=== PATIENT | male | born 1960 | race Caucasian/White ===

== ENCOUNTER 2018-12-06 12:48 | Emergency (ER) | payer OTHER ==
--- OUTSIDE RECORDS SUMMARY | 2018-12-06 13:00 | XMS REPORT ---
:1960 [facility] Address [facility] Justin Dr. Sylvester. [address] [place] [id number] Care Team Providers Name Role Phone Unavailable Unavailable Unavailable Problems This patient has no known problems. Allergies, Adverse Reactions, Alerts This patient has no known allergies or adverse reactions. Medications This patient has no known medications.
[2018-12-06] MEDS ORDERED: FENTANYL CITR 100 MCG/2 ML ONE ×2 (13:19→13:32)
[2018-12-06] MEDS ORDERED: ONDANSETRON 4 MG/2 ML VIAL ONE ×2 (13:36→14:12)
[2018-12-06] MEDS ORDERED: HYDROMORPHONE HCL 0.5 MG/0.5 ML INJ ONE ×2 (13:49→14:12)
[2018-12-06 13:53] LABS: Absolute Lymphocytes (CBC) 1.7 K/uL (0.7-4.9); Absolute Monocytes 0.4 K/uL (0.1-1.3); Absolute Neutrophil 7.6 K/uL (1.8-8.0); Basophils % 0.1 % (0-1.3); Hematocrit 45.6 % (39.6-49.0); Lymphocytes % 17.5 % (15.3-44.8); MPV 9.9 fL (7.6-11.3); Monocytes % 3.7 % (3.3-12.3); RBC Red Blood Cell Count 5.05 M/uL (4.33-5.43)
[2018-12-06 14:23] LABS: ALT/SGPT 31 U/L (12-78); AST/SGOT 26 U/L (15-37); Albumin 4.5 g/dL (3.4-5.0); Alkaline Phosphatase 152 U/L (45-117); BUN Blood Urea Nitrogen 19 mg/dL (7-18); Bicarbonate 19 mmol/L (21-32); Bilirubin Direct 0.6 mg/dL (0-0.2); Glucose Level 190 mg/dL (74-106); Lipase 141 U/L (73-393); Potassium 4.3 mmol/L (3.5-5.1); Protein, Total 8.6 g/dL (6.4-8.2); Sodium Level 141 mmol/L (136-145); Troponin (Emerg Dept Use Only) < 0.02 ng/mL (0.0-0.045)
--- NOTE | 2018-12-06 14:57 | RAD REPORT ---
EXAM DESCRIPTION: CT - Chest Abdomen Pelvis W Cont - 12/06/2018 2:35 pm CLINICAL HISTORY: Chest and abdominal pain COMPARISON: None TECHNIQUE: Computed axial tomography of the chest, abdomen and pelvis was obtained. 100 cc Isovue-30 0 was administered intravenously. Oral contrast was not given. This limits evaluation of bowel All CT scans are performed using dose optimization technique as appropriate and may include automated exposure control or mA/KV adjustment according to patient size. FINDINGS: The lungs are clear. No mediastinal or hilar lymphadenopathy A pleural effusion is not present. A pericardial effusion is not noted Old bilateral rib fractures A cirrhotic liver. The portal vein is patent. The gallbladder has been removed. Paraesophageal and upper abdominal varices Spleen, pancreas, adrenals and kidneys appear unremarkable. Small left renal cyst There is no evidence of diverticulitis. Normal appendix IMPRESSION: Old bilateral rib fractures Cirrhosis
[2018-12-06] MEDS ORDERED: LORazepam 2 MG/ML VIAL ONE (15:30)
[2018-12-06] MEDS ORDERED: PREGABALIN 150 MG CAP PO ONE (15:34)
[2018-12-06 16:00] LABS: Urine Blood TRACE (NEG); Urine Glucose NEGATIVE (NEG); Urine Protein 1+ (NEG); Urine pH 5.5 (5.0-7.0)
[2018-12-06 16:08] LABS: Barbiturates NEGATIVE (NEGATIVE); Benzodiazepines NEGATIVE (NEGATIVE); Cocaine NEGATIVE (NEGATIVE); METHAMPHETAM NEGATIVE (NEGATIVE); Methadone NEGATIVE (NEGATIVE); Opiates NEGATIVE (NEGATIVE); Phencyclidine NEGATIVE (NEGATIVE); THC Cannibis NEGATIVE (NEGATIVE)
[2018-12-06] MEDS ORDERED: NA CHLORIDE 0.9% 1,000 ML ONE (16:34)
--- NOTE | 2018-12-06 16:53 | EDPHYS ---
Physician Documentation [facility] Name: Andres Guerin Age: 57 yrs Sex: Male : 1960 Arrival Date: 12/06/2018 Time: 12:50 Bed 25 Private MD: ED Physician Daniel Leyva HPI: 12/06 16:48 This 57 yrs old Male presents to ER via EMS with complaints of Chest Pain, gs Abdominal Pain. 16:48 Onset: The symptoms/episode began/occurred acutely, today. The symptoms do not radiate. gs Associated signs and symptoms: Pertinent positives: nausea, palpitations. The symptoms are described as sharp. Modifying factors: The symptoms are alleviated by nothing, the symptoms are aggravated by nothing. Severity of pain: At its worst the pain was severe. The patient has not experienced similar symptoms in the past. Historical: - Allergies: 12:55 No Known Allergies; aj1 - Home Meds: 12:55 amlodipine oral [Active]; Buspirone Oral [Active]; citalopram oral [Active]; Lisinopril aj1 Oral [Active]; Omeprazole Oral [Active]; pravastatin oral oral [Active]; - PMHx: 12:55 Hyperlipidemia; Hypertension; Diabetes - NIDDM; aj1 - Immunization history:: Flu vaccine is not up to date. - Social history:: Smoking status: Patient/guardian denies using tobacco. - Ebola Screening: : Patient denies travel to an Ebola-affected area in the 21 days before illness onset. ROS: 16:48 Neuro: Positive for stopped lyrica a few days ago. gs 16:48 All other systems are negative. Exam: 16:48 Head/Face: Normocephalic, atraumatic. Eyes: Pupils equal round and reactive to light, gs extra-ocular motions intact. Lids and lashes normal. Conjunctiva and sclera are non-icteric and not injected. Cornea within normal limits. Periorbital areas with no swelling, redness, or edema. ENT: Nares patent. No nasal discharge, no septal abnormalities noted. Tympanic membranes are normal and external auditory canals are clear. Oropharynx with no redness, swelling, or masses, exudates, or evidence of obstruction, uvula midline. Mucous membranes moist. Neck: Trachea midline, no thyromegaly or masses palpated, and no cervical lymphadenopathy. Supple, full range of motion without nuchal rigidity, or vertebral point tenderness. No Meningismus. Chest/axilla: Normal chest wall appearance and motion. Nontender with no deformity. No lesions are appreciated. 16:48 Respiratory: Lungs have equal breath sounds bilaterally, clear to auscultation and percussion. No rales, rhonchi or wheezes noted. No increased work of breathing, no retractions or nasal flaring. Back: No spinal tenderness. No costovertebral tenderness. Full range of motion. MS/ Extremity: Pulses equal, no cyanosis. Neurovascular intact. Full, normal range of motion. Neuro: Awake and alert, GCS 15, oriented to person, place, time, and situation. Cranial nerves II-XII grossly intact. Motor strength 5/5 in all extremities. Sensory grossly intact. Cerebellar exam normal. Normal gait. 16:48 Constitutional: The patient appears alert, awake, diaphoretic, in obvious distress, severely distressed. 16:48 Cardiovascular: Rate: tachycardic, Rhythm: regular, Pulses: no pulse deficits are appreciated. 16:48 ECG was reviewed by the Attending Physician. 16:48 Skin: Appearance: diaphoresis is noted. Vital Signs: 12:55 BP 121 / 67; Pulse 86; Resp 16; Temp 98.3(O); Pulse Ox 96% on R/A; Weight 81.65 kg (R); aj1 Height 5 ft. 9 in. (175.26 cm) (R); Pain 8/10; 13:15 BP 152 / 98; Pulse 79; Resp 22; Pulse Ox 95% on R/A; aj1 13:45 BP 165 / 92; Pulse 86; Resp 22; Pulse Ox 94% on R/A; aj1 14:05 BP 172 / 107; Pulse 86; Resp 24; Pulse Ox 94% on R/A; aj1 15:05 BP 166 / 95; Pulse 97; Resp 20; Pulse Ox 97% on R/A; aj1 17:20 BP 144 / 99 LA; Pulse 95; Resp 19 S; Pulse Ox 97% on R/A; rv 12:55 Body Mass Index 26.58 (81.65 kg, 175.26 cm) aj1 MDM: 13:00 Patient medically screened. gs 16:48 Differential diagnosis: AAA, pancreatitis, Peptic Ulcer Disease, Perf. Gastric Ulcer. Data reviewed: vital signs, nurses notes, lab test result(s), EKG, radiologic studies. Medication response: ativan lyrica. Response to treatment: the patient's symptoms have markedly improved after treatment, the patient's condition has returned to base line, and as a result, I will discharge patient. 12/06 13:06 Order name: Basic Metabolic Panel; Complete Time: 14:29 gs 12/06 13:06 Order name: CBC with Diff; Complete Time: 13:59 gs 12/06 13:06 Order name: Hepatic Function; Complete Time: 14:29 gs 12/06 13:06 Order name: Lipase; Complete Time: 14:29 gs 12/06 13:06 Order name: Creatinine for Radiology; Complete Time: 14:29 gs 12/06 13:06 Order name: Troponin (emerg Dept Use Only); Complete Time: 14:29 gs 12/06 14:32 Order name: Chest Abdomen Pelvis W Cont; Complete Time: 14:58 EDMS 12/06 15:36 Order name: Urine Drug Screen; Complete Time: 16:13 rv 12/06 15:37 Order name: Urine Dipstick--Ancillary (enter results); Complete Time: 16:13 12/06 17:19 Order name: Glucose, Ancillary Testing; Complete Time: 17:20 EDMS 12/06 13:06 Order name: EKG; Complete Time: 13:08 12/06 13:06 Order name: EKG - Nurse/Tech; Complete Time: 13:06 12/06 13:06 Order name: IV Saline Lock; Complete Time: 13:28 12/06 13:06 Order name: Labs collected and sent; Complete Time: 13:28 gs EC:48 Rate is 89 beats/min. Rhythm is regular. KS interval is normal. QRS interval is normal. gs T waves are Normal. No ST changes noted. Clinical impression: Abnormal EKG without significant change. Interpreted by me. Administered Medications: 13:10 Drug: fentaNYL (PF) 50 mcg Route: IVP; Site: right antecubital; aj1 15:33 Follow up: Response: Pain is unchanged, physician notified rv 13:27 Drug: fentaNYL (PF) 50 mcg Route: IVP; Site: right antecubital; aj1 15:34 Follow up: Response: Pain is unchanged, physician notified rv 13:27 Drug: Zofran 4 mg Route: IVP; Site: right antecubital; aj1 15:34 Follow up: Response: Nausea is decreased rv 13:40 Drug: Dilaudid 0.5 mg Route: IVP; Site: right antecubital; aj1 15:34 Follow up: Response: Pain is unchanged, physician notified rv 14:04 Drug: Zofran 4 mg Route: IVP; Site: right antecubital; aj1 15:34 Follow up: Response: No adverse reaction rv 14:04 Drug: Dilaudid 0.5 mg Route: IVP; Site: right antecubital; aj1 15:35 Follow up: Response: Pain is decreased rv 15:30 Drug: Ativan 1 mg Route: IVP; Site: left antecubital; rv 17:18 Follow up: Response: Pain is decreased rv 15:30 Drug: Lyrica 300 mg Route: PO; rv 17:18 Follow up: Response: Pain is decreased rv 16:25 Drug: NS 0.9% 1000 ml Route: IV; Rate: 1 bolus; Site: right antecubital; rv 17:18 Follow up: IV Status: Completed infusion rv Point of Care Testing: Blood Glucose: 12:59 Blood Glucose: 185 mg/dL; aj1 Ranges: Critical Glucose Levels:Adult <50 mg/dl or >400 mg/dl <40 mg/dl or >180 mg/dl Disposition: 12/06/18 16:52 Discharged to Home. Impression: Chest pain, unspecified, Generalized abdominal pain, Other psychoactive substance dependence with withdrawal. - Condition is Stable. - Discharge Instructions: Abdominal Pain, Adult, Nonspecific Chest Pain, Managing Your Hypertension. - Prescriptions for Lyrica 100 mg Oral Capsule - take 1 capsule by ORAL route every 8 hours As needed; 15 capsule. - Medication Reconciliation Form, Thank You Letter, Antibiotic Education, Prescription Opioid Use form. - Follow up: Private Physician; When: 2 - 3 days; Reason: Re-evaluation by your physician. Signatures: Dispatcher [employer] Park Cevallos RN RN aj1 Daniel Leyva MD MD gs Vicente, Ronaldo, RN RN rv Corrections: (The following items were deleted from the chart) 14:32 13:07 Chest Abdomen W/ Con+CT.RAD.BRZ ordered. EDMS EDMS 17:20 16:52 12/06/2018 16:52 Discharged to Home. Impression: Chest pain, unspecified; rv Generalized abdominal pain; Other psychoactive substance dependence with withdrawal. Condition is Stable. Forms are Medication Reconciliation Form, Thank You Letter, Antibiotic Education, Prescription Opioid Use. Follow up: Private Physician; When: 2 - 3 days; Reason: Re-evaluation by your physician. gs
--- NOTE | 2018-12-06 16:53 | ER ---
Nurse's Notes [facility] Name: Andres Guerin Age: 57 yrs Sex: Male : 1960 Arrival Date: 12/06/2018 Time: 12:50 Bed 25 Private MD: Diagnosis: Chest pain, unspecified;Generalized abdominal pain;Other psychoactive substance dependence with withdrawal Presentation: 12/06 12:51 Acuity: MANOLO 2 aj1 12:51 Presenting complaint: Patient states: Right and left sided abdominal pain that started aj1 last night and became severe this morning. Denies N/V. Reports diarrhea. Patient is flushed, diaphoretic, shaking. Transition of care: patient was not received from another setting of care. Onset of symptoms was December 05, 2018. Risk Assessment: Do you want to hurt yourself or someone else? Patient reports no desire to harm self or others. Initial Sepsis Screen: Does the patient meet any 2 criteria? HR > 90 bpm. No. Patient's initial sepsis screen is negative. Does the patient have a suspected source of infection? Yes: Acute abdominal pain. Care prior to arrival: None. 12:51 Method Of Arrival: EMS: [facility] aj1 Historical: - Allergies: 12:55 No Known Allergies; aj1 - Home Meds: 12:55 amlodipine oral [Active]; Buspirone Oral [Active]; citalopram oral [Active]; Lisinopril aj1 Oral [Active]; Omeprazole Oral [Active]; pravastatin oral oral [Active]; - PMHx: 12:55 Hyperlipidemia; Hypertension; Diabetes - NIDDM; aj1 - Immunization history:: Flu vaccine is not up to date. - Social history:: Smoking status: Patient/guardian denies using tobacco. - Ebola Screening: : Patient denies travel to an Ebola-affected area in the 21 days before illness onset. Screenin:50 Abuse screen: Denies threats or abuse. Denies injuries from another. Nutritional aj1 screening: No deficits noted. Tuberculosis screening: No symptoms or risk factors identified. 17:19 Fall Risk None identified. rv Assessment: 12:50 General: Appears distressed, uncomfortable, Behavior is anxious, restless. Pain: aj1 Complains of pain in right lower quadrant and left lower quadrant Pain does not radiate. Pain currently is 10 out of 10 on a pain scale. Neuro: Level of Consciousness is awake, alert, obeys commands, Oriented to person, place, time, situation. Cardiovascular: Patient's skin is warm and dry. Respiratory: Reports shortness of breath at rest Airway is patent Respiratory effort is even, unlabored, Respiratory pattern is regular, symmetrical, Breath sounds are clear bilaterally. GI: Abdomen is non-distended, Bowel sounds present X 4 quads. Abd is soft X 4 quads Abdomen is tender to palpation X 4 quads. Reports lower abdominal pain, diarrhea, Patient currently denies nausea, vomiting. : No signs and/or symptoms were reported regarding the genitourinary system. EENT: No signs and/or symptoms were reported regarding the EENT system. Derm: Skin is intact, Skin is diaphoretic, Skin is flushed, Skin temperature is cool. Musculoskeletal: No signs and/or symptoms reported regarding the musculoskeletal system. Circulation, motion, and sensation intact. 13:19 Reassessment: Patient reports that his pain is unchanged since initial administration aj1 of Fentanyl. Patient remains flushed, diaphoretic. Notified Dr. Leyva order received. 13:40 Reassessment: Patient reports that he still has had no pain relief. Remains flushed, aj1 diaphoretic, crying. Notified Dr. Leyva. Order received. 14:04 Reassessment: Patient reports that he still has no pain relief. Remains diaphoretic, aj1 flushed, crying. Patient is also dry heaving at this time. Notified Dr. Leyva. Order received. 14:20 Reassessment: Notified CT that patient's creatinine is back and patient should be taken aj1 to CT as soon as the scanner is available. 14:50 Reassessment: Dr. Leyva at the bedside. aj1 Vital Signs: 12:55 BP 121 / 67; Pulse 86; Resp 16; Temp 98.3(O); Pulse Ox 96% on R/A; Weight 81.65 kg (R); aj1 Height 5 ft. 9 in. (175.26 cm) (R); Pain 8/10; 13:15 BP 152 / 98; Pulse 79; Resp 22; Pulse Ox 95% on R/A; aj1 13:45 BP 165 / 92; Pulse 86; Resp 22; Pulse Ox 94% on R/A; aj1 14:05 BP 172 / 107; Pulse 86; Resp 24; Pulse Ox 94% on R/A; aj1 15:05 BP 166 / 95; Pulse 97; Resp 20; Pulse Ox 97% on R/A; aj1 17:20 BP 144 / 99 LA; Pulse 95; Resp 19 S; Pulse Ox 97% on R/A; rv 12:55 Body Mass Index 26.58 (81.65 kg, 175.26 cm) aj1 ED Course: 12:50 Patient arrived in ED. aj1 12:50 Allergy band placed. Bed in low position. Call light in reach. Side rails up X 1. aj1 satellite project site monitor on. Pulse ox on. NIBP on. 12:50 No provider procedures requiring assistance completed. aj1 12:51 Triage completed. aj1 12:51 Daniel Leyva MD is Attending Physician. gs 12:55 Arm band placed on. aj1 12:59 Park Malagon RN is Primary Nurse. aj1 12:59 Inserted saline lock: 20 gauge in left antecubital area, using aseptic technique. tm3 13:05 EKG done, by artificial breeding technician. reviewed by Daniel Leyva MD. dt2 13:10 Radiology exam delayed due to lab results not completed at this time. (BUN/Creatinine). jg6 14:34 CT completed. Patient tolerated procedure well. Patient moved to CT via stretcher. sj Patient moved back from CT. 14:35 Chest Abdomen Pelvis W Cont In Process Unspecified. EDMS 15:17 Report given to BARBI Parisi. aj1 17:19 IV discontinued, bleeding controlled, No redness/swelling at site. Pressure dressing rv applied. Administered Medications: 13:10 Drug: fentaNYL (PF) 50 mcg Route: IVP; Site: right antecubital; aj1 15:33 Follow up: Response: Pain is unchanged, physician notified rv 13:27 Drug: fentaNYL (PF) 50 mcg Route: IVP; Site: right antecubital; aj1 15:34 Follow up: Response: Pain is unchanged, physician notified rv 13:27 Drug: Zofran 4 mg Route: IVP; Site: right antecubital; aj1 15:34 Follow up: Response: Nausea is decreased rv 13:40 Drug: Dilaudid 0.5 mg Route: IVP; Site: right antecubital; aj1 15:34 Follow up: Response: Pain is unchanged, physician notified rv 14:04 Drug: Zofran 4 mg Route: IVP; Site: right antecubital; aj1 15:34 Follow up: Response: No adverse reaction rv 14:04 Drug: Dilaudid 0.5 mg Route: IVP; Site: right antecubital; aj1 15:35 Follow up: Response: Pain is decreased rv 15:30 Drug: Ativan 1 mg Route: IVP; Site: left antecubital; rv 17:18 Follow up: Response: Pain is decreased rv 15:30 Drug: Lyrica 300 mg Route: PO; rv 17:18 Follow up: Response: Pain is decreased rv 16:25 Drug: NS 0.9% 1000 ml Route: IV; Rate: 1 bolus; Site: right antecubital; rv 17:18 Follow up: IV Status: Completed infusion rv Point of Care Testing: Blood Glucose: 12:59 Blood Glucose: 185 mg/dL; aj1 Ranges: Outcome: 16:52 Discharge ordered by . 17:19 Discharged to home ambulatory. rv 17:19 Condition: good 17:19 Discharge instructions given to patient, family, Instructed on discharge instructions, follow up and referral plans. medication usage, Demonstrated understanding of instructions, follow-up care, medications, Prescriptions given X 1. 17:20 Patient left the ED. rv Signatures: Dispatcher [employer] EDMS Park Malagon RN RN aj1 Corby Sawyer 3 Kell Honeycutt Gregory, MD MD Stefany Delong dt2 Jose Kevin RN RN Kristina Narayanan jg6
== END 2018-12-06 17:20 | disposition home or self-care (01) ==
LOC: ER 12:48
DX: R10.84 Generalized abdominal pain (principal); F19.239 Other psychoactive substance dependence with withdrawal, unspecified; I10 Essential (primary) hypertension; E11.9 Type 2 diabetes mellitus without complications; E78.5 Hyperlipidemia, unspecified
CPT/HCPCS: 93005; 85025; 80048; 36415; 82962; 80076; 80307 ×8; 81003; 84484; 83690; 71260; 74177; Q9967; J3010 ×2; J1170 ×2; J7030; J2405 ×2; 99285

== ENCOUNTER 2019-05-02 18:36 | Emergency (ER) | payer OTHER ==
--- OUTSIDE RECORDS SUMMARY | 2019-05-02 18:38 | XMS REPORT ---
:1960 [facility] Justin Sylvester. [address] [place] [id number] Care Team Providers Name Role Phone Unavailable Unavailable Unavailable Problems This patient has no known problems. Allergies, Adverse Reactions, Alerts This patient has no known allergies or adverse reactions. Medications This patient has no known medications.
--- NOTE | 2019-05-02 19:53 | ER ---
Nurse's Notes [facility] Name: Andres Guerin Age: 58 yrs Sex: Male : 1960 Arrival Date: 05/02/2019 Time: 18:40 Bed 14 Private MD: Diagnosis: Cellulitis of right lower limb Presentation: 05/02 18:59 Presenting complaint: Patient states: I cut myself with a lawn ariel on and la1 I think its a little infected. Transition of care: patient was not received from another setting of care. Onset of symptoms was May 02, 2019. Risk Assessment: Do you want to hurt yourself or someone else? Patient reports no desire to harm self or others. Initial Sepsis Screen: Does the patient meet any 2 criteria? No. Patient's initial sepsis screen is negative. Does the patient have a suspected source of infection? No. Patient's initial sepsis screen is negative. Care prior to arrival: None. 18:59 Method Of Arrival: Ambulatory la1 18:59 Acuity: MANOLO 3 la1 Triage Assessment: 20:30 General: Behavior is calm, cooperative. lc1 Historical: - Allergies: 19:00 No Known Allergies; la1 - PMHx: 19:00 Diabetes - NIDDM; Hyperlipidemia; Hypertension; la1 - Immunization history:: Adult Immunizations up to date, Last tetanus immunization: unknown. - Social history:: Smoking status: Patient/guardian denies using tobacco. - Ebola Screening: : No symptoms or risks identified at this time. Screenin:40 Abuse screen: Denies threats or abuse. Nutritional screening: No deficits noted. lc1 Tuberculosis screening: No symptoms or risk factors identified. Fall Risk None identified. Assessment: 19:40 General: Appears in no apparent distress. comfortable. Pain: Denies pain. Neuro: No lc1 deficits noted. Cardiovascular: No deficits noted. Respiratory: Airway is patent Respiratory effort is even, unlabored. GI: No signs and/or symptoms were reported involving the gastrointestinal system. : No signs and/or symptoms were reported regarding the genitourinary system. EENT: No signs and/or symptoms were reported regarding the EENT system. Derm: Wound noted right leg Wound is Wound to lower right gillespie area, red with yellow slough, patient states last he was edging in the yard and the blade caught his shoelace and hit his leg. he has been cleaning it but there is some redness. patient states he is diabetic and worried about it getting infected. Musculoskeletal: No signs and/or symptoms reported regarding the musculoskeletal system. Vital Signs: 19:00 BP 173 / 118; Pulse 86; Resp 16; Temp 97.4; Pulse Ox 98% on R/A; Weight 81.65 kg; la1 Height 5 ft. 9 in. (175.26 cm); 20:00 BP 180 / 108; Pulse 77; Resp 18; Pulse Ox 99% on R/A; lc1 19:00 Body Mass Index 26.58 (81.65 kg, 175.26 cm) la1 ED Course: 18:40 Patient arrived in ED. mr 19:00 Triage completed. la1 19:01 Arm band placed on right wrist. la1 19:17 Daniel Leyva MD is Attending Physician. 19:26 Nela Mendoza is Primary Nurse. 1 19:40 Patient has correct armband on for positive identification. Bed in low position. Call lc1 light in reach. Adult w/ patient. 20:29 No provider procedures requiring assistance completed. Patient did not have IV access lc1 during this emergency room visit. Administered Medications: No medications were administered Outcome: 19:52 Discharge ordered by . 20:29 Discharged to home ambulatory. 1 20:29 Condition: good 20:29 Discharge instructions given to patient, significant other, Instructed on discharge instructions, medication usage, Demonstrated understanding of instructions, follow-up care, medications, wound care, Prescriptions given X 1. 20:31 Patient left the ED. 1 Signatures: Nicky Brantley mr MendozaNela 1 Chico Kaufman, RN RN oh1 Daniel Leyva MD MD Corrections: (The following items were deleted from the chart) 19:00 18:59 Acuity: MANOLO 4 la1 la1
--- NOTE | 2019-05-02 19:54 | EDPHYS ---
Physician Documentation [facility] Name: Andres Guerin Age: 58 yrs Sex: Male : 1960 Arrival Date: 05/02/2019 Time: 18:40 Bed 14 Private MD: ED Physician Daniel Leyva HPI: 05/02 19:44 This 58 yrs old Male presents to ER via Ambulatory with complaints of Wound gs Infection. 19:44 The patient has a laceration related to: doing yard work. The laceration(s) is(are) gs located on the right gillespie. Onset: The symptoms/episode began/occurred 5 day(s) ago. Associated signs and symptoms: Pertinent positives: redness pain no fever, Pertinent negatives: heavy bleeding, numbness distal to injury. The patient has not experienced similar symptoms in the past. Historical: - Allergies: 19:00 No Known Allergies; la1 - PMHx: 19:00 Diabetes - NIDDM; Hyperlipidemia; Hypertension; la1 - Immunization history:: Adult Immunizations up to date, Last tetanus immunization: unknown. - Social history:: Smoking status: Patient/guardian denies using tobacco. - Ebola Screening: : No symptoms or risks identified at this time. ROS: 19:44 All other systems are negative. gs Exam: 19:44 Eyes: Pupils equal round and reactive to light, extra-ocular motions intact. Lids and gs lashes normal. Conjunctiva and sclera are non-icteric and not injected. Cornea within normal limits. Periorbital areas with no swelling, redness, or edema. Cardiovascular: Regular rate and rhythm with a normal S1 and S2. No gallops, murmurs, or rubs. Normal PMI, no JVD. No pulse deficits. Respiratory: Lungs have equal breath sounds bilaterally, clear to auscultation and percussion. No rales, rhonchi or wheezes noted. No increased work of breathing, no retractions or nasal flaring. Abdomen/GI: Soft, non-tender, with normal bowel sounds. No distension or tympany. No guarding or rebound. No evidence of tenderness throughout. MS/ Extremity: Pulses equal, no cyanosis. Neurovascular intact. Full, normal range of motion. Neuro: Awake and alert, GCS 15, oriented to person, place, time, and situation. Cranial nerves II-XII grossly intact. Motor strength 5/5 in all extremities. Sensory grossly intact. Cerebellar exam normal. Normal gait. 19:44 Constitutional: The patient appears alert, awake. 19:44 Skin: cellulitis, that is mild, on the right gillespie, injury, laceration(s), the wound is approximately 4 cm(s), with a depth of 1 cm(s), of the right gillespie. Vital Signs: 19:00 BP 173 / 118; Pulse 86; Resp 16; Temp 97.4; Pulse Ox 98% on R/A; Weight 81.65 kg; la1 Height 5 ft. 9 in. (175.26 cm); 20:00 BP 180 / 108; Pulse 77; Resp 18; Pulse Ox 99% on R/A; lc1 19:00 Body Mass Index 26.58 (81.65 kg, 175.26 cm) la1 MDM: 19:34 Patient medically screened. 19:44 Differential diagnosis: cellulitis, infected wound. Data reviewed: vital signs, nurses notes. Administered Medications: No medications were administered Disposition: 05/02/19 19:52 Discharged to Home. Impression: Cellulitis of right lower limb. - Condition is Stable. - Discharge Instructions: Cellulitis, Adult. - Prescriptions for Bactrim DS 800- 160 mg Oral Tablet - take 1 tablet by ORAL route every 12 hours for 7 days; 14 tablet. - Medication Reconciliation Form, Thank You Letter, Antibiotic Education, Prescription Opioid Use form. - Follow up: Private Physician; When: 2 - 3 days; Reason: Re-evaluation by your physician. Signatures: Nela Mendoza 1 [place] Kaufman RN RN [facility] Daniel Leyva MD MD Corrections: (The following items were deleted from the chart) 20:31 19:52 05/02/2019 19:52 Discharged to Home. Impression: Cellulitis of right lower limb. 1 Condition is Stable. Forms are Medication Reconciliation Form, Thank You Letter, Antibiotic Education, Prescription Opioid Use. Follow up: Private Physician; When: 2 - 3 days; Reason: Re-evaluation by your physician.
[2019-05-02] MEDS ORDERED: SMZ./TMP. 800/160 MG TABLET ONE (19:57)
== END 2019-05-02 20:31 | disposition home or self-care (01) ==
LOC: ER 18:36
DX: L03.115 Cellulitis of right lower limb (principal); I10 Essential (primary) hypertension

== ENCOUNTER 2021-01-13 23:22 | Inpatient (IN) | payer OTHER ==
--- OUTSIDE RECORDS SUMMARY | 2021-01-13 23:26 | XMS REPORT | Continuity of Care Document ---
:1960 Author Organization [facility] t Address [address] [place] [address] Care Team Providers Name Role Phone Gui MCLAUGHLIN Attending Clinician Problems This patient has no known problems. Allergies, Adverse Reactions, Alerts This patient has no known allergies or adverse reactions. Medications This patient has no known medications. Procedures This patient has no known procedures. Encounters Start End Encounter Admission Attending Care Care Encounter Source Date/Time Date/Time Type Type Clinicians Facility Department ID 2020-08-28 2020-08-28 Emergency [facility] [id number] 1965 08:31:00 10:57:00 [facility] [id number] [place] [id number] [place] [id number] Results Test Description Test Time Test Comments Results Result Comments Source POC Glucose 2019-09-15 10:42:53 Test Item Value Reference Range Interpretation Comme nts Glucose POC (test code = 160 mg/dL 70-115 H Not carey RN or MDIf you consider your Glucose POC) patient critica lly ill, the Debby-Accu Chec k Infrom II meter should not be u sed for Glucose determination. Draw a venous Glucose and send to the main Lab for analysis. POC [id number] 06:30:01 Test Item Value Reference Range Interpretation Comments Glucose POC (test 163 mg/dL 70-115 H Notify RN or MDIf you code = Glucose POC) consider your patient critically ill, the Debby-Accu Chec k Infrom II meter should not be used for Glucos e determination. Draw a venous Glucose and send to the main Lab for analysis. POC [id number] 20:14:50 Test Item Value Reference Range Interpretation Comments Glucose POC (test 161 mg/dL 70-115 H If you con core placer your code = Glucose POC) patient critically ill, the Debby-Accu Check Infrom II meter should not be used for Glucose determination. Draw a venous Glucose and send to the main Lab for analysis. POC [id number] 15:02:57 Test Item Value Reference Range Interpretation Comments Glucose POC (test 144 mg/dL 70-115 H Notify RN or MDIf you code = Glucose POC) consider your patient critically ill, the Debby-Accu Chec k Infrom II meter should not be used for Glucos e determination. Draw a venous Glucose and send to the main Lab for analysis. POC [id number] 11:14:36 Test Item Value Reference Range Interpretation Comments Glucose POC (test 173 mg/dL 70-115 H Notify RN or MDIf you code = Glucose POC) consider your patient critically ill, the Debby-Accu Chec k Infrom II meter should not be used for Glucos e determination. Draw a venous Glucose and send to the main Lab for analysis. POC [id number] 06:21:50 Test Item Value Reference Range Interpretation Comments Glucose POC (test 135 mg/dL 70-115 H Notify RN or MDIf you code = Glucose POC) consider your patient critically ill, the Debby-Accu Chec k Infrom II meter should not be used for Glucos e determination. Draw a venous Glucose and send to the main Lab for analysis. POC [id number] 19:28:55 Test Item Value Reference Range Interpretation Comments Glucose POC (test 128 mg/dL 70-115 H Notify RN or MDIf you code = Glucose POC) consider your patient critically ill, the Debby-Accu Chec k Infrom II meter should not be used for Glucos e determination. Draw a venous Glucose and send to the main Lab for analysis. Thyroid Stimulating [id number] 15:30:55 Test Item Value Reference Range Interpretation Comments TSH (test code = TSH) 0.926 mIU/mL 0.270-4.200 POC [id number] 15:25:28 Test Item Value Reference Range Interpretation Comments Glucose POC (test 138 mg/dL 70-115 H If you con core placer your code = Glucose POC) patient critically ill, the Debby-Accu Check Infrom II meter should not be used for Glucose determination. Draw a venous Glucose and send to the main Lab for analysis. Lipid [id number] 14:57:37 Test Item Value Reference Range Interpretation Comments Cholesterol Total 155 mg/dL 0-200 RISK OF HE ART (test code = DISEASEPublishe d by Cholesterol Total) [place] [employer] Zoey lyte Optimal Borderl ine Increased RiskC HOL <200 200-239 >2 40TRIG <150 150-199 >2 00HDL Male >60 <40H DL Female >60 <5 0LDL <100 130-159 >1 60LDL Near optimal is 100-129 Triglycerides (test 98 mg/dL 9-200 code = Triglycerides) HDL (test code = HDL) 60 mg/dL 40-60 LDL (test code = LDL) 75 mg/dL 0-130 The eq uation being used in this calcula tion is LDL = (Chol - H DL) - (Trig / 5) VLDL (test code = 20 mg/dL 5-40 The equati on being used VLDL) in this calcula tion is VLDL = Trig / 5 Chol/HDL (test code = 2.6 ratio 0.0-5.0 Chol/HDL) LDL/HDL Ratio (test 1 N The equa tion being used code = LDL/HDL Ratio) in thi s calculation is LDL/HDL Ratio=L DL Calc/HDL Chol RPR [id number] 12:22:43 Test Item Value Reference Range Interpretation Comments RPR Qual (test code = RPR Qual) Non-Reactive Non-Reactive Reactive Control (test code = Reactive Reactive Control) Weak Reactive Control (test Weak Reactive code = Weak Reactive Control) Non-Reactive Control (test code Non-Reactive = Non-Reactive Control) Lot # (test code = Lot #) [id number] N Expiration Dt (test code = 07-06-20 N Expiration Dt) Urine [id number] 11:34:40 C Urine Added by [id number]_UA_CUL_INDNo growth at 24 hours. No growth at 48 hours.POC [id number] 11:14:46 Test Item Value Reference Range Interpretation Comments Glucose POC (test 171 mg/dL 70-115 H If you con core placer your code = Glucose POC) patient critically ill, the Debby-Accu Check Infrom II meter should not be used for Glucose determination. Draw a venous Glucose and send to the main Lab for analysis. POC [id number] 08:41:45 Test Item Value Reference Range Interpretation Comments Glucose POC (test 163 mg/dL 70-115 H If you con core placer your code = Glucose POC) patient critically ill, the Debby-Accu Check Infrom II meter should not be used for Glucose determination. Draw a venous Glucose and send to the main Lab for analysis. POC [id number] 05:38:51 Test Item Value Reference Range Interpretation Comments Glucose POC (test 146 mg/dL 70-115 H Notify RN or MDIf you code = Glucose POC) consider your patient critically ill, the Debby-Accu Chec k Infrom II meter should not be used for Glucos e determination. Draw a venous Glucose and send to the main Lab for analysis. POC [id number] 15:39:16 Test Item Value Reference Range Interpretation Comments Glucose POC (test 172 mg/dL 70-115 H Notify RN or MDIf you code = Glucose POC) consider your patient critically ill, the Debby-Accu Chec k Infrom II meter should not be used for Glucos e determination. Draw a venous Glucose and send to the main Lab for analysis. Urine Drug [id number] 14:11:43 Test Item Value Reference Range Interpretation Comments Amphetamine Screen Ur Negative Negative (test code = Amphetamine Screen Ur) Barbiturate Screen Ur Negative Negative (test code = Barbiturate Screen Ur) Benzodiazepines Ur (test POSITIVE Negative A code = Benzodiazepines Ur) Cocaine Screen Ur (test Negative Negative code = Cocaine Screen Ur) U Methadone Scr (test Negative Negative code = U Methadone Scr) Opiate Screen Ur (test Negative Negative code = Opiate Screen Ur) U PCP Scrn (test code = Negative Negative U PCP Scrn) Cannabinoid Screen Ur Negative Negative (test code = Cannabinoid Screen Ur) U TCA (test code = U Negative Negative The res ults of all TCA) drug screen cullen ts are only preliminar y. Clinical consideration a nd professional ju dgment should be appli ed to any drug of abu se test result, particularly wh en preliminary pos itive results are obt ained. Please order a separate confir matory test if desired . Urinalysis [id number] 13:55:31 Test Item Value Reference Range Interpretation Comments UA WBC (test code = UA WBC) 11-19 0-5 A UA RBC (test code = UA RBC) 11-19 0-5 A UA Bacteria (test code = UA Few A Bacteria) UA Squam Epithelial (test code = UA 6-10 A Squam Epithelial) UA Trans Epithelial (test code = UA 1-4 A Trans Epithelial) UA Mucous (test code = UA Mucous) Moderate A Urinalysis with Culture, if [id number] 13:55:31 Test Item Value Reference Range Interpretation Comments UA Color (test code = LINNETTE Yellow A UA Color) UA Appear (test code = CLEAR Clear UA Appear) UA pH (test code = UA 6.5 pH) UA Spec Grav (test 1.028 1.001-1.035 code = UA Spec Grav) UA Glucose (test code 100 mg/dL Negative A = UA Glucose) UA Bili (test code = 1 mg/dL Negative A UA Bili) UA Ketones (test code 150 mg/dL Negative A = UA Ketones) UA Blood (test code = 250 cells/mcL Negative A UA Blood) UA Protein (test code 500 mg/dL Negative A = UA Protein) UA Urobilinogen (test 4 mg/dL >0.2 A code = UA Urobilinogen) UA Nitrite (test code NEG Negative = UA Nitrite) UA Leuk Est (test code 25 cells/mcL Negative A = UA Leuk Est) UA Micro Ind? (test Indicated Not Indicated A Result created by code = UA Micro Ind?) rule [id number] _IN D Alcohol [id number] 12:41:12 Test Item Value Reference Range Interpretation Comments Ethanol Level (test <0.00 g/dL 0.00-0.01 Intoxica june 0.080 g/dL code = Ethanol or more Level) Ethanol Inst (test <0 N code = Ethanol Inst) Comprehensive Metabolic [id number] 12:41:11 Test Item Value Reference Range Interpretation Comments Sodium Level (test code = Sodium 140.0 mmol/L 135.0-145.0 Level) Potassium Level (test code = 4.0 mmol/L 3.5-5.1 Potassium Level) Chloride Level (test code = 103 mmol/L 98-105 Chloride Level) CO2 (test code = CO2) 24 mmol/L 22-29 Anion Gap (test code = Anion 13 mmol/L 7-16 Gap) BUN (test code = BUN) 12.20 mg/dL 6.00-20.00 Creatinine Level (test code = 0.90 mg/dL 0.70-1.20 Creatinine Level) BUN/Creat Ratio (test code = 14 N BUN/Creat Ratio) Glucose Level (test code = 219 mg/dL 70-115 H Glucose Level) Calcium Level (test code = 9.9 mg/dL 8.3-10.5 Calcium Level) Alk Phos (test code = Alk Phos) 105 U/L 40-129 Bilirubin Total (test code = 1.7 mg/dL 0.1-0.9 H Bilirubin Total) Albumin Level (test code = 4.7 g/dL 3.5-5.2 Albumin Level) Protein Total (test code = 7.9 g/dL 6.4-8.3 Protein Total) ALT (test code = ALT) 24 U/L 1-41 AST (test code = AST) 30 U/L 1-40 Globulin (test code = Globulin) 3.2 g/dL 2.9-3.1 H A/G Ratio (test code = A/G 1.5 ratio N Ratio) Comprehensive Metabolic [id number] 12:41:11 Test Item Value Reference Range Interpretation Comments Sodium Level (test 140.0 mmol/L 135.0-145.0 code = Sodium Level) Potassium Level 4.0 mmol/L 3.5-5.1 (test code = Potassium Level) Chloride Level (test 103 mmol/L 98-105 code = Chloride Level) CO2 (test code = 24 mmol/L 22-29 CO2) Anion Gap (test code 13 mmol/L 7-16 = Anion Gap) BUN (test code = 12.20 mg/dL 6.00-20.00 BUN) Creatinine Level 0.90 mg/dL 0.70-1.20 (test code = Creatinine Level) BUN/Creat Ratio 14 N (test code = BUN/Creat Ratio) Glucose Level (test 219 mg/dL 70-115 H code = Glucose Level) Calcium Level (test 9.9 mg/dL 8.3-10.5 code = Calcium Level) Alk Phos (test code 105 U/L 40-129 = Alk Phos) Bilirubin Total 1.7 mg/dL 0.1-0.9 H (test code = Bilirubin Total) Albumin Level (test 4.7 g/dL 3.5-5.2 code = Albumin Level) Protein Total (test 7.9 g/dL 6.4-8.3 code = Protein Total) ALT (test code = 24 U/L 1-41 ALT) AST (test code = 30 U/L 1-40 AST) Globulin (test code 3.2 g/dL 2.9-3.1 H = Globulin) A/G Ratio (test code 1.5 ratio N = A/G Ratio) eGFR AA (test code = >60 N eGFR (e stimated eGFR AA) mL/min/1.73 m2 Glomerular Filtration Rate ) is an estimated va lue, calculated from the patient's serum creatinine usin g the MDRD equation. It is NOT the patient 's actual GFR. The eGFR provides a more clinically usef ul measure of kidn ey disease than se rum creatinine alone.This calculation bunny es sex and race in to account, if the information is provided. If th e race is not provided, and t he patient is -Nirmala n, multiply by 1.2 12. If sex is not provided, and t he patient is fema le, multiply by 0.7 42. Results for pat ients <18 years of ag e have not been validated by th e MDRD study and should be interpreted wit h caution. eGFR R esult Interpretation: eGFR > or = 60 is in the Normal RangeeGF R < 60 may mean kid jose diseaseeGFR < 1 5 may mean kidney failure Rang es recommended by the National Kidney Foundation, http://nkdep.ni h.gov Comprehensive Metabolic [id number] 12:41:11 Test Item Value Reference Range Interpretation Comments Sodium Level (test 140.0 mmol/L 135.0-145.0 code = Sodium Level) Potassium Level 4.0 mmol/L 3.5-5.1 (test code = Potassium Level) Chloride Level (test 103 mmol/L 98-105 code = Chloride Level) CO2 (test code = 24 mmol/L 22-29 CO2) Anion Gap (test code 13 mmol/L 7-16 = Anion Gap) BUN (test code = 12.20 mg/dL 6.00-20.00 BUN) Creatinine Level 0.90 mg/dL 0.70-1.20 (test code = Creatinine Level) BUN/Creat Ratio 14 N (test code = BUN/Creat Ratio) Glucose Level (test 219 mg/dL 70-115 H code = Glucose Level) Calcium Level (test 9.9 mg/dL 8.3-10.5 code = Calcium Level) Alk Phos (test code 105 U/L 40-129 = Alk Phos) Bilirubin Total 1.7 mg/dL 0.1-0.9 H (test code = Bilirubin Total) Albumin Level (test 4.7 g/dL 3.5-5.2 code = Albumin Level) Protein Total (test 7.9 g/dL 6.4-8.3 code = Protein Total) ALT (test code = 24 U/L 1-41 ALT) AST (test code = 30 U/L 1-40 AST) Globulin (test code 3.2 g/dL 2.9-3.1 H = Globulin) A/G Ratio (test code 1.5 ratio N = A/G Ratio) eGFR AA (test code = >60 N eGFR (e stimated eGFR AA) mL/min/1.73 m2 Glomerular Filtration Rate ) is an estimated va lue, calculated from the patient's serum creatinine usin g the MDRD equation. It is NOT the patient 's actual GFR. The eGFR provides a more clinically usef ul measure of kidn ey disease than se rum creatinine alone.This calculation bunny es sex and race in to account, if the information is provided. If th e race is not provided, and t he patient is -Nirmala n, multiply by 1.2 12. If sex is not provided, and t he patient is fema le, multiply by 0.7 42. Results for pat ients <18 years of ag e have not been validated by th e MDRD study and should be interpreted wit h caution. eGFR R esult Interpretation: eGFR > or = 60 is in the Normal RangeeGF R < 60 may mean kid jose diseaseeGFR < 1 5 may mean kidney failure Rang es recommended by the National Kidney Foundation, http://nkdep.ni h.gov eGFR Non-AA (test >60.00 N eGFR (cira mated code = eGFR Non-AA) mL/min/1.73 m2 Glomer ular Filtration Rate ) is an estimated va lue, calculated from the patient's serum creatinine usin g the MDRD equation. It is NOT the patient 's actual GFR. The eGFR provides a more clinically usef ul measure of kidn ey disease than se rum creatinine alone.This calculation bunny es sex and race in to account, if the information is provided. If th e race is not provided, and t he patient is -Nirmala n, multiply by 1.2 12. If sex is not provided, and t he patient is fema le, multiply by 0.7 42. Results for pat ients <18 years of ag e have not been validated by th e MDRD study and should be interpreted wit h caution. eGFR R esult Interpretation: eGFR > or = 60 is in the Normal RangeeGF R < 60 may mean kid jose diseaseeGFR < 1 5 may mean kidney failure Rang es recommended by the National Kidney Foundation, http://nkdep.ni h.gov Complete Blood Count with [id number] 12:34:46 Test Item Value Reference Range Interpretation Comments WBC (test code = WBC) 9.3 x10 4.4-10.5 RBC (test code = RBC) 5.31 x10 4.10-5.70 Hgb (test code = Hgb) 16.5 g/dL 13.4-17.4 Hct (test code = Hct) 47.6 % 38.7-52.0 MCV (test code = MCV) 89.60 fL 80.00-100.00 MCHC (test code = 34.70 g/dL 32.00-37.50 MCHC) RDW CV (test code = 12.1 % 11.5-14.5 RDW CV) MCH (test code = MCH) 31.1 pg 27.0-32.5 Platelets (test code = 152.0 x10 140.0-440.0 Platelets) MPV (test code = MPV) 10.7 fL N Slide Review (test Auto Auto Result cr eated by code = Slide Review) GL_SJM_ SLIDE_REV_AUTO nRBC (test code = 0 N nRBC) NRBC Abs (test code = 0.00 x10 N NRBC Abs) IPF (test code = IPF) 0 % N Automated [id number] 12:34:46 Test Item Value Reference Range Interpretation Comments Neutro Auto (test code = Neutro 56.4 % 36.0-70.0 Auto) Lymph Auto (test code = Lymph Auto) 36.4 % 12.0-44.0 Perkins Auto (test code = Perkins Auto) 5.5 % 0.0-11.0 Eos, Auto (test code = Eos, Auto) 1.2 % 0.0-7.0 Basophil Auto (test code = Basophil 0.3 % 0.0-2.0 Auto) Neutro Absolute (test code = Neutro 5.3 x10 1.6-7.4 Absolute) Lymph Absolute (test code = Lymph 3.39 x10 .50-4.60 Absolute) Perkins Absolute (test code = Perkins .51 x10 .00-1.20 Absolute) Eos Absolute (test code = Eos 0.11 x10 0.00-0.74 Absolute) Baso Absolute (test code = Baso 0.03 x10 0.00-0.21 Absolute) IG [id number] 12:34:46 Test Item Value Reference Range Interpretation Comments IG (test code = IG) 0.2 % 0.0-5.0 IG Abs (test code = IG Abs) 0 x10 N
[2021-01-14 00:10] LABS: Arterial Blood Carboxyhemoglob 1.7 % (0-1.5); Blood Gas Oxyhemoglobin 95.9 % (94-97); Blood O2 Saturation 98.4 % (92-98.5)
[2021-01-14 00:22] LABS: Absolute Lymphocytes (CBC) 2.5 K/uL (0.7-4.9); Basophils % 0.1 % (0-1.3); Hematocrit 31.7 % (39.6-49.0); Lymphocytes % 21.8 % (15.3-44.8); MPV 9.9 fL (7.6-11.3); RBC Red Blood Cell Count 3.59 M/uL (4.33-5.43)
[2021-01-14 00:26] LABS: Protime INR 1.4
[2021-01-14] MEDS ORDERED: NA CHLORIDE 0.9% 2,000 ML ONE (00:26)
[2021-01-14] MEDS ORDERED: CEFTRIAXONE/SWI 1gm 1 GM/10 ML SYR ONE (00:26)
[2021-01-14] MEDS ORDERED: FAMOTIDINE 20 MG/2 ML VIAL IV ONE (00:26)
[2021-01-14 00:44] LABS: ALT/SGPT 28 U/L (12-78); AST/SGOT 14 U/L (15-37); Albumin 3.8 g/dL (3.4-5.0); Alkaline Phosphatase 114 U/L (45-117); BUN Blood Urea Nitrogen 31 mg/dL (7-18); Bicarbonate 19 mmol/L (21-32); Bilirubin Direct 0.5 mg/dL (0-0.2); Bilirubin Total 1.6 mg/dL (0.2-1.0); Lipase 38 U/L (73-393); Magnesium 1.5 mg/dL (1.8-2.4); NT PRO-BNP 116 pg/mL (<125); Potassium 3.4 mmol/L (3.5-5.1); Protein, Total 6.8 g/dL (6.4-8.2); Sodium Level 136 mmol/L (136-145); Troponin (Emerg Dept Use Only) < 0.02 ng/mL (0.0-0.045)
[2021-01-14 00:46] LABS: Glucose Level 515 mg/dL (74-106)
--- NOTE | 2021-01-14 01:03 | EDPHYS ---
Physician Documentation [facility] Name: Andres Guerin Age: 60 yrs Sex: Male : 1960 Arrival Date: 01/13/2021 Time: 23:25 Bed 17 Private MD: ED Physician Pan Wallace HPI: 01/13 23:50 This 60 yrs old Male presents to ER via EMS with complaints of weakness, billie elevated bs and ams. Historical: - Allergies: 23:48 No Known Allergies; jm8 - Home Meds: 23:48 pravastatin Oral [Active]; lisinopril Oral [Active]; amlodipine oral [Active]; jm8 Buspirone Oral [Active]; citalopram oral [Active]; Omeprazole Oral [Active]; - PMHx: 23:48 Diabetes - NIDDM; Hyperlipidemia; Hypertension; jm8 - Immunization history:: Adult Immunizations up to date. - Social history:: Smoking status: Patient reports use of chewing tobacco. Patient uses synthetic marijuana per EMS report from family. "quit cold turkey on Wednesday", Patient/guardian denies using Patient/guardian denies using alcohol, street drugs. ROS: 23:52 Constitutional: Negative for fever, chills, and weight loss, Eyes: Negative for injury, billie pain, redness, and discharge, ENT: Negative for injury, pain, and discharge, Neck: Negative for injury, pain, and swelling, Abdomen/GI: Negative for abdominal pain, nausea, vomiting, diarrhea, and constipation, Back: Negative for injury and pain, : Negative for injury, bleeding, discharge, and swelling, MS/Extremity: Negative for injury and deformity, Skin: Negative for injury, rash, and discoloration, Neuro: Negative for headache, weakness, numbness, tingling, and seizure, Psych: Negative for depression, anxiety, suicide ideation, homicidal ideation, and hallucinations, Allergy/Immunology: Negative for hives, rash, and allergies, Endocrine: Negative for neck swelling, polydipsia, polyuria, polyphagia, and marked weight changes. 23:52 Cardiovascular: Positive for palpitations. 23:52 Respiratory: Positive for cough. 23:52 Neuro: Positive for altered mental status, weakness. Exam: 23:52 Constitutional: This is a well developed, well nourished patient who is awake, alert, billie and in no acute distress. Head/Face: Normocephalic, atraumatic. Eyes: Pupils equal round and reactive to light, extra-ocular motions intact. Lids and lashes normal. Conjunctiva and sclera are non-icteric and not injected. Cornea within normal limits. Periorbital areas with no swelling, redness, or edema. ENT: Nares patent. No nasal discharge, no septal abnormalities noted. Tympanic membranes are normal and external auditory canals are clear. Oropharynx with no redness, swelling, or masses, exudates, or evidence of obstruction, uvula midline. Mucous membranes moist. Neck: Trachea midline, no thyromegaly or masses palpated, and no cervical lymphadenopathy. Supple, full range of motion without nuchal rigidity, or vertebral point tenderness. No Meningismus. Chest/axilla: Normal chest wall appearance and motion. Nontender with no deformity. No lesions are appreciated. Respiratory: Lungs have equal breath sounds bilaterally, clear to auscultation and percussion. No rales, rhonchi or wheezes noted. No increased work of breathing, no retractions or nasal flaring. Abdomen/GI: Soft, non-tender, with normal bowel sounds. No distension or tympany. No guarding or rebound. No evidence of tenderness throughout. Back: No spinal tenderness. No costovertebral tenderness. Full range of motion. Skin: Warm, dry with normal turgor. Normal color with no rashes, no lesions, and no evidence of cellulitis. MS/ Extremity: Pulses equal, no cyanosis. Neurovascular intact. Full, normal range of motion. Psych: Awake, alert, with orientation to person, place and time. Behavior, mood, and affect are within normal limits. 23:52 Cardiovascular: Rate: tachycardic, Rhythm: regular, Pulses: Pulses are 4+ in bilateral radial, brachial, femoral, popliteal, posterior tibial and and dorsalis pedis arteries.. Heart sounds: murmur, not appreciated, rub, not appreciated, gallop, not appreciated, Edema: is not appreciated, JVD: is not appreciated. 01/14 01:05 ECG was reviewed by the Attending Physician. [facility] Vital Signs: 01/13 23:33 BP 157 / 96; Pulse 106; Resp 18; Pulse Ox 98% on R/A; lc1 23:39 BP 157 / 96; Pulse 107; Resp 20; Temp 98; Pulse Ox 100% on R/A; Weight 86.18 kg; Height jm8 5 ft. 9 in. (175.26 cm); 01/14 00:00 BP 148 / 95; Pulse 105; Resp 18; Pulse Ox 98% on R/A; lc1 01:00 BP 141 / 101; Pulse 109; Resp 18; Pulse Ox 98% on R/A; lc1 02:00 BP 145 / 101; Pulse 116; Resp 18; Pulse Ox 100% on R/A; lc1 03:00 BP 139 / 78; Pulse 102; Resp 18; Pulse Ox 98% on R/A; 1 01/13 23:39 Body Mass Index 28.06 (86.18 kg, 175.26 cm) jm8 MDM: 01/13 23:28 Patient medically screened. billie 23:56 Differential diagnosis: DKA, hyperglycemia, hypothyroidism. Differential Diagnosis billie altered mental status, sepsis, flu. Differential Diagnosis: CVA, electrolyte abnormality, alcohol intoxication, hypoglycemia, intracranial bleed, overdose, pneumonia, seizure, TIA, UTI, volume depletion. Data reviewed: vital signs, nurses notes, lab test result(s), EKG, radiologic studies. Data interpreted: monitor and storage bin tender: rate is 107 beats/min, rhythm is regular, Pulse oximetry: on room air is 100 %. Test interpretation: by ED physician or midlevel provider: ECG, plain radiologic studies. Counseling: I had a detailed discussion with the patient and/or guardian regarding: the historical points, exam findings, and any diagnostic results supporting the discharge/admit diagnosis, lab results, radiology results, the need for further work-up and treatment in the hospital. 01/13 23:50 Order name: Basic Metabolic Panel [facility] 01/13 23:50 Order name: CBC with Diff 01/13 23:50 Order name: LFT's 01/13 23:50 Order name: Magnesium [facility] 01/13 23:50 Order name: NT PRO-BNP 01/13 23:50 Order name: PT-INR [facility] 01/13 23:50 Order name: Troponin (emerg Dept Use Only) [facility] 01/13 23:50 Order name: Lipase; Complete Time: 00:56 [facility] 01/13 23:50 Order name: Blood Culture Adult (2) [facility] 01/13 23:50 Order name: Urine Culture [facility] 01/13 23:50 Order name: ABG; Complete Time: 00:40 [facility] 01/13 23:50 Order name: Lactate; Complete Time: 00:42 [facility] 01/13 23:50 Order name: Basic Metabolic Panel; Complete Time: 00:56 [facility] 01/13 23:50 Order name: CBC with Automated Diff; Complete Time: 00:42 [facility] 01/13 23:50 Order name: Liver (Hepatic) Function; Complete Time: 00:56 [facility] 01/13 23:50 Order name: Magnesium; Complete Time: 00:56 [facility] 01/13 23:50 Order name: NT PRO-BNP; Complete Time: 00:56 [facility] 01/13 23:50 Order name: Troponin (Emerg Dept Use Only); Complete Time: 00:56 [facility] 01/13 23:52 Order name: ETOH Level; Complete Time: 00:42 [facility] 01/13 23:52 Order name: Ptt, Activated; Complete Time: 00:56 [facility] 01/13 23:52 Order name: Salicylate; Complete Time: 00:42 [facility] 01/13 23:52 Order name: Urine Drug Screen; Complete Time: 01:20 [facility] 01/13 23:59 Order name: Glucose, Ancillary Testing; Complete Time: 00:42 [facility] 01/14 00:15 Order name: Protime (+INR); Complete Time: 00:56 [facility] 01/14 00:18 Order name: Acetaminophen Level; Complete Time: 00:56 [facility] 01/14 01:12 Order name: Urine Dipstick-Ancillary; Complete Time: 01:52 [facility] 01/13 23:50 Order name: XRAY Chest (1 view) [facility] 01/13 23:50 Order name: EKG; Complete Time: 23:51 [facility] 01/13 23:50 Order name: Cardiac monitoring; Complete Time: 00:54 [facility] 01/13 23:50 Order name: EKG - Nurse/Tech; Complete Time: 00:54 [facility] 01/13 23:50 Order name: IV Saline Lock; Complete Time: 00:08 [facility] 01/13 23:50 Order name: Labs collected and sent; Complete Time: 00:08 [facility] 01/13 23:50 Order name: O2 Per Protocol; Complete Time: 00:08 [facility] 01/13 23:50 Order name: O2 Sat Monitoring; Complete Time: 00:08 [facility] 01/13 23:50 Order name: Urine Dipstick-Ancillary (obtain specimen); Complete Time: 00:54 [facility] 01/13 23:50 Order name: CT Head Brain wo Cont [facility] 01/13 23:50 Order name: Blood Glucose Level; Complete Time: 00:55 [facility] 01/14 01:21 Order name: Misc. Order: Recheck BMP after 2L bolus, call with results please; Complete la1 Time: 02:53 01/14 02:54 Order name: BMP lc1 01/14 02:56 Order name: COVID-19/FLU A+B EDMS 01/14 03:30 Order name: Basic Metabolic Panel; Complete Time: 03:35 EDMS EC/11 01:05 Rate is 105 beats/min. Rhythm is regular. QRS [place] is Normal. HI interval is normal. billie QRS interval is normal. QT interval is normal. No Q waves. T waves are Normal. No ST changes noted. Clinical impression: NSR w/ Non-specific ST/T Changes and No evidence of ischemia. Interpreted by me. Reviewed by me. Administered Medications: 00:25 Drug: NS 0.9% 1000 ml Route: IV; Rate: 1 bolus; Site: right antecubital; lc1 01:58 Follow up: Response: No adverse reaction; IV Status: Completed infusion lc1 00:30 Drug: Rocephin (cefTRIAXone) 1 grams Route: IV; Rate: per protocol; Site: right [facility] antecubital; 00:53 Follow up: Response: No adverse reaction lc1 01:58 Follow up: Response: No adverse reaction; IV Status: Completed infusion lc1 00:30 Drug: Pepcid (famotidine) 20 mg Route: IVP; Site: right antecubital; lc1 00:52 Follow up: Response: No adverse reaction lc1 01:11 Drug: Insulin Regular Human 10 units {Co-Signature: jm8 (Melquiades Gill RN).} Route: lc1 IVP; Site: right antecubital; 01:25 Follow up: Response: No adverse reaction lc1 01:12 Drug: Magnesium Sulfate 1 grams Route: IVPB; Infused Over: 1 hrs; Site: right 1 antecubital; 03:25 Follow up: Response: No adverse reaction; IV Status: Completed infusion lc1 01:24 Drug: NS 0.9% with KCl 20 mEq/L 1000 ml Route: IV; Rate: 150 ml/hr; Site: right lc1 antecubital; 04:07 Follow up: Response: No adverse reaction; IV Status: Infusion continued upon admission lc1 01:59 Drug: NS 0.9% 1000 ml Route: IV; Rate: 1 bolus; Site: right antecubital; lc1 02:20 Drug: Zofran (Ondansetron) 4 mg Route: IVP; Site: left hand; lc1 03:25 Follow up: Response: No adverse reaction lc1 Disposition: 01/14/21 01:03 Hospitalization ordered by Juanito Rodgers for Inpatient Admission. Preliminary diagnosis are Altered mental status, unspecified, Abuse of non-psychoactive substances, Hypomagnesemia, Hypokalemia, Type 1 diabetes mellitus - POORLY CONTROLLED. - Bed requested for Telemetry/MedSurg (Inpatient). - Status is Inpatient Admission. jm8 - Condition is Fair. - Problem is new. - Symptoms have improved. Signatures: Dispatcher [employer] [facility] Mavis Parish, Pan Cronin RN, MD MD cha Calhoun, Lisa 1 [place] Kaufman, [employer]-C [employer]-Cla1 Melquiades Gill RN RN jm8 Melquiades Gill RN jm8 Corrections: (The following items were deleted from the chart) 00:15 01/13 23:50 Protime (+INR) ordered. [facility] 01/14 00:18 01/13 23:52 ACETAMINOPHEN+C.LAB.BRZ ordered. [facility] 01/14 01:42 01/13 23:51 Influenza Screen (A \\T\\ B)+BA.LAB.BRZ ordered. [facility] 01/14 01:42 01/13 23:51 CORONAVIRUS+MR.LAB.BRZ ordered. [facility] 01/14 03:25 01/13 23:52 Suicide Screening ([place]) ordered. [place] [id number] 01/14 03:48 01:03 Hospitalization Ordered by Juanito Rodgers MD for Inpatient Admission. Preliminary mw diagnosis is Altered mental status, unspecified; Abuse of non-psychoactive substances; Hypomagnesemia; Hypokalemia; Type 1 diabetes mellitus - POORLY CONTROLLED. Bed requested for Telemetry/MedSurg (Inpatient). Status is Inpatient Admission. Condition is Fair. Problem is new. Symptoms have improved. billie 04:31 03:48 01/14/2021 01:03 Hospitalization Ordered by Juanito Rodgers MD for Inpatient jm8 Admission. Preliminary diagnosis is Altered mental status, unspecified; Abuse of non-psychoactive substances; Hypomagnesemia; Hypokalemia; Type 1 diabetes mellitus - POORLY CONTROLLED. Bed requested for Telemetry/MedSurg (Inpatient). Status is Inpatient Admission. Condition is Fair. Problem is new. Symptoms have improved. mw
--- NOTE | 2021-01-14 01:03 | ER ---
Nurse's Notes [facility] Name: Andres Guerin Age: 60 yrs Sex: Male : 1960 Arrival Date: 01/13/2021 Time: 23:25 Bed 17 Private MD: Diagnosis: Altered mental status, unspecified;Abuse of non-psychoactive substances;Hypomagnesemia;Hypokalemia;Type 1 diabetes mellitus-POORLY CONTROLLED Presentation: 01/13 23:39 Chief complaint:. Chief complaint: EMS states: patient has been noncompliant with [facility] diabetic [facility]. Pt. complains of nausea and vomiting today. States he used synthetic weed last week. BG greater than 600 for EMS. Coronavirus screen: Client denies travel out of the [place] in the last 14 days. At this time, the client does not indicate any symptoms associated with coronavirus-19. Ebola Screen: Patient negative for fever greater than or equal to 101.5 degrees Fahrenheit, and additional compatible Ebola Virus Disease symptoms Patient denies exposure to infectious person. Patient denies travel to an Ebola-affected area in the 21 days before illness onset. Initial Sepsis Screen: Does the patient meet any 2 criteria? HR > 90 bpm. No. Patient's initial sepsis screen is negative. Does the patient have a suspected source of infection? No. Patient's initial sepsis screen is negative. Risk Assessment: Do you want to hurt yourself or someone else?. Onset of symptoms was January 13, 2021. 23:39 Method Of Arrival: EMS: [place] [id number] 23:39 Acuity: MANOLO 3 jm8 Historical: - Allergies: 23:48 No Known Allergies; jm8 - Home Meds: 23:48 pravastatin Oral [Active]; lisinopril Oral [Active]; amlodipine oral [Active]; jm8 Buspirone Oral [Active]; citalopram oral [Active]; Omeprazole Oral [Active]; - PMHx: 23:48 Diabetes - NIDDM; Hyperlipidemia; Hypertension; jm8 - Immunization history:: Adult Immunizations up to date. - Social history:: Smoking status: Patient reports use of chewing tobacco. Patient uses synthetic marijuana per EMS report from family. "quit cold turkey on Wednesday", Patient/guardian denies using Patient/guardian denies using alcohol, street drugs. Screenin/11 03:00 Abuse screen: Denies threats or abuse. Nutritional screening: No deficits noted. lc1 Tuberculosis screening: No symptoms or risk factors identified. Fall Risk None identified. No fall in past 12 months (0 pts). No secondary diagnosis (0 pts). IV access (20 points). Ambulatory Aid- None/Bed Rest/Nurse Assist (0 pts). Gait- Weak (10 pts.). Mental Status- Overestimates/Forgets Limitations (15 pts.). Total To Fall Scale indicates High Risk Score (45 or more points). Fall prevention measures have been instituted. Side Rails Up X 2 Placed Close to Nursing Station Frequent Obs/Assessments Occuring. Assessment: 00:00 General: Appears distressed, unkempt, Behavior is cooperative, restless, Reports lc1 feeling ill for 0-12 hours. Pain: Denies pain. 00:00 Neuro: Level of Consciousness is awake, alert, confused, Oriented to person, place, lc1 tremors noted to bilateral arms. Cardiovascular: Denies chest pain, palpitations, Rhythm is sinus rhythm. Respiratory: Airway is patent Trachea midline Respiratory effort is even, unlabored, Respiratory pattern is regular, symmetrical, Breath sounds are clear bilaterally. GI: No signs and/or symptoms were reported involving the gastrointestinal system. GI: No signs and/or symptoms were reported involving the gastrointestinal system. Parent/caregiver reports the patient having nausea, vomiting. : No signs and/or symptoms were reported regarding the genitourinary system. EENT: No signs and/or symptoms were reported regarding the EENT system. Derm: No signs and/or symptoms reported regarding the dermatologic system. Musculoskeletal: No signs and/or symptoms reported regarding the musculoskeletal system. 01:00 Reassessment: No changes from previously documented assessment. Patient and/or family lc1 updated on plan of care and expected duration. Pain level reassessed. Patient is alert, oriented x 3, equal unlabored respirations, skin warm/dry/pink. pt still remains intermittently confused, peed in corner of room after being given urinal, frequent reorientation . 02:00 Reassessment: No changes from previously documented assessment. Patient and/or family lc1 updated on plan of care and expected duration. Pain level reassessed. Patient is alert, oriented x 3, equal unlabored respirations, skin warm/dry/pink. 03:00 Reassessment: No changes from previously documented assessment. Patient and/or family lc1 updated on plan of care and expected duration. Pain level reassessed. Patient is alert, oriented x 3, equal unlabored respirations, skin warm/dry/pink. . 04:00 Reassessment: No changes from previously documented assessment. Patient and/or family lc1 updated on plan of care and expected duration. Pain level reassessed. Patient is alert, oriented x 3, equal unlabored respirations, skin warm/dry/pink. Vital Signs: 01/13 23:33 BP 157 / 96; Pulse 106; Resp 18; Pulse Ox 98% on R/A; lc1 23:39 BP 157 / 96; Pulse 107; Resp 20; Temp 98; Pulse Ox 100% on R/A; Weight 86.18 kg; Height [facility] 5 ft. 9 in. (175.26 cm); 01/14 00:00 BP 148 / 95; Pulse 105; Resp 18; Pulse Ox 98% on R/A; lc1 01:00 BP 141 / 101; Pulse 109; Resp 18; Pulse Ox 98% on R/A; lc1 02:00 BP 145 / 101; Pulse 116; Resp 18; Pulse Ox 100% on R/A; lc1 03:00 BP 139 / 78; Pulse 102; Resp 18; Pulse Ox 98% on R/A; lc1 01/13 23:39 Body Mass Index 28.06 (86.18 kg, 175.26 cm) [facility] ED Course: 01/13 00:00 Patient has correct armband on for positive identification. Placed in gown. Bed in low lc1 position. Side rails up X2. 00:00 No provider procedures requiring assistance completed. Inserted saline lock: 20 gauge lc1 in left wrist, using aseptic technique. 23:25 Patient arrived in ED. jm8 23:28 Pan Wallace MD is Attending Physician. billie 23:38 Nela Mendoza is Primary Nurse. 1 23:40 critical care clinical nurse specialist on. Pulse ox on. NIBP on. 1 23:46 Triage completed. jm8 23:48 Arm band placed on right wrist. 8 01/14 00:00 Awaiting lab results, Awaiting radiology results. 1 00:07 XRAY Chest (1 view) In Process Unspecified. EDMS 00:07 PT-INR Sent. lc1 00:07 Troponin (emerg Dept Use Only) Sent. lc1 00:35 CT Head Brain wo Cont In Process Unspecified. EDMS 00:54 Basic Metabolic Panel Sent. lc1 00:54 CBC with Diff Sent. lc1 00:54 LFT's Sent. lc1 00:54 Magnesium Sent. lc1 00:54 NT PRO-BNP Sent. lc1 00:59 Juanito Rodgers MD is Hospitalizing Provider. billie 04:31 Patient admitted, IV remains in place. jm8 Administered Medications: 00:25 Drug: NS 0.9% 1000 ml Route: IV; Rate: 1 bolus; Site: right antecubital; lc1 01:58 Follow up: Response: No adverse reaction; IV Status: Completed infusion lc1 00:30 Drug: Rocephin (cefTRIAXone) 1 grams Route: IV; Rate: per protocol; Site: right lc1 antecubital; 00:53 Follow up: Response: No adverse reaction lc1 01:58 Follow up: Response: No adverse reaction; IV Status: Completed infusion lc1 00:30 Drug: Pepcid (famotidine) 20 mg Route: IVP; Site: right antecubital; lc1 00:52 Follow up: Response: No adverse reaction lc1 01:11 Drug: Insulin Regular Human 10 units {Co-Signature: jmCasey (Melquiades Gill RN).} Route: lc1 IVP; Site: right antecubital; 01:25 Follow up: Response: No adverse reaction lc1 01:12 Drug: Magnesium Sulfate 1 grams Route: IVPB; Infused Over: 1 hrs; Site: right lc1 antecubital; 03:25 Follow up: Response: No adverse reaction; IV Status: Completed infusion lc1 01:24 Drug: NS 0.9% with KCl 20 mEq/L 1000 ml Route: IV; Rate: 150 ml/hr; Site: right lc1 antecubital; 04:07 Follow up: Response: No adverse reaction; IV Status: Infusion continued upon admission lc1 01:59 Drug: NS 0.9% 1000 ml Route: IV; Rate: 1 bolus; Site: right antecubital; lc1 02:20 Drug: Zofran (Ondansetron) 4 mg Route: IVP; Site: left hand; lc1 03:25 Follow up: Response: No adverse reaction [facility] Outcome: 01:03 Decision to Hospitalize by Provider. billie 04:02 Admitted to Med/surg accompanied by nurse, via wheelchair, with chart, Report called to miryam Mandel RN 04:02 Condition: stable 04:02 Instructed on the need for admit. 04:31 Patient left the ED. jm8 Signatures: Dispatcher [employer] EDOR Pan Wallace MD MD cha Calhoun, Lisa [facility] Melquiades Gill RN RN jm8 Joseph Malcaba RN jm8 Corrections: (The following items were deleted from the chart) 01:42 00:53 CORONAVIRUS+MR.LAB.BRZ drawn and sent. [facility] EDMS 01:42 00:53 Influenza Screen (A \\T\\ B)+BA.LAB.BRZ drawn and sent. [facility] EDMS 03:47 03:26 General: Appears distressed, unkempt, Behavior is cooperative, restless, Reports [facility] feeling ill for 0-12 hours, [facility] 03:47 03:26 Pain: Denies pain. [facility] 03:49 03:26 Neuro: Level of Consciousness is awake, alert, confused, Oriented to person, lc1 place, tremors noted to bilateral arms. [facility] :49 03:26 Cardiovascular: Denies chest pain, palpitations, Rhythm is sinus rhythm [facility] 03:49 03:26 Respiratory: Airway is patent Trachea midline Respiratory effort is even, lc1 unlabored, Respiratory pattern is regular, symmetrical, Breath sounds are clear bilaterally. 1 :49 03:26 GI: No signs and/or symptoms were reported involving the gastrointestinal system. 1 1 :49 03:26 : No signs and/or symptoms were reported regarding the genitourinary system. [facility] :49 03:26 EENT: No signs and/or symptoms were reported regarding the EENT system. 1 1 :49 03:26 Derm: No signs and/or symptoms reported regarding the dermatologic system. 1 1 :49 03:26 Musculoskeletal: No signs and/or symptoms reported regarding the musculoskeletal 1 system. 1 :49 03:26 GI: No signs and/or symptoms were reported involving the gastrointestinal system. lc1 Parent/caregiver reports the patient having nausea, vomiting, lc1 04:31 04:[address] [facility] jm8
[2021-01-14 01:12] LABS: Barbiturates NEGATIVE (NEGATIVE); Benzodiazepines NEGATIVE (NEGATIVE); Cocaine NEGATIVE (NEGATIVE); METHAMPHETAM NEGATIVE (NEGATIVE); Methadone NEGATIVE (NEGATIVE); Opiates NEGATIVE (NEGATIVE); Phencyclidine NEGATIVE (NEGATIVE); THC Cannibis NEGATIVE (NEGATIVE)
[2021-01-14 01:13] LABS: Urine Blood Trace-intact (Negative); Urine Glucose 2+ (Negative); Urine Protein Negative (Negative)
[2021-01-14] MEDS ORDERED: INSULIN -REGULAR HUMAN 50 UNIT/0.5 ML ML ONE (01:29)
[2021-01-14] MEDS ORDERED: NS KCL 20MEQ 1,000 ML IV ONE (01:29)
[2021-01-14] MEDS ORDERED: MAGNESIUM SULFATE 1 gm IVPB 1 GM/100 ML BAG IV ONE (01:29)
--- NOTE | 2021-01-14 01:42 | P.HP ---
Certification for Inpatient Patient admitted to: Inpatient With expected LOS: >2 Midnights Patient will require the following post-hospital care: None Practitioner: I am a practitioner with admitting privileges, knowledge of patient current condition, hospital course, and medical plan of care. Services: Services provided to patient in accordance with Admission requirements found in Title 42 Section 412.3 of the Code of Federal Regulations Patient History Date of Service: 01/14/21 Reason for admission: AMS History of Present Illness: 60-year-old male with history of diabetes, hypertension, hyperlipidemia presents emergency department for altered mental status, hyperglycemia. Patient was picked up by EMS, reportedly somebody on scene inf ormed them that he was also using synthetic marijuana. Evaluation in the emergency department, labs significant for potassium 3.4, CO2 19, BUN 31, GFR 74 glucose 515 magnesium 1.5 T. bili 1.6 d bili 0.5 ABG pH 7.53 pCO2 21.5 white blood cell count 11.4 hemoglobin 10[address] head without acute findings chest x-ray unremarkable. Patient not currently acidotic, anion gap is 15, patient does not appear to be in full-blown DKA but appears borderline. Will recheck BMP after fluid bolus and insulin in the emergency department. - Past Medical/Surgical History -: Diabetes mellitus type 2-insulin dependent -: Hypertension -: Hyperlipidemia -: Left ankle surgery Psychosocial/ Personal History: Unable to obtain - Family History Father History Unknown: Yes - Social History Smoking Status: Unknown if ever smoked Alcohol use: No CD- Drugs: No Caffeine use: No Place of Residence: Home Review of Systems is unable to be obtained Physical Examination - Physical Exam General: Alert, In no apparent distress, Oriented x2 HEENT: Atraumatic, Normocephalic, Other (Mucous membranes dry) Neck: Supple Respiratory: Clear to auscultation bilaterally, Normal air movement Cardiovascular: No edema, Irregular heart rate/rhythm (Sinus tachycardia) Gastrointestinal: Normal bowel sounds, Soft and benign Musculoskeletal: No swelling, No contractures, No erythema Integumentary: No breakdown, No significant lesion, No tenderness/swelling Neurological: Normal speech, Normal strength at 5/5 x4 extr, Normal tone, Sensation intact - Studies Laboratory Data (last 24 hrs) 01/13/21 23:59: PT 16.2 H, INR 1.40, APTT 26.4 01/13/21 23:59: WBC 11.40 H, Hgb 10.5 L, Hct 31.7 L, Plt Count 139 L 01/13/21 23:59: Sodium 136, Potassium 3.4 L, BUN 31 H, Creatinine 1.02, Glucose 515 H*, Magnesium 1.5 L, Total Bilirubin 1.6 H, AST 14 L, ALT 28, Alkaline Phosphatase 114, Lipase 38 L 01/13/21 23:50: PT Cancelled, INR Cancelled Assessment and Plan - Plan Assessment Metabolic encephalopathy Diabetes mellitus type 2-insulin dependent with hyperglycemia Hypertension, hyperlipidemia Plan Metabolic encephalopathy: EMS reports that additional personnel on scene reported patient used synthetic marijuana, this could certainly be contributing to his mental status at that time. Also borderline DKA at this time could also be contributing. Will continue to monitor patient's mental status closely, continue treatment of hyperglycemia. DVT prophylaxis Lovenox 40 mg subcutaneous once daily. Anticipate clinical improvement over the next 24-48 hr. Diabetes mellitus type 2-insulin dependent with hyperglycemia: Will recheck chemistry after bolus in the emergency department, as long as anion gap has closed with the patient to floor and continued a.c. HS Accu-Cheks, sliding scale insulin therapy. A1c with morning labs. If patient conditioned. May require insulin drip. Patient not sure if his current Levemir dose at home, will need to have medications verified. Is also been reported the patient has not been taking his medication over the course of the last week or 2. Hypertension, hyperlipidemia: Continue home medications as appropriate. Discharge Plan: Home Plan to discharge in: 48 Hours - Advance Directives Does patient have a Living Will: No Does patient have a Durable POA for Healthcare: No - Code Status/Comfort Care Code Status Assessed: Yes (Full code) Critical Care: No Time Spent Managing Pts Care (In Minutes): 55
[2021-01-14] MEDS ORDERED: ONDANSETRON 4 MG/2 ML VIAL ONE (02:20)
[2021-01-14 02:56] LABS: SARS-COV-2 RT PCR NEGATIVE (NEGATIVE)
[2021-01-14 03:30] LABS: BUN Blood Urea Nitrogen 27 mg/dL (7-18); Bicarbonate 21 mmol/L (21-32); Glucose Level 216 mg/dL (74-106); Potassium 3.1 mmol/L (3.5-5.1); Sodium Level 142 mmol/L (136-145)
[2021-01-14] MEDS: NS KCL 20MEQ 20 MEQ/1,000 ML BAG IV SCH ×6 (04:43→20:31)
[2021-01-14] MEDS ORDERED: ACETAMINOPHEN 500 MG TAB PO PRN (04:43)
[2021-01-14] MEDS ORDERED: ONDANSETRON 4 MG/2 ML VIAL IV PRN (04:43)
[2021-01-14 04:51] VITALS: BMI 24.8
[2021-01-14 05:13] LABS: Absolute Lymphocytes (CBC) 2.7 K/uL (0.7-4.9); Basophils % 0.1 % (0-1.3); Hematocrit 28.8 % (39.6-49.0); MPV 9.5 fL (7.6-11.3); RBC Red Blood Cell Count 3.27 M/uL (4.33-5.43)
[2021-01-14 05:46] LABS: Magnesium 1.9 mg/dL (1.8-2.4); Thyroid Stimulating Hormone 0.414 uIU/mL (0.360-3.740)
--- NOTE | 2021-01-14 07:56 | RAD REPORT ---
EXAM DESCRIPTION: Maite Single View01/14/2021 12:04 am CLINICAL HISTORY: Cough COMPARISON: none FINDINGS: The lungs appear clear of acute infiltrate. The heart is normal size. Old rib fractures IMPRESSION: No acute abnormalities displayed
[2021-01-14] MEDS: INSULIN -REGULAR HUMAN 50 UNIT/0.5 ML ML SQ SCH ×4 (08:07→20:21)
[2021-01-14] MEDS ORDERED: ENOXAPARIN 40 MG/0.4 ML SQ SCH (09:00)
--- NOTE | 2021-01-14 14:16 | RAD REPORT ---
EXAM DESCRIPTION: CT - Head Brain Wo Cont - 01/14/2021 6:27 am CLINICAL HISTORY: 60 years Male MENTAL STATUS CHANGE COMPARISON: None. TECHNIQUE: Contiguous axial CT images obtained through the brain without IV contrast. This exam was performed according to our department optimization program which includes automated exp osure control, adjustment of the mA and/or kv according to patient size and/or use of iterative recon struction technique. FINDINGS: The patient's head is turned towards the right in the scanner. The ventricles and sulci are mildly prominent. No mass lesions. No acute hemorrhage. Atherosclerotic calcifications. No fluid or significant mucosal thickening in the visualized paranasal sinuses. No depressed calvarial fractures. IMPRESSION: No acute intracranial abnormality is identified. If there is clinical concern for the possibility of acute ischemic change, MRI could be obtained to better evaluate. Electronically signed by: Steve Shaver MD 01/14/2021 12:44 AM CDT Due to temporary technical issues with the PACS/Fluency reporting system, reports are being signed by the in house radiologists without review as a courtesy to insure prompt reporting. The interpreting radiologist is fully responsible for the content of the report.
--- NOTE | 2021-01-14 14:19 | P.PN ---
Subjective Date of Service: 01/14/21 Chief Complaint: AMS Subjective: Improving (seems to be slightly more alert/oriented, but still with confusion, not aware of where he is / why he is here. reports feeling some lower abdominal pain, otherwise ROS negative at this time.) Review of Systems 10-point ROS is otherwise unremarkable Physical Examination - Vital Signs Temperature: 98.7 F Blood Pressure: 143/80 Pulse: 95 Respirations: 20 Pulse Ox (%): 99 - Studies Laboratory Data (last 24 hrs) 01/13/21 23:59: PT 16.2 H, INR 1.40, APTT 26.4 01/13/21 23:59: WBC 11.40 H, Hgb 10.5 L, Hct 31.7 L, Plt Count 139 L 01/13/21 23:59: Sodium 136, Potassium 3.4 L, BUN 31 H, Creatinine 1.02, Glucose 515 H*, Magnesium 1.5 L, Total Bilirubin 1.6 H, AST 14 L, ALT 28, Alkaline Phosphatase 114, Lipase 38 L 01/13/21 23:50: PT Cancelled, INR Cancelled Assessment & Plan Physician Review Additional Text: Physical Exam General: AAOx2, NAD, +confused HEENT: Atraumatic, Normocephalic, normal conjunctiva, sclera anicteric, PERRL Neck: Supple, no JVD Respiratory: Clear to auscultation bilaterally, Normal air movement Cardiovascular: No edema, regular rate and rhythm Gastrointestinal: soft, mild-mod TTP in lower abdomen, no distention, no rebound tenderness Musculoskeletal: No swelling, No erythema Integumentary: No breakdown, No significant lesion Neurological: Normal speech, Normal strength at 5/5 x4 extr Problem List Acute Metabolic encephalopathy Diabetes mellitus type 2-insulin dependent with hyperglycemia Hypertension, hyperlipidemia Abdominal pain -per EMS - personnel at scene reported patient uses synthetic marijuana - pt agrees, states no change in product / dealer as far as he knows -synthetic marijuana use may be contributing / cause of encephalopathy, possibly from significant hyperglycemia as well - borderline DKA -pt's glucose has improved, will continue to manage/follow for signs of improvement -CT head negative, no significant electrolyte derangement -pt is unreliable historian, and has lower abdominal tenderness, will obtain CT abd/pelvis -continue to titrate insulin as needed for better management, continue sliding scale -will try to reach out to family today VTE: lovenox Code: full Dispo: anticipate dc home in 24-48hrs Time Spent Managing Pts Care (In Minutes): 35
--- NOTE | 2021-01-14 15:44 | RAD REPORT ---
EXAM DESCRIPTION: CT - Abdomen Pelvis W Contrast - 01/14/2021 3:04 pm CLINICAL HISTORY: lower abdominal pain, altered mental status COMPARISON: No comparisons TECHNIQUE: Biphasic, helical CT imaging of the abdomen and pelvis was performed following 100 ml non -ionic IV contrast. No oral contrast was administered. All CT scans are performed using dose optimization technique as appropriate and may include automated exposure control or mA/KV adjustment according to patient size. FINDINGS: No suspicious findings in the lung bases. Liver is grossly abnormal. There is a pronounced lobulated contour to the liver capsule typical for a dvanced cirrhosis or diffuse hepatic parenchymal disease. No focal liver lesions are identifiable. Pa ncreatic atrophy changes are present with no mass lesion. No splenomegaly or focal splenic finding. C holecystectomy clips are present. No biliary tree dilatation. Symmetric renal function is seen with no hydronephrosis or suspicious renal mass. No pyelonephritis o r acute parenchymal process. No bladder abnormalities. No adrenal abnormalities. Contracted urinary b ladder shows no suspicious finding. No prostate gland abnormality. No gastric dilatation or wall thickening. No abnormal enhancement of the gastric castro. Patient does have prominent gastroesophageal varices. Additional prominent varices are seen in the upper abdomen. No focal abnormality of the large or small bowel. Mild enteritis findings are possible. No surgically emergent process. No free air, free fluid or inflammatory stranding. No hernia, mass or bulky lymph adenopathy. No suspicious bony findings. IMPRESSION: Advanced cirrhosis or diffuse hepatic parenchymal disease with prominent gastroesophagea l varices and prominent overall varices of the upper abdomen. No focal liver lesions seen. No ascites, lymphadenopathy or other emergent finding. No bowel obstruction or surgically emergent GI finding. Large or small bowel enteritis would still be possible.
--- NOTE | 2021-01-14 17:42 | EKG ---
Test Date: 2021-01-14 Test Time: 00:41:01 Auto Engine Mechanic: LEAH MEASUREMENT RESULTS: Intervals: Rate: 105 IN: 174 QRSD: 82 QT: 364 QTc: 481 [place]: P: 78 IN: 174 QRS: -71 T: 62 INTERPRETIVE STATEMENTS: Sinus tachycardia Left axis deviation Abnormal ECG Compared to ECG 12/06/2018 13:00:55 Sinus rhythm no longer present Electronically Signed On 01-14-21 17:40:13 CDT by Bhavesh Adams
[2021-01-15] MEDS ORDERED: SODIUM CHLORIDE 0.9% 10ML INJ IV PRN (04:14)
[2021-01-15] MEDS ORDERED: PANTOPRAZOLE 40 MG INJ IVP ONE (04:14)
[2021-01-15] MEDS: PANTOPRAZOLE INJ 80 MG in NA CHLORIDE 0.9% 250 ML IV SCH ×2 (04:23→15:30)
[2021-01-15] MEDS ORDERED: PANTOPRAZOLE 40 MG INJ ONE (04:32)
[2021-01-15] MEDS ORDERED: NA CHLORIDE 0.9% 250 ML ONE (04:33)
[2021-01-15] MEDS: OCTREOTIDE 500 MCG in NA CHLORIDE 0.9% 500 ML IV SCH ×2 (04:43→15:30)
[2021-01-15] MEDS ORDERED: NA CHLORIDE 0.9% 500 ML ONE (04:55)
[2021-01-15] MEDS ORDERED: OCTREOTIDE ACETATE 500 MCG/ML ONE (04:58)
[2021-01-15 05:25] LABS: Absolute Lymphocytes (CBC) 1.8 K/uL (0.7-4.9); Basophils % 0.1 % (0-1.3); Hematocrit 27.1 % (39.6-49.0); Lymphocytes % 21.8 % (15.3-44.8); MPV 9.1 fL (7.6-11.3); RBC Red Blood Cell Count 3.05 M/uL (4.33-5.43)
[2021-01-15 05:26] LABS: Protime INR 1.31
[2021-01-15] MEDS: NS KCL 20MEQ 20 MEQ/1,000 ML BAG IV SCH ×4 (05:28→20:44)
[2021-01-15 05:35] LABS: ALT/SGPT 28 U/L (12-78); AST/SGOT 20 U/L (15-37); Albumin 3.7 g/dL (3.4-5.0); Alkaline Phosphatase 104 U/L (45-117); BUN Blood Urea Nitrogen 10 mg/dL (7-18); Bicarbonate 16 mmol/L (21-32); Glucose Level 283 mg/dL (74-106); Magnesium 1.9 mg/dL (1.8-2.4); Potassium 3.4 mmol/L (3.5-5.1); Protein, Total 6.5 g/dL (6.4-8.2); Sodium Level 139 mmol/L (136-145)
[2021-01-15] MEDS: INSULIN -REGULAR HUMAN 50 UNIT/0.5 ML ML SQ SCH ×3 (05:45→17:58)
[2021-01-15] MEDS ORDERED: NA CHLORIDE 0.9% 1,000 ML ONE (09:12)
[2021-01-15] MEDS ORDERED: propofoL 200 MG/20 ML VIAL IV ONE (09:24)
[2021-01-15] MEDS ORDERED: LIDOCAINE 1% MPF 5 ML VIAL ONE (09:24)
[2021-01-15] MEDS ORDERED: EPINEPHRINE/PF 1 MG/ML AMP ONE (09:33)
[2021-01-15] MEDS ORDERED: ONDANSETRON 4 MG/2 ML VIAL ONE (10:00)
[2021-01-15] MEDS ORDERED: PROMETHAZINE INJ 25 MG/ML AMP ONE (10:00)
[2021-01-15] MEDS: CEFTRIAXONE/SWI 1gm 1 GM/10 ML SYR IV SCH ×2 (10:38→20:46)
--- NOTE | 2021-01-15 12:53 | OP ---
Surgeon: Bo Maldonado MD Procedure Performed: Esophagogastroduodenoscopy. Indication For Procedure: Upper GI bleed, cirrhosis in a patient with imaging evidence of abdominal varices. Plan For Anesthesia: Monitored anesthesia care. Complexity: High due to the patient's comorbidities and therapeutic nature of the procedure. Technique: After obtaining informed consent from the patient, explaining risks and complications whi ch include, but are not limited to bleeding, infection, perforation, and anesthesia complication, the patient was placed in the left lateral position. Sedation was given. From then on, the scope was a dvanced into the mouth and carefully guided up till the second portion of the duodenum. There was no evidence of active bleeding, but certain findings were visualized that may have contributed to the e pisode. Starting from the esophagus, there was evidence of large grade 3 varices. Some of the varic es did have red signs on them. There was no active bleeding from the varices seen. Stomach: Mild p atchy erythema seen in the body and antrum in the gastric fundus. Medium-sized gastric varices were seen of the IGV type 1. Duodenum: Superficial ulcerations were seen in the duodenal bulb. The seco nd portion appeared normal. After the examination, decision was taken to band the esophageal varices . Therefore, starting from the distal portion going up upwards in a spiral manner, I placed 4 bands. No complications noted with banding. Complications: None. Tolerance To Anesthesia: Excellent. Postoperative Diagnoses: Esophageal varices with red signs, status post banding, gastric varices, estrella perficial duodenal ulcer. Plan: Continue Protonix, octreotide drip. Start ceftriaxone 1 g q.12. Keep n.p.o. for today. If n o further evidence of bleeding, can start clear liquid diet from tomorrow; however, if there is furth er evidence of bleeding, the patient will need TIPS or transferred to a liver center for further sebastian gement. If the patient remains stable without any evidence of bleeding, he will need to follow up wi th us in the clinic for repeat EGD with banding in 4 weeks. US/MODL Voice ID: [id number] Report ID: [id number]
--- NOTE | 2021-01-15 16:57 | P.PN ---
Subjective Date of Service: 01/15/21 Chief Complaint: AMS Subjective: Other (early this morning patient reportedly had bright red bloody emesis, ~150ml. Patient denies abdominal/chest pain associated with this episode.) Review of Systems 10-point ROS is otherwise unremarkable Physical Examination - Vital Signs Temperature: 99.2 F Blood Pressure: 141/76 Pulse: 101 Respirations: 16 Pulse Ox (%): 99 - Studies Microbiology Data (last 24 hrs): 01/14/21 00:49 Clean Catch Urine [place] Count - Final No growth. 01/14/21 00:49 Clean Catch Urine - Final No growth. Assessment & Plan Physician Review Additional Text: Physical Exam General: AAOx2, NAD, +confused/memory difficulty HEENT: Atraumatic, Normocephalic, normal conjunctiva, sclera anicteric, PERRL Neck: Supple, no JVD Respiratory: Clear to auscultation bilaterally, Normal air movement Cardiovascular: No edema, regular rate and rhythm Gastrointestinal: soft, mild TTP in lower abdomen, no distention, no rebound tenderness, no epigastric tenderness Musculoskeletal: No swelling, No erythema Integumentary: No breakdown, No significant lesion Neurological: Normal strength at 5/5 x4 extr Problem List Acute Metabolic encephalopathy Diabetes mellitus type 2-insulin dependent with hyperglycemia Hypertension, hyperlipidemia Abdominal pain -per EMS - personnel at scene reported patient uses synthetic marijuana - pt agrees, states no change in product / dealer as far as he knows -synthetic marijuana use may be contributing / cause of encephalopathy, possibly from significant hyperglycemia as well - borderline DKA -pt's glucose has improved, will continue to manage/follow for signs of improvement -CT head negative, no significant electrolyte derangement -pt is unreliable historian, and has lower abdominal tenderness, CT abd/pelvis without acute process, noted large varices -hematemesis this morning. GI consulted, EGD done, with noted large varices, no active bleeding but had some redness. s/p banding -to remain NPO today, CLD if no further bleeding -continue protonix drip, and octreotide drip, rocephin started per GI -if continues to bleed will need transfer for TIPS -continue to titrate insulin as needed for better management, continue sliding scale VTE: SCDs Code: full Dispo: anticipate dc home in ~48hrs Time Spent Managing Pts Care (In Minutes): 35
[2021-01-16] MEDS: INSULIN -REGULAR HUMAN 50 UNIT/0.5 ML ML SQ SCH ×5 (00:45→20:18)
[2021-01-16] MEDS: OCTREOTIDE 500 MCG in NA CHLORIDE 0.9% 500 ML IV SCH ×3 (00:46→20:20)
[2021-01-16] MEDS: PANTOPRAZOLE INJ 80 MG in NA CHLORIDE 0.9% 250 ML IV SCH ×3 (00:46→20:19)
[2021-01-16] MEDS: NS KCL 20MEQ 20 MEQ/1,000 ML BAG IV SCH (03:45)
[2021-01-16 06:24] LABS: Absolute Lymphocytes (CBC) 1.6 K/uL (0.7-4.9); Basophils % 0.3 % (0-1.3); Hematocrit 27.7 % (39.6-49.0); Lymphocytes % 25.5 % (15.3-44.8); MPV 8.4 fL (7.6-11.3); RBC Red Blood Cell Count 3.14 M/uL (4.33-5.43)
[2021-01-16 06:40] LABS: ALT/SGPT 31 U/L (12-78); AST/SGOT 27 U/L (15-37); Albumin 3.6 g/dL (3.4-5.0); Alkaline Phosphatase 102 U/L (45-117); BUN Blood Urea Nitrogen 4 mg/dL (7-18); Bicarbonate 21 mmol/L (21-32); Bilirubin Total 0.9 mg/dL (0.2-1.0); C-Reactive Protein 9.62 mg/L (<3.00); Glucose Level 199 mg/dL (74-106); Magnesium 1.8 mg/dL (1.8-2.4); Potassium 3.1 mmol/L (3.5-5.1); Protein, Total 6.6 g/dL (6.4-8.2); Sodium Level 141 mmol/L (136-145)
[2021-01-16] MEDS: CEFTRIAXONE/SWI 1gm 1 GM/10 ML SYR IV SCH ×2 (08:41→20:19)
[2021-01-16] MEDS: KCL 20 MEQ/100 mL IVPB 20 MEQ/100 ML BAG IV SCH ×2 (08:45→11:23)
[2021-01-16] MEDS ORDERED: MAGNESIUM SULFATE 1 gm IVPB 1 GM/100 ML BAG IV ONE (12:00)
--- NOTE | 2021-01-16 17:32 | P.PN ---
Subjective Date of Service: 01/16/21 Chief Complaint: AMS Subjective: Improving (no further emesis/bleeding. still with black stool as expected, mild epigastric tenderness. overall feeling better) Review of Systems 10-point ROS is otherwise unremarkable Physical Examination - Vital Signs Temperature: 98.9 F Blood Pressure: 136/93 Pulse: 98 Respirations: 16 Pulse Ox (%): 99 Assessment & Plan Physician Review Additional Text: Physical Exam General: AAOx3, NAD HEENT: normal conjunctiva, sclera anicteric, PERRL Neck: Supple, no JVD Respiratory: Clear to auscultation bilaterally, Normal air movement Cardiovascular: No edema, regular rate and rhythm Gastrointestinal: soft, mild TTP epigastric region, no rebound, no distention Musculoskeletal: No swelling, No erythema Integumentary: No breakdown, No significant lesion Neurological: Normal strength at 5/5 x4 extr Problem List Acute Encephalopathy secondary to synthetic marijuana use Diabetes mellitus type 2-insulin dependent with hyperglycemia Hypertension, hyperlipidemia Abdominal pain Hematemesis secondary to gastric varices -per EMS - personnel at scene reported patient uses synthetic marijuana - pt agrees and feels timing is consistent with it causing his AMS -pt's glucose has improved, will continue to manage/follow for signs of improvement -CT head negative, no significant electrolyte derangement -CT abd/pelvis without acute process, noted large varices -hematemesis on 01/15, today reports patient had hematemesis a few times at home prior to admission which didn't get conveyed to ER. -s/p EGD on 01/15, noted large varices, no active bleed but had some redness, s/p banding -advance to CLD today -continue protonix drip, and octreotide drip, rocephin started per GI -if continues to bleed will need transfer for TIPS -continue to titrate insulin as needed for better management, continue sliding scale VTE: SCDs Code: full Dispo: anticipate dc home in ~24-48hrs Time Spent Managing Pts Care (In Minutes): 35
[2021-01-16] MEDS ORDERED: hydrOXYzine HCL 25 MG TAB PO PRN (19:32)
[2021-01-16] MEDS: PREGABALIN 150 MG CAP PO SCH (20:19)
[2021-01-16] MEDS ORDERED: QUETIAPINE FUMARATE 400 MG PO SCH (21:00)
[2021-01-16] MEDS ORDERED: ATORVASTATIN 10 MG TAB PO SCH (21:00)
[2021-01-16] MEDS ORDERED: QUETIAPINE 100MG TAB ONE (22:40)
[2021-01-17 00:39] VITALS: O2SAT 98
[2021-01-17 06:14] LABS: Absolute Lymphocytes (CBC) 2.1 K/uL (0.7-4.9); Basophils % 0.3 % (0-1.3); Hematocrit 28.7 % (39.6-49.0); Lymphocytes % 39.9 % (15.3-44.8); MPV 9.1 fL (7.6-11.3); RBC Red Blood Cell Count 3.22 M/uL (4.33-5.43)
[2021-01-17 06:30] LABS: ALT/SGPT 34 U/L (12-78); AST/SGOT 40 U/L (15-37); Albumin 3.2 g/dL (3.4-5.0); Alkaline Phosphatase 98 U/L (45-117); BUN Blood Urea Nitrogen 4 mg/dL (7-18); Bicarbonate 23 mmol/L (21-32); Glucose Level 219 mg/dL (74-106); Magnesium 2.1 mg/dL (1.8-2.4); Potassium 3.2 mmol/L (3.5-5.1); Protein, Total 6.2 g/dL (6.4-8.2); Sodium Level 145 mmol/L (136-145)
[2021-01-17] MEDS: PANTOPRAZOLE INJ 80 MG in NA CHLORIDE 0.9% 250 ML IV SCH ×2 (07:48→17:00)
[2021-01-17] MEDS: OCTREOTIDE 500 MCG in NA CHLORIDE 0.9% 500 ML IV SCH ×2 (07:49→17:24)
[2021-01-17] MEDS: PREGABALIN 150 MG CAP PO SCH (07:50)
[2021-01-17] MEDS ORDERED: POTASSIUM CL SA 10 MEQ TAB PO ONE (09:00)
[2021-01-17] MEDS: INSULIN -REGULAR HUMAN 50 UNIT/0.5 ML ML SQ SCH ×3 (09:03→17:25)
[2021-01-17] MEDS: CEFTRIAXONE/SWI 1gm 1 GM/10 ML SYR IV SCH (09:43)
[2021-01-17 18:14] VITALS: BP 118/78; TEMP 98.8
--- NOTE | 2021-01-17 21:23 | P.DS ---
Admission Date: 01/14/21 Discharge Date: 01/17/21 Disposition: ROUTINE DISCHARGE Discharge Condition: GOOD Reason for Admission: AMS Consultations: Gastroenterology Dr. Zamora Procedures: Chest x-ray EXAM DESCRIPTION: Maite Medina View01/14/2021 12:04 am CLINICAL HISTORY: Cough COMPARISON: none FINDINGS: The lungs appear clear of acute infiltrate. The heart is normal size. Old rib fractures IMPRESSION: No acute abnormalities displayed Dictated By: Angel Young MD 01/14/21 0755 Signed By: Angel Young MD 01/14/[address] head FINDINGS: The patient's head is turned towards the right in the scanner. The ventricles and sulci are mildly prominent. No mass lesions. No acute hemorrhage. Atherosclerotic calcifications. No fluid or significant mucosal thickening in the visualized paranasal sinuses. No depressed calvarial fractures. IMPRESSION: No acute intracranial abnormality is identified. If there is clinical concern for the possibility of acute ischemic change, MRI could be obtained to better evaluate. CT abdomen pelvis with IV contrast FINDINGS: No suspicious findings in the lung bases. Liver is grossly abnormal. There is a pronounced lobulated contour to the liver capsule typical for advanced cirrhosis or diffuse hepatic parenchymal disease. No focal liver lesions are identifiable. Pancreatic atrophy changes are present with no mass lesion. No splenomegaly or focal splenic finding. Cholecystectomy clips are present. No biliary tree dilatation. Symmetric renal function is seen with no hydronephrosis or suspicious renal mass. No pyelonephritis or acute parenchymal process. No bladder abnormalities. No adrenal abnormalities. Contracted urinary bladder shows no suspicious finding. No prostate gland abnormality. No gastric dilatation or wall thickening. No abnormal enhancement of the gastric castro. Patient does have prominent gastroesophageal varices. Additional prominent varices are seen in the upper abdomen. No focal abnormality of the large or small bowel. Mild enteritis findings are possible. No surgically emergent process. No free air, free fluid or inflammatory stranding. No hernia, mass or bulky lymphadenopathy. No suspicious bony findings. IMPRESSION: Advanced cirrhosis or diffuse hepatic parenchymal disease with prominent gastroesophageal varices and prominent overall varices of the upper abdomen. No focal liver lesions seen. No ascites, lymphadenopathy or other emergent finding. No bowel obstruction or surgically emergent GI finding. Large or small bowel enteritis would still be possible. Operative report s/p esophagogastroduodenoscopy with banding of esophageal varices Technique: After obtaining informed consent from the patient, explaining risks and complications which include, but are not limited to bleeding, infection, perforation, and anesthesia complication, the patient was placed in the left lateral position. Sedation was given. From then on, the scope was advanced into the mouth and carefully guided up till the second portion of the duodenum. There was no evidence of active bleeding, but certain findings were visualized that may have contributed to the episode. Starting from the esophagus, there was evidence of large grade 3 varices. Some of the varices did have red signs on them. There was no active bleeding from the varices seen. Stomach: Mild patchy erythema seen in the body and antrum in the gastric fundus. Medium-sized gastric varices were seen of the IGV type 1. Duodenum: Superficial ulcerations were seen in the duodenal bulb. The second portion appeared normal. After the examination, decision was taken to band the esophageal varices. Therefore, starting from the distal portion going up upwards in a spiral manner, I placed 4 bands. No complications noted with banding.Complications: None. Tolerance To Anesthesia: Excellent. Postoperative Diagnoses: Esophageal varices with red signs, status post banding, gastric varices, superficial duodenal ulcer. Plan: Continue Protonix, octreotide drip. Start ceftriaxone 1 g q.12. Keep n.p.o. for today. If no further evidence of bleeding, can start clear liquid diet from tomorrow; however, if there is further evidence of bleeding, the patient will need TIPS or transferred to a liver center for further management. If the patient remains stable without any evidence of bleeding, he will need to follow up with us in the clinic for repeat EGD with banding in 4 weeks. Medical problem list Acute encephalopathy secondary to synthetic marijuana use-resolved Diabetes mellitus type 2-insulin dependent Hypertension, hyperlipidemia Abdominal pain, cirrhosis of the liver secondary to hepatitis-C with hematemesis secondary to gastric varices/esophageal varices Brief History of Present Illness: 60-year-old male with history of diabetes, hypertension, hyperlipidemia presents emergency department for altered mental status, hyperglycemia. Patient was picked up by EMS, reportedly somebody on scene informed them that he was also using synthetic marijuana. Evaluation in the emergency department, labs significant for potassium 3.4, CO2 19, BUN 31, GFR 74 glucose 515 magnesium 1.5 T. bili 1.6 d bili 0.5 ABG pH 7.53 pCO2 21.5 white blood cell count 11.4 hemoglobin 10[address] head without acute findings chest x-ray unremarkable. Patient not currently acidotic, anion gap is 15, patient does not appear to be in full-blown DKA but appears borderline. Will recheck BMP after fluid bolus and insulin in the emergency department. Hospital Course: Patient was admitted with altered mental status, hyperglycemia. During his admission patient experienced hematemesis and at that time was much more coherent able to give us a more detailed history. Patient with history of cirrhosis of the liver secondary to hepatitis-C, CT abdomen pelvis demonstrated varices. Patient was placed on protonic/octreotide drips and gastroenterology was consulted. Gastroenterology performed EGD and banded for varices without complication. Recommendations from gastroenterology are to follow up on an outpatient basis for repeat banding in 4 weeks. Patient remained stable after EGD/banding without any further episodes of hematemesis, patient tolerating diet , blood sugars were under control, altered mentation results. At this time patient is stable for discharge home with close follow up with PCP and GI. At discharge patient is to continue with Protonix 40 mg p.o. b.i.d. until follow up with GI as well as propranolol 10 mg p.o. b.i.d.. Patient also is to continue his other home medications, further adjustment to made by primary care doctor. Vital Signs/Physical Exam: Temp Pulse Resp BP Pulse Ox 98.8 F 84 16 118/78 98 01/17/21 16:00 01/17/21 16:00 01/17/21 16:00 01/17/21 16:00 01/17/21 16:00 General: Alert, In no apparent distress HEENT: Atraumatic, PERRLA, EOMI Neck: Supple, JVD not distended Respiratory: Clear to auscultation bilaterally, Normal air movement Cardiovascular: Regular rate/rhythm, Normal S1 S2 Gastrointestinal: Normal bowel sounds, No tenderness Musculoskeletal: No tenderness Integumentary: No rashes Neurological: Normal speech, Normal tone, Normal affect Laboratory Data at Discharge: WBC 5.30 K/uL (4.3-10.9) 01/17/21 05:10 Hgb 9.8 g/dL (13.6-17.9) L 01/17/21 05:10 Hct 28.7 % (39.6-49.0) L 01/17/21 05:10 Plt Count 122 K/uL (152-406) L 01/17/21 05:10 PT 15.1 SECONDS (9.5-12.5) H 01/15/21 05:03 INR 1.31 01/15/21 05:03 APTT 26.4 SECONDS (24.3-36.9) 01/13/21 23:59 Sodium 145 mmol/L (136-145) 01/17/21 05:10 Potassium 3.4 mmol/L (3.5-5.1) L 01/17/21 15:12 BUN 4 mg/dL (7-18) L 01/17/21 05:10 Creatinine 0.75 mg/dL (0.55-1.3) 01/17/21 05:10 Glucose 219 mg/dL (74-106) H 01/17/21 05:10 Magnesium 2.1 mg/dL (1.8-2.4) 01/17/21 05:10 Total Bilirubin 1.0 mg/dL (0.2-1.0) 01/17/21 05:10 AST 40 U/L (15-37) H 01/17/21 05:10 ALT 34 U/L (12-78) 01/17/21 05:10 Alkaline Phosphatase 98 U/L (45-117) 01/17/21 05:10 Triglycerides 180 mg/dL (<150) H 01/14/21 04:54 Cholesterol 125 mg/dL (<200) 01/14/21 04:54 HDL Cholesterol 35 mg/dL (40-60) L 01/14/21 04:54 Cholesterol/HDL Ratio 3.57 01/14/21 04:54 Lipase 38 U/L (73-393) L 01/13/21 23:59 Home Medications: Insulin -Regular Human [Novolin -R*] 16 units SQ TID 01/14/21 Insulin Detemir [Levemir] 60 units SQ BEDTIME 01/14/21 Pravastatin Sodium 40 mg PO DAILY 01/14/21 Pregabalin [Lyrica] 150 mg PO BID 01/14/21 Quetiapine Fumarate [Seroquel Xr] 400 mg PO BEDTIME 01/14/21 hydrOXYzine pamoate [Hydroxyzine Pamoate] 50 mg PO BID PRN 01/14/21 Pantoprazole Sodium [Protonix] 40 mg PO BID #60 tablet. 01/17/21 Propranolol [Inderal*] 10 mg PO BID #60 tab 01/17/21 New Medications: Propranolol [Inderal*] 10 mg PO BID #60 tab Pantoprazole Sodium [Protonix] 40 mg PO BID #60 tablet. Physician Discharge Instructions: Patient was admitted with altered mental status, hyperglycemia. During his admission patient experienced hematemesis and at that time was much more coherent able to give us a more detailed history. Patient with history of cirrhosis of the liver secondary to hepatitis-C, CT abdomen pelvis demonstrated varices. Patient was placed on protonic/octreotide drips and gastroenterology was consulted. Gastroenterology performed EGD and banded for varices without complication. Recommendations from gastroenterology are to follow up on an outpatient basis for repeat banding in 4 weeks. Patient remained stable after EGD/banding without any further episodes of hematemesis, patient tolerating diet, blood sugars were under control, altered mentation results. At this time patient is stable for discharge home with close follow up with PCP and GI. At discharge patient is to continue with Protonix 40 mg p.o. b.i.d. until follow up with GI as well as propranolol 10 mg p.o. b.i.d.. Patient also is to continue his other home medications, further adjustment to made by primary care doctor. Diet: Full liq Activity: Ad jonathan Followup: Bo Maldonado MD [ACTIVE - CAN ADMIT] - Unknown,U [Primary Care Provider] - Time spent managing pt's care (in minutes): 45
== END 2021-01-17 19:29 | disposition home or self-care (01) | DRG 91 ==
LOC: ER 23:22 → ERHOLD 01-14 02:46 → 2ND 01-14 04:24
PROVIDERS: ADMIT Hospitalist; ATTEND Hospitalist
PROC: 06L38CZ Occlusion of Esophageal Vein with Extraluminal Device, Via Natural or Artificial Opening Endoscopic (ICD-10-PCS; principal; 2021-01-15 15:00)
DX: G92 Toxic encephalopathy (principal); E11.10 Type 2 diabetes mellitus with ketoacidosis without coma; I85.01 Esophageal varices with bleeding; E78.5 Hyperlipidemia, unspecified; K26.9 Duodenal ulcer, unspecified as acute or chronic, without hemorrhage or perforation; I86.4 Gastric varices; K74.60 Unspecified cirrhosis of liver; I10 Essential (primary) hypertension; F12.90 Cannabis use, unspecified, uncomplicated; B19.20 Unspecified viral hepatitis C without hepatic coma; Z79.4 Long term (current) use of insulin; Z79.899 Other long term (current) drug therapy; Z20.822 Contact with and (suspected) exposure to COVID-19
CPT/HCPCS: 0240U; 36415; 70450; 71045; 74177; 80048; 80053; 80061; 80076; 80307; 80320; 80329; 81003; 82140; 82805; 82947; 83036; 83605; 83690; 83735; 83880; 84132; 84439; 84443; 84484; 85025; 85610; 85730; 86140; 87040; 87086; 87088; 93005; 97116; 97161; 99285; C9113; J0171; J0696; J1650; J2354; J2405; J2550; J2704; J3475; J3480; J7030; J7040; J7050; Q9967

== ENCOUNTER 2021-03-11 07:52 | Inpatient (IN) | payer OTHER ==
--- OUTSIDE RECORDS SUMMARY | 2021-03-11 08:15 | XMS REPORT | Continuity of Care Document ---
:1960 Author Organization [facility] t Address [address] [place] [address] Care Team Providers Name Role Phone Gui [...] Clinicians Facility Department ID 2020-08-28 2020-08-28 Emergency [facility] [phone] [id number] 08:31:00 10:57:00 [facility] [id number] [place] [id number] [place] [id number] [id number] Results Test Description Test Time Test [...] to the main Lab for analysis. POC [id number] 06:30:01 Test Item Value Reference Range Interpretation Comments Glucose POC (test 163 mg/dL 70-115 H Notify RN or MDIf you code = Glucose POC) consider your patient critically ill, the Debby-Accu Chec k Infrom II meter should not be used for Glucos e determination. Draw a venous Glucose and send to the main Lab for analysis. POC [id number] 20:14:50 Test Item Value Reference Range Interpretation Comments Glucose POC (test 161 mg/dL 70-115 H If you con commission associate your code = Glucose POC) patient critically ill, the Debby-Accu Check Infrom II meter should not be used for Glucose determination. Draw a venous Glucose and send to the main Lab for analysis. POC [id number] 15:02:57 Test Item Value Reference Range Interpretation Comments Glucose POC (test 144 mg/dL 70-115 H Notify RN or MDIf you code = Glucose POC) consider your patient critically ill, the Debby-Accu Chec k Infrom II meter should not be used for Glucos e determination. Draw a venous Glucose and send to the main Lab for analysis. POC [id number] 11:14:36 Test Item Value Reference Range Interpretation Comments Glucose POC (test 173 mg/dL 70-115 H Notify RN or MDIf you code = Glucose POC) consider your patient critically ill, the Debby-Accu Chec k Infrom II meter should not be used for Glucos e determination. Draw a venous Glucose and send to the main Lab for analysis. POC [id number] 06:21:50 Test Item Value Reference Range Interpretation Comments Glucose POC (test 135 mg/dL 70-115 H Notify RN or MDIf you code = Glucose POC) consider your patient critically ill, the Debby-Accu Chec k Infrom II meter should not be used for Glucos e determination. Draw a venous Glucose and send to the main Lab for analysis. POC [id number] 19:28:55 Test Item Value Reference Range Interpretation Comments Glucose POC (test 128 mg/dL 70-115 H Notify RN or MDIf you code = Glucose POC) consider your patient critically ill, the Debby-Accu Chec k Infrom II meter should not be used for Glucos e determination. Draw a venous Glucose and send to the main Lab for analysis. Thyroid Stimulating [id number] 15:30:55 Test Item Value Reference Range Interpretation Comments TSH (test code = TSH) 0.926 mIU/mL 0.270-4.200 POC [id number] 15:25:28 Test Item Value Reference Range Interpretation Comments Glucose POC (test 138 mg/dL 70-115 H If you con commission associate your code = Glucose POC) patient critically ill, the Debby-Accu Check Infrom II meter should not be used for Glucose determination. Draw a venous Glucose and send to the main Lab for analysis. Lipid [id number] 14:57:37 Test Item Value Reference Range Interpretation Comments Cholesterol Total 155 mg/dL 0-200 RISK OF HE ART (test code = DISEASEPublishe d by Cholesterol Total) [employer] Zoey lyte Optimal Borderl ine [...] is LDL/HDL Ratio=L DL Calc/HDL Chol RPR [id number] 12:22:43 Test Item Value Reference Range Interpretation Comments RPR Qual (test code = RPR Qual) Non-Reactive Non-Reactive Reactive Control (test code = Reactive Reactive Control) Weak Reactive Control (test Weak Reactive code = Weak Reactive Control) Non-Reactive Control (test code Non-Reactive = Non-Reactive Control) Lot # (test code = Lot #) [id number] Expiration Dt (test code = 07-06-20 N Expiration Dt) Urine [id number] 11:34:40 C Urine Added by [id number] growth at 24 hours. No growth at 48 hours.POC [id number] 11:14:46 Test Item Value Reference Range Interpretation Comments Glucose POC (test 171 mg/dL 70-115 H If you con commission associate your code = Glucose POC) patient critically ill, the Debby-Accu Check Infrom II meter should not be used for Glucose determination. Draw a venous Glucose and send to the main Lab for analysis. POC [id number] 08:41:45 Test Item Value Reference Range Interpretation Comments Glucose POC (test 163 mg/dL 70-115 H If you con commission associate your code = Glucose POC) patient critically ill, the Debby-Accu Check Infrom II meter should not be used for Glucose determination. Draw a venous Glucose and send to the main Lab for analysis. POC [id number] 05:38:51 Test Item Value Reference Range Interpretation Comments Glucose POC (test 146 mg/dL 70-115 H Notify RN or MDIf you code = Glucose POC) consider your patient critically ill, the Debby-Accu Chec k Infrom II meter should not be used for Glucos e determination. Draw a venous Glucose and send to the main Lab for analysis. POC [id number] 15:39:16 Test Item Value Reference Range Interpretation Comments Glucose POC (test 172 mg/dL 70-115 H Notify RN or MDIf you code = Glucose POC) consider your patient critically ill, the Debby-Accu Chec k Infrom II meter should not be used for Glucos e determination. Draw a venous Glucose and send to the main Lab for analysis. Urine Drug [id number] 14:11:43 Test Item Value Reference Range Interpretation [...] confir matory test if desired . Urinalysis [id number] 13:55:31 Test Item Value Reference Range Interpretation [...] Mucous) Moderate A Urinalysis with Culture, if [id number] 13:55:31 Test Item Value Reference Range Interpretation [...] Micro Ind?) rule [id number] _IN D Alcohol [id number] 12:41:12 Test Item Value Reference Range Interpretation Comments Ethanol Level (test <0.00 g/dL 0.00-0.01 Intoxica june 0.080 g/dL code = Ethanol or more Level) Ethanol Inst (test <0 N code = Ethanol Inst) Comprehensive Metabolic [id number] 12:41:11 Test Item Value Reference Range Interpretation [...] A/G 1.5 ratio N Ratio) Comprehensive Metabolic [id number] 12:41:11 Test Item Value Reference Range Interpretation [...] RangeeGF R < 60 may mean kid joes diseaseeGFR < 1 5 may mean kidney failure Rang es recommended by the National Kid[employer] Foundation, http://nkdep.ni h.gov Comprehensive Metabolic [id number] 12:41:11 Test Item Value Reference Range Interpretation [...] Foundation, http://nkdep.ni h.gov Complete Blood Count with [id number] 12:34:46 Test Item Value Reference Range Interpretation [...] code = IPF) 0 % N Automated [id number] 12:34:46 Test Item Value Reference Range Interpretation Comments Neutro Auto (test code = Neutro 56.4 % 36.0-70.0 Auto) Lymph Auto (test code = Lymph Auto) 36.4 % 12.0-44.0 Troup Auto (test code = Troup Auto) 5.5 % 0.0-11.0 Eos, Auto (test code = Eos, Auto) 1.2 % 0.0-7.0 Basophil Auto (test code = Basophil 0.3 % 0.0-2.0 Auto) Neutro Absolute (test code = Neutro 5.3 x10 1.6-7.4 Absolute) Lymph Absolute (test code = Lymph 3.39 x10 .50-4.60 Absolute) Troup Absolute (test code = Troup .51 x10 .00-1.20 Absolute) Eos Absolute (test code = Eos 0.11 x10 0.00-0.74 Absolute) Baso Absolute (test code = Baso 0.03 x10 0.00-0.21 Absolute) IG [id number] 12:34:46 Test Item Value Reference Range Interpretation Comments IG (test code = IG) 0.2 % 0.0-5.0 IG Abs (test code = IG Abs) 0 x10 N
[2021-03-11] MEDS ORDERED: NA CHLORIDE 0.9% 1,000 ML ONE ×2 (08:39→08:54)
[2021-03-11] MEDS ORDERED: FENTANYL CITR 100 MCG/2 ML ONE (08:39)
[2021-03-11] MEDS ORDERED: FAMOTIDINE 20 MG/2 ML VIAL IV ONE (08:39)
[2021-03-11] MEDS ORDERED: CEFTRIAXONE/SWI 1gm 1 GM/10 ML SYR ONE (08:39)
[2021-03-11] MEDS ORDERED: ONDANSETRON 4 MG/2 ML VIAL ONE (08:40)
[2021-03-11 08:45] LABS: Arterial Blood Carboxyhemoglob 1.7 % (0-1.5); Blood O2 Saturation 98.6 % (92-98.5)
[2021-03-11 08:47] LABS: Urine Blood Negative (Negative); Urine Glucose 3+ (Negative); Urine Protein Negative (Negative); Urine Specific Gravity 1.015 (1.005-1.030); Urine pH 5.5 (5.0-7.0)
--- NOTE | 2021-03-11 08:49 | RAD REPORT ---
EXAM DESCRIPTION: RAD - Chest Single View - 03/11/2021 8:34 am CLINICAL HISTORY: Mental status changes, sick COMPARISON: None. TECHNIQUE: AP portable chest image was obtained . FINDINGS: Lungs are clear. Heart and vasculature are normal. No measurable pleural effusion and no p neumothorax. No gross bony abnormality seen. Remote rib fractures. IMPRESSION: No acute cardiopulmonary process.
[2021-03-11 08:56] LABS: Absolute Lymphocytes (CBC) 0.8 K/uL (0.7-4.9); Basophils % 0.1 % (0-1.3); Lymphocytes % 7.6 % (15.3-44.8); MPV 8.6 fL (7.6-11.3); RBC Red Blood Cell Count 4.36 M/uL (4.33-5.43)
[2021-03-11 08:57] LABS: Protime INR 1.28
[2021-03-11 09:11] LABS: ALT/SGPT 38 U/L (12-78); AST/SGOT 33 U/L (15-37); Albumin 4.2 g/dL (3.4-5.0); Alkaline Phosphatase 146 U/L (45-117); BUN Blood Urea Nitrogen 15 mg/dL (7-18); Bilirubin Direct 0.5 mg/dL (0-0.2); Bilirubin Total 1.4 mg/dL (0.2-1.0); Glucose Level 522 mg/dL (74-106); Lipase 62 U/L (73-393); Magnesium 2.1 mg/dL (1.8-2.4); NT PRO-BNP 252 pg/mL (<125); Potassium 3.6 mmol/L (3.5-5.1); Protein, Total 8.5 g/dL (6.4-8.2); Sodium Level 136 mmol/L (136-145); Troponin (Emerg Dept Use Only) < 0.02 ng/mL (0.0-0.045)
[2021-03-11 09:12] LABS: Bicarbonate 10 mmol/L (21-32)
[2021-03-11] MEDS ORDERED: LORazepam 2 MG/ML VIAL ONE (09:17)
[2021-03-11] MEDS ORDERED: INSULIN -REGULAR HUMAN 50 UNIT/0.5 ML ML ONE (09:18)
[2021-03-11 09:34] LABS: Blood Morphology Comment NOTED (NOT SEEN); Platelet Estimate ADEQ; Polychromasia SLIGHT; White Blood Cell Scan OK (OK)
--- NOTE | 2021-03-11 09:38 | ER ---
Nurse's Notes [facility] Name: Andres Guerin Age: 60 yrs Sex: Male : 1960 Arrival Date: 03/11/2021 Time: 07:53 Bed 16 Private MD: Diagnosis: Altered mental status, unspecified;Other specified diabetes mellitus with ketoacidosis without coma;Other malaise and fatigue;Abdominal tenderness Presentation: 03/11 08:02 Chief complaint: Patient states: "I'm sick." Pt unable to state symptoms. When pt asked sv to state his name he states his year. Pt is bundled up in a blanket. Coronavirus screen: At this time, unable to obtain information related to travel outside the [place] Ebola Screen: Unable to complete the Ebola screening because: The patient is disoriented. Risk Assessment: Do you want to hurt yourself or someone else? Unable to obtain. Onset of symptoms is unknown. 08:02 Method Of Arrival: Ambulatory sv 08:02 Acuity: MANOLO 2 sv 08:05 Initial Sepsis Screen: Does the patient meet any 2 criteria? RR > 20 per min. Altered ph Mental Status. HR > 90 bpm. Does the patient have a suspected source of infection? No. Patient's initial sepsis screen is negative. Historical: - Allergies: 08:04 No Known Allergies; sv - PMHx: 08:04 Diabetes - NIDDM; Hyperlipidemia; Hypertension; sv - Immunization history:: Adult Immunizations unknown. - Social history:: Smoking status: unknown. - Family history:: not pertinent. Screenin:07 Abuse screen: Denies threats or abuse. Denies injuries from another. Nutritional ph screening: No deficits noted. Tuberculosis screening: No symptoms or risk factors identified. Fall Risk None identified. Assessment: 08:30 Reassessment: Pt pacing in room, unable to sit still for IV start, keeps getting up ph from bed stating, " I have to use the restroom." Has taken off pants and is nude, provided w/ urinal and urine sample obtained. Pt able to sit in bed for IV start, blood work obtained and sent to lab. General: Appears in no apparent distress. uncomfortable, Behavior is restless, uncooperative. Pain: Complains of pain in abdomen, left chest and "all over". Neuro: Level of Consciousness is awake, alert, confused, Oriented to person. Cardiovascular: Reports chest pain, shortness of breath, vomiting, Capillary refill < 3 seconds in bilateral fingers Patient's skin is warm and dry. Respiratory: Reports shortness of breath at rest Airway is patent Respiratory effort is even, Respiratory pattern is tachypnea. GI: Reports lower abdominal pain, upper abdominal pain, diarrhea, nausea, vomiting. Derm: Skin is intact, Skin is pink, warm \\T\\ dry. Musculoskeletal: Circulation, motion, and sensation intact. Range of motion: intact in all extremities. 08:40 Reassessment: RT at bedside to obtain ABG, pt currently sitting on bedside commode, ph remains nude. 08:59 Reassessment: Pt currently naked in restroom, diarrhea noted in toilet, no obvious ph blood noted. Pt provided wet wipes to clean then escorted back to bed 13, pt instructed to put on gown but unable to follow commands, wrapped self up in quilt from home. Pt did follow instructions to lie down in bed, IV Ativan and insulin given per ERP order, see MAR. Pt currently resting w/ lights off in room. 09:19 Reassessment: Patient appears in no apparent distress at this time. PT resting in bed ph at this time, taken to CT via stretcher, remains naked wrapped in quilt. 10:18 Reassessment: Dr. Khan at bedside. [email or web address] Vital Signs: 08:02 Pulse 109; Resp 24; Pulse Ox 100% ; Height 5 ft. 9 in. (175.26 cm); sv 08:06 BP 176 / 114; Pulse 106; Resp 24; Temp 99.4; Pulse Ox 100% ; ph 09:41 BP 163 / 103; Pulse 104; Resp 20; Pulse Ox 97% on R/A; ph 10:46 BP 142 / 76; Pulse 104; Resp 18; Pulse Ox 98% on R/A; ph 11:23 BP 169 / 93; Pulse 99; Resp 18; Pulse Ox 100% on R/A; ph ED Course: 07:53 Patient arrived in ED. rg4 08:02 Pan Wallace MD is Attending Physician. billie 08:04 Triage completed. sv 08:05 Arm band placed on. sv 08:14 Aleyda Ray, BARBI is Primary Nurse. ph 08:27 XRAY Chest (1 view) In Process Unspecified. EDMS 08:30 Inserted saline lock: 22 gauge in left forearm, using aseptic technique. ph 08:58 Magnesium Sent. sv 08:58 CBC with Diff Sent. sv 08:58 LFT's Sent. sv 08:58 Basic Metabolic Panel Sent. sv 09:28 CT Traumagram (Head C Spine CAP W Con) In Process Unspecified. EDMS 09:35 Grabiel Khan DO is Hospitalizing Provider. billie 09:43 Patient has correct armband on for positive identification. Bed in low position. Call ph light in reach. Side rails up X2. Pulse ox on. NIBP on. Door closed. Noise minimized. Warm blanket given. 11:25 No provider procedures requiring assistance completed. Inserted saline lock: 20 gauge ph in right antecubital area, using aseptic technique. 11:30 Patient admitted, IV remains in place. ph 19:15 Primary Nurse role handed off by Aleyda Ray RN [email or web address] Administered Medications: 08:25 Drug: fentaNYL (PF) 25 mcg Route: IVP; Site: left forearm; ph 09:00 Follow up: Response: No adverse reaction ph 08:30 Drug: Pepcid (famotidine) 20 mg Route: IVP; Site: left forearm; ph 09:00 Follow up: Response: No adverse reaction ph 08:35 Drug: fentaNYL (PF) 25 mcg Route: IVP; Site: left forearm; ph 09:00 Follow up: Response: No adverse reaction ph 08:35 Drug: Zofran (Ondansetron) 4 mg Route: IVP; Site: left forearm; ph 09:00 Follow up: Response: No adverse reaction ph 09:00 Drug: Insulin Regular Human 10 units {Co-Signature: jl7 (Pierre Rabago RN).} Route: IVP; ph Site: left forearm; 09:30 Follow up: Response: No adverse reaction ph 09:00 Drug: Ativan (LORazepam) 1 mg Route: IVP; Site: left forearm; ph 09:30 Follow up: Response: No adverse reaction ph 09:43 Drug: NS 0.9% 1000 ml Route: IV; Rate: 1 bolus; Site: left forearm; ph 12:30 Follow up: Response: No adverse reaction; IV Status: Completed infusion; IV Intake: ph 1000ml 09:44 Drug: NS 0.9% 1000 ml Route: IV; Rate: 1 bolus; Site: left forearm; ph 12:30 Follow up: Response: No adverse reaction; IV Status: Completed infusion; IV Intake: ph 1000ml 10:44 Drug: Insulin Drip - (Insulin Regular Human 100 units, NS 0.9% 100 ml) {Co-Signature: ph jl7 (Pierre Rabago RN).} Route: IV; Rate: 5 ml/hr; Site: right antecubital; 11:30 Follow up: Response: No adverse reaction; IV Status: Infusion continued upon admission ph 10:45 Drug: Rocephin (cefTRIAXone) 1 grams Route: IV; Rate: per protocol; Site: left forearm; ph 11:15 Follow up: Response: No adverse reaction; IV Status: Completed infusion ph 10:45 Drug: Thiamine 100 mg Route: IV; Rate: bolus; Site: left forearm; ph 11:00 Follow up: Response: No adverse reaction; IV Status: Completed infusion ph 11:00 Drug: Ativan (LORazepam) 1 mg Route: IVP; Site: left forearm; ph 11:30 Follow up: Response: No adverse reaction ph 11:01 Drug: fentaNYL (PF) 50 mcg Route: IVP; Site: left forearm; ph 11:30 Follow up: Response: No adverse reaction ph Intake: 12:30 IV: 1000ml; Total: 1000ml. ph 12:30 IV: 1000ml; Total: 2000ml. ph Outcome: 09:38 Decision to Hospitalize by Provider. billie 11:30 Admitted to ER Hold. Please see [facility] for further documentation. ph 11:30 Condition: stable 19:47 Admitted to accompanied by nurse, via stretcher, with chart, Report called to Sunitha LANDON bs2 19:48 Patient left the ED. bs2 Signatures: Dispatcher [employer] EDMS Mana Castaneda RN Pan Faith MD MD cha Hall, Patricia RN Ninfa Rodas ph, Jahala, RN RN jl7 Kimberly Castillo [email or web address] Rosa Diggs bs2 Pierre [email or web address]
--- NOTE | 2021-03-11 09:38 | EDPHYS ---
Physician Documentation [facility] Name: Andres Guerin Age: 60 yrs Sex: Male : 1960 Arrival Date: 03/11/2021 Time: 07:53 Bed 16 Private MD: ED Physician Pan Wallace HPI: 03/11 08:41 This 60 yrs old Male presents to ER via Ambulatory with complaints of Sick. billie 08:41 The patient presents with abdominal pain in the upper abdomen, in the lower abdomen. billie Onset: The symptoms/episode began/occurred at an unknown time. ams, poor historian, not coorpertive. The patient presents with agitation, confusion, trouble concentrating. Onset: The symptoms/episode began/occurred at an unknown time. Possible causes: CVA or TIA, drug use, alcohol, head injury, low blood sugar, sepsis, unknown. Associated signs and symptoms: Pertinent positives: abdominal pain, agitation, confusion. Current symptoms: In the emergency department the patient's symptoms are unchanged from the initial presentation, despite home interventions. Historical: - Allergies: 08:04 No Known Allergies; sv - PMHx: 08:04 Diabetes - NIDDM; Hyperlipidemia; Hypertension; sv - Immunization history:: Adult Immunizations unknown. - Social history:: Smoking status: unknown. - Family history:: not pertinent. ROS: 08:41 Eyes: Negative for injury, pain, redness, and discharge, ENT: Negative for injury, billie pain, and discharge, Neck: Negative for injury, pain, and swelling, Cardiovascular: Negative for chest pain, palpitations, and edema, Respiratory: Negative for shortness of breath, cough, wheezing, and pleuritic chest pain, Back: Negative for injury and pain, : Negative for injury, bleeding, discharge, and swelling, MS/Extremity: Negative for injury and deformity, Skin: Negative for injury, rash, and discoloration. 08:41 Constitutional: Positive for chills, fatigue, fever, malaise. 08:41 Respiratory: Positive for cough, shortness of breath. 08:41 Abdomen/GI: Positive for abdominal pain, abdominal cramps, of the right upper quadrant and left upper quadrant. 08:41 Neuro: Positive for altered mental status, weakness. Exam: 08:41 Head/Face: Normocephalic, atraumatic. Eyes: Pupils equal round and reactive to light, billie extra-ocular motions intact. Lids and lashes normal. Conjunctiva and sclera are non-icteric and not injected. Cornea within normal limits. Periorbital areas with no swelling, redness, or edema. ENT: Nares patent. No nasal discharge, no septal abnormalities noted. Tympanic membranes are normal and external auditory canals are clear. Oropharynx with no redness, swelling, or masses, exudates, or evidence of obstruction, uvula midline. Mucous membranes moist. Neck: Trachea midline, no thyromegaly or masses palpated, and no cervical lymphadenopathy. Supple, full range of motion without nuchal rigidity, or vertebral point tenderness. No Meningismus. Chest/axilla: Normal chest wall appearance and motion. Nontender with no deformity. No lesions are appreciated. Respiratory: Lungs have equal breath sounds bilaterally, clear to auscultation and percussion. No rales, rhonchi or wheezes noted. No increased work of breathing, no retractions or nasal flaring. Male : Normal genitalia with no discharge or lesions. Skin: Warm, dry with normal turgor. Normal color with no rashes, no lesions, and no evidence of cellulitis. MS/ Extremity: Pulses equal, no cyanosis. Neurovascular intact. Full, normal range of motion. 08:41 Cardiovascular: Rate: tachycardic, Rhythm: regular, Pulses: Pulses are 4+ in bilateral radial, brachial, femoral, popliteal, posterior tibial and and dorsalis pedis arteries.. Heart sounds: normal, Edema: is not appreciated, JVD: is not appreciated. 08:41 ECG was reviewed by the Attending Physician. 09:33 Neck: ROM/movement: is normal, no acute changes, Meningeal signs: are not present, billie Kernig's sign is negative, Brudzinski's sign is negative. Vital Signs: 08:02 Pulse 109; Resp 24; Pulse Ox 100% ; Height 5 ft. 9 in. (175.26 cm); sv 08:06 BP 176 / 114; Pulse 106; Resp 24; Temp 99.4; Pulse Ox 100% ; ph 09:41 BP 163 / 103; Pulse 104; Resp 20; Pulse Ox 97% on R/A; ph 10:46 BP 142 / 76; Pulse 104; Resp 18; Pulse Ox 98% on R/A; ph 11:23 BP 169 / 93; Pulse 99; Resp 18; Pulse Ox 100% on R/A; ph MDM: 08:02 Patient medically screened. billie 08:45 Differential Diagnosis altered mental status, sepsis, flu. Differential Diagnosis: CVA, billie electrolyte abnormality, alcohol intoxication, hypoglycemia, intracranial bleed, meningitis, overdose, pneumonia, seizure, sepsis, volume depletion. Differential diagnosis: bowel obstruction, coronary artery disease, cholecystitis, Cholelithiasis, diverticulitis, gastritis, gastroesophageal reflux disease, Mesenteric ischemia or infarction, non-specific abd pain, pancreatitis, Peptic Ulcer Disease, Peritonitis, Pyelonephritis, Ureterolithiasis, urinary tract infection. Data reviewed: vital signs, nurses notes, lab test result(s), EKG, radiologic studies, CT scan, plain films. Data interpreted: site monitor: rate is 106 beats/min, rhythm is regular, Pulse oximetry: on room air is 100 %. Test interpretation: by ED physician or midlevel provider: ECG, plain radiologic studies. Counseling: I had a detailed discussion with the patient and/or guardian regarding: the historical points, exam findings, and any diagnostic results supporting the discharge/admit diagnosis, lab results, radiology results. 03/11 08:11 Order name: Basic Metabolic Panel [facility] 03/11 08:11 Order name: CBC with Diff [facility] 03/11 08:11 Order name: LFT's [facility] 03/11 08:11 Order name: Magnesium [facility] 03/11 08:11 Order name: NT PRO-BNP; Complete Time: 09:30 [facility] 03/11 08:11 Order name: PT-INR; Complete Time: 09:04 [facility] 03/11 08:11 Order name: Troponin (emerg Dept Use Only); Complete Time: 09:30 [facility] 03/11 08:11 Order name: Lipase; Complete Time: 09:30 [facility] 03/11 08:11 Order name: Urine Culture [facility] 03/11 08:11 Order name: Blood Culture Adult (2) [facility] 03/11 08:11 Order name: Lactate; Complete Time: 09:30 [facility] 03/11 08:11 Order name: Flu [facility] 03/11 08:11 Order name: Asprin; Complete Time: 09:30 [facility] 03/11 08:11 Order name: Tylenol Level; Complete Time: 09:30 [facility] 03/11 08:11 Order name: Urine Drug Screen [facility] 03/11 08:12 Order name: Basic Metabolic Panel; Complete Time: 09:30 EDMS 03/11 08:12 Order name: CBC with Automated Diff EDMS 03/11 08:12 Order name: Liver (Hepatic) Function; Complete Time: 09:30 EDMS 03/11 08:12 Order name: Magnesium; Complete Time: 09:30 EDMS 03/11 08:32 Order name: ABG; Complete Time: 09:30 [facility] 03/11 08:36 Order name: AMMONIA [facility] 03/11 08:42 Order name: Glucose, Ancillary Testing; Complete Time: 09:05 EDMS 03/11 08:47 Order name: Urine Dipstick-Ancillary; Complete Time: 09:05 EDMS 03/11 08:58 Order name: CBC Smear Scan EDMS 03/11 10:13 Order name: CREATININE WHOLE BLOOD EDMS 03/11 10:31 Order name: SARS-COV-2 RT PCR EDMS 03/11 11:31 Order name: Glucose, Ancillary Testing EDMS 03/11 12:47 Order name: Glucose, Ancillary Testing EDMS 03/11 12:59 Order name: Lactate Sepsis 2 HR Follow-up EDMS 03/11 08:11 Order name: XRAY Chest (1 view); Complete Time: 09:05 [facility] 03/11 08:11 Order name: EKG; Complete Time: 08:13 [facility] 03/11 08:11 Order name: Cardiac monitoring; Complete Time: 08:50 [facility] 03/11 08:11 Order name: EKG - Nurse/Tech; Complete Time: 08:50 [facility] 03/11 08:11 Order name: IV Saline Lock; Complete Time: 08:50 [facility] 03/11 08:11 Order name: Labs collected and sent; Complete Time: 08:50 [facility] 03/11 08:11 Order name: O2 Per Protocol; Complete Time: 08:50 [facility] 03/11 08:11 Order name: O2 Sat Monitoring; Complete Time: 08:50 [facility] 03/11 08:11 Order name: Urine Dipstick-Ancillary (obtain specimen); Complete Time: 08:50 [facility] 03/11 08:11 Order name: CT Traumagram (Head C Spine CAP W Con) [facility] 03/11 13:07 Order name: Basic Metabolic Panel [facility] 03/11 14:07 Order name: Glucose, Ancillary Testing [facility] 03/11 14:13 Order name: Glucose, Ancillary Testing EDMS 03/11 14:23 Order name: Glucose, Ancillary Testing EDMS 03/11 15:43 Order name: Glucose, Ancillary Testing EDMS 03/11 16:56 Order name: Glucose, Ancillary Testing ED[facility] 03/11 17:12 Order name: Basic Metabolic Panel ED[facility] 03/11 18:31 Order name: Glucose, Ancillary Testing EDMS EC:41 Rate is 103 beats/min. Rhythm is regular. QRS [place] is Normal. [place] interval is normal. billie QRS interval is normal. QT interval is normal. No Q waves. T waves are Normal. No ST changes noted. Clinical impression: Sinus tachycardia and No evidence of ischemia. Interpreted by me. Reviewed by me. Administered Medications: 08:25 Drug: fentaNYL (PF) 25 mcg Route: IVP; Site: left forearm; ph 09:00 Follow up: Response: No adverse reaction ph 08:30 Drug: Pepcid (famotidine) 20 mg Route: IVP; Site: left forearm; ph 09:00 Follow up: Response: No adverse reaction ph 08:35 Drug: fentaNYL (PF) 25 mcg Route: IVP; Site: left forearm; ph 09:00 Follow up: Response: No adverse reaction ph 08:35 Drug: Zofran (Ondansetron) 4 mg Route: IVP; Site: left forearm; ph 09:00 Follow up: Response: No adverse reaction ph 09:00 Drug: Insulin Regular Human 10 units {Co-Signature: jl7 (Pierre Rabago RN).} Route: IVP; ph Site: left forearm; 09:30 Follow up: Response: No adverse reaction ph 09:00 Drug: Ativan (LORazepam) 1 mg Route: IVP; Site: left forearm; ph 09:30 Follow up: Response: No adverse reaction ph 09:43 Drug: NS 0.9% 1000 ml Route: IV; Rate: 1 bolus; Site: left forearm; ph 12:30 Follow up: Response: No adverse reaction; IV Status: Completed infusion; IV Intake: ph 1000ml 09:44 Drug: NS 0.9% 1000 ml Route: IV; Rate: 1 bolus; Site: left forearm; ph 12:30 Follow up: Response: No adverse reaction; IV Status: Completed infusion; IV Intake: ph 1000ml 10:44 Drug: Insulin Drip - (Insulin Regular Human 100 units, NS 0.9% 100 ml) {Co-Signature: ph jl7 (Pierre Rabago RN).} Route: IV; Rate: 5 ml/hr; Site: right antecubital; 11:30 Follow up: Response: No adverse reaction; IV Status: Infusion continued upon admission ph 10:45 Drug: Rocephin (cefTRIAXone) 1 grams Route: IV; Rate: per protocol; Site: left forearm; ph 11:15 Follow up: Response: No adverse reaction; IV Status: Completed infusion ph 10:45 Drug: Thiamine 100 mg Route: IV; Rate: bolus; Site: left forearm; ph 11:00 Follow up: Response: No adverse reaction; IV Status: Completed infusion ph 11:00 Drug: Ativan (LORazepam) 1 mg Route: IVP; Site: left forearm; ph 11:30 Follow up: Response: No adverse reaction ph 11:01 Drug: fentaNYL (PF) 50 mcg Route: IVP; Site: left forearm; ph 11:30 Follow up: Response: No adverse reaction ph Disposition Summary: 03/11/21 09:38 Hospitalization Ordered Hospitalization Status: Inpatient Admission billie Provider: Grabiel Khan cha Condition: Fair billie Problem: new billie Symptoms: have improved billie Bed/Room Type: Standard billie Location: Telemetry/MedSurg (Inpatient)(03/11/21 18:52) dw Room Assignment: 429(03/11/21 18:52) dw Diagnosis - Altered mental status, unspecified billie - Other specified diabetes mellitus with ketoacidosis without coma billie - Other malaise and fatigue billie - Abdominal tenderness billie Forms: - Medication Reconciliation Form billie - SBAR form billie Signatures: Dispatcher [employer] EDMS Mana Castaneda RN RN sv Woody, Diana RN Pan Rubio MD MD cha Williams, Irene, Aleyda Ervin RN, RN RN ph Pierre Rabago RN jl7 Corrections: (The following items were deleted from the chart) 09:33 08:13 CORONAVIRUS+MR.LAB.BRZ ordered. EDMS EDMS 11:15 09:38 Intensive Care Unit billie iw 11:15 09:38 billie iw 18:52 11:15 [facility] ER HOLD iw dw 18:52 11:15 ERHOLD- dw
[2021-03-11 09:44] LABS: Barbiturates NEGATIVE (NEGATIVE); Benzodiazepines NEGATIVE (NEGATIVE); Cocaine NEGATIVE (NEGATIVE); METHAMPHETAM NEGATIVE (NEGATIVE); Methadone NEGATIVE (NEGATIVE); Opiates NEGATIVE (NEGATIVE); Phencyclidine NEGATIVE (NEGATIVE); THC Cannibis NEGATIVE (NEGATIVE)
[2021-03-11] MEDS ORDERED: GLUCAGON 1 MG/VIAL IM PRN ×2 (09:54→18:40)
[2021-03-11] MEDS ORDERED: D50W 25 GM/50 ML VIAL IV PRN (09:57)
[2021-03-11] MEDS ORDERED: INSULIN -REGULAR HUMAN 100 UNIT in NA CHLORIDE 0.9% 100 ML IV SCH (10:00)
--- NOTE | 2021-03-11 10:08 | RAD REPORT ---
EXAM DESCRIPTION: CT - Head C Spine Lorne Banegas - 03/11/2021 9:28 am CLINICAL HISTORY: Shortness of breath, pain COMPARISON: None. TECHNIQUE: Axial [address] head images were obtained without IV contrast. Axial [address] cervical spin e images were obtained with sagittal and coronal reconstruction images reviewed. All CT scans are performed using dose optimization technique as appropriate and may include automated exposure control or mA/KV adjustment according to patient size. FINDINGS: No intracranial hemorrhage, mass, or edema. No mid-line shift or abnormal fluid collection . Mastoid air cells and paranasal sinuses are clear. No skull fracture or acute bony finding. Cervical body height and alignment are normal. Disc space narrowing C5-6 and C6-7 with bilateral neur al foraminal narrowing. No fracture or acute bony finding. No paraspinal mass or hematoma. Thyroid nodules. No axillary or mediastinal lymphadenopathy. Multivessel coronary artery disease. No pneumothorax. No edema or consolidation. Abdomen Cirrhotic liver morphology. 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 No adrenal lesi ons. Renal lesions, likely cysts. No stones or hydronephrosis. No ureteral calculi. Normal appendix. No bowel obstruction. No free air. Remote left L1, L2, and L3 transverse process fractures. Remote bi lateral rib fractures IMPRESSION: 1. No acute intracranial abnormality. 2. No acute fracture or traumatic malalignment of cervical spine. 3. No evidence of significant trauma to the chest, abdomen, or pelvis. 4. Incidental findings as noted above. Negative CT cervical spine examination.
--- NOTE | 2021-03-11 10:39 | P.HP ---
Certification for Inpatient Patient admitted to: Inpatient With expected LOS: >2 Midnights Patient will require the following post-hospital care: None Practitioner: I am a practitioner with admitting privileges, knowledge of patient current condition, hospital course, and medical plan of care. Services: Services provided to patient in accordance with Admission requirements found in Title 42 Section 412.3 of the Code of Federal Regulations Patient History Date of Service: 03/11/21 Primary Care Provider: Unknown Reason for admission: Feeling sick History of Present Illness: 60-year-old male with history of diabetes mellitus type 2 insulin- dependent, hypertension, hepatitis-C with cirrhosis, depression with anxiety and prior synthetic marijuana use. Patient came in the ER feeling sick. Patient is a poor historian. Most information came from the ER physician. ER physician reported patient had some agitation upon arrival. Patient was previously seen at our facility in January of this year. He was treated for synthetic marijuana use, diabetes mellitus, gastric varices related to cirrhosis. Patient reports feeling ill. This is very nondescript. Patient denied any melena, rectal bleeding. Mild nausea noted. Patient required medication in the ER for agitation. In the ER vital signs stable play. Blood pressure was elevated. Patient was found in DKA with a blood sugar level of 522. Blood gases showed pH is 7.44, pCO2 of 14. Bicarb 9.7. White count 10.3, hemoglobin 11.6. Platelet count 305. Sodium 136, potassium 3.6. BUN of 15, creatinine 1.16. Bicarb 10. GFR 64. Lactic acid elevated at 7.5. Positive ketones in the urine. Urine drug screen negative. Total bilirubin 1.4. AST ALT within normal range. Ammonia level normal. BNP 252. INR 1.28. Chest x-ray unremarkable. CT trauma scan unremarkable. Patient was started on insulin drip. Patient given 2 L bolus of fluids. Patient admitted to ICU for further evaluation and treatment. Tried to call who left the patient here. No response to call. Allergies No Known Allergies Allergy (Verified 01/14/21 04:45) Home medications list reviewed: Yes Home Medications: Insulin -Regular Human [Novolin -R*] 16 units SQ TID 01/14/21 Insulin Detemir [Levemir] 60 units SQ BEDTIME 01/14/21 Pravastatin Sodium 40 mg PO DAILY 01/14/21 Pregabalin [Lyrica] 150 mg PO BID 01/14/21 Quetiapine Fumarate [Seroquel Xr] 400 mg PO BEDTIME 01/14/21 hydrOXYzine pamoate [Hydroxyzine Pamoate] 50 mg PO BID PRN 01/14/21 Pantoprazole Sodium [Protonix] 40 mg PO BID #60 tablet. 01/17/21 Propranolol [Inderal*] 10 mg PO BID #60 tab 01/17/21 - Past Medical/Surgical History Diabetic: No -: Diabetes mellitus type 2-insulin dependent -: Hypertension -: Hyperlipidemia -: Hepatitis-C with cirrhosis -: History of gastric varices -: Depression with anxiety -: Left ankle surgery Psychosocial/ Personal History: Unable to obtain - Family History Family History: Reviewed- Non-Contributory - Social History Smoking Status: Unknown if ever smoked Alcohol use: No CD- Drugs: Yes Caffeine use: No Place of Residence: Home Review of Systems General: Weakness, Malaise Eyes: Unremarkable ENT: Unremarkable Respiratory: Unremarkable Cardiovascular: Unremarkable Gastrointestinal: Nausea, As per HPI Genitourinary: Unremarkable Musculoskeletal: Unremarkable Integumentary: Unremarkable Neurological: As per HPI Lymphatics: Unremarkable Physical Examination - Physical Exam General: Alert, Other (Patient appears disheveled. Patient without any clothes. Some agitation noted. Patient was alert oriented to place.) HEENT: Atraumatic, Other (Dry mucous membranes) Neck: Supple Respiratory: Clear to auscultation bilaterally, Normal air movement Cardiovascular: Normal pulses, Regular rate/rhythm Gastrointestinal: Normal bowel sounds, No masses, No rebound, No guarding Musculoskeletal: No tenderness, No warmth, Other (Skin appears dry.) Integumentary: No tenderness/swelling Neurological: Normal speech, Normal strength at 5/5 x4 extr, Normal tone, Abnormal affect (Increase anxiety noted. Some agitation noted.) - Studies Laboratory Data (last 24 hrs) 03/11/21 08:25: PT 14.7 H, INR 1.28 03/11/21 08:25: WBC 10.30, Hgb 11.6 L, Hct 35.0 L, Plt Count 305 03/11/21 08:25: Sodium 136, Potassium 3.6, BUN 15, Creatinine 1.16, Glucose 522 H*, Magnesium 2.1, Total Bilirubin 1.4 H, AST 33, ALT 38, Alkaline Phosphatase 146 H, Lipase 62 L Microbiology Data (last 24 hrs): 03/11/21 09:09 Nasopharnyx Influenza Type A Antigen Screen - Final 03/11/21 09:09 Nasopharnyx Influenza Type B Antigen Screen - Final Assessment and Plan - Plan Impression: Metabolic encephalopathy related to DKA with history of diabetes mellitus type 2 insulin-dependent Acute renal insufficiency secondary to above and dehydration Hypertension Hepatitis-C with cirrhosis History of gastric varices History of synthetic marijuana use Hyperlipidemia Depression with anxiety Plan: Metabolic encephalopathy related to DKA with history of diabetes mellitus type 2 insulin-dependent: Patient will be admitted to ICU for further monitoring and treatment. Patient to receive 2 L IV fluid bolus. Will continue with maintenance. Patient started on IV insulin. Continue DKA protocol. Will m onitor blood sugars every hr and adjust accordingly. Will also make adjustments to IV fluids pending repeat lab. Repeat BMP every 3 hr. Anticipate improvement in DKA within the next 12-24 hr. Will transition to his basal insulin once significantly improved. Continue IV fluid hydration. Will need to obtain more information from the . Patient recently hospitalized for synthetic marijuana use and GI bleed related to gastric varices. No evidence of melena, rectal bleeding or hematemesis noted. Hemoglobin stable. Will continue with medication for now. Anticipate improvement over the next 72 hr. Acute renal insufficiency secondary to above and dehydration: IV fluid bolus to be given. Continue with maintenance medication. Continue DKA protocol. Hypertension: Will provide IV hydralazine. Hepatitis-C with cirrhosis: Overall stable. Will monitor closely. Ammonia level within normal range. Once medically stable will restart Inderal medication. History of gastric varices: Once medically stable will restart Inderal. Will continue Protonix 40 mg 1 pill twice daily IV for now. History of synthetic marijuana use: Urine drug screen negative. We need to investigate this further. Will discuss with about his drug habit use. Will provide IV folic acid and thiamine. Hyperlipidemia: Hold medication-pravastatin Depression with anxiety: Will provide medication IV for agitation. DVT prophylaxis: Heparin Code status: Full code Advanced care planning-30 min: Return to home at discharge. Discharge Plan: Home Plan to discharge in: Greater than 2 days - Advance Directives Does patient have a Living Will: No Does patient have a Durable POA for Healthcare: No - Code Status/Comfort Care Code Status Assessed: Yes (Full code) Time Spent Managing Pts Care (In Minutes): 60
[2021-03-11] MEDS ORDERED: THIAMINE 200 MG/2 ML INJ ONE (10:59)
[2021-03-11] MEDS ORDERED: ONDANSETRON 4 MG/2 ML VIAL IV PRN (12:20)
[2021-03-11] MEDS ORDERED: SODIUM CHLORIDE 0.9% 10ML INJ IV PRN (12:20)
[2021-03-11] MEDS ORDERED: D5 0.45 NS 1,000 ML IV SCH (12:20)
[2021-03-11] MEDS ORDERED: NA CHLORIDE 0.9% 2,000 ML IV ONE (12:20)
[2021-03-11] MEDS: NACHLORIDE 0.45% 1,000 ML IV SCH ×3 (12:20→19:00)
[2021-03-11] MEDS ORDERED: LORazepam 2 MG/ML VIAL IV PRN (12:20)
[2021-03-11] MEDS ORDERED: HYDRALAZINE HCL 20 MG/ML VIAL IV PRN (12:20)
[2021-03-11 13:05] LABS: BUN Blood Urea Nitrogen 13 mg/dL (7-18); Bicarbonate 22 mmol/L (21-32); Glucose Level 263 mg/dL (74-106); Potassium 3.8 mmol/L (3.5-5.1); Sodium Level 143 mmol/L (136-145)
[2021-03-11] MEDS ORDERED: FOLIC ACID 1 MG in NA CHLORIDE 0.9% 50 ML IV SCH (13:30)
[2021-03-11] MEDS ORDERED: NACHLORIDE 0.45% 1,000 ML IV ONE (13:47)
[2021-03-11] MEDS ORDERED: D5 0.45 NS 1,000 ML IV ONE (14:03)
[2021-03-11 17:10] VITALS: BMI 26.6
[2021-03-11 17:11] LABS: BUN Blood Urea Nitrogen 12 mg/dL (7-18); Bicarbonate 22 mmol/L (21-32); Glucose Level 246 mg/dL (74-106); Potassium 3.5 mmol/L (3.5-5.1); Sodium Level 143 mmol/L (136-145)
[2021-03-11] MEDS ORDERED: D50W 25 GM/50 ML SYRINGE IV PRN (18:49)
[2021-03-11 20:33] LABS: BUN Blood Urea Nitrogen 11 mg/dL (7-18); Bicarbonate 22 mmol/L (21-32); Glucose Level 201 mg/dL (74-106); Potassium 3.2 mmol/L (3.5-5.1); Sodium Level 144 mmol/L (136-145)
[2021-03-11] MEDS: HEPARIN 5000 UNIT/ML 1 ML VIAL SQ SCH (20:37)
[2021-03-11] MEDS: INSULIN GLARGINE 100 UNITS/ML SQ SCH (20:38)
[2021-03-11] MEDS: INSULIN -REGULAR HUMAN 50 UNIT/0.5 ML ML SQ SCH (20:38)
[2021-03-11] MEDS ORDERED: PANTOPRAZOLE 40 MG INJ IVP SCH (21:00)
[2021-03-11 21:25] VITALS: O2SAT 98
[2021-03-12 03:58] LABS: Absolute Lymphocytes (CBC) 1.6 K/uL (0.7-4.9); Basophils % 0.3 % (0-1.3); Hematocrit 31.8 % (39.6-49.0); Lymphocytes % 23.5 % (15.3-44.8); MPV 8.2 fL (7.6-11.3)
[2021-03-12 04:44] LABS: BUN Blood Urea Nitrogen 10 mg/dL (7-18); Bicarbonate 20 mmol/L (21-32); Glucose Level 206 mg/dL (74-106); HDL Cholesterol 49 mg/dL (40-60); LDL Cholesterol, Calculated 61 (<130); Magnesium 1.8 mg/dL (1.8-2.4); Sodium Level 142 mmol/L (136-145)
[2021-03-12] MEDS: NACHLORIDE 0.45% 1,000 ML IV SCH ×3 (05:16→21:40)
[2021-03-12 05:20] LABS: Potassium 2.9 mmol/L (3.5-5.1)
[2021-03-12] MEDS ORDERED: MAGNESIUM SULFATE 1 gm IVPB 1 GM/100 ML BAG IV ONE (05:23)
[2021-03-12] MEDS: KCL 20 MEQ/100 mL IVPB 20 MEQ/100 ML BAG IV SCH ×3 (06:00→10:18)
--- NOTE | 2021-03-12 06:13 | P.PN ---
Subjective Date of Service: 03/12/21 Primary Care Provider: Unknown Chief Complaint: Feeling sick Subjective: Other (Reports he is doing better. He lives by himself. Patient was transitioned off insulin drip yesterday evening.) Physical Examination - Vital Signs Temperature: 98.0 F Blood Pressure: 164/90 Pulse: 89 Respirations: 16 Pulse Ox (%): 98 - Studies Laboratory Data (last 24 hrs) 03/11/21 08:25: PT 14.7 H, INR 1.28 03/11/21 08:25: WBC 10.30, Hgb 11.6 L, Hct 35.0 L, Plt Count 305 03/11/21 08:25: Sodium 136, Potassium 3.6, BUN 15, Creatinine 1.16, Glucose 522 H*, Magnesium 2.1, Total Bilirubin 1.4 H, AST 33, ALT 38, Alkaline Phosphatase 146 H, Lipase 62 L Microbiology Data (last 24 hrs): 03/11/21 09:09 Nasopharnyx Influenza Type A Antigen Screen - Final 03/11/21 09:09 Nasopharnyx Influenza Type B Antigen Screen - Final Assessment & Plan Discharge Plan: Home Plan to discharge in: 24 Hours Physician Review Additional Text: Physical exam: General: Alert, cooperative. HEENT: Atraumatic Neck: Supple Respiratory: Clear to auscultation bilaterally, Normal air movement Cardiovascular: Normal pulses, Regular rate/rhythm Gastrointestinal: Normal bowel sounds, No masses, No rebound, No guarding Musculoskeletal: No tenderness, No warmth Integumentary: No tenderness/swelling Neurological: Normal speech, Normal strength at 5/5 x4 extr, Normal tone, Abnormal affect (Increase anxiety noted. Some agitation noted.) Impression: Metabolic encephalopathy related to DKA with history of diabetes mellitus type 2 insulin-dependent Acute renal insufficiency secondary to above and dehydration Hypertension Hepatitis-C with cirrhosis History of gastric varices History of synthetic marijuana use Hyperlipidemia Depression with anxiety Plan: Metabolic encephalopathy related to DKA with history of diabetes mellitus type 2 insulin-dependent: Patient back to baseline. Patient was transition off insulin drip last night. Now on Lantus. Continue with sliding scale. Hemoglobin A1c 10.1. Patient needs better diabetic control at home. Patient admits that he needs to establish care with a local PCP. Today we will try to ambulate patient with physical therapy. Recommend home health and physical therapy at discharge. We will have professor of social work help arrange for this. Overall his status has improved. Replace electrolytes. Anticipate discharge tomorrow with home health and physical therapy. We will try to reach out to local PCP to establish care. Acute renal insufficiency secondary to above and dehydration: IV fluid bolus to be given. Continue with maintenance medication. Continue DKA protocol. Hypertension: Restart Inderal. Hepatitis-C with cirrhosis: Overall stable. Will monitor closely. Ammonia level within normal range. Inderal medication restarted. History of gastric varices: Inderal restarted. Will continue Protonix 40 mg 1 pill twice daily IV for now. History of synthetic marijuana use: Urine drug screen negative. We need to investigate this further. Will discuss with about his drug habit use. Will provide IV folic acid and thiamine. Hyperlipidemia: Restart-pravastatin Depression with anxiety: Will provide medication IV for agitation. DVT prophylaxis: Heparin Code status: Full code Advanced care planning-30 min: He desires to go home at [place]. Will arrange for HH/PT. Will also provide direction to establish care with a local PCP to monitor and follow up his medical problems. Time Spent Managing Pts Care (In Minutes): 55
[2021-03-12] MEDS: HEPARIN 5000 UNIT/ML 1 ML VIAL SQ SCH ×2 (08:29→21:25)
[2021-03-12] MEDS: PROPRANOLOL HCL 10 MG TAB PO SCH ×2 (08:30→21:23)
[2021-03-12] MEDS: PREGABALIN 150 MG CAP PO SCH ×2 (08:30→21:24)
[2021-03-12] MEDS: FOLIC ACID 1 MG TABLET PO SCH (08:30)
[2021-03-12] MEDS: INSULIN -REGULAR HUMAN 50 UNIT/0.5 ML ML SQ SCH ×4 (08:31→21:24)
[2021-03-12] MEDS: ATORVASTATIN 10 MG TAB PO SCH (08:31)
[2021-03-12] MEDS: INSULIN GLARGINE 100 UNITS/ML SQ SCH ×2 (08:31→21:24)
[2021-03-12] MEDS: THIAMINE HCL 100 MG TABLET PO SCH (08:31)
[2021-03-12] MEDS: PANTOPRAZOLE 40MG TABLET PO SCH ×2 (08:31→21:24)
[2021-03-12] MEDS ORDERED: FOLIC ACID 1 MG in NA CHLORIDE 0.9% 50 ML IV SCH (09:00)
[2021-03-12] MEDS ORDERED: THIAMINE 200 MG/2 ML INJ IVP SCH (09:00)
--- NOTE | 2021-03-12 13:03 | EKG ---
Test Date: 2021-03-11 Test Time: 08:32:17 Plastic Extrusion Operator: AVIS MEASUREMENT RESULTS: Intervals: Rate: 103 GA: 160 QRSD: 86 QT: 362 QTc: 474 [place]: P: 81 GA: 160 QRS: -71 T: 72 INTERPRETIVE STATEMENTS: Sinus tachycardia Left axis deviation Septal infarct, age undetermined Abnormal ECG Compared to ECG 01/14/2021 00:41:01 Myocardial infarct finding now present Electronically Signed On 03-12-21 12:59:47 CDT by Bhavesh Adams
[2021-03-12] MEDS ORDERED: POTASSIUM 25 MEQ EFFERV TAB PO ONE (16:00)
[2021-03-12] MEDS ORDERED: D50W 25 GM/50 ML VIAL IV PRN (16:00)
[2021-03-12] MEDS ORDERED: QUETIAPINE FUMARATE 400 MG PO SCH (21:00)
[2021-03-13 04:21] LABS: Absolute Lymphocytes (CBC) 2.7 K/uL (0.7-4.9); Basophils % 0.4 % (0-1.3); Hematocrit 33.4 % (39.6-49.0); Lymphocytes % 34.6 % (15.3-44.8); MPV 8.4 fL (7.6-11.3); RBC Red Blood Cell Count 4.24 M/uL (4.33-5.43)
[2021-03-13 04:29] LABS: BUN Blood Urea Nitrogen 11 mg/dL (7-18); Bicarbonate 22 mmol/L (21-32); Glucose Level 110 mg/dL (74-106); Potassium 3.3 mmol/L (3.5-5.1); Sodium Level 140 mmol/L (136-145)
[2021-03-13] MEDS ORDERED: POTASSIUM CL SA 10 MEQ TAB PO ONE ×2 (04:38→06:00)
--- NOTE | 2021-03-13 06:09 | P.DS ---
Admission Date: 03/11/21 Discharge Date: 03/13/21 Primary Care Provider: none Disposition: ROUTINE DISCHARGE Discharge Condition: GOOD Reason for Admission: Feeling sick Consultations: none Procedures: CT Scan: FINDINGS: No intracranial hemorrhage, mass, or edema. No mid-line shift or abnormal fluid collection. Mastoid air cells and paranasal sinuses are clear. No skull fracture or acute bony finding. Cervical body height and alignment are normal. Disc space narrowing C5-6 and C6- 7 with bilateral neural foraminal narrowing. No fracture or acute bony finding. No paraspinal mass or hematoma. Thyroid nodules. No axillary or mediastinal lymphadenopathy. Multivessel coronary artery disease. No pneumothorax. No edema or consolidation. Abdomen Cirrhotic liver morphology. 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 No adrenal lesions. Renal lesions, likely cysts. No stones or hydronephrosis. No ureteral calculi. Normal appendix. No bowel obstruction. No free air. Remote left L1, L2, and L3 transverse process fractures. Remote bilateral rib fractures IMPRESSION: 1. No acute intracranial abnormality. 2. No acute fracture or traumatic malalignment of cervical spine. 3. No evidence of significant trauma to the chest, abdomen, or pelvis. 4. Incidental findings as noted above. Negative CT cervical spine examination. Medical problem list: Metabolic encephalopathy related to DKA with history of diabetes mellitus type 2 insulin-dependent Acute renal insufficiency secondary to above and dehydration Hypertension Hepatitis-C with cirrhosis History of gastric varices History of synthetic marijuana use Hyperlipidemia Depression with anxiety Brief History of Present Illness: 60-year-old male with history of diabetes mellitus type 2 insulin- dependent, hypertension, hepatitis-C with cirrhosis, depression with anxiety and prior synthetic marijuana use. Patient came in the ER feeling sick. Patient is a poor historian. Most information came from the ER physician. ER physician reported patient had some agitation upon arrival. Patient was previously seen at our facility in January of this year. He was treated for synthetic marijuana use, diabetes mellitus, gastric varices related to cirrhosis. Patient reports feeling ill. This is very nondescript. Patient denied any melena, rectal bleeding. Mild nausea noted. Patient required medication in the ER for agitation. In the ER vital signs stable play. Blood pressure was elevated. Patient was f ound in DKA with a blood sugar level of 522. Blood gases showed pH is 7.44, pCO2 of 14. Bicarb 9.7. White count 10.3, hemoglobin 11.6. Platelet count 305. Sodium 136, potassium 3.6. BUN of 15, creatinine 1.16. Bicarb 10. GFR 64. Lactic acid elevated at 7.5. Positive ketones in the urine. Urine drug screen negative. Total bilirubin 1.4. AST ALT within normal range. Ammonia level normal. BNP 252. INR 1.28. Chest x-ray unremarkable. CT trauma scan unremarkable. Patient was started on insulin drip. Patient given 2 L bolus of fluids. Patient admitted to ICU for further evaluation and treatment. Tried to call who left the patient here. No response to call. Hospital Course: Patient presented with metabolic encephalopathy related to DKA. Patient with history of diabetes mellitus type 2 insulin-dependent. Patient also had acute renal insufficiency secondary to dehydration. The patient was admitted to ICU. DKA protocol was initiated. DKA resolved. Patient was transitioned back to his insulin regimen. Hemoglobin A1c was 10.1. At discharge patient is without significant nausea, vomiting. Blood sugars well controlled. Recommend to [place] in blood sugars less than 130 fasting and less than 200 after meals. Further adjustment in medication can be done by his PCP. At discharge patient will continue with Levemir 20 units subcu twice daily. Patient will also continue with his insulin sliding scaleNovoLog. Protocol for mild sliding scale will be provided. If blood sugars remain above 200 he may increase Lantus by 1 to 2 units for better control. Further adjustment can be done by his PCP. Recommend to recheck hemoglobin A1c every 3 months to monitor his progress. Patient will establish care locally with a PCP. Recommend follow-up within 1 week to follow- up his hospitalization and continue his care. Patient with hypertension. At discharge patient will continue with Inderal 10 mg 1 pill twice daily. Recommend to maintain blood pressure less than 130/80. Further adjustment in medication can be done by his PCP. Patient with history of hepatitis C with cirrhosis. Patient also with history of gastric varices. This has remained stable. At discharge patient will continue with Inderal as directed. At discharge he will also continue with Protonix 40 mg 1 pill twice daily and Inderal 10 mg 1 pill twice daily. Patient will also be provided folic acid 1 mg daily. Recommend follow-up with GI as an outpatient to further monitor and adjust his condition. 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 Patient with hyperlipidemia. At discharge patient will continue with pravastatin 40 mg daily. Patient with depression with anxiety. At discharge patient will continue with Seroquel XR 400 mg daily. Patient with diabetic neuropathy. At discharge patient will continue with Lyrica 150 mg 1 pill twice daily. Vital Signs/Physical Exam: Temp Pulse Resp BP Pulse Ox 98.3 F 69 18 159/94 H 96 03/13/21 00:00 03/13/21 00:00 03/13/21 00:00 03/13/21 00:00 03/13/21 00:00 General: Alert, In no apparent distress, Oriented x3, Cooperative HEENT: Atraumatic Neck: Supple Respiratory: Clear to auscultation bilaterally, Normal air movement Cardiovascular: Normal pulses, Regular rate/rhythm Gastrointestinal: Normal bowel sounds, No tenderness, No masses, No rebound, No guarding Musculoskeletal: No erythema, No tenderness, No warmth Integumentary: No tenderness/swelling, No erythema, No warmth, No cyanosis Neurological: Normal speech, Normal strength at 5/5 x4 extr, Normal tone, Normal affect Laboratory Data at Discharge: WBC 8.00 K/uL (4.3-10.9) D 03/13/21 03:12 Hgb 10.9 g/dL (13.6-17.9) L 03/13/21 03:12 Hct 33.4 % (39.6-49.0) L 03/13/21 03:12 Plt Count 232 K/uL (152-406) 03/13/21 03:12 PT 14.7 SECONDS (9.5-12.5) H 03/11/21 08:25 INR 1.28 03/11/21 08:25 Sodium 140 mmol/L (136-145) 03/13/21 03:12 Potassium 3.3 mmol/L (3.5-5.1) L 03/13/21 03:12 BUN 11 mg/dL (7-18) 03/13/21 03:12 Creatinine 0.70 mg/dL (0.55-1.3) 03/13/21 03:12 Glucose 110 mg/dL (74-106) H 03/13/21 03:12 Magnesium 2.0 mg/dL (1.8-2.4) 03/13/21 03:12 Total Bilirubin 1.4 mg/dL (0.2-1.0) H 03/11/21 08:25 AST 33 U/L (15-37) 03/11/21 08:25 ALT 38 U/L (12-78) 03/11/21 08:25 Alkaline Phosphatase 146 U/L (45-117) H 03/11/21 08:25 Triglycerides 95 mg/dL (<150) 03/12/21 03:15 Cholesterol 129 mg/dL (<200) 03/12/21 03:15 HDL Cholesterol 49 mg/dL (40-60) 03/12/21 03:15 Cholesterol/HDL Ratio 2.63 03/12/21 03:15 Lipase 62 U/L (73-393) L 03/11/21 08:25 Home Medications: Pregabalin [Lyrica] 150 mg PO BID 01/14/21 Quetiapine Fumarate [Seroquel Xr] 400 mg PO BEDTIME 01/14/21 Propranolol [Inderal*] 10 mg PO BID #60 tab 01/17/21 Folic Acid 1 mg PO DAILY #90 tablet 03/13/21 Insulin -Regular Human [Novolin -R*] See Protocol SQ TID #1 vial 03/13/21 Insulin Detemir [Levemir] 20 units SQ BID #1 vial 03/13/21 Pantoprazole Sodium [Protonix] 40 mg PO BID #60 tablet. 03/13/21 Pravastatin Sodium 40 mg PO DAILY #30 03/13/21 New Medications: Folic Acid 1 mg PO DAILY #90 tablet Insulin Detemir [Levemir] 20 units SQ BID #1 vial Insulin -Regular Human [Novolin -R*] See Protocol SQ TID #1 vial Pravastatin Sodium 40 mg PO DAILY #30 Pantoprazole Sodium [Protonix] 40 mg PO BID #60 tablet. Physician Discharge Instructions: Patient presented with metabolic encephalopathy related to DKA. Patient with history of diabetes mellitus type 2 insulin-dependent. Patient also had acute renal insufficiency secondary to dehydration. The patient was admitted to ICU. DKA protocol was initiated. DKA resolved. Patient was transitioned back to his insulin regimen. Hemoglobin A1c was 10.1. At discharge patient is without significant nausea, vomiting. Blood sugars well controlled. Recommend to maintain blood sugars less than 130 fasting and less than 200 after meals. Further adjustment in medication can be done by his PCP. At discharge patient will continue with Levemir 20 units subcu twice daily. Patient will also continue with his insulin sliding scaleNovoLog. Protocol for mild sliding scale will be provided. If blood sugars remain above 200 he may increase Lantus by 1 to 2 units for better control. Further adjustment can be done by his PCP. Recommend to recheck hemoglobin A1c every 3 months to monitor his progress. Patient will establish care locally with a PCP. Recommend follow-up within 1 week to follow-up his hospitalization and continue his care. Patient with hypertension. At discharge patient will continue with Inderal 10 mg 1 pill twice daily. Recommend to maintain blood pressure less than 130/80. Further adjustment in medication can be done by his PCP. Patient with history of hepatitis C with cirrhosis. Patient also with history of gastric varices. This has remained stable. At discharge patient will cont inue with Inderal as directed. At discharge he will also continue with Protonix 40 mg 1 pill twice daily and Inderal 10 mg 1 pill twice daily. Patient will also be provided folic acid 1 mg daily. Recommend follow-up with GI as an outpatient to further monitor and adjust his condition. 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 Patient with hyperlipidemia. At discharge patient will continue with pravastatin 40 mg daily. Patient with depression with anxiety. At discharge patient will continue with Seroquel XR 400 mg daily. Patient with diabetic neuropathy. At discharge patient will continue with Lyrica 150 mg 1 pill twice daily. Diet: ADA Activity: Ad jonathan Followup: NONE,NONE [Primary Care Provider] - Time spent managing pt's care (in minutes): 55
[2021-03-13] MEDS: HEPARIN 5000 UNIT/ML 1 ML VIAL SQ SCH (07:40)
[2021-03-13] MEDS: INSULIN -REGULAR HUMAN 50 UNIT/0.5 ML ML SQ SCH (09:00)
[2021-03-13] MEDS: THIAMINE HCL 100 MG TABLET PO SCH (09:38)
[2021-03-13] MEDS: PANTOPRAZOLE 40MG TABLET PO SCH (09:39)
[2021-03-13] MEDS: PROPRANOLOL HCL 10 MG TAB PO SCH (09:39)
[2021-03-13] MEDS: ATORVASTATIN 10 MG TAB PO SCH (09:39)
[2021-03-13] MEDS: INSULIN GLARGINE 100 UNITS/ML SQ SCH (09:39)
[2021-03-13] MEDS: FOLIC ACID 1 MG TABLET PO SCH (09:39)
[2021-03-13] MEDS: PREGABALIN 150 MG CAP PO SCH (09:39)
[2021-03-13 09:40] VITALS: BP 149/83
[2021-03-13 09:58] VITALS: TEMP 98.3
== END 2021-03-13 10:50 | disposition home health service (06) | DRG 637 ==
LOC: ER 07:52 → ERHOLD 10:25 → 4TH 19:35
PROVIDERS: ADMIT Family Medicine; ATTEND Family Medicine
DX: E11.10 Type 2 diabetes mellitus with ketoacidosis without coma (principal); G93.41 Metabolic encephalopathy; N28.9 Disorder of kidney and ureter, unspecified; E86.0 Dehydration; I10 Essential (primary) hypertension; B19.20 Unspecified viral hepatitis C without hepatic coma; K74.69 Other cirrhosis of liver; E78.5 Hyperlipidemia, unspecified; F41.8 Other specified anxiety disorders; I86.4 Gastric varices; Z20.822 Contact with and (suspected) exposure to COVID-19
CPT/HCPCS: 36415; 70450; 71045; 71260; 72125; 74177; 80048; 80061; 80076; 80307; 80329; 81003; 82140; 82565; 82805; 82947; 83036; 83605; 83690; 83735; 83880; 84132; 84484; 85025; 85610; 87040; 87086; 87088; 87804; 93005; 97116; 97161; 99285; J0360; J0696; J1644; J1815; J2405; J3010; J3411; J3475; J3480; J7030; J7799; Q9967; U0003

== ENCOUNTER 2021-05-03 22:09 | Observation (INO) | payer OTHER ==
--- OUTSIDE RECORDS SUMMARY | 2021-05-03 22:13 | XMS REPORT | Continuity of Care Document ---
:1960 Author Organization [facility] t Address [address] [place] [address] Care Team Providers Name Role Phone Gui [...] Clinicians Facility Department ID 2020-08-28 2020-08-28 Emergency [facility] [id number] 1965 08:31:00 10:57:00 [facility] [id number] [place] [id number] [place] [phone] [id number] Results Test Description Test Time Test [...] to the main Lab for analysis. POC [id number] 06:30:01 Test Item Value Reference Range Interpretation Comments Glucose POC (test 163 mg/dL 70-115 H Notify RN or MDIf you code = Glucose POC) consider your patient critically ill, the Debby-Accu Chec k Infrom II meter should not be used for Glucos e determination. Draw a venous Glucose and send to the main Lab for analysis. POC [id number] 20:14:50 Test Item Value Reference Range Interpretation Comments Glucose POC (test 161 mg/dL 70-115 H If you con science instructor your code = Glucose POC) patient critically ill, the Debby-Accu Check Infrom II meter should not be used for Glucose determination. Draw a venous Glucose and send to the main Lab for analysis. POC [id number] 15:02:57 Test Item Value Reference Range Interpretation Comments Glucose POC (test 144 mg/dL 70-115 H Notify RN or MDIf you code = Glucose POC) consider your patient critically ill, the Debby-Accu Chec k Infrom II meter should not be used for Glucos e determination. Draw a venous Glucose and send to the main Lab for analysis. POC [id number] 11:14:36 Test Item Value Reference Range Interpretation Comments Glucose POC (test 173 mg/dL 70-115 H Notify RN or MDIf you code = Glucose POC) consider your patient critically ill, the Debby-Accu Chec k Infrom II meter should not be used for Glucos e determination. Draw a venous Glucose and send to the main Lab for analysis. POC [id number] 06:21:50 Test Item Value Reference Range Interpretation Comments Glucose POC (test 135 mg/dL 70-115 H Notify RN or MDIf you code = Glucose POC) consider your patient critically ill, the Debby-Accu Chec k Infrom II meter should not be used for Glucos e determination. Draw a venous Glucose and send to the main Lab for analysis. POC [id number] 19:28:55 Test Item Value Reference Range Interpretation Comments Glucose POC (test 128 mg/dL 70-115 H Notify RN or MDIf you code = Glucose POC) consider your patient critically ill, the Debby-Accu Chec k Infrom II meter should not be used for Glucos e determination. Draw a venous Glucose and send to the main Lab for analysis. Thyroid Stimulating [id number] 15:30:55 Test Item Value Reference Range Interpretation Comments TSH (test code = TSH) 0.926 mIU/mL 0.270-4.200 POC [id number] 15:25:28 Test Item Value Reference Range Interpretation Comments Glucose POC (test 138 mg/dL 70-115 H If you con science instructor your code = Glucose POC) patient critically ill, the Debby-Accu Check Infrom II meter should not be used for Glucose determination. Draw a venous Glucose and send to the main Lab for analysis. Lipid [id number] 14:57:37 Test Item Value Reference Range Interpretation Comments Cholesterol Total 155 mg/dL 0-200 RISK OF HE ART (test code = DISEASEPublishe d by Cholesterol Total) [place] [employer] Zoey lyte Optimal Borderl ine [...] is LDL/HDL Ratio=L DL Calc/HDL Chol RPR [id number] 12:22:43 Test Item Value Reference Range Interpretation Comments RPR Qual (test code = RPR Qual) Non-Reactive Non-Reactive Reactive Control (test code = Reactive Reactive Control) Weak Reactive Control (test Weak Reactive code = Weak Reactive Control) Non-Reactive Control (test code Non-Reactive = Non-Reactive Control) Lot # (test code = Lot #) [id number] N Expiration Dt (test code = 07-06-20 N Expiration Dt) Urine [id number] 11:34:40 C Urine Added by GL_SJM_UA_CUL_INDNo growth at 24 hours. No growth at 48 hours.POC [id number] 11:14:46 Test Item Value Reference Range Interpretation Comments Glucose POC (test 171 mg/dL 70-115 H If you con science instructor your code = Glucose POC) patient critically ill, the Debby-Accu Check Infrom II meter should not be used for Glucose determination. Draw a venous Glucose and send to the main Lab for analysis. POC [id number] 08:41:45 Test Item Value Reference Range Interpretation Comments Glucose POC (test 163 mg/dL 70-115 H If you con science instructor your code = Glucose POC) patient critically ill, the Debby-Accu Check Infrom II meter should not be used for Glucose determination. Draw a venous Glucose and send to the main Lab for analysis. POC [id number] 05:38:51 Test Item Value Reference Range Interpretation Comments Glucose POC (test 146 mg/dL 70-115 H Notify RN or MDIf you code = Glucose POC) consider your patient critically ill, the Debby-Accu Chec k Infrom II meter should not be used for Glucos e determination. Draw a venous Glucose and send to the main Lab for analysis. POC [id number] 15:39:16 Test Item Value Reference Range Interpretation Comments Glucose POC (test 172 mg/dL 70-115 H Notify RN or MDIf you code = Glucose POC) consider your patient critically ill, the Debby-Accu Chec k Infrom II meter should not be used for Glucos e determination. Draw a venous Glucose and send to the main Lab for analysis. Urine Drug [id number] 14:11:43 Test Item Value Reference Range Interpretation [...] confir matory test if desired . Urinalysis [id number] 13:55:31 Test Item Value Reference Range Interpretation [...] Mucous) Moderate A Urinalysis with Culture, if [id number] 13:55:31 Test Item Value Reference Range Interpretation [...] Micro Ind?) rule GL_SJM_UA_MICRO _IN D Alcohol [id number] 12:41:12 Test Item Value Reference Range Interpretation Comments Ethanol Level (test <0.00 g/dL 0.00-0.01 Intoxica june 0.080 g/dL code = Ethanol or more Level) Ethanol Inst (test <0 N code = Ethanol Inst) Comprehensive Metabolic [id number] 12:41:11 Test Item Value Reference Range Interpretation [...] A/G 1.5 ratio N Ratio) Comprehensive Metabolic [id number] 12:41:11 Test Item Value Reference Range Interpretation [...] National Kidney Foundation, http://nkdep.ni h.gov Comprehensive Metabolic [id number] 12:41:11 Test Item Value Reference Range Interpretation [...] Foundation, http://nkdep.ni h.gov Complete Blood Count with [id number] 12:34:46 Test Item Value Reference Range Interpretation [...] code = IPF) 0 % N Automated [id number] 12:34:46 Test Item Value Reference Range Interpretation Comments Neutro Auto (test code = Neutro 56.4 % 36.0-70.0 Auto) Lymph Auto (test code = Lymph Auto) 36.4 % 12.0-44.0 [place] Auto (test code = [place] Auto) 5.5 % 0.0-11.0 Eos, Auto (test code = Eos, Auto) 1.2 % 0.0-7.0 Basophil Auto (test code = Basophil 0.3 % 0.0-2.0 Auto) Neutro Absolute (test code = Neutro 5.3 x10 1.6-7.4 Absolute) Lymph Absolute (test code = Lymph 3.39 x10 .50-4.60 Absolute) [place] Absolute (test code = [place] .51 x10 .00-1.20 Absolute) Eos Absolute (test code = Eos 0.11 x10 0.00-0.74 Absolute) Baso Absolute (test code = Baso 0.03 x10 0.00-0.21 Absolute) IG [id number] 12:34:46 Test Item Value Reference Range Interpretation Comments IG (test code = IG) 0.2 % 0.0-5.0 IG Abs (test code = IG Abs) 0 x10 N
[2021-05-03 23:07] LABS: Urine Blood Trace-intact (Negative); Urine Glucose 2+ (Negative); Urine Protein 2+ (Negative)
[2021-05-03] MEDS ORDERED: DIPHENHYDRAMINE 50 MG/ML VIAL ONE (23:18)
[2021-05-03] MEDS ORDERED: LORazepam 2 MG/ML VIAL ONE (23:18)
[2021-05-03] MEDS ORDERED: HALOPERIDOL LACT 5 MG/ML INJ ONE (23:18)
[2021-05-03 23:21] LABS: Absolute Lymphocytes (CBC) 0.6 K/uL (0.7-4.9); Hematocrit 36.3 % (39.6-49.0); Lymphocytes % 6.7 % (15.3-44.8); MPV 9.1 fL (7.6-11.3); RBC Red Blood Cell Count 4.76 M/uL (4.33-5.43)
[2021-05-03 23:24] LABS: Protime INR 1.32
[2021-05-03 23:57] LABS: ALT/SGPT 70 U/L (12-78); AST/SGOT 69 U/L (15-37); Albumin 4.3 g/dL (3.4-5.0); Alkaline Phosphatase 168 U/L (45-117); BUN Blood Urea Nitrogen 9 mg/dL (7-18); Bicarbonate 17 mmol/L (21-32); Bilirubin Direct 0.4 mg/dL (0-0.2); Bilirubin Total 1.2 mg/dL (0.2-1.0); Glucose Level 237 mg/dL (74-106); Potassium 3.4 mmol/L (3.5-5.1); Protein, Total 8.4 g/dL (6.4-8.2); Sodium Level 140 mmol/L (136-145); Troponin (Emerg Dept Use Only) < 0.02 ng/mL (0.0-0.045)
[2021-05-04 00:06] LABS: Creatine Phosphokinase 162 U/L (39-308); NT PRO-BNP 652 pg/mL (<125)
[2021-05-04 00:06] LABS: Barbiturates NEGATIVE (NEGATIVE); Benzodiazepines NEGATIVE (NEGATIVE); Cocaine NEGATIVE (NEGATIVE); METHAMPHETAM NEGATIVE (NEGATIVE); Methadone NEGATIVE (NEGATIVE); Opiates NEGATIVE (NEGATIVE); Phencyclidine NEGATIVE (NEGATIVE); THC Cannibis NEGATIVE (NEGATIVE)
[2021-05-04 00:23] LABS: Urine Bacteria <20 /HPF (NONE SEEN); Urine RBC <5 /HPF (NONE SEEN)
[2021-05-04 00:50] LABS: Arterial Blood Carboxyhemoglob 1.8 % (0-1.5); Blood Gas Oxyhemoglobin 92.8 % (94-97); Blood O2 Saturation 95.3 % (92-98.5)
[2021-05-04] MEDS ORDERED: LORazepam 2 MG/ML VIAL ONE ×2 (01:03→14:34)
[2021-05-04] MEDS ORDERED: Magnesium Sulfate 2gm IVPB 2 G/50 ML BAG IV ONE (02:57)
[2021-05-04] MEDS ORDERED: KCL 20 MEQ/100 mL IVPB 20 MEQ/100 ML BAG IV ONE (02:57)
[2021-05-04] MEDS ORDERED: ONDANSETRON 4 MG/2 ML VIAL ONE ×2 (02:57→14:34)
[2021-05-04] MEDS ORDERED: NA CHLORIDE 0.9% 1,000 ML ONE (02:58)
--- NOTE | 2021-05-04 05:29 | EDPHYS ---
Physician Documentation [facility] Name: Andres Guerin Age: 60 yrs Sex: Male : 1960 Arrival Date: 05/03/2021 Time: 22:39 Bed 4 Private MD: ED Physician Solomon Reyes HPI: 05/03 23:03 This 60 yrs old Male presents to ER via EMS with complaints of Drug Abuse. mh7 23:03 The patient presents with agitation. mh7 23:03 Onset: The symptoms/episode began/occurred today, at an unknown time. Possible causes: mh7 drug use, [place]. Associated signs and symptoms: Pertinent positives: agitation, combativeness, confusion, Pertinent negatives: diarrhea, seizure, shortness of breath, vomiting, weakness. Current symptoms: In the emergency department the patient's symptoms have improved, moderately, Less combative, agitated. Unable to obtain HPI due to altered mental status. According to EMS patient significant other called due to patient with altered mental status after smoking [place] today. Police were at the scene and patient was hand cuffed he was given ketamine and is less combative and agitated.. Historical: - Allergies: 22:42 No Known Allergies; bb - Home Meds: 22:42 amlodipine oral [Active]; Buspirone Oral [Active]; citalopram oral [Active]; lisinopril bb Oral [Active]; Omeprazole Oral [Active]; pravastatin Oral [Active]; - PMHx: 22:42 Diabetes - NIDDM; Hyperlipidemia; Hypertension; bb 05/04 08:22 Hepatitis C; hb - Immunization history:: Adult Immunizations unknown, unknown pt is confused. - Social history:: Smoking status: unknown Patient uses street drugs. ROS: 05/03 23:03 Unable to obtain ROS due to altered mental status. mh7 Exam: 23:03 Head/Face: Normocephalic, atraumatic. Eyes: Pupils equal round and reactive to light, mh7 extra-ocular motions intact. Lids and lashes normal. Conjunctiva and sclera are non-icteric and not injected. Cornea within normal limits. Periorbital areas with no swelling, redness, or edema. Neck: Trachea midline, no thyromegaly or masses palpated, and no cervical lymphadenopathy. Supple, full range of motion without nuchal rigidity, or vertebral point tenderness. No Meningismus. Chest/axilla: Normal chest wall appearance and motion. Nontender with no deformity. No lesions are appreciated. Cardiovascular: Regular rate and rhythm with a normal S1 and S2. No gallops, murmurs, or rubs. Normal PMI, no JVD. No pulse deficits. Respiratory: Lungs have equal breath sounds bilaterally, clear to auscultation and percussion. No rales, rhonchi or wheezes noted. No increased work of breathing, no retractions or nasal flaring. Abdomen/GI: Soft, non-tender, with normal bowel sounds. No distension or tympany. No guarding or rebound. No evidence of tenderness throughout. Back: No spinal tenderness. No costovertebral tenderness. Full range of motion. Skin: Warm, dry with normal turgor. Normal color with no rashes, no lesions, and no evidence of cellulitis. MS/ Extremity: Pulses equal, no cyanosis. Neurovascular intact. Full, normal range of motion. 23:03 Constitutional: The patient appears in no acute distress, alert, awake, restless, Moaning, groaning, and screaming at times 23:03 Neuro: Orientation: unable to test, AMS, Mentation: unable to test, AMS, Memory: unable to test, AMS, Cranial nerves: unable to test, AMS, Cerebellar function: unable to test, AMS, Motor: moves all fours, Sensation: no obvious gross deficits, Gait: not tested. seizure activity, is not displayed by the patient, Abnormal movements: there are no abnormal movements. 23:03 Psych: Behavior/mood is uncooperative, Agitated. Vital Signs: 22:40 BP 191 / 99; Pulse 94; Resp 17 S; Temp 94.2(A); Pulse Ox 99% on R/A; bb 05/04 01:00 BP 141 / 74; Pulse 91; Resp 19; Pulse Ox 98% ; ea 02:00 BP 147 / 74; Pulse 92; Resp 19; Pulse Ox 99% ; ea 03:00 BP 155 / 76; Pulse 88; Resp 16; Pulse Ox 97% ; ea 05:17 BP 161 / 89; Pulse 91; Resp 16; Temp 97.2; Pulse Ox 98% ; ea MDM: 05:24 Differential Diagnosis: electrolyte abnormality, alcohol intoxication, hypoglycemia, mh7 intracranial bleed, overdose, sepsis, UTI, volume depletion. Data reviewed: vital signs, nurses notes, EMS record, old medical records, lab test result(s), cardiac enzymes, CBC, electrolytes, urinalysis, EKG, radiologic studies, CT scan, plain films. Data interpreted: Pulse oximetry: on room air is 98 %. Interpretation: normal. Counseling: I had a detailed discussion with the patient and/or guardian regarding: the historical points, exam findings, and any diagnostic results supporting the discharge/admit diagnosis, the presence of at least one elevated blood pressure reading (>120/80) during this emergency department visit, lab results, radiology results, the need for further work-up and treatment in the hospital. Response to treatment: the patient's symptoms have mildly improved after treatment. 05:28 Patient medically screened. [facility] 05/03 22:57 Order name: Acetaminophen [facility] 05/03 22:57 Order name: Basic Metabolic Panel [facility] 05/03 22:57 Order name: CBC with Diff [facility] 05/03 22:57 Order name: ETOH Level [facility] 05/03 22:57 Order name: Hepatic Function [facility] 05/03 22:57 Order name: PT-INR; Complete Time: 23:58 [facility] 05/03 22:57 Order name: Ptt, Activated; Complete Time: 23:58 [facility] 05/03 22:57 Order name: Salicylate; Complete Time: 00:03 [facility] 05/03 22:57 Order name: Urine Drug Screen; Complete Time: 00:09 [facility] 05/03 22:57 Order name: Troponin (emerg Dept Use Only); Complete Time: 00:03 [facility] 05/03 22:57 Order name: Acetaminophen Level; Complete Time: 00:03 [facility] 05/03 22:57 Order name: Basic Metabolic Panel; Complete Time: 00:03 [facility] 05/03 22:57 Order name: CBC with Automated Diff; Complete Time: 23:26 [facility] 05/03 22:58 Order name: Alcohol Serum/Plasma; Complete Time: 23:58 [facility] 05/03 22:58 Order name: Liver (Hepatic) Function; Complete Time: 00:03 [facility] 05/03 22:59 Order name: Influenza Screen (a \T\ B); Complete Time: 01:04 [facility] 05/03 23:07 Order name: Urine Dipstick-Ancillary; Complete Time: 23:13 [facility] 05/03 23:10 Order name: Urine Microscopic Only tt3 05/03 23:11 Order name: Urine Microscopic Only; Complete Time: 01:04 [facility] 05/03 23:13 Order name: CPK; Complete Time: 00:09 [facility] 05/03 23:14 Order name: PROBNP; Complete Time: 00:09 [facility] 05/04 00:03 Order name: AMMONIA; Complete Time: 01:04 [facility] 05/04 00:03 Order name: Ketone, Serum; Complete Time: 01:04 [facility] 05/04 00:10 Order name: Arterial Blood Gas; Complete Time: 01:04 [facility] 05/04 00:10 Order name: Lactate; Complete Time: 01:06 [facility] 05/04 00:53 Order name: SARS-COV-2 RT PCR; Complete Time: 01:04 [facility] 05/04 01:10 Order name: Magnesium; Complete Time: 02:28 [facility] 05/04 05:01 Order name: Lactate Sepsis 2 HR Follow-up; Complete Time: 05:23 [facility] 05/04 08:16 Order name: Glucose, Ancillary Testing [facility] 05/03 22:57 Order name: EKG; Complete Time: 22:58 [facility] 05/03 22:57 Order name: EKG - Nurse/Tech; Complete Time: 23:26 [facility] 05/03 22:57 Order name: IV Saline Lock; Complete Time: 23:26 [facility] 05/03 22:57 Order name: Labs collected and sent; Complete Time: 23:26 [facility] 05/03 22:57 Order name: Suicide Screening ([place]); Complete Time: 23:26 [facility] 05/03 22:57 Order name: Urine Dipstick-Ancillary (obtain specimen); Complete Time: 23:26 [facility] 05/03 22:57 Order name: Chest Single View XRAY [facility] 05/03 23:01 Order name: CT Head Brain wo Cont [facility] 05/04 12:28 Order name: Glucose, Ancillary Testing [facility] 05/04 17:58 Order name: Glucose, Ancillary Testing [facility] 05/05 03:17 Order name: CBC with Automated Diff [facility] 05/05 03:51 Order name: Comprehensive Metabolic Panel [facility] 05/05 03:51 Order name: Phosphorus [facility] 05/05 03:51 Order name: Magnesium [facility] 05/05 07:38 Order name: Glucose, Ancillary Testing [facility] Administered Medications: 00:47 Drug: Ativan (LORazepam) 1 mg Route: IVP; Site: right antecubital; ea 04:56 Follow up: Response: No adverse reaction ea 02:40 Drug: Magnesium Sulfate 1 grams Route: IVPB; Infused Over: 1 hrs; Site: right hand; ea 04:55 Follow up: IV Status: Completed infusion; IV Intake: 50ml ea 02:40 Drug: Potassium Chloride 20 mEq Route: IV; Rate: per protocol; Site: right hand; ea 04:55 Follow up: IV Status: Completed infusion; IV Intake: 100ml ea 03:23 Drug: Zofran (Ondansetron) 4 mg Route: IVP; Site: right hand; ea 04:55 Follow up: Response: No adverse reaction ea Disposition Summary: 05/04/21 05:28 Hospitalization Ordered Hospitalization Status: Inpatient Admission [facility] Provider: Melquiades La Ute Condition: Stable [facility] Problem: an acute exacerbation [facility] Symptoms: have improved [facility] Bed/Room Type: Standard [facility] Location: [facility] ER HOLD(05/04/21 05:59) Room Assignment: ERHOLD-(05/04/21 05:59) Diagnosis - Altered Mental Status [facility] - Hallucinogen abuse with intoxication [facility] - Other specified diabetes mellitus with hyperglycemia [facility] Forms: - Medication Reconciliation Form [facility] - SBAR form [facility] Signatures: Dispatcher [employer] EDDC Mavis Parish RN RN mw Ballard, Brenda, RN RN bb Baxter, Heather, RN RN hb Antunez, Elena, RN RN ea Holmes, Maurice, MD MD [facility] Corrections: (The following items were deleted from the chart) 05/03 23:32 22:59 CORONAVIRUS+MR.LAB.CATARINOZ ordered. EDMS [facility] 05/04 05:59 05:28 Telemetry/MedSurg (Inpatient) [facility] 05:59 05:28 [facility]
--- NOTE | 2021-05-04 05:29 | ER ---
Nurse's Notes [facility] Name: Andres Guerin Age: 60 yrs Sex: Male : 1960 Arrival Date: 05/03/2021 Time: 22:39 Bed 4 Private MD: Diagnosis: Altered Mental Status;Hallucinogen abuse with intoxication;Other specified diabetes mellitus with hyperglycemia Presentation: 05/03 22:40 Chief complaint: EMS states: they were toned out for report of pt with Altered Mental bb Status after smoking [place] [employer] was on scene. Coronavirus screen: At this time, the client does not indicate any symptoms associated with coronavirus-19. Ebola Screen: No symptoms or risks identified at this time. Initial Sepsis Screen: Does the patient meet any 2 criteria? No. Patient's initial sepsis screen is negative. Does the patient have a suspected source of infection? No. Patient's initial sepsis screen is negative. Risk Assessment: Do you want to hurt yourself or someone else? Unable to obtain. Onset of symptoms was May 03, 2021. 22:40 Method Of Arrival: EMS: [facility] bb 22:40 Acuity: MANOLO 2 bb Historical: - Allergies: 22:42 No Known Allergies; bb - Home Meds: 22:42 amlodipine oral [Active]; Buspirone Oral [Active]; citalopram oral [Active]; lisinopril bb Oral [Active]; Omeprazole Oral [Active]; pravastatin Oral [Active]; - PMHx: 22:42 Diabetes - NIDDM; Hyperlipidemia; Hypertension; bb 05/04 08:22 Hepatitis C; hb - Immunization history:: Adult Immunizations unknown, unknown pt is confused. - Social history:: Smoking status: unknown Patient uses street drugs. Screenin:27 Abuse screen: Denies threats or abuse. Nutritional screening: No deficits noted. ea Tuberculosis screening: No symptoms or risk factors identified. Fall Risk IV access (20 points). Assessment: 01:00 Reassessment: Pt is resting in bed with eyes closed, respirations are even and ea unlabored with no s/s of pain or distress noted. 02:00 Reassessment: Pt is resting in bed with eyes closed, respirations are even and ea unlabored with no s/s of pain or distress noted. 06:45 Reassessment: Pt resting in bed with eyes closed, respirations even and unlabored, pt ea admitted to ED hold. Overdose: 04:56 [place] Suicide Severity Screening: "In the past month, have you wished you were ea or wished you could go to sleep and not wake up?" Patient responds "no." "In the past month, have you actually had any thoughts of killing yourself?" Patient responds "no." "In your lifetime, have you ever done anything, started to do anything, or prepared to do anything to end your life?" Patient responds "no.". Vital Signs: 05/03 22:40 BP 191 / 99; Pulse 94; Resp 17 S; Temp 94.2(A); Pulse Ox 99% on R/A; bb 05/04 01:00 BP 141 / 74; Pulse 91; Resp 19; Pulse Ox 98% ; ea 02:00 BP 147 / 74; Pulse 92; Resp 19; Pulse Ox 99% ; ea 03:00 BP 155 / 76; Pulse 88; Resp 16; Pulse Ox 97% ; ea 05:17 BP 161 / 89; Pulse 91; Resp 16; Temp 97.2; Pulse Ox 98% ; ea ED Course: 05/03 22:39 Patient arrived in ED. bb 22:42 Triage completed. bb 22:42 Solomon Reyes MD is Attending Physician. [facility] 22:42 Arm band placed on Patient placed in a hallway bed, on color television console monitor, on pulse bb oximetry. 23:25 Rosa Diggs, RN is Primary Nurse. bs2 23:25 Urine Drug Screen Sent. bs2 23:26 Salicylate Sent. bs2 23:26 Ptt, Activated Sent. bs2 23:26 PT-INR Sent. bs2 23:26 Hepatic Function Sent. bs2 23:26 ETOH Level Sent. bs2 23:26 CBC with Diff Sent. bs2 23:26 Acetaminophen Sent. bs2 23:26 Basic Metabolic Panel Sent. bs2 23:27 Basic Metabolic Panel Sent. bs2 23:27 Troponin (emerg Dept Use Only) Sent. bs2 23:27 Acetaminophen Level Sent. bs2 23:27 Liver (Hepatic) Function Sent. bs2 23:27 Alcohol Serum/Plasma Sent. bs2 23:27 Influenza Screen (a \\T\\ B) Sent. bs2 23:27 Urine Microscopic Only Sent. bs2 23:28 Urine Microscopic Only Sent. bs2 23:28 CPK Sent. bs2 23:28 PROBNP Sent. bs2 23:41 Chest Single View XRAY In Process Unspecified. EDMS 23:41 CT Head Brain wo Cont In Process Unspecified. EDMS 05/04 00:27 Patient has correct armband on for positive identification. Bed in low position. Call ea light in reach. Side rails up X2. 00:27 Inserted saline lock: 20 gauge in right antecubital area, using aseptic technique. ea 05:25 Melquiades La is Hospitalizing Provider. [facility] 06:44 No provider procedures requiring assistance completed. Patient admitted, IV remains in ea place. Administered Medications: 00:47 Drug: Ativan (LORazepam) 1 mg Route: IVP; Site: right antecubital; ea 04:56 Follow up: Response: No adverse reaction ea 02:40 Drug: Magnesium Sulfate 1 grams Route: IVPB; Infused Over: 1 hrs; Site: right hand; ea 04:55 Follow up: IV Status: Completed infusion; IV Intake: 50ml ea 02:40 Drug: Potassium Chloride 20 mEq Route: IV; Rate: per protocol; Site: right hand; ea 04:55 Follow up: IV Status: Completed infusion; IV Intake: 100ml ea 03:23 Drug: Zofran (Ondansetron) 4 mg Route: IVP; Site: right hand; ea 04:55 Follow up: Response: No adverse reaction ea Intake: 04:55 IV: 100ml; Total: 100ml. ea 04:55 IV: 50ml; Total: 150ml. ea Outcome: 05:28 Decision to Hospitalize by Provider. [facility] 06:44 Admitted to ER Hold. Please see [facility] for further documentation. ea 06:44 Condition: stable 06:44 Instructed on the need for admit. 05/05 07:47 Patient left the ED. em1 Signatures: Dispatcher [employer] EDMS iGfty Estevez RN Eduardo Fuentes em1 Alona Castellanos RN RN hb Antunez, Elena, RN RN ea Holmes, Maurice, MD MD 7 Rosa Diggs RN RN bs2 Corrections: (The following items were deleted from the chart) 05/03 23:32 23:27 CORONAVIRUS+MR.LAB.BRZ drawn and sent. bs2 EDMS
--- NOTE | 2021-05-04 06:21 | P.HP ---
Certification for Inpatient Patient admitted to: Observation With expected LOS: <2 Midnights Patient will require the following post-hospital care: None Practitioner: I am a practitioner with admitting privileges, knowledge of patient current condition, hospital course, and medical plan of care. Services: Services provided to patient in accordance with Admission requirements found in Title 42 Section 412.3 of the Code of Federal Regulations Patient History Date of Service: 05/04/21 Reason for admission: AMS, synthetic marijuana use History of Present Illness: Mr. Guerin is a 60 yo M with DM, HTN, Hep C cirrhosis, depression and anxiety who presents with AMS. He was brought in by EMS. Per his , he smoked synthetic marijuana and afterwards became altered and combative. He received ketamine from EMS. Since arrival to the ED, he has received ativan, haldol, benadryl and IVF. Cannot obtain history from patient at this time. CT head wnl. K 3.4 Glu 237 Mg 1.6. Admitted for observation. Allergies No Known Allergies Allergy (Verified 01/14/21 04:45) Home Medications: Pregabalin [Lyrica] 150 mg PO BID 01/14/21 Quetiapine Fumarate [Seroquel Xr] 400 mg PO BEDTIME 01/14/21 Propranolol [Inderal*] 10 mg PO BID #60 tab 01/17/21 Folic Acid 1 mg PO DAILY #90 tablet 03/13/21 Insulin -Regular Human [Novolin -R*] See Protocol SQ TID #1 vial 03/13/21 Insulin Detemir [Levemir] 20 units SQ BID #1 vial 03/13/21 Pantoprazole Sodium [Protonix] 40 mg PO BID #60 tablet. 03/13/21 Pravastatin Sodium 40 mg PO DAILY #30 03/13/21 - Past Medical/Surgical History Diabetic: No -: Diabetes mellitus type 2-insulin dependent -: Hypertension -: Hyperlipidemia -: Hepatitis-C with cirrhosis -: History of gastric varices -: Depression with anxiety -: Left ankle surgery Psychosocial/ Personal History: Unable to obtain - Family History Family History: Reviewed- Non-Contributory - Social History Smoking Status: Unknown if ever smoked Alcohol use: No CD- Drugs: Yes Caffeine use: No Place of Residence: Home Review of Systems is unable to be obtained Physical Examination - Physical Exam General: In no apparent distress, Confused HEENT: Atraumatic, PERRLA, Mucous membr. moist/pink, EOMI, Sclerae nonicteric Neck: Supple, 2+ carotid pulse no bruit, No LAD, Without JVD or thyroid abnormality Respiratory: Clear to auscultation bilaterally, Normal air movement Cardiovascular: Regular rate/rhythm, Normal S1 S2 Gastrointestinal: Normal bowel sounds, No tenderness, No masses, No rebound Musculoskeletal: No tenderness Integumentary: No rashes Neurological: Sensation intact, Abnormal gait, Abnormal speech, Abnormal affect Lymphatics: No axilla or inguinal lymphadenopathy - Studies Laboratory Data (last 24 hrs) 05/04/21 00:36: Magnesium 1.6 L 05/03/21 23:05: PT 15.2 H, INR 1.32, APTT 29.2 05/03/21 23:05: WBC 8.40, Hgb 12.0 L, Hct 36.3 L, Plt Count 142 L 05/03/21 23:05: Sodium 140, Potassium 3.4 L, BUN 9, Creatinine 1.05, Glucose 237 H, Total Bilirubin 1.2 H, AST 69 H, ALT 70, Alkaline Phosphatase 168 H Microbiology Data (last 24 hrs): 05/03/21 23:10 Nasopharnyx Influenza Type A Antigen Screen - Final 05/03/21 23:10 Nasopharnyx Influenza Type B Antigen Screen - Final Assessment and Plan - Problems (Diagnosis) (1) HTN (hypertension) Status: Chronic Qualifiers: Hypertension type: primary hypertension Qualified Code(s): I10 - Essential (primary) hypertension (2) Diabetes Status: Chronic Qualifiers: Diabetes mellitus type: type 2 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: unspecified exterminator helper termite insulin use status Diabetes mellitus complication status: with kidney complications Diabetes mellitus complication detail: with chronic kidney disease Chronic kidney disease stage: stage 2 (mild) Qualified Code(s): E11.22 - Type 2 diabetes mellitus with diabetic chronic kidney disease; N18.2 - Chronic kidney disease, stage 2 (mild) (3) Synthetic cannabis-induced anxiety disorder Status: Acute (4) AMS (altered mental status) Status: Acute Qualifiers: Altered mental status type: unspecified Qualified Code(s): R41.82 - Altered mental status, unspecified (5) Cirrhosis Status: Chronic Qualifiers: Ascites presence: unspecified - Plan continue IVF hydration, O2 as needed ativan PRN for agitation magnesium and potassium replacement BP stable, continue to monitor sliding scale insulin and accuchecks DVT ppx Discharge Plan: Home Plan to discharge in: 24 Hours - Advance Directives Does patient have a Living Will: No Does patient have a Durable POA for Healthcare: No - Code Status/Comfort Care Code Status Assessed: Yes (full code ) Critical Care: No Time Spent Managing Pts Care (In Minutes): 70
[2021-05-04] MEDS ORDERED: ONDANSETRON 4 MG/2 ML VIAL IV PRN (07:31)
[2021-05-04] MEDS ORDERED: LORazepam 2 MG/ML VIAL IV PRN (07:31)
[2021-05-04] MEDS ORDERED: HYDRALAZINE HCL 20 MG/ML VIAL IV PRN (07:31)
[2021-05-04] MEDS ORDERED: ACETAMINOPHEN 500 MG TAB PO PRN (07:31)
[2021-05-04] MEDS: NA CHLORIDE 0.9% 1,000 ML IV SCH ×2 (07:31→17:31)
[2021-05-04] MEDS: INSULIN -REGULAR HUMAN 50 UNIT/0.5 ML ML SQ SCH ×3 (07:37→16:30)
[2021-05-04 08:23] VITALS: BMI 28.0
--- NOTE | 2021-05-04 09:29 | RAD REPORT ---
EXAM DESCRIPTION: Maite Single View05/03/2021 11:41 pm CLINICAL HISTORY: Alteration of consciousness COMPARISON: March 2021 FINDINGS: The lungs appear clear of acute infiltrate. The heart is normal size IMPRESSION: No acute abnormalities displayed
[2021-05-04] MEDS ORDERED: INSULIN -REGULAR HUMAN 50 UNIT/0.5 ML ML ONE ×2 (13:09→18:53)
[2021-05-05 03:16] LABS: Absolute Lymphocytes (CBC) 1.6 K/uL (0.7-4.9); Basophils % 0.4 % (0-1.3); Hematocrit 34.1 % (39.6-49.0); Lymphocytes % 23.5 % (15.3-44.8); MPV 8.6 fL (7.6-11.3); RBC Red Blood Cell Count 4.44 M/uL (4.33-5.43)
[2021-05-05 03:30] LABS: ALT/SGPT 66 U/L (12-78); AST/SGOT 60 U/L (15-37); Albumin 3.9 g/dL (3.4-5.0); Alkaline Phosphatase 140 U/L (45-117); BUN Blood Urea Nitrogen 13 mg/dL (7-18); Bicarbonate 26 mmol/L (21-32); Bilirubin Total 0.9 mg/dL (0.2-1.0); Glucose Level 176 mg/dL (74-106); Magnesium 1.9 mg/dL (1.8-2.4); Phosphorus 1.9 mg/dL (2.5-4.9); Potassium 3.4 mmol/L (3.5-5.1); Protein, Total 7.4 g/dL (6.4-8.2); Sodium Level 142 mmol/L (136-145)
[2021-05-05] MEDS: NA CHLORIDE 0.9% 1,000 ML IV SCH (03:31)
[2021-05-05 04:32] VITALS: BP 126/68
[2021-05-05 08:13] VITALS: TEMP 103.1; O2SAT 100
[2021-05-05 10:40] LABS: Anisocytosis 1+; Blood Morphology Comment NOTED (NOT SEEN); Hypochromasia 1+; Platelet Estimate DECR; Poikilocytosis SLIGHT; White Blood Cell Scan OK (OK)
--- NOTE | 2021-05-05 10:51 | P.DS ---
Admission Date: 05/04/21 Discharge Date: 05/05/21 Primary Care Provider: None Disposition: ROUTINE DISCHARGE Discharge Condition: GOOD Reason for Admission: AMS, synthetic marijuana use Consultations: None Procedures: COVID: None CXR: CLINICAL HISTORY: Alteration of consciousness COMPARISON: March 2021 FINDINGS: The lungs appear clear of acute infiltrate. The heart is normal size IMPRESSION: No acute abnormalities displayed CT head: Unremarkable Medical Problem List: Acute encephalopathy secondary to synthetic marijuana use Depression with anxiety Diabetes mellitus type 2 Brief History of Present Illness: 60-year-old male with history of depression, anxiety. Patient with underlying history of diabetes. Patient was brought in by EMS. Per , patient has been smoking synthetic marijuana. He became very altered and combative there after. Patient was brought in by EMS. Patient had been given ketamine. Patient was admitted for observation. CT head unremarkable. Chest x-ray unremarkable. Hospital Course: Patient presented with altered mental status secondary to acute encephalopathy related to synthetic marijuana use. CT head unremarkable. Chest x-ray unremarkable. There was no evidence of infection. Covid test negative. Patient was monitored overnight. Patient given IV fluids with improvement. Patient back to his baseline. Patient stable for discharge. Patient will continue with his current medications. Recommend no further use of synthetic marijuana. Drug screen was negative. Patient could not give a clear answer on why he uses synthetic marijuana at his age. Recommend counseling as an outpatient. Patient with depression with anxiety and diabetes. Patient will continue with his home medications. Recommend follow-up with PCP in 1 week to follow-up his hospitalization and continue his care. Vital Signs/Physical Exam: Temp Pulse Resp BP Pulse Ox 103.1 F H 136 H 20 126/68 98 05/05/21 06:06 05/05/21 06:06 05/05/21 06:06 05/05/21 04:00 05/05/21 04:00 General: Alert, In no apparent distress, Oriented x3, Cooperative HEENT: Atraumatic Neck: Supple Respiratory: Clear to auscultation bilaterally, Normal air movement Cardiovascular: Normal pulses, Regular rate/rhythm Gastrointestinal: Normal bowel sounds Musculoskeletal: No erythema, No tenderness, No warmth Integumentary: No tenderness/swelling Neurological: Normal speech, Normal strength at 5/5 x4 extr, Normal tone Laboratory Data at Discharge: WBC 6.80 K/uL (4.3-10.9) D 05/05/21 02:57 Hgb 11.1 g/dL (13.6-17.9) L 05/05/21 02:57 Hct 34.1 % (39.6-49.0) L 05/05/21 02:57 Plt Count 135 K/uL (152-406) L 05/05/21 02:57 PT 15.2 SECONDS (9.5-12.5) H 05/03/21 23:05 INR 1.32 05/03/21 23:05 APTT 29.2 SECONDS (24.3-36.9) 05/03/21 23:05 Sodium 142 mmol/L (136-145) 05/05/21 02:57 Potassium 3.4 mmol/L (3.5-5.1) L 05/05/21 02:57 BUN 13 mg/dL (7-18) 05/05/21 02:57 Creatinine 0.64 mg/dL (0.55-1.3) 05/05/21 02:57 Glucose 176 mg/dL (74-106) H 05/05/21 02:57 Phosphorus 1.9 mg/dL (2.5-4.9) L 05/05/21 02:57 Magnesium 1.9 mg/dL (1.8-2.4) 05/05/21 02:57 Total Bilirubin 0.9 mg/dL (0.2-1.0) 05/05/21 02:57 AST 60 U/L (15-37) H 05/05/21 02:57 ALT 66 U/L (12-78) 05/05/21 02:57 Alkaline Phosphatase 140 U/L (45-117) H 05/05/21 02:57 Home Medications: Pregabalin [Lyrica] 150 mg PO BID 01/14/21 Quetiapine Fumarate [Seroquel Xr] 400 mg PO BEDTIME 01/14/21 Propranolol [Inderal*] 10 mg PO BID #60 tab 01/17/21 Folic Acid 1 mg PO DAILY #90 tablet 03/13/21 Insulin -Regular Human [Novolin -R*] See Protocol SQ TID #1 vial 03/13/21 Insulin Detemir [Levemir] 20 units SQ BID #1 vial 03/13/21 Pantoprazole Sodium [Protonix] 40 mg PO BID #60 tablet. 03/13/21 Pravastatin Sodium 40 mg PO DAILY #30 03/13/21 Physician Discharge Instructions: Follow up with PCP in 1-2 weeks to follow up hospitalization. Education on THC, Synthetics cessation. Patient will follow up with PCP to follow-up this hospitalization. Patient will continue with his home medications for depression with anxiety and diabetes. Follow-up with PCP to further monitor and address his chronic conditions. Diet: AHA Activity: Ad jonathan Followup: NONE,NONE [Primary Care Provider] - Time spent managing pt's care (in minutes): 55
--- NOTE | 2021-05-05 11:18 | RAD REPORT ---
EXAM DESCRIPTION: CT - Head Brain Wo Cont - 05/04/2021 7:00 am CLINICAL HISTORY: AMS. TECHNIQUE: Axial, coronal, and sagittal images through the brain were performed in the absence of in travenous contrast. This exam was performed according to our departmental dose-optimization program w hich includes use of Automated Exposure Control, adjustment of the mA and/or kV according to patient size and/or use of iterative reconstruction technique. COMPARISON: CT head from March 11, 2021. FINDINGS: The brain parenchyma appears unremarkable for patient age. There is no intra-axial or extr a-axial bleed seen. There is no mass or mass effect. The ventricles are normal in size shape and conf iguration. The orbital contents appear unremarkable. The visualized paranasal sinuses and mastoid air cells are patent. No acute fracture is identified. IMPRESSION: No acute intracranial abnormality identified. Electronically signed by: Lena Contreras MD 05/03/2021 11:53 PM CDT Due to temporary technical issues with the PACS/Fluency reporting system, reports are being signed by the in house radiologist without review as a courtesy to ensure prompt reporting. The interpreting r adiologist is fully responsible for the content of the report.
== END 2021-05-05 07:30 | disposition home or self-care (01) ==
LOC: ER 22:09 → ERHOLD 05-04 06:34
PROVIDERS: ADMIT Internal Medicine; ATTEND Family Medicine
DX: F12.980 Cannabis use, unspecified with anxiety disorder (principal); G93.40 Encephalopathy, unspecified; E11.65 Type 2 diabetes mellitus with hyperglycemia; E11.22 Type 2 diabetes mellitus with diabetic chronic kidney disease; I12.9 Hypertensive chronic kidney disease with stage 1 through stage 4 chronic kidney disease, or unspecified chronic kidney disease; N18.2 Chronic kidney disease, stage 2 (mild); F41.8 Other specified anxiety disorders; B19.20 Unspecified viral hepatitis C without hepatic coma; K74.60 Unspecified cirrhosis of liver; E78.5 Hyperlipidemia, unspecified; Z79.4 Long term (current) use of insulin; Z71.51 Drug abuse counseling and surveillance of drug abuser; Z20.822 Contact with and (suspected) exposure to COVID-19
CPT/HCPCS: 93005; 85025 ×2; 80048; 36415 ×2; 80320; 82140; 82010; 83735 ×2; 82550; 80329 ×2; 84100; 85610; 82947 ×4; 80076; 83605 ×2; 85730; 84484; 80053; 83880; 80307; 87804 ×2; 70450; 71045; 82805; 94760; 99285; U0003; J1630; J1200; J3480; J3475; J7030; J2405 ×2; G0378 ×3; 81003; 81015

== ENCOUNTER 2021-09-29 14:46 | Emergency (ER) | payer OTHER ==
--- OUTSIDE RECORDS SUMMARY | 2021-09-29 14:50 | XMS REPORT | Continuity of Care Document ---
:1960 Author Organization [facility] t Address [address] [place] [address] Care Team Providers Name Role Phone Gui MCLAUGHLIN Attending Clinician Kimberly Freedman Attending Clinician Unavailable Kimberly Freedman Admitting Clinician Unavailable Payers Payer Name Policy Type Policy Number Effective Date Expiration Date S gideon MEDICARE PART A [id number] 2017 \\T\\ B 00:00:00 MEDICAID OF [place] [id number] 2017 00:00:00 Problems Condition Condition Condition Status Onset Resolution Last Treating Co mments Source Name Details Category Date Date Treatment Clinician Date Elevated Elevated Disease Active Unive rs bilirubin bilirubin 7-18 ity of 00:00: [address] RLQ RLQ Disease Active Univers abdominal abdominal 7-17 ity of pain pain 00:00: [place] [address] Medical [place] Allergies, Adverse Reactions, Alerts Allergy Allergy Status Severity Reaction(s) Onset Inactive Treating Comm ents Source Name Type Date Date Clinician No Known Drug Active [facility] No Known Drug Active [facility] No Known Drug [facility] No Known Drug [facility] No Known Drug [facility] No Known Drug [facility] No Known Drug [facility] No Known Drug Active [facility] No Known Drug Active [facility] No [facility] No Known Drug [facility] NO KNOWN Drug Active Univers ALLERGIE Class ity of [facility] Social History Social Habit Start Date Stop Date Quantity Comments Source [facility] Exposure to Not sure [facility] SARS-CoV-2 [facility] (event) Branch Tobacco use and 2018-09-08 2018-09-08 Never used Universit y of exposure 00:00:00 00:00:00 [facility] Alcohol intake 2018-09-08 2018-09-08 Current University of 00:00:00 00:00:00 non-drinker of [facility] alcohol Branch (finding) Tobacco Comment 2017-03-22 2017-03-22 quit 20 yrs ago Univ ersity of 00:00:00 00:00:00 [facility] Alcohol Comment 2017-03-22 2017-03-22 quit 4-5 yrs ago Uni versity of 00:00:00 00:00:00 [facility] History of 1982-03-22 1997-03-22 Smoker [place] of tobacco use 00:00:00 00:00:00 [facility] Smoking Status Start Date Stop Date Source Former smoker 2018-09-08 00:00:00 2018-09-08 00:00:00 [facility] Medications Ordered Filled Start Stop Current Ordering Indication Dosage Frequency Signature Comments Components Source Medication Medication Date Date Medication? Clinician (SIG) Name Name NaCl 0.9% 2019-09 2020- No 1000mL at 999 Uni vers (NS) bolus 10-29 12-23 mL/hr, ity of infusion 16:45: 16:57 1,000 mL, David as 1,000 mL 00 :00 [facility] [place] ONCE, 1 dose, 08/28/20 at 1045, STAT insulin 2019-09 2020- No 4U 4 Units, Unive rs regular 2- 12-23 Slow IV ity of human 16:45: 16:23 [facility] [place] (HUMULIN R) 00 :00 ONCE, 1 Medic al injection 4 dose, Wed [facility] Units 08/28/20 at 1045, STAT iohexol 2020-1 2020- No 120mL 120 mL, Unive rs (OMNIPAQUE 2-23 12-23 Intravenou it y of 350 16:00: 15:46 s, ONCE, 1 [place] BULK-100 00 :00 dose, Wed Medica l mL) 08/28/20 Branch injection at 1000, 120 mL Routine NaCl 0.9% 2019-09 2020- No 1000mL at 999 Uni vers (NS) bolus 2-23 12-23 mL/hr, ity of infusion 16:00: 16:57 1,000 mL, David as 1,000 mL 00 :00 [facility], Branch ONCE, 1 dose, 08/28/20 at 1000, STAT ondansetron 2019-09 Yes [id number] 4mg Take 1 Univers 4 mg 2-23 tablet by ity of disintegrat 00:00: mouth [place] ing tablet 00 every 4 Medica l (four) Branch hours as needed for Nausea and Vomiting (N/V). benzonatate 2019-09 Yes [id number] 100mg Take 1 Univers 100 mg 2-23 capsule by ity of capsule 00:00: mouth 3 [place] 00 (three) Medical times Branch daily as needed for Cough. dicyclomine 2019-09 Yes [id number] 10mg Take 1 Univers (BENTYL) 10 2-23 capsule by it y of mg capsule 00:00: [place] (four) Medical times Branch daily. doxycycline 2019-09 2020- No [id number] 100mg Take 1 Univers hyclate 100 2-23 12-31 capsule by i ty of mg capsule 00:00: 05:59 mouth 2 [place] as 00 :00 (two) Medical times Branch daily for 7 days. lisinopril 2018-0 Yes 20mg Take 20 mg U nivers 20 mg 1-02 by mouth 2 ity of tablet 20:02: (two) [place] 50 times Medical daily. Branch insulin 2018- Yes 25U inject 25 Unive rs glargine 1-02 Units ity of (LANTUS) 20:02: [place] 100 unit/mL 50 skin every Me dical injection morning. Branch PREGABALIN 2018-0 Yes 150mg Take 150 Un faraz (LYRICA 1-02 mg by ity of ORAL) 20:02: mouth 2 [place] 50 (two) Medical times Branch daily. FUROSEMIDE, 2019-0 Yes 20mg Take 20 mg Univers BULK, MISC 09-07 by mouth ity o f 20:02: daily. [place] [address] Medical Branch glimepiride Yes 4mg Take 4 mg U nivers 4 mg tablet 02 by mouth 2 it y of 20:02: (two) [place] 50 times Medical daily. Branch propranolol Yes 20mg Take 20 mg Univers 20 mg 02 by mouth 2 ity of tablet 20:02: (two) [place] 50 times Medical daily. Branch pravastatin Yes 20mg Take 20 mg Univers 20 mg 02 by mouth ity of tablet 20:02: at [place] [address] bedtime. Medical Branch amitriptyli Yes 10mg Take 10 mg Univers ne 10 mg 09-07 by mouth ity of tablet 20:02: at [place] [address] bedtime. Medical Branch lisinopril Yes 20mg Take 1 Unive rs 20 mg 1-15 tablet by ity of tablet 00:00: mouth [place] [address] daily. Medical Branch Vital Signs Vital Name Observation Time Observation Value Comments Source Systolic blood 2020-08-28 16:30:00 167 mm[Hg] Univer sity of pressure [facility] Diastolic blood 2020-08-28 16:30:00 98 mm[Hg] Unive rsity of [facility] Heart rate 2020-08-28 16:30:00 82 /min [facility] Oxygen saturation in 2020-08-28 16:30:00 97 /min [facility] Arterial blood by [facility] Pulse oximetry Branch Body weight 2020-08-28 14:44:00 83.915 kg [facility] BMI 2020-08-28 14:44:00 27.32 kg/m2 [facility] Body temperature 2020-08-28 14:30:00 36.78 [facility] 2020-08-28 14:30:00 18 /min [facility] Systolic blood 2020-08-28 16:30:00 167 mm[Hg] Univer sity of pressure [facility] Diastolic blood 2020-08-28 16:30:00 98 mm[Hg] Unive rsity of pressure [facility] Heart rate 2020-08-28 16:30:00 82 /min [facility] Oxygen saturation in 2020-08-28 16:30:00 97 /min [facility] Arterial blood by [facility] Pulse oximetry Branch Body weight 2020-08-28 14:44:00 83.915 kg [facility] BMI 2020-08-28 14:44:00 27.32 kg/m2 [facility] Body temperature 2020-08-28 14:30:[address] [facility] Respiratory rate 2020-08-28 14:30:00 18 /min [facility] Height/Length 2021-09-23 08:31:27 175.3 cm Measured Weight Dosing 2021-09-23 08:31:27 86.20 kg Height/Length 2021-09-23 08:28:35 175.3 cm Measured Weight Dosing 2021-09-23 08:28:35 86.20 kg Height/Length 2021-09-23 08:28:25 175.3 cm Measured Weight Dosing 2021-09-23 08:28:25 86.20 kg Height/Length 2021-09-23 08:28:13 175.3 cm Measured Weight Dosing 2021-09-23 08:28:13 86.20 kg Height/Length 2021-09-23 08:28:11 175.3 cm Measured Weight Dosing 2021-09-23 08:28:11 86.20 kg Height/Length 2021-09-23 08:27:46 175.3 cm Measured Weight Dosing 2021-09-23 08:27:46 86.20 kg Height/Length 2021-09-23 08:27:45 175.3 cm Measured Weight Dosing 2021-09-23 08:27:45 86.20 kg Height/Length 2021-09-23 08:27:41 175.3 cm Measured Weight Dosing 2021-09-23 08:27:41 86.20 kg Height/Length 2019-09-12 17:10:29 Measured Procedures Procedure Date / Time Performing Clinician Source Performed ACUTE CARE VENOUS BLOOD 2020-08-28 16:23:00 Demarcus Messer [facility] URINALYSIS 2020-08-28 16:03:00 Demarcus Messer [place] [facility] ADC / LCC - DRUG SCREEN 2020-08-28 16:03:00 Demarcus Messer [facility] TRIAGE Medical Branch CT ABDOMEN PELVIS W 2020-08-28 15:49:36 Demarcus Messer [facility] CONTRAST [facility] Branch XR CHEST 1 VW 2020-08-28 15:33:35 Demarcus Messer [facility] CREATINE KINASE 2020-08-28 14:58:00 Demarcus Messer [facility] LIPASE 2020-08-28 14:58:00 Demarcus Messer [facility] TROPONIN I 2020-08-28 14:58:00 Demarcus Messer [facility] HEPATIC FUNCTION PANEL 2020-08-28 14:58:00 Demarcus Messer [facility] ([id number]) (ALB,T.PRO,BILI Medical Branch T,BU/BC,ALT,AST,ALK PHOS) BASIC METABOLIC PANEL 2020-08-28 14:58:00 Demarcus Messer [facility] (NA, K, CL, CO2, Medical Branch GLUCOSE, BUN, CREATININE, CA) ETHANOL 2020-08-28 14:58:00 Demarcus Messer [facility] CBC WITH DIFF 2020-08-28 14:58:00 Demarcus Messer [facility] PROTHROMBIN TIME / INR 2020-08-28 14:58:00 Demarcus Messer [facility] ACTIVATED PARTIAL 2020-08-28 14:58:00 Demarcus Messer [facility] ONLY - 2020-08-28 14:58:00 Demarcus Messer [facility] INFLUENZA A & B DIRECT Medical B ranch ANTIGEN N-TERMINAL PRO-BNP 2020-08-28 14:58:00 Demarcus Messer [facility] COVID-19 (ID NOW RAPID 2020-08-28 14:58:00 Demarcus Messer [facility] TESTING) Medical Branch HB ECG ROUTINE & RHYTHM 2020-08-28 14:54:12 Demarcus Messer [facility] Medical Branch NOTICE OF PRIVACY 2020-08-28 14:24:07 Doctor Unassigned, No [facility] PRACTICES Name Medical Branch CONSENT/REFUSAL FOR 2020-08-28 14:23:35 Doctor Unassigned, No [facility] DIAGNOSIS AND TREATMENT Name Medical Branch Encounters Start End Encounter Admission Attending Care Care Encounter Source Date/Time Date/Time Type Type Clinicians Facility Department ID 2021-07-05 Emergency [facility] [id number] Univers 12:53:10 ity of [facility] 2020-08-28 2020-08-28 [id number] 1967 08:31:00 10:57:00 Demarcus Cooper [id number] [place] [id number] [place] [id number] [facility] 2020-08-28 2020-08-28 [facility] [id number] 1967 Univers 08:31:00 10:57:00 Demarcus Cooper [id number] i ty of [place] [id number] [facility] [id number] [address] 2019-09-12 2019-09-12 Emergency [facility] NUPUR [id number] 11:22:00 11:22:00 [facility] 2019-09-12 2019-09-12 Emergency 1 [place], [facility] NUPUR [id number] 11:22:00 11:22:00 [facility] -[id number] Health system Results Test Description Test Time Test Comments Results Result Comments Source [facility] - DRUG SCREEN TRIAGE 2020-08-28 16:43:00 Test Item Value Reference Range Interpretation Comme nts BENZO U (test code = 9051867789) Negative Negative STEFANIE U (test code = 9965194020) Negative Negative AMPHET (test code = 9624630975) Negative Negative THC (test code = 1247352675) Negative Negative METHADONE (test code = 8933048430) Negative Negative Meth U (test code = 5689098430) Negative Negative OPIATES (test code = 7588403315) Negative Negative Cocaine Metabolite (test code = Negative Negative 6663489271) PROPOXY (test code = 6209306794) Negative Negative Tric U (test code = 5948756462) Negative Negative PCP (test code = 7835938132) Negative Negative OXYCOD (test code = 3316188554) Negative Negative KEERTHI (test code = KEERTHI) Urine Drug Cutoff Ranges Benzodiazepines: ? ? 150 ng/mLBarbiturates: ?200 ng/mLAmphetamine: ? 500 ng/mLCannabinoids: ?50 ?ng/mLMethadone: ? 200 ng/mLMethamphetamine: ? ? 500 ng/mL Opiates: ? 100 ng/mL or 2000 ng/mLCocaine: ? 150 ng/mLPropoxyphene: ?300 ng/mLTricyclics: ?300 ng/mLOxycodone: ? 100 ng/mLPCP: ? 25 ?ng/mL The results are to be used only for medical (i.e., treatment) purposes. Unconfirmed screening results must not be used for non-medical purposes (e.g., employment testing, legal testing). Lab Interpretation (test code = Normal 20325-4) [facility] AmericaUrinalysis2020-12-23 16:29:00 Test Item Value Reference Range Interpretation Comments APPEARANCE (test code = Clear Clear 7881837508) COLOR (test code = Yellow Yellow 6946349073) PH (test code = 4.8-8.0 5811187806) SP GRAVITY (test code = 1.003-1.030 H 3081916138) GLU U QUAL (test code = 500 mg/dL Normal A 1887041511) BLOOD (test code = 1+ Negative A 4294428696) KETONES (test code = 20 mg/dL Negative A 0301003625) PROTEIN (test code = Negative Negative 2887-8) UROBILIN (test code = 2.0 mg/dL Normal A 6416743965) BILIRUBIN (test code = Negative Negative 0803675829) NITRITE (test code = Negative Negative 0388907972) LEUK CHARLA (test code = Negative Negative 3296227018) RBC/HPF (test code = See_Comment H [Autom ated message] 1253515591) The system [employer] generated this result transmit june reference range : 0 - 3 HPF. The refe rence range was not u sed to interpret th is result as normal/abnormal . WBC/HPF (test code = See_Comment [Autom ated message] 8015377384) The system [employer] generated this result transmit june reference range : 0 - 5 HPF. The refe rence range was not u sed to interpret th is result as normal/abnormal . BACTERIA (test code = Negative Negative 7604727664) Lab Interpretation (test Abnormal code = 30647-4) [facility] America[facility] VENOUS BLOOD 16:26:00 Test Item Value Reference Range Interpretation Comments PH (test code = 7.32-7.42 H 5238834558) PCO2 PEDRO (test code = See_Comment L [Auto mated message] 1728050073) The system [employer] generated this result transmitted ref erence range: 41 - 51 mmHg. The reference r malgorzata was not used to interpret this result as normal/abnor mal. PO2 PEDRO (test code = See_Comment H [Autom ated message] 7253641676) The system [employer] generated this result transmitted ref erence range: 25 - 40 mmHg. The reference r malgorzata was not used to interpret this result as normal/abnor mal. HCO3 PEDRO (test code = See_Comment L [Auto mated message] 4978657958) The system [employer] generated this result transmitted ref erence range: 24 - 28 mEq/L. The reference r malgorzata was not used to interpret this result as normal/abnor mal. AC VBE(BEAKER) (test mEq/L code = 1445759851) Lab Interpretation (test Abnormal code = 38612-1) [facility] AmericaCT ABDOMEN PELVIS W [id number] 16:00:51CT Abdomen and Pelvis with intravenous contrast. CLINICAL HISTORY: Acute generalized Abdominal pain.DOSE: Up-to-date CT equipment and radiation dose reduction techniques wereemployed. CTDIvol: 6.33 mGy. DLP: 316 mGy-cm. TECHNIQUE : Contiguous axial imaging from the level of the lung basesthrough the pubic symphysis were performed after the uncomplicatedadministration of Omnipaque contrast material.Coronal and sagittalreconstructions were obtained. Auto mA and/or iterative reconstruction wereused to reduce radiation dose. FINDINGS: Comparison has been made with 03/22/2017 CT studies. Lower lungs: C lear. No pleural effusion or pericardial effusion. Multipleold fractures of lower ribs and esophageal/gastric varices noted. Shortsliding hiatal hernia noted. Liver, Gallbladder and Spleen: S/P cholecystectomy. Liver is 15.4 cm inlength and showed undulating serosal surface, consistent with chronicprimary liver disease such as cirrhosis with portal hypertension causinggastric/esophageal varices. Spleen measures approximately 11 x 5.7 cm. Milddilatation of the extrahepatic bile ducts noted with common hepatic ductmeasuring up to 9 mm and mid segment of common bile duct measuring 6 mm.Pancreatic ductis not dilated. Peritoneum: ?No free air or free fluid. No lymphadenopathy. Pancreas and Adrenals: ?Unremarkable pancreas and adrenal glands. Kidneys and Ureters: ?No visible calculi in the renal collecting systems. No hydroureter or hydronephrosis. 21 mm cyst noted in the medial surface oflower pole of the left kidney. This cyst has increased in size fromapproximately 12 mm in 2017 study. Vessels: Mild diffuse atherosclerosis of the aorta and renal arteries andtheir proximal 1 cm segment on both sides. Retroperitoneum: No abnormal fluid or lymphadenopathy. Bowel: Left side of the large bowel is completely collapsed, however, I donot see any thickening of the castro or submucosal edema. Normal appendix isvisualized. Small bowel gas pattern is unremarkable. Bladder and Reproductive Organs: Mild enlargement of the prostate glandnoted with central zone calcifications. No gross pathology in theunopacified urinary bladder. Bones: Old trauma with prominent Schmorl's nodes at T11/T12/L1/L2/L3 levelsandminimal wedge-shaped compression deformity in T11 and T12 vertebralbodies. No signs of AVN in the femoral heads. Soft tissues: Ingestion of anterior subcutaneous fat above the level of theumbilicus noted, on both sides, likely due to recent administration ofsubcutaneous medication. CONCLUSION:1. No acute abdominal or pelvic abnormalities detected.2. Chronic liver disease, possibly cirrhosis with portal hypertensioncausing esophageal and gastric varices, unchanged since 2017 study. Noascites.3. S/P cholecystectomy.4. Increase in the size of cyst in the medial wall of the lower left kidneysince 2017 study. However, the cyst appears to be Bosniak type I type. [facility], Radiant Results Inft User - 08/28/2020 10:02 AM CSTCT Abdomen and Pelvis with intravenous contrast.CLINICAL HISTORY: Acute generalized Abdominal pain.DOSE: Up-to-date CT equipment and radiation dose reduction techniques wereemployed. C TDIvol: 6.33 mGy. DLP: 316 mGy-cm.TECHNIQUE : Contiguous axial imaging from the level of the lung basesthrough the pubic symphysis were performed after the uncomplicatedadministration of Omnipaque contrast material. Coronal and sagittalreconstructions were obtained. Auto mA and/or iterative reconstruction wereused to reduce radiation dose.FINDINGS: Comparison has been made with 03/22/2017 CT studies.Lower lungs: Clear. No pleural effusion or pericardial effusion. Multipleold fractures of lower ribs and esophageal/gastric varices noted. Shortsliding hiatal hernia noted.Liver, Gallbladder and Spleen: S/P cholecystectomy. Liver is 15.4 cm inlength and showed undulating serosal surface, consistent withchronicprimary liver disease such as cirrhosis with portal hypertension causinggastric/esophageal varices. Spleen measures approximately 11 x 5.7 cm. Milddilatation of the extrahepatic bile ducts noted with common hepatic ductmeasuring up to 9 mm and mid segment of common bile duct measuring 6 mm.Pancreatic duct is not dilated.Peritoneum: No free air or free fluid. No lymphadenopathy.Pancreas and Adrenals: Unremarkable pancreas and adrenal glands.Kidneys and Ureters: No visible calculi in the renal collecting systems. No hydroureter or hydronephrosis. 21 mm cyst noted in the medial surface oflower pole of the left kidney. This cyst has increased in size fromapproximately 12 mm in 2017 study. Vessels: Mild diffuse atherosclerosis of the aorta and renal arteries andtheir proximal 1 cm segment onboth sides.Retroperitoneum: No abnormal fluid or lymphadenopathy.Bowel: Left side of the large bowelis completely collapsed, however, I donot see any thickening of the castro or submucosal edema. Normal appendix isvisualized. Small bowel gas pattern is unremarkable.Bladder and Reproductive Organs: Mild enlargement of the prostate glandnoted with central zone calcifications. No gross pathology in theunopacified urinary bladder.Bones: Old trauma with prominent Schmorl's nodes at T11/T12/L1/L2/L3 levelsand minimal wedge-shaped compression deformity in T11 and T12 vertebralbodies. No signs of AVN in the femoral heads.Soft tissues: Ingestion of anterior subcutaneous fat above the level of theumbilicus noted, on both sides, likely due to recent administration ofsubcutaneous medication.CONCLUSION:1. No acute abdominal or pelvic abnormalities detected.2. Chronic liver disease, possibly cirrhosis with portal hypertensioncausing esophageal and gastric varices, unchanged since 2017 study. Noascites.3. S/P cholecystectomy.4. Increase in the size of cyst in the medial wall of the lower left kidneysince 2017 study. However, the cyst appears to be Bosniak type I type.[facility] AmericaADC,CLC OR LCC ONLY - INFLUENZA A & B DIRECT [id number] 15:59:00 Test Item Value Reference Range Interpretation Comments Influenza A (test code = 23961-1) Negative Negative Influenza B (test code = 06349-7) Negative Negative Lab Interpretation (test code = Normal 23422-2) [facility] AmericaCOVID-19 (ID NOW RAPID TESTING)2020-08-28 15:36:00 Test Item Value Reference Range Interpretation Comments SARS-CoV-2 Rapid ID NOW Not Detected Not Detected (test code = 32322-9) KEERTHI (test code = KEERTHI) ID NOW COVID-19 Assay is an isothermal nucleic acid amplification test intended for the qualitative detection of nucleic acid from SARS-CoV-2 viral RNA in 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 It is used under Emergency Use Authorization (EUA) by FDA. The limit of detection (LOD) of the assay is 125 Genome Equivalents/mL. A positive result is indicative of the presence of SARS-CoV-2 RNA. ?Clinical correlation with patient history and other diagnostic information is necessary to determine patient infection status. A negative (Not Detected) result does not preclude SARS-CoV-2 infection. In patients with clinical symptoms and other tests that are consistent with SARS-CoV-2 infection, negative results should be treated as presumptive negative and a new specimen should be tested with alternative PCR molecular test. Invalid: Please collect a new specimen for repeat patient testing if clinically indicated. Lab Interpretation Normal (test code = 05821-2) [facility] AmericaXR CHEST 1 [id number] 15:34:55HISTORY: Tachypnea. TECHNIQUE: Portable AP semierect view of the chest is obtained. Comparisonis made with 09/20/2017 study. FINDINGS: Mild obstructive lung disease is suspected. No acute pneumonia.No pneumothorax or pleural effusion or pulmonary congestion detected.Cardiac size is within normal limits. Multiple old fracture deformities areseen in both middle and lower right as well as left ribs. CONCLUSIONS: No signs of acute cardiopulmonary disease.[facility], Radiant Results Inft User - 08/28/2020 9:35AM CSTHISTORY: Tachypnea.TECHNIQUE: Portable AP semierect view of the chest is obtained. Comparisonis made with 09/20/2017 study.FINDINGS: Mild obstructive lung disease is suspected. No acute pneumonia.N o pneumothorax or pleural effusion or pulmonary congestion detected.Cardiac size is within normal limits. Multiple old fracture deformities areseen in both middle and lower right as well as left ribs.CONCLUSIONS: No signs of acute cardiopulmonary disease.[facility] AmericaaPTT2020-12-23 15:34:00 Test Item Value Reference Range Interpretation Comments APTT Patient (test See_Comment [Automat ed code = 3173-2) message] The system which generated this result transmitted reference range : 23 - 38 Seconds . The reference range was not used to interpr et this result as normal/abnormal . KEERTHI (test code = KEERTHI) The [facility] patient population mean normal value for aPTT is 30 seconds. Lab Interpretation Normal (test code = 04938-2) [facility] AmericaProthrombin Time (PT) / [id number] 15:32:00 Test Item Value Reference Range Interpretation Comments PROTIME PATIENT (test See_Comment H [Auto mated message] code = 5964-2) The system wh ich generated this result transmitted ref erence range: 12.0 - 1 4.7 Seconds. The reference range was not used to int erpret this result as normal/abnormal . INR (test code = 6301-6) Nor mal INR <1.1; Warfarin Therap eutic range 2.0 to 3. 0 or 2.5 to 3.5, dep ending upon the indica tions. Lab Interpretation (test Abnormal code = 13376-7) [facility] AmericaTroponin [id number] 15:31:00 Test Item Value Reference Range Interpretation Comments TROPONIN I (test <0.012 See_Comment [Automated code = 6667689835) message] The system which generated this result transmitted reference range : <=0.034 ng/mL. The reference range was not used to interpr et this result as normal/abnormal . KEERTHI (test code = Equal or Less than KEERTHI) 0.034 ng/ml---Normal ?Note: Cardiac troponin begins to rise 3-4 hours after the onset of ischemia. Repeat in 4-6 hours if the sample was drawn within 3-4 hours of the onset of the symptom and found normal. Between 0.035 and 0.120 ng/mL--- Borderline. Questionable myocardial injury or necrosis ? ?Note: Serial measurement may be necessary to confirm or exclude the diagnosis of myocardial injury or necrosis; Clinical correlation (symptoms, EKGs, imaging studies, and others) required; Repeat in 4-6 hours if clinically indicated. ? Equal or Higher than 0.121 ng/mL---Abnormal. Myocardial Injury or Necrosis Likely ? Biotin has been reported to cause a negative bias, interpret results relative to patient's use of biotin. ? Lab Interpretation Normal (test code = 95833-3) [facility] AmericaN-TERMINAL [id number] 15:30:00 Test Item Value Reference Range Interpretation Comments NT-proBNP (test code 105 pg/mL See_Comment [Autom ated = 3991887549) message] The system which generated this result transmitted reference range : <=125. The reference range was not used to interpret this result as normal/abnormal . KEERTHI (test code = KEERTHI) Biotin has been reported to cause a negative bias, interpret results relative to patient's use of biotin. Lab Interpretation Normal (test code = 36765-0) [facility] AmericaETHANOL2020-12-23 15:27:00 Test Item Value Reference Range Interpretation Comments ALCOHOL (test code = <10 mg/dL 8873903093) KEERTHI (test code = KEERTHI) <10 Yhoxcbgh25-016 Toxic>100 Depression of ROLL HANDLER>400 Fatalities Reported [facility] AmericaBasic Metabolic Panel (NA, K, CL, CO2, GLUCOSE, BUN, CREATININE, CA)2020-08-28 15:24:00 Test Item Value Reference Range Interpretation Comments NA (test code = 135 mmol/L 135-145 5530177682) K (test code = 3.3 mmol/L 3.5-5 L 5929029333) CL (test code = 99 mmol/L 98-108 4782970085) CO2 TOTAL (test code = 20 mmol/L 23-31 L 1901039009) AGAP (test code = 2-16 1126250063) BUN (test code = 9 mg/dL 7-23 7657763196) GLUCOSE (test code = 471 mg/dL 70-110 HH 9151240281) CREATININE (test code = 0.62 mg/dL 0.6-1.25 4534847380) CALCIUM (test code = 10.4 mg/dL 8.6-10.6 5099007380) eGFR Calculation mL/min/1.73m2 (Non-) (test code = 0649532835) eGFR Calculation mL/min/1.73m2 () (test code = 3116781866) KEERTHI (test code = KEERTHI) Association of Glomerular Filtration Rate (GFR) and Staging of Kidney Disease* + --+ --+ ------+| GFR (mL/min/1.73 m2) ?| With Kidney Damage ?| ?Without Kidney Damage+ --------+ --------+ +| ?>90 ?| ?Stage one ?| ? Normal ?+ ---+ ---+ -------+| ?60-89 ?| ?Stage two ?| ? Decreased GFR ? + --+ --+ ------+| ?30-59 ?| ?Stage three ?| ? Stage three ? + --+ --+ ------+| ?15-29 ?| ?Stage four ? | ? Stage four ?+ ---+ ---+ -------+| ?<15 (or dialysis) ? ?| ?Stage five ? | ? Stage five ?+ ---+ ---+ -------+ *Each stage assumes the associated GFR level has been in effect for at least three months. ?Stages 1 to 5, with or without kidney disease, indicate chronic kidney disease. Notes: Determination of stages one and two (with eGFR >59mL/min/1.73 m2) requires estimation of kidney damage for at least three months as defined by structural or functional abnormalities of the kidney, manifested by either:Pathological abnormalities or Markers of kidney damage (including abnormalities in the composition of the blood or urine or abnormalities in imaging tests). Lab Interpretation Abnormal (test code = 40940-8) [facility] AmericaHepatic Function Panel (ALB, T.PRO, BILI T, BU/BC, ALT, AST, ALK PHOS)2020-08-28 15:20:00 Test Item Value Reference Range Interpretation Comments TOTAL BILI (test code = 6163466423) 2.6 mg/dL 0.1-1.1 H BILI UNCON (test code = 0377765320) 1.8 mg/dL 0.1-1.1 H BILI CONJ (test code = 8306090687) 0.0 mg/dL 0-0.3 T PROTEIN (test code = 3111201951) 8.6 g/dL 6.3-8.2 H ALBUMIN (test code = 8609114484) 5.0 g/dL 3.5-5 ALK PHOS (test code = 2384608490) 252 U/L 34-122 H ALTv (test code = 1742-6) 129 U/L 5-50 H AST(SGOT) (test code = 1593427917) 81 U/L 13-40 H Lab Interpretation (test code = Abnormal 66818-5) [facility] AmericaLipase [id number] 15:20:00 Test Item Value Reference Range Interpretation Comments LIPASE (test code = 0594804055) 466 U/L 0-220 H Lab Interpretation (test code = Abnormal 71793-0) [facility] AmericaCREATINE [id number] 15:20:00 Test Item Value Reference Range Interpretation Comments CK (test code = 4351157900) 214 U/L 33-194 H Lab Interpretation (test code = Abnormal 57585-0) [facility] AmericaCBC with [id number] 15:08:00 Test Item Value Reference Range Interpretation Comments WBC (test code = See_Comment H [Automated 5996-2) message] The sy stem which generated this result transmitted reference range : 4.20 - 10.70 10*3/?L. The reference range was not used to interpret this result as normal/abnormal . RBC (test code = See_Comment [Automated 201-6) message] The sy stem which generated this result transmitted reference range : 4.26 - 5.52 10*6/?L. The reference range was not used to interpret this result as normal/abnormal . HGB (test code = 15.1 g/dL 12.2-16.4 718-7) HCT (test code = 42.2 % 38.4-49.3 4544-3) MCV (test code = 79.8 fL 81.7-95.6 L 787-2) MCH (test code = 28.5 pg 26.1-32.7 785-6) MCHC (test code = 35.8 g/dL 31.2-35 H 786-4) RDW-SD (test code = 37.5 fL 38.5-51.6 L 53149-8) RDW-CV (test code = 13.2 % 12.1-15.4 788-0) PLT (test code = See_Comment [Automated 777-3) message] The sy stem which generated this result transmitted reference range : 150 - 328 10*3/ ?L. The reference r malgorzata was not used to interpret this result as normal/abnormal . MPV (test code = 10.9 fL 9.8-13 54529-3) NRBC/100 WBC (test See_Comment [Automat ed code = 6585022006) message] The system which generated this result transmitted reference range : 0.0 - 10.0 /100 WBCs. The refer ence range was not u sed to interpret th is result as normal/abnormal . NRBC x10^3 (test code <0.01 See_Comment [Auto mated = 1140808722) message] The s ystem which generated this result transmitted reference range : 10*3/?L. The reference range was not used to interpret this result as normal/abnormal . GRAN MAT (NEUT) % 70.1 % (test code = 770-8) IMM GRAN % (test code 0.40 % = 2697748956) LYMPH % (test code = 20.4 % 736-9) MONO % (test code = 8.6 % 5905-5) EOS % (test code = 0.2 % 713-8) BASO % (test code = 0.3 % 706-2) GRAN MAT x10^3(ANC) 7.59 10*3/uL 1.99-6.95 H (test code = 2016354376) IMM GRAN x10^3 (test 0.04 10*3/uL 0-0.06 code = 6220108528) LYMPH x10^3 (test code 2.21 10*3/uL 1.09-3.23 = 731-0) MONO x10^3 (test code 0.93 10*3/uL 0.36-1.02 = 742-7) EOS x10^3 (test code = <0.03 0.06-0.53 L 711-2) BASO x10^3 (test code 0.03 10*3/uL 0.01-0.09 = 704-7) Lab Interpretation Abnormal (test code = 03895-7) [facility] Thjkfhr0971-55-57 10:42:53 Test Item Value Reference Range Interpretation Comments Glucose POC (test 160 mg/dL 70-115 H Notify RN or MDIf you code = Glucose POC) consider your patient critically ill, the Debby-Accu Chec k Infrom II meter should not be used for Glucos e determination. Draw a venous Glucose and send to the main Lab for analysis. POC Cwffbdt7559-92-46 06:30:01 Test Item Value Reference Range Interpretation Comments Glucose POC (test 163 mg/dL 70-115 H Notify RN or MDIf you code = Glucose POC) consider your patient critically ill, the Debby-Accu Chec k Infrom II meter should not be used for Glucos e determination. Draw a venous Glucose and send to the main Lab for analysis. POC [id number] 20:14:50 Test Item Value Reference Range Interpretation Comments Glucose POC (test 161 mg/dL 70-115 H If you con hand embroiderer your code = Glucose POC) patient critically ill, the Debby-Accu Check Infrom II meter should not be used for Glucose determination. Draw a venous Glucose and send to the main Lab for analysis. POC Ghtdmmy4388-08-17 15:02:57 Test Item Value Reference Range Interpretation Comments Glucose POC (test 144 mg/dL 70-115 H Notify RN or MDIf you code = Glucose POC) consider your patient critically ill, the Debby-Accu Chec k Infrom II meter should not be used for Glucos e determination. Draw a venous Glucose and send to the main Lab for analysis. POC Yznhkaj7835-60-72 11:14:36 Test Item Value Reference Range Interpretation Comments Glucose POC (test 173 mg/dL 70-115 H Notify RN or MDIf you code = Glucose POC) consider your patient critically ill, the Debby-Accu Chec k Infrom II meter should not be used for Glucos e determination. Draw a venous Glucose and send to the main Lab for analysis. POC Suogzma5589-83-28 06:21:50 Test Item Value Reference Range Interpretation Comments Glucose POC (test 135 mg/dL 70-115 H Notify RN or MDIf you code = Glucose POC) consider your patient critically ill, the Debby-Accu Chec k Infrom II meter should not be used for Glucos e determination. Draw a venous Glucose and send to the main Lab for analysis. POC [id number] 19:28:55 Test Item Value Reference Range Interpretation Comments Glucose POC (test 128 mg/dL 70-115 H Notify RN or MDIf you code = Glucose POC) consider your patient critically ill, the Debby-Accu Chec k Infrom II meter should not be used for Glucos e determination. Draw a venous Glucose and send to the main Lab for analysis. Thyroid Stimulating Ngxldpa5489-00-47 15:30:55 Test Item Value Reference Range Interpretation Comments TSH (test code = TSH) 0.926 mIU/mL 0.270-4.200 POC [id number] 15:25:28 Test Item Value Reference Range Interpretation Comments Glucose POC (test 138 mg/dL 70-115 H If you con hand embroiderer your code = Glucose POC) patient critically ill, the Debby-Accu Check Infrom II meter should not be used for Glucose determination. Draw a venous Glucose and send to the main Lab for analysis. Lipid [id number] 14:57:37 Test Item Value Reference Range Interpretation Comments Cholesterol Total 155 mg/dL 0-200 RISK OF HE ART (test code = DISEASEPublishe d by Cholesterol Total) [employer] [employer] Zoey lyte Optimal Borderl ine [...] is LDL/HDL Ratio=L DL Calc/HDL Chol RPR Kmxpipjvckm5823-30-08 12:22:43 Test Item Value Reference Range Interpretation Comments RPR Qual (test code = RPR Qual) Non-Reactive Non-Reactive Reactive Control (test code = Reactive Reactive Control) Weak Reactive Control (test Weak Reactive code = Weak Reactive Control) Non-Reactive Control (test code Non-Reactive = Non-Reactive Control) Lot # (test code = Lot #) [id number] N Expiration Dt (test code = 07-06-20 N Expiration Dt) Urine Hqjddws0643-05-16 11:34:40 C Urine Added by GL_SJM_UA_CUL_INDNo growth at 24 hours. No growth at 48 hours.POC Oiwfdlu1842-98-98 11:14:46 Test Item Value Reference Range Interpretation Comments Glucose POC (test 171 mg/dL 70-115 H If you con hand embroiderer your code = Glucose POC) patient critically ill, the Debby-Accu Check Infrom II meter should not be used for Glucose determination. Draw a venous Glucose and send to the main Lab for analysis. POC [id number] 08:41:45 Test Item Value Reference Range Interpretation Comments Glucose POC (test 163 mg/dL 70-115 H If you con hand embroiderer your code = Glucose POC) patient critically ill, the Debby-Accu Check Infrom II meter should not be used for Glucose determination. Draw a venous Glucose and send to the main Lab for analysis. POC [id number] 05:38:51 Test Item Value Reference Range Interpretation Comments Glucose POC (test 146 mg/dL 70-115 H Notify RN or MDIf you code = Glucose POC) consider your patient critically ill, the Debby-Accu Chec k Infrom II meter should not be used for Glucos e determination. Draw a venous Glucose and send to the main Lab for analysis. POC [id number] 15:39:16 Test Item Value Reference Range Interpretation Comments Glucose POC (test 172 mg/dL 70-115 H Notify RN or MDIf you code = Glucose POC) consider your patient critically ill, the Debby-Accu Chec k Infrom II meter should not be used for Glucos e determination. Draw a venous Glucose and send to the main Lab for analysis. Urine Drug [id number] 14:11:43 Test Item Value Reference Range Interpretation [...] confir matory test if desired . Urinalysis [id number] 13:55:31 Test Item Value Reference Range Interpretation [...] Mucous) Moderate A Urinalysis with Culture, if mknkewzoc1902-10-62 13:55:31 Test Item Value Reference Range Interpretation [...] Micro Ind?) rule GL_SJM_UA_MICRO _IN D Alcohol [id number] 12:41:12 Test Item Value Reference Range Interpretation Comments Ethanol Level (test <0.00 g/dL 0.00-0.01 Intoxica june 0.080 g/dL code = Ethanol or more Level) Ethanol Inst (test <0 N code = Ethanol Inst) Comprehensive Metabolic [id number] 12:41:11 Test Item Value Reference Range Interpretation [...] A/G 1.5 ratio N Ratio) Comprehensive Metabolic [id number] 12:41:11 Test Item Value Reference Range Interpretation [...] National Kidney Foundation, http://nkdep.ni h.gov Comprehensive Metabolic [id number] 12:41:11 Test Item Value Reference Range Interpretation [...] ag e have not been validated by [facility] MDRD study and should be interpreted wit [...] ag e have not been validated by [facility] MDRD study and should be interpreted wit h caution. eGFR R esult Interpretation: eGFR > or = 60 is in the Normal RangeeGF R < 60 may mean kid jose diseaseeGFR < 1 5 may mean kidney failure Rang es recommended by the National Kidney Foundation, http://nkdep.ni h.gov Complete Blood Count with [id number] 12:34:46 Test Item Value Reference Range Interpretation [...] code = IPF) 0 % N Automated [id number] 12:34:46 Test Item Value Reference Range Interpretation Comments Neutro Auto (test code = Neutro 56.4 % 36.0-70.0 Auto) Lymph Auto (test code = Lymph Auto) 36.4 % 12.0-44.0 O'Brien Auto (test code = O'Brien Auto) 5.5 % 0.0-11.0 Eos, Auto (test code = Eos, Auto) 1.2 % 0.0-7.0 Basophil Auto (test code = Basophil 0.3 % 0.0-2.0 Auto) Neutro Absolute (test code = Neutro 5.3 x10 1.6-7.4 Absolute) Lymph Absolute (test code = Lymph 3.39 x10 .50-4.60 Absolute) O'Brien Absolute (test code = O'Brien .51 x10 .00-1.20 Absolute) Eos Absolute (test code = Eos 0.11 x10 0.00-0.74 Absolute) Baso Absolute (test code = Baso 0.03 x10 0.00-0.21 Absolute) IG [id number] 12:34:46 Test Item Value Reference Range Interpretation Comments IG (test code = IG) 0.2 % 0.0-5.0 IG Abs (test code = IG Abs) 0 x10 N"
[2021-09-29 15:52] LABS: Albumin 3.4 g/dL (3.4-5.0); Bilirubin Direct 0.2 mg/dL (0-0.2); Bilirubin Total 0.7 mg/dL (0.2-1.0); Potassium 4.4 mmol/L (3.5-5.1); Protein, Total 7.5 g/dL (6.4-8.2)
[2021-09-29 15:55] LABS: Urine Blood Trace-intact (Negative); Urine Glucose 3+ (Negative); Urine Protein Negative (Negative)
[2021-09-29] MEDS ORDERED: MORPHINE 4 MG/ML SYR ONE ×2 (16:00→17:21)
[2021-09-29] MEDS ORDERED: ONDANSETRON 4 MG/2 ML VIAL ONE (16:00)
[2021-09-29 16:15] LABS: Absolute Lymphocytes (CBC) 0.9 K/uL (0.7-4.9); Hematocrit 38.4 % (39.6-49.0); Lymphocytes % 39.9 % (15.3-44.8); MPV 8.5 fL (7.6-11.3)
[2021-09-29 16:20] LABS: Urine Bacteria <20 /HPF (NONE SEEN); Urine RBC <5 /HPF (NONE SEEN)
--- NOTE | 2021-09-29 16:43 | RAD REPORT ---
EXAM DESCRIPTION: CT - Abdomen Pelvis W Contrast - 09/29/2021 4:25 pm CLINICAL HISTORY: FLANK PAIN COMPARISON: Abdomen Pelvis W Contrast dated 01/14/2021 TECHNIQUE: Biphasic, helical CT imaging of the abdomen and pelvis was performed following 100 ml non -ionic IV contrast. No oral contrast administered. All CT scans are performed using dose optimization technique as appropriate and may include automated exposure control or mA/KV adjustment according to patient size. FINDINGS: No acute pleural or parenchymal findings. No cardiomegaly or pericardial effusion. Liver is abnormal with a prominent nodular contour. No focal liver lesion identifiable. There is no t hrombosis or other portal vein abnormality seen. No focal splenic abnormality. No pancreatic or perip ancreatic acute findings. Cholecystectomy clips are present. No biliary tree dilatation identified. Symmetric renal function is seen with no hydronephrosis or suspicious renal mass. No pyelonephritis o r acute parenchymal process. No bladder abnormalities. No adrenal abnormalities. A 2 centimeter simpl e cyst is present lower pole of the left kidney. No gastric wall thickening or mass of the gastric wall identifiable. Patient has very pronounced para esophageal varices at the GE junction. No dilated large or small bowel loops. Moderate stool volume i s present in the colon. Diverticulosis is minimal. No acute diverticulitis findings. A focal mass les ion of the colon is not seen. Right-side colon is tortuous and redundant. No appendicitis findings. No ascites is present. No free air or pneumatosis. No hernia, mass or bulky lymphadenopathy. No suspicious bony findings. IMPRESSION: Contrast enhanced CT abdomen and pelvis showing no acute or emergent finding. Cirrhosis changes to the liver are present with no new hepatic parenchymal lesion identifiable. No ac hopi findings of the prominent gastroesophageal and upper abdominal varices. No significant changes are noted since the January 2021 study.
[2021-09-29 16:56] LABS: Blood Morphology Comment NOTED (NOT SEEN); Platelet Estimate DECR; Poikilocytosis 2+; White Blood Cell Scan OK (OK)
[2021-09-29] MEDS ORDERED: LIDOCAINE 4% PATCH ONE (17:22)
--- NOTE | 2021-09-29 17:26 | ER ---
Nurse's Notes [facility] Name: Andres Guerin Age: 60 yrs Sex: Male : 1960 Arrival Date: 09/29/2021 Time: 14:49 Bed 7 Private MD: Diagnosis: Low back pain Presentation: 09/29 14:54 Chief complaint: Patient states: "Last time I had this pain I had a bad urine jd3 infection. I have this horrible pain on my left lower stomach that starts in the back and comes around and into my groin. I think my UTI came back.". Coronavirus screen: At this time, the client does not indicate any symptoms associated with coronavirus-19. Ebola Screen: No symptoms or risks identified at this time. Initial Sepsis Screen: Does the patient meet any 2 criteria? No. Patient's initial sepsis screen is negative. Does the patient have a suspected source of infection? No. Patient's initial sepsis screen is negative. Risk Assessment: Do you want to hurt yourself or someone else? Patient reports no desire to harm self or others. Onset of symptoms was September 29, 2021. 14:54 Method Of Arrival: Wheelchair jd3 14:54 Acuity: MANOLO 3 jd3 Triage Assessment: 15:00 General: Appears distressed, uncomfortable, Behavior is cooperative, appropriate for bp age, anxious. Pain: Complains of pain in pelvis and left inguinal area and left low back. EENT: No deficits noted. Neuro: No deficits noted. Cardiovascular: No deficits noted. Respiratory: No deficits noted. GI: Reports lower abdominal pain. : Reports pain in suprapubic area. Derm: No deficits noted. Musculoskeletal: No deficits noted. Historical: - Allergies: 14:55 No Known Allergies; jd3 - PMHx: 14:55 Diabetes - NIDDM; Hyperlipidemia; Hypertension; Hepatitis C; jd3 - PSHx: 14:55 left foot, ankle, leg sx; jd3 - Immunization history:: Adult Immunizations up to date, Client reports having NOT received the Covid vaccine. - Social history:: Smoking status: Patient/guardian denies using tobacco, but has a distant history of tobacco abuse. Screenin:00 Abuse screen: Denies threats or abuse. Denies injuries from another. Nutritional bp screening: No deficits noted. Tuberculosis screening: No symptoms or risk factors identified. Fall Risk None identified. Assessment: 15:00 General: SEE TRIAGE NOTE. bp 17:00 Reassessment: No changes from previously documented assessment. Patient and/or family bp updated on plan of care and expected duration. Pain level reassessed. 18:39 Reassessment: PT D/C HOME AMBULATORY, DX WITH LOWER BACK PAIN. bp Vital Signs: 14:55 BP 158 / 92; Pulse 79; Resp 18 S; Temp 97.7(TE); Pulse Ox 100% on R/A; Weight 86.18 kg jd3 (R); Height 5 ft. 9 in. (175.26 cm) (R); Pain 10/10; 16:00 BP 155 / 97; Pulse 72; Resp 16; Pulse Ox 100% ; bp 18:00 BP 147 / 89; Pulse 81; Resp 17; Pulse Ox 100% ; bp 14:55 Body Mass Index 28.06 (86.18 kg, 175.26 cm) jd3 ED Course: 14:49 Patient arrived in ED. ds1 14:55 Triage completed. jd3 14:56 Arm band placed on. jd3 15:00 Patient has correct armband on for positive identification. Bed in low position. Call bp light in reach. Side rails up X2. 15:07 Wilder Denise NP is PHCP. pm1 15:07 Ash Cm MD is Attending Physician. pm1 15:45 Inserted saline lock: 20 gauge in right antecubital area, using aseptic technique. bp Blood collected. 16:19 Jeremiah Fernandez, RN is Primary Nurse. bp 16:20 CT Abd/Pelvis - IV Contrast Only Sent. bp 16:25 CT Abd/Pelvis - IV Contrast Only In Process Unspecified. EDMS 18:39 No provider procedures requiring assistance completed. IV discontinued, intact, bp bleeding controlled, No redness/swelling at site. Pressure dressing applied. Administered Medications: 15:45 Drug: morphine 4 mg Route: IVP; Site: right forearm; bp 16:23 Follow up: Response: Pain is decreased bp 15:45 Drug: Zofran (Ondansetron) 4 mg Route: IVP; Site: right antecubital; bp 16:23 Follow up: Response: No adverse reaction bp 17:30 Drug: Lidoderm Patch 5 % (700 mg/patch) 1 patches Route: Topical; Site: affected area; bp 17:30 Drug: morphine 4 mg Route: IVP; Site: right antecubital; bp 18:40 Follow up: Response: No adverse reaction; Pain is decreased bp Outcome: 17:26 Discharge ordered by . pm1 18:39 Discharged to home ambulatory, with family. bp 18:39 Condition: stable 18:39 Discharge instructions given to patient, Instructed on discharge instructions, follow up and referral plans. medication usage, Demonstrated understanding of instructions, follow-up care, medications, Prescriptions given X 2. 18:42 Patient left the ED. bp Signatures: Dispatcher [employer] EDAR Christa Loja ds1 Wilder Denise NP [employer] SAL[employer] REPRESENTATIVE pm1 Alf Noguera RN RN Jeremiah Willard RN RN bp Corrections: (The following items were deleted from the chart) 15:00 14:54 Chief complaint: Patient states: "Last time I had this pain I had a bad urine jd3 infection. I have this horrible pain on my left lower stomach that starts in the back and comes around. I think my UTI came back." jd3
--- NOTE | 2021-09-29 17:26 | EDPHYS ---
Physician Documentation [facility] Name: Andres Guerin Age: 60 yrs Sex: Male : 1960 Arrival Date: 09/29/2021 Time: 14:49 Bed 7 Private MD: ED Physician Ash Cm HPI: 09/29 15:30 This 60 yrs old Male presents to ER via Wheelchair with complaints of Groin Pain - Side pm1 Pain. 15:30 The patient complains of pain in the left low back. The pain radiates to the left pm1 inguinal area. Onset: The symptoms/episode began/occurred 1 week(s) ago. Modifying factors: The symptoms are alleviated by nothing. the symptoms are aggravated by nothing. Associated signs and symptoms: The patient has no apparent associated signs or symptoms. Severity of pain: in the emergency department the pain is actually worse. feels similar to prior UTI but has been to his PCP and outside lab in the past week to check his urine twice and no UTI present. The patient has been recently seen by a physician: the patient's primary care provider, with similar presenting complaints, urine tested, negative for UTI. Historical: - Allergies: 14:55 No Known Allergies; jd3 - PMHx: 14:55 Diabetes - NIDDM; Hyperlipidemia; Hypertension; Hepatitis C; jd3 - PSHx: 14:55 left foot, ankle, leg sx; jd3 - Immunization history:: Adult Immunizations up to date, Client reports having NOT received the Covid vaccine. - Social history:: Smoking status: Patient/guardian denies using tobacco, but has a distant history of tobacco abuse. ROS: 15:30 Constitutional: Negative for fever, chills, and weight loss, Cardiovascular: Negative pm1 for chest pain, palpitations, and edema, Respiratory: Negative for shortness of breath, cough, wheezing, and pleuritic chest pain, Abdomen/GI: Negative for abdominal pain, nausea, vomiting, diarrhea, and constipation. 15:30 : Negative for injury, bleeding, discharge, and swelling, MS/Extremity: Negative for injury and deformity, Skin: Negative for injury, rash, and discoloration, Neuro: Negative for headache, weakness, numbness, tingling, and seizure. 15:30 Back: Positive for flank pain, on the left. 15:30 All other systems are negative. Exam: 15:30 Constitutional: This is a well developed, well nourished patient who is awake, alert, pm1 and in no acute distress. Head/Face: Normocephalic, atraumatic. 15:30 Skin: Warm, dry with normal turgor. Normal color with no rashes, no lesions, and no evidence of cellulitis. MS/ Extremity: Pulses equal, no cyanosis. Neurovascular intact. Full, normal range of motion. 15:30 Eyes: Exam is negative for acute changes, Periorbital structures: appear normal, Pupils: no acute changes, Extraocular movements: no acute changes. 15:30 ENT: Mouth: no acute changes, Lips: normal, moist, Oral mucosa: normal, pink and intact, moist. 15:30 Respiratory: Exam negative for acute changes, respiratory distress, shortness of breath. 15:30 Abdomen/GI: Inspection: obese Patient would not allow me to evaluate by palpation. 15:30 Back: Patient would not allow me to evaluate by palpation. 15:30 Neuro: Exam negative for acute changes, Orientation: is normal, Mentation: is normal, Motor: moves all fours. Vital Signs: 14:55 BP 158 / 92; Pulse 79; Resp 18 S; Temp 97.7(TE); Pulse Ox 100% on R/A; Weight 86.18 kg jd3 (R); Height 5 ft. 9 in. (175.26 cm) (R); Pain 10/10; 16:00 BP 155 / 97; Pulse 72; Resp 16; Pulse Ox 100% ; bp 18:00 BP 147 / 89; Pulse 81; Resp 17; Pulse Ox 100% ; bp 14:55 Body Mass Index 28.06 (86.18 kg, 175.26 cm) jd3 MDM: 15:26 Patient medically screened. pm1 15:30 Data reviewed: vital signs. Data interpreted: Pulse oximetry: on room air is 100 %. pm1 Interpretation: normal. 17:21 Counseling: I had a detailed discussion with the patient and/or guardian regarding: the pm1 historical points, exam findings, and any diagnostic results supporting the discharge/admit diagnosis, lab results, radiology results, the need for outpatient follow up, to return to the emergency department if symptoms worsen or persist or if there are any questions or concerns that arise at home. 01/24 15:09 Order name: Urine Microscopic Only; Complete Time: 16:28 pm09/29 15:09 Order name: Basic Metabolic Panel; Complete Time: 16:28 pm09/29 15:09 Order name: CBC with Diff; Complete Time: 16:58 pm09/29 15:09 Order name: Hepatic Function; Complete Time: 16:28 pm09/29 15:09 Order name: Lipase; Complete Time: 16:28 pm09/29 15:55 Order name: Urine Dipstick-Ancillary; Complete Time: 16:28 EDMS 09/29 15:09 Order name: Urine Dipstick-Ancillary (obtain specimen); Complete Time: 16:20 pm09/29 15:09 Order name: IV Saline Lock; Complete Time: 16:20 pm09/29 15:09 Order name: CT Abd/Pelvis - IV Contrast Only; Complete Time: 16:47 pm09/29 16:56 Order name: CBC Smear Scan; Complete Time: 16:58 EDMS 09/29 15:09 Order name: Labs collected and sent; Complete Time: 16:20 pm09/29 15:46 Order name: Labs - recollect needed: recollect lavender top; Complete Time: 16:19 bd Administered Medications: 15:45 Drug: morphine 4 mg Route: IVP; Site: right forearm; bp 16:23 Follow up: Response: Pain is decreased bp 15:45 Drug: Zofran (Ondansetron) 4 mg Route: IVP; Site: right antecubital; bp 16:23 Follow up: Response: No adverse reaction bp 17:30 Drug: Lidoderm Patch 5 % (700 mg/patch) 1 patches Route: Topical; Site: affected area; bp 17:30 Drug: morphine 4 mg Route: IVP; Site: right antecubital; bp 18:40 Follow up: Response: No adverse reaction; Pain is decreased bp Disposition: 19:04 Co-signature as Attending Physician, Ash Cm MD I agree with the assessment and kdr plan of care. Disposition Summary: 09/29/21 17:26 Discharge Ordered Location: Home pm1 Problem: new pm1 Symptoms: have improved pm1 Condition: Stable pm1 Diagnosis - Low back pain pm1 Followup: pm1 - With: Emergency Department - When: As needed - Reason: Worsening of condition Followup: pm1 - With: Private Physician - When: 2 - 3 days - Reason: Recheck today's complaints, Continuance of care, Re-evaluation by your physician Discharge Instructions: - Discharge Summary Sheet pm1 - Acute Back Pain, Adult pm1 - Musculoskeletal Pain pm1 Forms: - Medication Reconciliation Form pm1 - Thank You Letter pm1 - Antibiotic Education pm1 - Prescription Opioid Use pm1 Prescriptions: - Tramadol 50 mg Oral Tablet - take 1 tablet by ORAL route every 8 hours as needed; 12 tablet; Refills: 0, pm1 Product Selection Permitted - Lidoderm 5 % Topical adhesive patch,medicated - apply 1 patch by TRANSDERMAL route once daily As needed 12 hours on and 12 pm1 hours off in a 24 hour period; 10 patch; Refills: 0, Product Selection Permitted Signatures: Dispatcher [employer] EDHailey Mcclure Kevin, MD MD kdr Marinas, Patrick, NP [employer] pm1 Alf Noguera RN RN jJeremiah Rosario RN RN bp
[2021-09-30 00:30] VITALS: TEMP 97.7; O2SAT 100
[2021-09-30 00:33] VITALS: BP 147/89
== END 2021-09-29 18:42 | disposition home or self-care (01) ==
LOC: ER 14:46
DX: M54.50 Low back pain, unspecified (principal); I10 Essential (primary) hypertension
CPT/HCPCS: 85025; 80048; 36415; 80076; 83690; 74177; Q9967; J2405; 81003; 81015; 99284

== ENCOUNTER 2024-02-24 10:23 | Emergency (ER) | payer OTHER ==
--- OUTSIDE RECORDS SUMMARY | 2024-02-24 10:28 | XMS REPORT | Continuity of Care Document ---
Author Name Unknown Address [address] [facility]. [address] [place] [address] [facility] Address [address] 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 Phone JACKY HUBBARD Primary Care Physician Unavailab le RADIOLOGY Attending Clinician Unavailable Romina Cruz MD Attending Clinician ROMINA CRUZ Attending Clinician Unavailable Lily Freedman Attending Clinician Unavailab ROMINA Kuhn Admitting Clinician Unavailable Lily Freedman Admitting Clinician Unavailab toscano Payers Payer Name Policy Type Policy Number Effective Date Expirati on Date Source MEDICARE PART A \\T\\ B [id number] 2017 00:00:00 [employer] MEDICARE OUT OF NETWORK [id number] 2022 00:00:00 MEDICAID OF [place] [id number] 2017 00:00:00 Problems Condition Name Condition Details Condition Category Status Onset Date Resolution Date Last Treatment Date Treating Clinician Comments Source Elevated bilirubin Elevated bilirubin Disease Active 03-23 00:00: 00 [facility] RLQ abdominal pain RLQ abdominal pain Disease Active 03-22 00:00: 00 [facility] Allergies, Adverse Reactions, Alerts Allergy Name Allergy Type Status Severity Reaction(s) Onset Date Inactive Date Treating Clinician Comments Source No Known Medicati on Allergie s Drug Active [facility] No Known Medicati on Allergie s Drug Active [facility] No Known Medicati on Allergie s Drug Active [facility] No Known Medicati on Allergie s Drug Active [facility] No Known Medicati on Allergie s Drug Active [facility] No Known Medicati on Allergie s Drug Active [facility] No Known Medicati on Allergie s Drug Active [facility] No Known Medicati on Allergie s Drug Active [facility] No Known Medicati on Allergie s Drug Active [facility] No Known Medicati on Allergie s Drug Active [facility] No Known Medicati on Allergie s Drug Active [facility] No Known Medicati on Allergie s Drug Active [facility] NO KNOWN ALLERGIE S Drug Class Active [facility] Social History Social Habit Start Date Stop Date Quantity Comments Source Sex Assigned At [facility] Exposure to SARS-CoV-2 (event) Not sure [facility] Tobacco use and exposure 2018-09-08 00:00:00 2018-09-08 00:00:00 Never used [facility] Alcohol intake 2018-09-08 00:00:00 2018-09-08 00:00:00 Current non-drinker of alcohol (finding) [facility] Tobacco Comment 2017-03-22 00:00:00 2017-03-22 00:00:00 quit 20 yrs ago [facility] Alcohol Comment 2017-03-22 00:00:00 2017-03-22 00:00:00 quit 4-5 yrs ago [facility] History of tobacco use 1982-03-22 00:00:00 1997-03-22 00:00:00 Smoker [facility] Smoking Status Start Date Stop Date Source Former smoker 2018-09-08 00:00:00 2018-09-08 00:00:00 [facility] Medications Ordered Medication Name Filled Medication Name Start Date Stop Date Current Medication? Ordering Clinician Indication Dosage Frequency Signature (SIG) Comments Components Source NaCl 0.9% (NS) bolus infusion 1,000 mL 2019-09 16:45: 00 08-28 16:57 :00 No 1000mL at 999 mL/hr, 1,000 mL, IV Infusion, ONCE, 1 dose, Wed08/28/20 at 1045, STAT [facility] insulin regular human (HUMULIN R) injection 4 Units 2019-09 16:45: 00 08-28 16:23 :00 No 4U 4 Units, Slow IV Push, ONCE, 1 dose, Wed08/28/20 at 1045, STAT [facility] iohexol (OMNIPAQUE 350 BULK-100 mL) injection 120 mL 2019-09 16:00: 00 08-28 15:46 :00 No 120mL 120 mL, Intravenou s, ONCE, 1 dose, Wed08/28/20 at 1000, Routine [facility] NaCl 0.9% (NS) bolus infusion 1,000 mL 2019-09 16:00: 00 08-28 16:57 :00 No 1000mL at 999 mL/hr, 1,000 mL, IV Infusion, ONCE, 1 dose, Wed08/28/20 at 1000, STAT [facility] ondansetron 4 mg disintegrat ing tablet 2019-09 00:00: 00 Yes [id number] 4mg Take 1 tablet by mouth every 4 (four) hours as needed for Nausea and Vomiting (N/V). [facility] benzonatate 100 mg capsule 2019-09 00:00: 00 Yes [id number] 100mg Take 1 capsule by mouth 3 (three) times daily as needed for Cough. [facility] dicyclomine (BENTYL) 10 mg capsule 2019-09 00:00: 00 Yes [id number] 10mg Take 1 capsule by mouth 4 (four) times daily. [facility] doxycycline hyclate 100 mg capsule 2019-09 00:00: 00 09-05 05:59 :00 No [id number] 100mg Take 1 capsule by mouth 2 (two) times daily for 7 days. [facility] lisinopril 20 mg tablet 09-07 20:02: 50 Yes 20mg Take 20 mg by mouth 2 (two) times daily. [facility] insulin glargine (LANTUS) 100 unit/mL injection 09-07 20:02: 50 Yes 25U inject 25 Units under the skin every morning. [facility] PREGABALIN (LYRICA ORAL) 09-07 20:02: 50 Yes 150mg Take 150 mg by mouth 2 (two) times daily. [facility] FUROSEMIDE, BULK, MISC 09-07 20:02: 50 Yes 20mg Take 20 mg by mouth daily. [facility] glimepiride 4 mg tablet 09-07 20:02: 50 Yes 4mg Take 4 mg by mouth 2 (two) times daily. [facility] propranolol 20 mg tablet 09-07 20:02: 50 Yes 20mg Take 20 mg by mouth 2 (two) times daily. [facility] pravastatin 20 mg tablet 09-07 20:02: 50 Yes 20mg Take 20 mg by mouth at bedtime. [facility] amitriptyli ne 10 mg tablet 09-07 20:02: 50 Yes 10mg Take 10 mg by mouth at bedtime. [facility] lisinopril 20 mg tablet 09-20 00:00: 00 Yes 20mg Take 1 tablet by mouth daily. [facility] Vital Signs Vital Name Observation Time Observation Value Comments S gideon Systolic blood pressure 2020-08-28 16:30:00 167 mm[Hg] [facility] Diastolic blood pressure 2020-08-28 16:30:00 98 mm[Hg] [facility] Heart rate 2020-08-28 16:30:00 82 /min [facility] Oxygen saturation in Arterial blood by Pulse oximetry 2020-08-28 16:30:00 97 /min [facility] Body weight 2020-08-28 14:44:00 [facility]915 [facility] BMI 2020-08-28 14:44:00 27.32 kg/m2 [facility] Body temperature 2020-08-28 14:30:00 36.78 Juliet [facility] Respiratory rate 2020-08-28 14:30:00 18 /min [facility] Systolic blood pressure 2020-08-28 16:30:00 167 mm[Hg] [facility] Diastolic blood pressure 2020-08-28 16:30:00 98 mm[Hg] [facility] Heart rate 2020-08-28 16:30:00 82 /min [facility] Oxygen saturation in Arterial blood by Pulse oximetry 2020-08-28 16:30:00 97 /min [facility] Body weight 2020-08-28 14:44:00 83.915 [facility] BMI 2020-08-28 14:44:00 27.32 kg/m2 [facility] Body temperature 2020-08-28 14:30:00 36.78 Juliet [facility] Respiratory rate 2020-08-28 14:30:00 18 /min [facility] Height/Length Measured 2021-09-23 08:31:27 175.3 cm Weight Dosing 2021-09-23 08:31:27 86.20 kg Height/Length Measured 2021-09-23 08:28:35 175.3 cm Weight Dosing 2021-09-23 08:28:35 86.20 kg Height/Length Measured 2021-09-23 08:28:25 175.3 cm Weight Dosing 2021-09-23 08:28:25 86.20 kg Height/Length Measured 2021-09-23 08:28:13 175.3 cm Weight Dosing 2021-09-23 08:28:13 86.20 kg Height/Length Measured 2021-09-23 08:28:11 175.3 cm Weight Dosing 2021-09-23 08:28:11 86.20 kg Height/Length Measured 2021-09-23 08:27:46 175.3 cm Weight Dosing 2021-09-23 08:27:46 86.20 kg Height/Length Measured 2021-09-23 08:27:45 175.3 cm Weight Dosing 2021-09-23 08:27:45 86.20 kg Height/Length Measured 2021-09-23 08:27:41 175.3 cm Weight Dosing 2021-09-23 08:27:41 86.20 kg Height/Length Measured 2019-09-12 17:10:29 Procedures Procedure Date / Time Performed Performing Clinician Source ACUTE CARE VENOUS BLOOD GAS 2020-08-28 16:23:00 Romina Cruz [facility] URINALYSIS 2020-08-28 16:03:00 Romina Cruz [facility] ADC / [facility] - DRUG SCREEN TRIAGE 2020-08-28 16:03:00 Romina Cruz [facility] CT ABDOMEN PELVIS W CONTRAST 2020-08-28 15:49:36 Romina Cruz [facility] XR CHEST 1 VW 2020-08-28 15:33:35 Romina Cruz [facility] CREATINE KINASE 2020-08-28 14:58:00 [facility] 2020-08-28 14:58:00 Romina Cruz [facility] TROPONIN I 2020-08-28 14:58:00 [facility] HEPATIC FUNCTION PANEL (31531) (ALB,T.PRO,BILI T,BU/BC,ALT,AST,ALK PHOS) 2020-08-28 14:58:00 Romina Cruz [facility] BASIC METABOLIC PANEL (NA, K, CL, CO2, GLUCOSE, BUN, CREATININE, CA) 2020-08-28 14:58:00 Romina Cruz [facility] ETHANOL 2020-08-28 14:58:00 Romina Cruz [facility] CBC WITH DIFF 2020-08-28 14:58:00 Romina Cruz [facility] PROTHROMBIN TIME / INR 2020-08-28 14:58:00 Sindhu Cruz [facility] ACTIVATED PARTIAL THRMPLAS SARBJIT 2020-08-28 14:58:00 Romina Cruz [facility] ADC,CLC OR L[facility] ONLY - INFLUENZA A & B DIRECT ANTIGEN 2020-08-28 14:58:00 Romina Cruz [facility] N-TERMINAL PRO-BNP 2020-08-28 14:58:00 Romina Cruz [facility] COVID-19 (ID NOW RAPID TESTING) 2020-08-28 14:58:00 Romina Cruz [facility] HB ECG ROUTINE & RHYTHM STRIP 2020-08-28 14:54:12 Romina Cruz [facility] NOTICE OF PRIVACY PRACTICES 2020-08-28 14:24:07 Doctor Unassigned, [place] [facility] CONSENT/REFUSAL FOR DIAGNOSIS AND TREATMENT 2020-08-28 14:23:35 Doctor Unassigned, [place] [facility] Encounters Start Date/Time End Date/Time Encounter Type Admission Type Attending Clinicians Care Facility Care Department Encounter ID Source 2022-04-03 00:00:00 2022-04-03 00:00:00 Outpatient R [facility] [id number] [facility] 2022-04-03 00:00:00 2022-04-03 00:00:00 Outpatient [facility] [id number] [facility] 2020-08-28 08:31:00 2020-08-28 10:57:00 [id number] [facility] 2020-08-28 08:31:00 2020-08-28 10:57:00 [id number] 2020-08-28 08:31:00 2020-08-28 10:57:00 Emergency [facility] [id number] 2019-09-12 11:22:00 2019-09-12 11:22:00 Emergency [facility] NUPUR [id number] [facility] 2019-09-12 11:22:00 2019-09-12 11:22:00 Emergency 1 Lily Freedman [facility] NUPUR [id number] [facility] Results Test Description Test Time Test Comments Results Result Co mments Source COMPREHENSIVE METABOLIC [id number] 00:42:02* Test Item Value Reference Range Interpretation Comme nts GLUCOSE (test code = 2217) 102 MG/DL 70-99 H BUN (test code = 2208) 13 MG/DL 8-23 CREATININE (test code = 2214) 0.82 MG/DL 0.80-1.40 eGFR (2020 CKD-EPI) (test code = 09409) 99 ML/MIN/1.73 >60 CALC BUN/CREAT (test code = 2234) 16 RATIO 6-28 SODIUM (test code = 223) 145 MEQ/L 133-146 POTASSIUM (test code = 2228) 3.9 MEQ/L 3.5-5.4 CHLORIDE (test code = 5) 106 MEQ/L 95-107 CARBON DIOXIDE (test code = 6) 24 MEQ/L 19-31 CALCIUM (test code = 2208) 9.5 MG/DL 8.5-10.5 PROTEIN, TOTAL (test code = 2228) 7.4 G/DL 6.1-8.3 ALBUMIN (test code = 2200) 4.6 G/DL 3.5-5.2 CALC GLOBULIN (test code = 0) 2.8 G/DL 1.9-3.7 CALC A/G RATIO (test code = 2233) 1.6 RATIO 1.0-2.6 BILIRUBIN, TOTAL (test code = 2206) 1.0 MG/DL See_Comment [Automated me ssage] The system which generated this result transmitted reference range: <=1.2. The reference range was not used to interpret this result as normal/abnormal. ALKALINE PHOSPHATASE (test code = 2203) 99 U/L 40-123 AST (test code = 8) 20 U/L 9-50 ALT (test code = 2219) 20 U/L 5-50 UNLESS OTHERWISE INDICATED, ALL TESTING PERFORMED [facility] [employer] [address] [place] [address] WHEEL OF FORTUNE DEALER: JULIO CESAR KLEIN M.D. CLIA NUMBER [id number] [place]. [id number] HEMOGLOBIN [id number] 04:39:35* Test Item Value Reference Range Interpretation Comme nts HEMOGLOBIN A1c (test code = 10189) 11.1 % 4.2-5.6 H [employer] GUIDELINES FOR HGB A1C: PREDIABETES/INCREASED RISK . . . . . . . 5.7-6.4% DIAGNOSIS OF DIABETES . . . . . . . . . >=6.5% WITH CONFIRMATION OR APPROPRIATE SYMPTOMS NOTE: ASSAY MAY BE AFFECTED BY HEMOGLOBINOPATHIES (SICKLE CELL ANEMIA, S-C DISEASE, OTHERS) OR ARTIFICIALLY LOWERED BY DECREASED RED CELL SURVIVAL (HEMOLYTIC ANEMIAS, BLOOD LOSS, ETC.). CONSIDER ALTERNATE TESTING OR LABORATORY CONSULTATION. ADC / [facility] - DRUG SCREEN [id number] 16:43:00* Test Item Value Reference Range Interpretation Comme nts BENZO U (test code = 4538795058) Negative Negative STEFANIE U (test code = 6030177101) Negative Negative AMPHET (test code = 9058399681) Negative Negative THC (test code = 5318543857) Negative Negative METHADONE (test code = 0510935414) Negative Negative Meth U (test code = 2612346373) Negative Negative OPIATES (test code = 1574114902) Negative Negative Cocaine Metabolite (test code = 0308772173) Negative Negative PROPOXY (test code = 0419816928) Negative Negative Tric U (test code = 9330631592) Negative Negative PCP (test code = 7236563590) Negative Negative OXYCOD (test code = 7633710414) Negative Negative KEERTHI (test code = KEERTHI) [...] legal testing). Lab Interpretation (test code = 14469-6) Normal [facility]inalysis2020-[facility] 16:29:00* Test Item Value Reference Range Interpretation Comme nts APPEARANCE (test code = 3378213462) Clear Clear COLOR (test code = 9336011780) Yellow Yellow PH (test code = 0569565327) 4.8-8.0 SP GRAVITY (test code = 8308487760) 1.003-1.030 H GLU U QUAL (test code = 8715737621) 500 mg/dL Normal A BLOOD (test code = 9865142272) 1+ Negative A KETONES (test code = 7509817529) 20 mg/dL Negative A PROTEIN (test code = 2887-8) Negative Negative UROBILIN (test code = 3120164940) 2.0 mg/dL Normal A BILIRUBIN (test code = 7864010918) Negative Negative NITRITE (test code = 1265792978) Negative Negative LEUK CHARLA (test code = 3876710308) Negative Negative RBC/HPF (test code = 9270004456) See_Comment H [Automated messa ge] The system which generated this result transmitted reference range: 0 - 3 HPF. The reference range was not used to interpret this result as normal/abnormal. WBC/HPF (test code = 1730780133) See_Comment [Automated messa ge] The system which generated this result transmitted reference range: 0 - 5 HPF. The reference range was not used to interpret this result as normal/abnormal. BACTERIA (test code = 2084889224) Negative Negative Lab Interpretation (test code = 29870-7) Abnormal [facility] [id number] 16:26:00 * Test Item Value Reference Range Interpretation Comme nts PH (test code = 4967636348) 7.32-7.42 H PCO2 PEDRO (test code = 1033487369) See_Comment L [Automated messa ge] The system which generated this result transmitted reference range: 41 - 51 mmHg. The reference range was not used to interpret this result as normal/abnormal. PO2 PEDRO (test code = 7017048740) See_Comment H [Automated messa ge] The system which generated this result transmitted reference range: 25 - 40 mmHg. The reference range was not used to interpret this result as normal/abnormal. HCO3 PEDRO (test code = 2840603010) See_Comment L [Automated messa ge] The system which generated this result transmitted reference range: 24 - 28 mEq/L. The reference range was not used to interpret this result as normal/abnormal. AC VBE(BEAKER) (test code = 1468144196) mEq/L Lab Interpretation (test code = 90109-3) Abnormal [facility] P[facility] W [id number] 16:00:51CT Abdomen and Pelvis with intravenous contrast. CLINICAL HISTORY: Acute generalized Abdominal pain. DOSE: Up-to-date CT equipment and radiation dose reduction techniques wereemployed. CTDIvol: 6.33mGy. DLP: 316 mGy-cm. TECHNIQUE : Contiguous axial imaging from the level of the lung basesthrough the pubic symphysis were performed after the uncomplicatedadministration of Omnipaque contrast material. Coronal and sagittalreconstructions were obtained. Auto mA and/or iterative reconstruction wereused to reduce radiation dose. FINDINGS: Comparison has been made with 03/22/2017 CT studies. Lower lungs: Clear. No pleural effusion or pericardial effusion. Multipleold fractures of lower ribs and esophageal/gastric varices noted. Shortsliding hiatal hernia noted. Liver, Gallbladder and Spleen: S/Pcholecystectomy. Liver is 15.4 cm inlength and showed undulating serosal surface, consistent with chronicprimary liver disease such as cirrhosis with portal hypertension causinggastric/esophageal varices. Spleen measures approximately 11 x 5.7 cm. Milddilatation of the extrahepatic bile ducts notedwith common hepatic ductmeasuring up to 9 mm and mid segment of common bile duct measuring 6 mm.Pancreatic duct is not dilated. Peritoneum: ?No free air or [...] fluid or lymphadenopathy. Bowel: Left side of thelarge bowel is completely collapsed, however, I donot see any thickening of the castro or submucosaledema. Normal appendix isvisualized. Small bowel gas pattern is unremarkable. Bladder and Reproductive Organs: Mild enlargement of the prostate glandnoted with central zone calcifications. No gross pathology in theunopacified urinary bladder. Bones: Old trauma with prominent Schmorl's nodes at T11/T12/L1/L2/L3 levelsand minimal wedge-shaped compression deformity in T11 and T12 vertebralbodies. Nosigns of AVN in the femoral heads. Soft tissues: Ingestion of anterior subcutaneous fat above the le tisha of theumbilicus noted, on both sides, likely [...] appears to be Bosniak type I type. [facility], Radiant Results Inft User - 08/28/2020 10:02 AM CSTCT Abdomen and Pelvis with intravenous contrast.CLINICAL HISTORY: Acute generalized Abdominal pain.DOSE: Up-to-date CT equipment and radiation dose reduction techniques wereemployed. CTDIvol: 6.33 mGy. DLP: 316 mGy-cm.TECHNIQUE : Contiguous axial imaging from the level of the lung basesthrough the pubic symphysis were performed after the uncomplicatedadministration of Omnipaque contrast material. Coronal and sagittalreconstructions were obtained. AutomA and/or iterative reconstruction wereused to reduce radiation [...] Spleen measures approximately 11 x 5.7 cm. Milddilatationof the extrahepatic bile ducts noted with common [...] andtheir proximal 1 cm segment on both sides.Retroperitoneum: No abnormal fluid or lymphadenopathy.Bowel: Left side of the large bowel is [...] cyst appears to be Bosniak type I type.[facility] - INFLUENZA A & B DIRECT [id number] 15:59:00* Test Item Value Reference Range Interpretation Comme nts Influenza A (test code = 38069-0) Negative Negative Influenza B (test code = 53254-7) Negative Negative Lab Interpretation (test cod e = 44706-2) Normal [facility] HospitalCOVID-[facility] (ID NOW RAPID TESTING)2020-08-28 15:36:00* Test Item Value Reference Range Interpretation Comme nts SARS-CoV-2 Rapid ID NOW (test code = 20102-3) Not Detected Not Detected KEERTHI (test code = KEERTHI) ID NOW COVID-19 As say is an isothermal nucleic acid amplification test intended for the qualitative detection of nucleic acid from SARS-CoV-2 viral RNA in nasopharyngeal (MANAGER BANQUET) specimens. It is used under Emergency Use [...] patient testing if clinically indicated. Lab Interpretation (test code = 18966-1) Normal [facility] HospitalXR CHEST 1 [id number] 15:34:55HISTORY: Tachypnea. TECHNIQUE: Portable AP semierect view of the chest is obtained. Comparisonis made with 09/20/2017 study. FINDINGS: Mild obstructive lung disease is suspected. No acute pneumonia.Nopneumothorax or pleural effusion or pulmonary congestion detected.Cardiac size is within normal limits. Multiple old fracture deformities areseen in both middle and lower right as well as left ribs. C ONCLUSIONS: No signs of acute cardiopulmonary disease.[facility], Radiant Results Inft User - 08/28/2020 9:35 AM CSTHISTORY: Tachypnea.TECHNIQUE: Portable AP semierect view of the chest is obtained. Comparisonis made with 09/20/2017 study.FINDINGS: Mild obstructive lung disease is suspected. No acute pneumonia.No pneumothorax or pleural effusion or pulmonary congestion detected.Cardiac size is within nor mal limits. Multiple old fracture deformities areseen in both middle and lower right as well as left ribs.CONCLUSIONS: No signs of acute cardiopulmonary disease.[facility] HospitalaPTT2020-12-23 15:34:00* Test Item Value Reference Range Interpretation Comme [facility] APTT Patient (test code = 3173-2) See_Comment [Automated message] The system which generated this result transmitted reference range: 23 - 38 Seconds. The reference range was not used to interpret this result as normal/abnormal. KEERTHI (test code = KEERTHI) [facility] population mean normal value for aPTT is 30 seconds. Lab Interpretation (test code = 18394-9) Normal [facility] HospitalProthrombin Time (PT) / [id number] 15:32:00 * Test Item Value Reference Range Interpretation Comme [facility] PROTIME PATIENT (test code = 5964-2) See_Comment H [Automated Jayporea ge] The system which generated this result transmitted reference range: 12.0 - 14.7 Seconds. The reference range was not used to interpret this result as normal/abnormal. INR (test code = 6301-6) Normal INR <1.1; Warfarin Therapeutic range 2.0 to 3.0 or 2.5 to 3.5, depending upon the indications. Lab Interpretation (test code = 98907-9) Abnormal [facility] HospitalTroponin [id number] 15:31:00* Test Item Value Reference Range Interpretation Comme nts TROPONIN I (test code = 5649655180) <0.012 See_Comment [Automated message] The system which generated this result transmitted reference range: <=0.034 ng/mL. The reference range was not used to interpret this result as normal/abnormal. KEERTHI (test code = KEERTHI) Equal or Less than 0.034 ng/ml---Normal ?Note: Cardiac troponin begins to [...] patient's use of biotin. ? Lab Interpretation (test code = 27357-3) Normal [facility] HospitalN-TERMINAL [id number] 15:30:00* Test Item Value Reference Range Interpretation Comme nts NT-proBNP (test code = 5139863363) 105 pg/mL See_Comment [Automated message] The system which generated this result transmitted reference range: <=125. The reference range was not used to interpret this result as normal/abnormal. KEERTHI (test code = KEERTHI) Biotin has been reported to cause a negative bias, interpret results relative to patient's use of biotin. Lab Interpretation (test code = 36977-7) Normal [facility] HospitalETHANOL2020-12-23 15:27:00* Test Item Value Reference Range Interpretation Comme nts ALCOHOL (test code = 2115539972) <10 mg/dL KEERTHI (test code = KEERTHI) <10 [id number] Toxic>100 Depression of MACHINE ROOM ENGINEER>400 Fatalities Reported [facility] HospitalBasic Metabolic Panel (NA, K, CL, CO2, GLUCOSE, BUN, CREATININE, CA)2020-08-28 15:24:00* Test Item Value Reference Range Interpretation Comme nts NA (test code = 9605760080) 135 mmol/L 135-145 K (test code = 4957004861) 3.3 mmol/L 3.5-5 L CL (test code = 2035700920) 99 mmol/L 98-108 CO2 TOTAL (test code = 6735477405) 20 mmol/L 23-31 L AGAP (test code = 7317120132) 2-16 BUN (test code = 6493328781) 9 mg/dL 7-23 GLUCOSE (test code = 5332335684) 471 mg/dL 70-110 HH CREATININE (test code = 0343917031) 0.62 mg/dL 0.6-1.25 CALCIUM (test code = 6626375485) 10.4 mg/dL 8.6-10.6 eGFR Calculation (Non-) (test code = 0437858100) mL/min/1.73m2 eGFR Calculation () (test code = 2397484680) mL/min/1.73m2 KEERTHI (test code = KEERTHI) Association of [...] or abnormalities in imaging tests). Lab Interpretation (test code = 62188-7) [facility]ALB, T.PRO, BILI T, BU/BC, ALT, AST, ALK PHOS)2020-08-28 15:20:00* Test Item Value Reference Range Interpretation Comme nts TOTAL BILI (test code = 3640492394) 2.6 mg/dL 0.1-1.1 H BILI UNCON (test code = 5048352612) 1.8 mg/dL 0.1-1.1 H BILI CONJ (test code = 2857858201) 0.0 mg/dL 0-0.3 T PROTEIN (test code = 9629369060) 8.6 g/dL 6.3-8.2 H ALBUMIN (test code = 1161874494) 5.0 g/dL 3.5-5 ALK PHOS (test code = 3066148648) 252 U/L 34-122 H ALTv (test code = 1742-6) 129 U/L 5-50 H AST(SGOT) (test code = 0149654724) 81 U/L 13-40 H Lab Interpretation (test cod e = 09029-7) [facility] Qjpyv5143-88-09 15:20:00* Test Item Value Reference Range Interpretation Comme nts LIPASE (test code = 5178567108) 466 U/L 0-220 H Lab Interpretation (test cod e = 58566-2) [facility] [id number] 15:20:00* Test Item Value Reference Range Interpretation Comme nts CK (test code = 3932262130) 214 U/L 33-194 H Lab Interpretation (test cod e = 15016-9) Abnormal [facility] with Karsvierseeo1101-76-40 15:08:00* Test Item Value Reference Range Interpretation Comme nts WBC (test code = 6690-2) See_Comment H [Automated messa ge] The system which generated this result transmitted reference range: 4.20 - 10.70 10*3/?L. The reference range was not used to interpret this result as normal/abnormal. RBC (test code = 789-8) See_Comment [Automated messa ge] The system which generated this result transmitted reference range: 4.26 - 5.52 10*6/?L. The reference range was not used to interpret this result as normal/abnormal. HGB (test code = 718-7) 15.1 g/dL 12.2-16.4 HCT (test code = 4544-3) 42.2 % 38.4-49.3 MCV (test code = 787-2) 79.8 fL 81.7-95.6 L MCH (test code = 785-6) 28.5 pg 26.1-32.7 MCHC (test code = 786-4) 35.8 g/dL 31.2-35 H RDW-SD (test code = 28356-0) 37.5 fL 38.5-51.6 L RDW-CV (test code = 788-0) 13.2 % 12.1-15.4 PLT (test code = 777-3) See_Comment [Automated messa ge] The system which generated this result transmitted reference range: 150 - 328 10*3/?L. The reference range was not used to interpret this result as normal/abnormal. MPV (test code = 88202-0) 10.9 fL 9.8-13 NRBC/100 WBC (test code = 0888529359) See_Comment [Automated me ssage] The system which generated this result transmitted reference range: 0.0 - 10.0 /100 WBCs. The reference range was not used to interpret this result as normal/abnormal. NRBC x10^3 (test code = 3114384927) <0.01 See_Comment [Automated messa ge] The system which generated this result transmitted reference range: 10*3/?L. The reference range was not used to interpret this result as normal/abnormal. GRAN MAT (NEUT) % (test code = 770-8) 70.1 % IMM GRAN % (test code = 0557330438) 0.40 % LYMPH % (test code = 736-9) 20.4 % MONO % (test code = 5905-5) 8.6 % EOS % (test code = 713-8) 0.2 % BASO % (test code = 706-2) 0.3 % GRAN MAT x10^3(ANC) (test code = 5695680547) 7.59 10*3/uL 1.99-6.95 H IMM GRAN x10^3 (test code = 7321489870) 0.04 10*3/uL 0-0.06 LYMPH x10^3 (test code = 731-0) 2.21 10*3/uL 1.09-3.23 MONO x10^3 (test code = 742-7) 0.93 10*3/uL 0.36-1.02 EOS x10^3 (test code = 711-2) <0.03 0.06-0.53 L BASO x10^3 (test code = 704-7) 0.03 10*3/uL 0.01-0.09 Lab Interpretation (test code = 82439-7) Abnormal [facility] Szkjpja9379-53-12 10:42:53* Test Item Value Reference Range Interpretation Comme nts Glucose POC (test code = Glucose POC) 160 mg/dL 70-115 H Notify RN or MDIf you consider your patient critically ill, the Debby-Accu Check Infrom II meter should not be used for Glucose determination. Draw a venous Glucose and send to the main Lab for analysis. POC Plhzmts2995-65-01 06:30:01* Test Item Value Reference Range Interpretation Comme nts Glucose POC (test code = Glucose POC) 163 mg/dL 70-115 H Notify RN or MDIf you consider your patient critically ill, the Debby-Accu Check Infrom II meter should not be used for Glucose determination. Draw a venous Glucose and send to the main Lab for analysis. POC Rcmaliy3477-12-63 20:14:50* Test Item Value Reference Range Interpretation Comme nts Glucose POC (test code = Glucose POC) 161 mg/dL 70-115 H If you consi zachariah your patient critically ill, the Debby-Accu Check Infrom II meter should not be used for Glucose determination. Draw a venous Glucose and send to the main Lab for analysis. POC Sabkpmq8796-73-52 15:02:57* Test Item Value Reference Range Interpretation Comme nts Glucose POC (test code = Glucose POC) 144 mg/dL 70-115 H Notify RN or MDIf you consider your patient critically ill, the Debby-Accu Check Infrom II meter should not be used for Glucose determination. Draw a venous Glucose and send to the main Lab for analysis. POC Oxcvpls1838-93-70 11:14:36* Test Item Value Reference Range Interpretation Comme nts Glucose POC (test code = Glucose POC) 173 mg/dL 70-115 H Notify RN or MDIf you consider your patient critically ill, the Debby-Accu Check Infrom II meter should not be used for Glucose determination. Draw a venous Glucose and send to the main Lab for analysis. POC Poiijsl4514-09-38 06:21:50* Test Item Value Reference Range Interpretation Comme nts Glucose POC (test code = Glucose POC) 135 mg/dL 70-115 H Notify RN or MDIf you consider your patient critically ill, the Debby-Accu Check Infrom II meter should not be used for Glucose determination. Draw a venous Glucose and send to the main Lab for analysis. POC Aoqvrrk6896-47-17 19:28:55* Test Item Value Reference Range Interpretation Comme nts Glucose POC (test code = Glucose POC) 128 mg/dL 70-115 H Notify RN or MDIf you consider your patient critically ill, the Debby-Accu Check Infrom II meter should not be used for Glucose determination. Draw a venous Glucose and send to the main Lab for analysis. Thyroid Stimulating Hdvmjps3231-28-87 15:30:55* Test Item Value Reference Range Interpretation Comme nts TSH (test code = TSH) 0.926 mIU/mL 0.270-4.200 POC Ecpxwee9504-35-25 15:25:28* Test Item Value Reference Range Interpretation Comme nts Glucose POC (test code = Glucose POC) 138 mg/dL 70-115 H If you consi zachariah your patient critically ill, the Debby-Accu Check Infrom II meter should not be used for Glucose determination. Draw a venous Glucose and send to the main Lab for analysis. Lipid Oruxr1890-17-37 14:57:37* Test Item Value Reference Range Interpretation Comme nts Cholesterol Total (test code = Cholesterol Total) 155 mg/dL 0-200 RISK OF HEART DISEASEPublished by [place] Heart Association Analyte Optimal Borderline Increased RiskCHOL <200 200-239 >240TRIG <150 150-199 >200HDL Male >60 <40HDL Female >60 <50LDL <100 130-159 >160LDL Near optimal is 100-129 Triglycerides (test code = Triglycerides) 98 mg/dL 9-200 HDL (test code = HDL) 60 mg/dL 40-60 LDL (test code = LDL) 75 mg/dL 0-130 The equation being used in this calculation is LDL = (Chol - HDL) - (Trig / 5) VLDL (test code = VLDL) 20 mg/dL 5-40 The equation raquel ng used in this calculation is VLDL = Trig / 5 Chol/HDL (test code = Chol/HDL) 2.6 ratio 0.0-5.0 LDL/HDL Ratio (test code = LDL/HDL Ratio) 1 N The equati on being used in this calculation is LDL/HDL Ratio=LDL Calc/HDL Chol RPR Xwcqmrprxey2365-33-47 12:22:43* Test Item Value Reference Range Interpretation Comme nts RPR Qual (test code = RPR Qual) Non-Reactive Non-Reactive Reactive Control (test code = Reactive Control) Reactive Weak Reactive Control (test code = Weak Reactive Control) Weak Reactive Non-Reactive Control (test c ode = Non-Reactive Control) Non-Reactive Lot # (test code = Lot #) [id number] N Expiration Dt (test code = Expiration Dt) 07-06-20 N Urine [id number] 11:34:40C Urine Added by [id number] growth at 24 hours. No growth at 48 hours.POC Ktnmbop5515-67-04 11:14:46* Test Item Value Reference Range Interpretation Comme nts Glucose POC (test code = Glucose POC) 171 mg/dL 70-115 H If you consi zachariah your patient critically ill, the Debby-Accu Check Infrom II meter should not be used for Glucose determination. Draw a venous Glucose and send to the main Lab for analysis. POC Qpetxgq1451-34-45 08:41:45* Test Item Value Reference Range Interpretation Comme nts Glucose POC (test code = Glucose POC) 163 mg/dL 70-115 H If you consi zachariah your patient critically ill, the Debby-Accu Check Infrom II meter should not be used for Glucose determination. Draw a venous Glucose and send to the main Lab for analysis. POC [id number] 05:38:51* Test Item Value Reference Range Interpretation Comme nts Glucose POC (test code = Glucose POC) 146 mg/dL 70-115 H Notify RN or MDIf you consider your patient critically ill, the Debby-Accu Check Infrom II meter should not be used for Glucose determination. Draw a venous Glucose and send to the main Lab for analysis. POC [id number] 15:39:16* Test Item Value Reference Range Interpretation Comme nts Glucose POC (test code = Glucose POC) 172 mg/dL 70-115 H Notify RN or MDIf you consider your patient critically ill, the Debby-Accu Check Infrom II meter should not be used for Glucose determination. Draw a venous Glucose and send to the main Lab for analysis. Urine Drug [id number] 14:11:43* Test Item Value Reference Range Interpretation Comme nts Amphetamine Screen Ur (test code = Amphetamine Screen Ur) Negative Negative Barbiturate Screen Ur (test code = Barbiturate Screen Ur) Negative Negative Benzodiazepines Ur (test code = Benzodiazepines Ur) POSITIVE Negative A Cocaine Screen Ur (test code = Cocaine Screen Ur) Negative Negative U Methadone Scr (test code = U Methadone Scr) Negative Negative Opiate Screen Ur (test code = Opiate Screen Ur) Negative Negative U PCP Scrn (test code = U PCP Scrn) Negative Negative Cannabinoid Screen Ur (test code = Cannabinoid Screen Ur) Negative Negative U TCA (test code = U TCA) Negative Negative The results of a ll drug screen tests are only preliminary. Clinical consideration and professional judgment should be applied to any drug of abuse test result, particularly when preliminary positive results are obtained. Please order a separate confirmatory test if desired. Urinalysis [id number] 13:55:31* Test Item Value Reference Range Interpretation Comme nts UA WBC (test code = UA WBC) 11-19 0-5 A UA RBC (test code = UA RBC) 11-19 0-5 A UA Bacteria (test code = UA Bacteria) Few A UA Squam Epithelial (test co de = UA Squam Epithelial) 6-10 A UA Trans Epithelial (test co de = UA Trans Epithelial) 1-4 A UA Mucous (test code = UA Mucous) Moderate A Urinalysis with Culture, if [id number] 13:55:31* Test Item Value Reference Range Interpretation Comme nts UA Color (test code = UA Color) LINNETTE Yellow A UA Appear (test code = UA Appear) CLEAR Clear UA pH (test code = UA pH) 6.5 UA Spec Grav (test code = UA Spec Grav) 1.028 1.001-1.035 UA Glucose (test code = UA Glucose) 100 mg/dL Negative A UA Bili (test code = UA Bili) 1 mg/dL Negative A UA Ketones (test code = UA Ketones) 150 mg/dL Negative A UA Blood (test code = UA Blood) 250 cells/mcL Negative A UA Protein (test code = UA Protein) 500 mg/dL Negative A UA Urobilinogen (test code = UA Urobilinogen) 4 mg/dL >0.2 A UA Nitrite (test code = UA Nitrite) NEG Negative UA Leuk Est (test code = UA Leuk Est) 25 cells/mcL Negative A UA Micro Ind? (test code = UA Micro Ind?) Indicated Not Indicated A Result cre ated by rule GL_[id number]_MICRO_IN D Alcohol [id number] 12:41:12* Test Item Value Reference Range Interpretation Comme nts Ethanol Level (test code = Ethanol Level) <0.00 g/dL 0.00-0.01 Intoxicated 0.08 0 g/dL or more Ethanol Inst (test code = Ethanol Inst) <0 N Comprehensive Metabolic [id number] 12:41:11* Test Item Value Reference Range Interpretation Comme nts Sodium Level (test code = So dium Level) 140.0 mmol/L 135.0-145.0 Potassium Level (test code = Potassium Level) 4.0 mmol/L 3.5-5.1 Chloride Level (test code = Chloride Level) 103 mmol/L 98-105 CO2 (test code = CO2) 24 mmol/L 22-29 Anion Gap (test code = Anion Gap) 13 mmol/L 7-16 BUN (test code = BUN) 12.20 mg/dL 6.00-20.00 Creatinine Level (test code = Creatinine Level) 0.90 mg/dL 0.70-1.20 BUN/Creat Ratio (test code = BUN/Creat Ratio) 14 N Glucose Level (test code = Glucose Level) 219 mg/dL 70-115 H Calcium Level (test code = Calcium Level) 9.9 mg/dL 8.3-10.5 Alk Phos (test code = Alk Phos) 105 U/L 40-129 Bilirubin Total (test code = Bilirubin Total) 1.7 mg/dL 0.1-0.9 H Albumin Level (test code = Albumin Level) 4.7 g/dL 3.5-5.2 Protein Total (test code = Protein Total) 7.9 g/dL 6.4-8.3 ALT (test code = ALT) 24 U/L 1-41 AST (test code = AST) 30 U/L 1-40 Globulin (test code = Globulin) 3.2 g/dL 2.9-3.1 H A/G Ratio (test code = A/G Ratio) 1.5 ratio N Comprehensive Metabolic [id number] 12:41:11* Test Item Value Reference Range Interpretation Comme nts Sodium Level (test code = Sodium Level) 140.0 mmol/L 135.0-145.0 Potassium Level (test code = Potassium Level) 4.0 mmol/L 3.5-5.1 Chloride Level (test code = Chloride Level) 103 mmol/L 98-105 CO2 (test code = CO2) 24 mmol/L 22-29 Anion Gap (test code = Anion Gap) 13 mmol/L 7-16 BUN (test code = BUN) 12.20 mg/dL 6.00-20.00 Creatinine Level (test code = Creatinine Level) 0.90 mg/dL 0.70-1.20 BUN/Creat Ratio (test code = BUN/Creat Ratio) 14 N Glucose Level (test code = Glucose Level) 219 mg/dL 70-115 H Calcium Level (test code = Calcium Level) 9.9 mg/dL 8.3-10.5 Alk Phos (test code = Alk Phos) 105 U/L 40-129 Bilirubin Total (test code = Bilirubin Total) 1.7 mg/dL 0.1-0.9 H Albumin Level (test code = Albumin Level) 4.7 g/dL 3.5-5.2 Protein Total (test code = Protein Total) 7.9 g/dL 6.4-8.3 ALT (test code = ALT) 24 U/L 1-41 AST (test code = AST) 30 U/L 1-40 Globulin (test code = Globulin) 3.2 g/dL 2.9-3.1 H A/G Ratio (test code = A/G Ratio) 1.5 ratio N eGFR AA (test code = eGFR AA) >60 mL/min/1.73 m2 N eGFR (estimated Glomerular Filtration Rate) is an estimated value, calculated from the patient's serum creatinine using the MDRD equation. It is NOT the patient's actual GFR. The eGFR provides a more clinically useful measure of kidney disease than serum creatinine alone.This calculation takes sex and race into account, if the information is provided. If the race is not provided, and the patient is -[place], multiply by 1.212. If sex is not provided, and the patient is female, multiply by 0.742. Results for patients <18 years of age have not been validated by the MDRD study and should be interpreted with caution. eGFR Result Interpretation:eGFR > or = 60 is in the Normal RangeeGFR < 60 may mean kidney diseaseeGFR < 15 may mean kidney failure Ranges recommended by the National Kidney Foundation, http://nkdep.nih.gov Comprehensive Metabolic [id number] 12:41:11* Test Item Value Reference Range Interpretation Comme nts Sodium Level (test code = Sodium Level) 140.0 mmol/L 135.0-145.0 Potassium Level (test code = Potassium Level) 4.0 mmol/L 3.5-5.1 Chloride Level (test code = Chloride Level) 103 mmol/L 98-105 CO2 (test code = CO2) 24 mmol/L 22-29 Anion Gap (test code = Anion Gap) 13 mmol/L 7-16 BUN (test code = BUN) 12.20 mg/dL 6.00-20.00 Creatinine Level (test code = Creatinine Level) 0.90 mg/dL 0.70-1.20 BUN/Creat Ratio (test code = BUN/Creat Ratio) 14 N Glucose Level (test code = Glucose Level) 219 mg/dL 70-115 H Calcium Level (test code = Calcium Level) 9.9 mg/dL 8.3-10.5 Alk Phos (test code = Alk Phos) 105 U/L 40-129 Bilirubin Total (test code = Bilirubin Total) 1.7 mg/dL 0.1-0.9 H Albumin Level (test code = Albumin Level) 4.7 g/dL 3.5-5.2 Protein Total (test code = Protein Total) 7.9 g/dL 6.4-8.3 ALT (test code = ALT) 24 U/L 1-41 AST (test code = AST) 30 U/L 1-40 Globulin (test code = Globulin) 3.2 g/dL 2.9-3.1 H A/G Ratio (test code = A/G Ratio) 1.5 ratio N eGFR AA (test code = eGFR AA) >60 mL/min/1.73 m2 N eGFR (estimated Glomerular Filtration Rate) is an estimated value, calculated from the patient's serum creatinine using the MDRD equation. It is NOT the patient's actual GFR. The eGFR provides a more clinically useful measure of kidney disease than serum creatinine alone.This calculation takes sex and race into account, if the information is provided. If the race is not provided, and the patient is -[place], multiply by 1.212. If sex is not provided, and the patient is female, multiply by 0.742. Results for patients <18 years of age have not been validated by the MDRD study and should be interpreted with caution. eGFR Result Interpretation:eGFR > or = 60 is in the Normal RangeeGFR < 60 may mean kidney diseaseeGFR < 15 may mean kidney failure Ranges recommended by the National Kidney Foundation, http://nkdep.nih.gov eGFR Non-AA (test code = eGFR Non-AA) >60.00 mL/min/1.73 m2 N eGFR (estimated Glomerular Filtration Rate) is an estimated value, calculated from the patient's serum creatinine using the MDRD equation. It is NOT the patient's actual GFR. The eGFR provides a more clinically useful measure of kidney disease than serum creatinine alone.This calculation takes sex and race into account, if the information is provided. If the race is not provided, and the patient is -[place], multiply by 1.212. If sex is not provided, and the patient is female, multiply by 0.742. Results for patients <18 years of age have not been validated by the MDRD study and should be interpreted with caution. eGFR Result Interpretation:eGFR > or = 60 is in the Normal RangeeGFR < 60 may mean kidney diseaseeGFR < 15 may mean kidney failure Ranges recommended by the National Kidney Foundation, http://nkdep.nih.gov Complete Blood Count with Metydwhmdacz7898-02-31 12:34:46* Test Item Value Reference Range Interpretation Comme nts WBC (test code = WBC) 9.3 x10 4.4-10.5 RBC (test code = RBC) 5.31 x10 4.10-5.70 Hgb (test code = Hgb) 16.5 g/dL 13.4-17.4 Hct (test code = Hct) 47.6 % 38.7-52.0 MCV (test code = MCV) 89.60 fL 80.00-100.00 MCHC (test code = MCHC) 34.70 g/dL 32.00-37.50 RDW CV (test code = RDW CV) 12.1 % 11.5-14.5 MCH (test code = MCH) 31.1 pg 27.0-32.5 Platelets (test code = Platelets) 152.0 x10 140.0-440.0 MPV (test code = MPV) 10.7 fL N Slide Review (test code = Slide Review) Auto Auto Result crea june by GL_SJM_SLIDE_REV_AUTO nRBC (test code = nRBC) 0 N NRBC Abs (test code = NRBC Abs) 0.00 x10 N IPF (test code = IPF) 0 % N Automated [id number] 12:34:46* Test Item Value Reference Range Interpretation Comme nts Neutro Auto (test code = Arpit tro Auto) 56.4 % 36.0-70.0 Lymph Auto (test code = Lymph Auto) 36.4 % 12.0-44.0 Webb Auto (test code = Webb Auto) 5.5 % 0.0-11.0 Eos, Auto (test code = Eos, Auto) 1.2 % 0.0-7.0 Basophil Auto (test code = B asophil Auto) 0.3 % 0.0-2.0 Neutro Absolute (test code = Neutro Absolute) 5.3 x10 1.6-7.4 Lymph Absolute (test code = Lymph Absolute) 3.39 x10 .50-4.60 Webb Absolute (test code = M kaleb Absolute) .51 x10 .00-1.20 Eos Absolute (test code = Eo s Absolute) 0.11 x10 0.00-0.74 Baso Absolute (test code = B aso Absolute) 0.03 x10 0.00-0.21 IG [id number] 12:34:46* Test Item Value Reference Range Interpretation Comme nts IG (test code = IG) 0.2 % 0.0-5.0 IG Abs (test code = IG Abs) 0 x10 N"
[2024-02-24] MEDS ORDERED: HYDROCODONE/APAP 10/325 TAB ONE (11:51)
[2024-02-24] MEDS ORDERED: ONDANSETRON 4 MG/2 ML VIAL ONE (12:08)
[2024-02-24] MEDS ORDERED: DIAZEPAM 5 MG TABLET ONE (12:09)
[2024-02-24] MEDS ORDERED: KETOROLAC 30 MG/ML INJ ONE (12:09)
[2024-02-24] MEDS ORDERED: FENTANYL CITR 100 MCG/2 ML ONE ×2 (12:09→13:03)
[2024-02-24] MEDS ORDERED: NA CHLORIDE 0.9% 1,000 ML ONE (12:10)
[2024-02-24 12:39] LABS: Absolute Eosinophils 0.1 K/uL (0-0.5); Absolute Monocytes 0.4 K/uL (0.1-1.3); Absolute Neutrophil 2.7 K/uL (1.8-8.0); Basophils % 0.7 % (0-1.3); Eosinophils % 1.7 % (0-4.4); Hematocrit 45.8 % (39.6-49.0); Lymphocytes % 38.3 % (15.3-44.8); MCH 29.9 pg (27.0-35.0); MCHC 32.8 g/dL (32.0-36.0); MCV 91.1 fL (80-100); MPV 8.5 fL (7.6-11.3); Monocytes % 7.9 % (3.3-12.3); Neutrophils % 51.4 % (41.7-73.7); Platelets 129 thou/uL (152-406); RBC Red Blood Cell Count 5.03 M/uL (4.33-5.43); Red Cell Distribution Width 14.2 % (12.1-15.2)
--- NOTE | 2024-02-24 12:39 | RAD REPORT ---
EXAM DESCRIPTION: RAD - Shoulder Right 2 View - 02/24/2024 12:27 pm CLINICAL HISTORY: PAIN Trauma, pain COMPARISON: No comparisons FINDINGS: Jvnq-bv-mkfcqklg AC joint and glenohumeral joint arthritic changes are present. No acute f racture or dislocation is evident. No aggressive bone lesion.
[2024-02-24 12:55] LABS: Albumin 3.9 g/dL (3.4-5.0); Anion Gap 9.1 mEq/L (5.0-15.0); Bilirubin Total 0.6 mg/dL (0.2-1.0); Globulin 3.9 g/dL (2.3-3.5); Potassium 4.1 mEq/L (3.5-5.1); Protein, Total 7.8 g/dL (6.4-8.2)
--- NOTE | 2024-02-24 13:46 | RAD REPORT ---
EXAM DESCRIPTION: CT - Head C Spine Cap W Con - 02/24/2024 1:16 pm CLINICAL HISTORY: Trauma, head and neck injury. Chest, abdomen and pelvis pain. PAIN COMPARISON: Head C Spine Cap W Con dated 03/11/2021 TECHNIQUE: CT head without contrast. CT cervical spine without contrast with coronal and sagittal reformatted images. CT chest, abdomen and pelvis with IV contrast (approximately 100 mL nonionic IV contrast) with clemens l and sagittal reformatted images of the spine. All CT scans are performed using dose optimization technique as appropriate and may include automated exposure control or mA/KV adjustment according to patient size. FINDINGS: CT HEAD WITHOUT CONTRAST: No intracranial hemorrhage, hydrocephalus or extra-axial fluid collection. No areas of brain edema o r midline shift. Vertebral atherosclerosis. The paranasal sinuses and mastoids are clear. The calvarium is intact. CT CERVICAL SPINE WITHOUT CONTRAST: No fracture or subluxation. Mild lower cervical degenerative changes. The prevertebral soft tissues a re normal in thickness.Carotid atherosclerosis bilaterally. CT CHEST, ABDOMEN, PELVIS WITH CONTRAST: The lungs are clear.No pneumothorax or pericardial/pleural fluid. No evidence of intra-abdominal visceral injury, free fluid or free air. Liver cirrhosis is present. C holecystectomy clips. No pelvic mass or hematoma. There is thin lucency seen in the right lateral humeral head which could be a hairline fracture. IMPRESSION: Possible hairline fracture lateral humeral head on the right.
--- NOTE | 2024-02-24 13:49 | ER ---
Nurse's Notes [facility] Name: Andres Guerin Age: 63 yrs Sex: Male : 1960 Arrival Date: 02/24/2024 Time: 10:23 Bed 10 Private MD: Steven Pedraza E Diagnosis: Fall on same level, unspecified;Strain of muscle and tendon of back wall of thorax;Strain of muscle and tendon of front wall of thorax;Contusion of right shoulder;Pain in right shoulder;Type 2 diabetes mellitus with hyperglycemia;Fracture of upper end of humerus-hairline Presentation: 02/23 11:13 Chief complaint: Patient states: Fell a couple of days ago while trimming a tree. nj1 Complains of right shoulder pain. Has tried OTC with no relief. Coronavirus screen: Vaccine status: Patient reports being unvaccinated. Ebola Screen: Patient denies travel to an Ebola-affected area in the 21 days before illness onset. Initial Sepsis Screen: Does the patient meet any 2 criteria? No. Patient's initial sepsis screen is negative. Does the patient have a suspected source of infection? No. Patient's initial sepsis screen is negative. Risk Assessment: Do you want to hurt yourself or someone else? Patient reports no desire to harm self or others. Onset of symptoms was February 20, 2024. 11:13 Method Of Arrival: Ambulatory [facility] 11:13 Acuity: MANOLO 3 [facility] Triage Assessment: 11:16 General: Appears in no apparent distress. uncomfortable, Behavior is calm, cooperative, nj1 appropriate for age. Pain: Complains of pain in shoulder, left Pain currently is 10 out of 10 on a pain scale. Neuro: Level of Consciousness is awake, alert, obeys commands, Oriented to person, place, time, situation, Gait is steady. Cardiovascular: Patient's skin is warm and dry. Respiratory: Airway is patent Respiratory effort is even, unlabored. Historical: - Allergies: 11:15 No Known Allergies; nj1 - PMHx: 11:15 Hypertension; Hyperlipidemia; Diabetes - NIDDM; Hepatitis C; History; Neuropathy nj1 (Unknown); - PSHx: 11:15 left foot; nj1 - Immunization history:: Client reports having NOT received the Covid vaccine. - Social history:: Smoking status: Patient reports use of chewing tobacco. Screenin:55 [facility] ED Fall Risk Assessment (Adult) History of falling in the last 3 months, cm10 including since admission Yes- single mechanical fall (1 pt) Confusion or Disorientation No (0 pts) Intoxicated or Sedated No (0 pts) Impaired Gait No (0 pts) Mobility Assist Device Used No (0 pt) Altered Elimination No (0 pt) Score/Fall Risk Level 0 - 2 = Low Risk Oriented to surroundings, Maintained a safe environment, Hourly rounding (assess needs \T\ fall precautionary measures) done. Abuse screen: Denies threats or abuse. Denies injuries from another. Nutritional screening: No deficits noted. Tuberculosis screening: No symptoms or risk factors identified. Assessment: 11:54 General: Appears in no apparent distress. comfortable, Behavior is calm, cooperative, cm10 appropriate for age. Pain: Complains of pain in Right shoulder Pain radiates to right arm and neck. Neuro: No deficits noted. Level of Consciousness is awake, alert, obeys commands, Oriented to person, place, time, situation, Appropriate for age. Respiratory: No deficits noted. Airway is patent Respiratory effort is even, unlabored, Respiratory pattern is regular, symmetrical. Derm: No deficits noted. Skin is healthy with good turgor, Skin is pink, warm \T\ dry. Musculoskeletal: Reports pain in Right shoulder. 14:13 Reassessment: Patient is alert, oriented x 3, equal unlabored respirations, skin aa5 warm/dry/pink. Patient states feeling better. Patient states symptoms have improved. Vital Signs: 11:13 BP 176 / 98; Pulse 71; Resp 18; Temp 98(O); Pulse Ox 100% on R/A; Weight 81.65 kg; nj1 Height 5 ft. 9 in. ; Pain 10/10; 12:29 BP 162 / 92; Pulse 69; Resp 18; Pulse Ox 100% on R/A; Pain 7/10; cm10 11:13 Body Mass Index 26.58 (81.65 kg, 175.26 cm) nj1 11:13 Pain Scale: Adult nj1 12:29 Pain Scale: Adult cm10 ED Course: 10:26 Patient arrived in ED. rg4 10:26 Steven Pedraza MD is Private Physician. rg4 10:41 Pan Wallace MD is Attending Physician. [facility] 10:59 Patient's name was called from ER lobby. No response. nj1 11:15 Triage completed. nj1 11:16 Arm band placed on left wrist. nj1 11:41 Yarelis Pang, RN is Primary Nurse. cm10 11:55 Patient has correct armband on for positive identification. Bed in low position. Call cm10 light in reach. Side rails up X 1. Provided Education on: ER process and procedures. Warm blanket given. Ice pack to injury. 12:29 Shoulder Right (2 View) XRAY In Process Unspecified. EDMS 12:29 Comprehensive Metabolic Panel Sent. cm10 12:29 CBC with Diff Sent. cm10 12:29 Initial lab(s) drawn, by la, sent to lab. Inserted saline lock: 20 gauge in left cm10 antecubital area, using aseptic technique. Blood collected. 13:17 CT Traumagram (Head C Spine CAP W Con) In Process Unspecified. EDMS 13:49 Steven Pedraza MD is Referral Physician. [facility] 13:49 Bakari Anthony MD is Referral Physician. billie 14:10 Shoulder immobilizer applied on right shoulder. aa5 14:13 No provider procedures requiring assistance completed. IV discontinued, intact, aa5 bleeding controlled, No redness/swelling at site. Pressure dressing applied. Administered Medications: 11:54 Drug: Kell PO 10 mg-325 mg 1 tabs PO once Route: PO; cm10 12:29 Drug: NS 0.9% IV 1000 ml IV at 1 bolus Per protocol; 1000 mL bolus Route: IV; Rate: 1 cm10 bolus; Site: left antecubital; 14:13 Follow up: IV Status: Completed infusion; IV Intake: 1000ml aa5 12:29 Drug: Ketorolac IVP 30 mg IVP once Route: IVP; Site: left antecubital; cm10 12:29 Drug: fentaNYL (PF) IVP 50 mcg IVP once Route: IVP; Site: left antecubital; cm10 12:29 Drug: Ondansetron IVP 4 mg IVP once; over 2 minutes Route: IVP; Site: left antecubital; cm10 12:29 Drug: Diazepam PO 10 mg PO once Route: PO; cm10 13:07 Drug: fentaNYL (PF) IVP 50 mcg IVP once Route: IVP; Site: left antecubital; cm10 14:13 Follow up: Response: No adverse reaction aa5 Medication: 11:55 VIS not applicable for this client. cm10 Intake: 14:13 IV: 1000ml; Total: 1000ml. aa5 Outcome: 13:49 Discharge ordered by . billie 14:13 Discharged to home ambulatory, with friend, carlos 14:13 Condition: stable 14:13 Discharge instructions given to patient, Instructed on discharge instructions, follow up and referral plans. medication usage, Demonstrated understanding of instructions, follow-up care, medications, Prescriptions given X 3, 14:15 Patient left the ED. aa5 Signatures: Dispatcher [employer] EDDE Pan Wallace MD MD cha Calderon, Audri, RN RN aa5 Ninfa Narayanan 4 Yuni Nails RN RN nj1 Yarelis Pang RN RN cm10 Corrections: (The following items were deleted from the chart) 14:26 14:25 Patient left the ED. aa5 aa5
--- NOTE | 2024-02-24 13:49 | EDPHYS ---
Physician Documentation [facility] Name: Andres Guerin Age: 63 yrs Sex: Male : 1960 Arrival Date: 02/24/2024 Time: 10:23 Bed 10 Private MD: Steven Pedraza E ED Physician Pan Wallace HPI: 02/23 12:10 This 63 yrs old Male presents to ER via Ambulatory with complaints of billie Shoulder Pain. 12:10 The patient or guardian complains of decreased range of motion, pain, that is acute. billie right shoulder. Context: The problem was sustained outdoors, resulted from a fall. Onset: The symptoms/episode began/occurred 3 day(s) ago. Modifying factors: the symptoms are alleviated by remaining still, The symptoms are aggravated by movement. Associated signs and symptoms: The patient has no apparent associated signs or symptoms. Severity of symptoms: At their worst the symptoms were moderate, in the emergency department the symptoms are unchanged. The patient has not experienced similar symptoms in the past. Historical: - Allergies: 11:15 No Known Allergies; nj1 - PMHx: 11:15 Hypertension; Hyperlipidemia; Diabetes - NIDDM; Hepatitis C; History; Neuropathy nj1 (Unknown); - PSHx: 11:15 left foot; nj1 - Immunization history:: Client reports having NOT received the Covid vaccine. - Social history:: Smoking status: Patient reports use of chewing tobacco. ROS: 12:13 Constitutional: Negative for fever, chills, and weight loss, Eyes: Negative for injury, billie pain, redness, and discharge, ENT: Negative for injury, pain, and discharge, Neck: Negative for injury, pain, and swelling, Cardiovascular: Negative for chest pain, palpitations, and edema, Respiratory: Negative for shortness of breath, cough, wheezing, and pleuritic chest pain, Abdomen/GI: Negative for abdominal pain, nausea, vomiting, diarrhea, and constipation, Back: Negative for injury and pain, : Negative for injury, bleeding, discharge, and swelling, Skin: Negative for injury, rash, and discoloration, Neuro: Negative for headache, weakness, numbness, tingling, and seizure, Psych: Negative for depression, anxiety, suicide ideation, homicidal ideation, and hallucinations, Allergy/Immunology: Negative for hives, rash, and allergies, Endocrine: Negative for neck swelling, polydipsia, polyuria, polyphagia, and marked weight changes, 12:13 MS/extremity: Positive for decreased range of motion, pain, tenderness, of the anterior aspect of right shoulder and posterior aspect of right shoulder, Exam: 12:13 Constitutional: This is a well developed, well nourished patient who is awake, alert, billie and in no acute distress. Head/Face: Normocephalic, atraumatic. Eyes: Pupils equal round and reactive to light, extra-ocular motions intact. Lids and lashes normal. Conjunctiva and sclera are non-icteric and not injected. Cornea within normal limits. Periorbital areas with no swelling, redness, or edema. ENT: Nares patent. No nasal discharge, no septal abnormalities noted. Tympanic membranes are normal and external auditory canals are clear. Oropharynx with no redness, swelling, or masses, exudates, or evidence of obstruction, uvula midline. Mucous membranes moist. Neck: Trachea midline, no thyromegaly or masses palpated, and no cervical lymphadenopathy. Supple, full range of motion without nuchal rigidity, or vertebral point tenderness. No Meningismus. Chest/axilla: Normal chest wall appearance and motion. Nontender with no deformity. No lesions are appreciated. Cardiovascular: Regular rate and rhythm with a normal S1 and S2. No gallops, murmurs, or rubs. Normal PMI, no JVD. No pulse deficits. Respiratory: Lungs have equal breath sounds bilaterally, clear to auscultation and percussion. No rales, rhonchi or wheezes noted. No increased work of breathing, no retractions or nasal flaring. Abdomen/GI: Soft, non-tender, with normal bowel sounds. No distension or tympany. No guarding or rebound. No evidence of tenderness throughout. Back: No spinal tenderness. No costovertebral tenderness. Full range of motion. Male : Normal genitalia with no discharge or lesions. Skin: Warm, dry with normal turgor. Normal color with no rashes, no lesions, and no evidence of cellulitis. Neuro: Awake and alert, GCS 15, oriented to person, place, time, and situation. Cranial nerves II-XII grossly intact. Motor strength 5/5 in all extremities. Sensory grossly intact. Cerebellar exam normal. Normal gait. Psych: Awake, alert, with orientation to person, place and time. Behavior, mood, and affect are within normal limits. 12:13 Musculoskeletal/extremity: ROM: limited active range of motion due to pain, limited passive range of motion due to pain, in the anterior aspect of right shoulder and posterior aspect of right shoulder, Circulation is intact in all extremities. Sensation intact. Compartment Syndrome exam of affected extremity: is normal. Weight bearing: able to fully bear weight, DVT Exam: negative Homans' sign noted on exam, no appreciated bluish discoloration, no erythema, no increased warmth, pain, swelling, tenderness, Vital Signs: 11:13 BP 176 / 98; Pulse 71; Resp 18; Temp 98(O); Pulse Ox 100% on R/A; Weight 81.65 kg; nj1 Height 5 ft. 9 in. ; Pain 10/10; 12:29 BP 162 / 92; Pulse 69; Resp 18; Pulse Ox 100% on R/A; Pain 7/10; cm10 11:13 Body Mass Index 26.58 (81.65 kg, 175.26 cm) nj 11:13 Pain Scale: Adult nj1 12:29 Pain Scale: Adult cm10 MDM: 10:41 Patient medically screened. [facility] 12:18 Differential diagnosis: Anterior dislocation with fracture, Anterior dislocation billie without fracture, Posterior dislocation with fracture, Posterior dislocation without fracture, humeral head fracture, glenoid fracture, DJD, tendonitis. Data reviewed: vital signs, nurses notes, lab test result(s), radiologic studies, CT scan, plain films. Consideration of Admission/Observation Escalation of care including admission/observation considered. I considered the following discharge prescriptions or medication management in the emergency department Medications were administered in the Emergency Department. See MAR. Independent interpretation of the following test(s) in the Emergency Department CT Scan: My interpretation is CT TRAUMAGRAM. Test considered but Not performed: Ultrasound NO ABD USG. Historians other than the Patient: PT WELL INFORMED. Care significantly affected by the following chronic conditions: Diabetes, Hypertension, Liver Disease, HYPERLIPIDEMIA. 02/23 12: Order name: CBC with Diff; Complete Time: 13: [facility] 02/23 12:01 Order name: Comprehensive Metabolic Panel; Complete Time: 13: [facility] 02/23 11:20 Order name: Shoulder Right (2 View) XRAY; Complete Time: :07 [facility] 02/23 12:01 Order name: CT Traumagram (Head C Spine CAP W Con); Complete Time: 13:48 [facility] 02/23 11:20 Order name: Ice pack; Complete Time: 11:51 [facility] 02/23 11:20 Order name: Sling; Complete Time: 14:21 [facility] 02/23 12:10 Order name: Shoulder Immobilizer; Complete Time: 14:21 billie Administered Medications: 11:54 Drug: [place] PO 10 mg-325 mg 1 tabs PO once Route: PO; cm10 12:29 Drug: NS 0.9% IV 1000 ml IV at 1 bolus Per protocol; 1000 mL bolus Route: IV; Rate: 1 cm10 bolus; Site: left antecubital; 14:13 Follow up: IV Status: Completed infusion; IV Intake: 1000ml aa5 12:29 Drug: Ketorolac IVP 30 mg IVP once Route: IVP; Site: left antecubital; cm10 12:29 Drug: fentaNYL (PF) IVP 50 mcg IVP once Route: IVP; Site: left antecubital; cm10 12:29 Drug: Ondansetron IVP 4 mg IVP once; over 2 minutes Route: IVP; Site: left antecubital; cm10 12:29 Drug: Diazepam PO 10 mg PO once Route: PO; cm10 13:07 Drug: fentaNYL (PF) IVP 50 mcg IVP once Route: IVP; Site: left antecubital; cm10 14:13 Follow up: Response: No adverse reaction aa5 Disposition Summary: 02/24/24 13:49 Discharge Ordered Notes: Location: Home billie Problem: new billie Symptoms: have improved billie Condition: Stable billie Diagnosis - Fall on same level, unspecified billie - Strain of muscle and tendon of back wall of thorax billie - Strain of muscle and tendon of front wall of thorax billie - Contusion of right shoulder billie - Pain in right shoulder billie - Type 2 diabetes mellitus with hyperglycemia billie - Fracture of upper end of humerus - hairline billie Followup: billie - With: Steven Pedraza MD - When: 2 - 3 days - Reason: Recheck today's complaints, Continuance of care, Re-evaluation by your physician Followup: billie - With: Bakari Anthony MD - When: 2 - 3 days - Reason: Recheck today's complaints, Continuance of care, Re-evaluation by your physician Discharge Instructions: - Discharge Summary Sheet billie - Joint Pain billie - Arthritis billie - Humerus Fracture Treated With Immobilization billie - Hyperglycemia billie - Musculoskeletal Pain billie - Shoulder Pain billie - Humerus Fracture Treated With Immobilization, [id number] billie - Shoulder Pain, Xzgk-[id number] billie - Diabetes Mellitus and Nutrition, Adult billie - Arthritis, Axpa-gf-[id number] billie - Joint Pain, Ezlt-gc-[id number] billie Forms: - Medication Reconciliation Form billie - Antibiotic Education billie - Prescription Opioid Use billie - Patient Portal Instructions [facility] - Leadership Thank You Letter [facility] Prescriptions: - acetaminophen-codeine 300-30 mg Oral tablet - take 2 tablet ORAL route every 6 hours as needed for pain; 16 tablet; Refills: billie 0, Product Selection Permitted - diclofenac sodium 25 mg Oral tablet, delayed release (enteric coated) - take 1 tablet ORAL route 2 times per day; 10 tablet; Refills: 0, Product billie Selection Permitted - Cyclobenzaprine 5 mg Oral Tablet - take 1 tablet ORAL route 3 times per day As needed; 15 tablet; Refills: 0, billie Product Selection Permitted Signatures: Dispatcher [employer] EDMS Pan Wallace MD MD cha Jaco, Norma RN RN nj1 Yarelis Pang RN RN cm10 Joanna Johnson RN aa5 Corrections: (The following items were deleted from the chart) 11:20 11:20 Shoulder Right 2 View+RAD.RAD.BRZ ordered. EDMS EDMS 12:02 12:01 CBC+H.LAB.BRZ ordered. EDMS EDMS 12:02 12:01 COMPREHENSIVE METABOLIC PANEL+C.LAB.BRZ ordered. EDMS EDMS 12:02 12:02 Head C Spine CAP W Con+CT.RAD.BRZ ordered. EDMS EDMS
[2024-02-24 14:35] VITALS: BP 162/92; TEMP 98; O2SAT 100
== END 2024-02-24 14:25 | disposition home or self-care (01) ==
LOC: ER 10:23
DX: S42.201A Unspecified fracture of upper end of right humerus, initial encounter for closed fracture (principal); S40.011A Contusion of right shoulder, initial encounter; S29.012A Strain of muscle and tendon of back wall of thorax, initial encounter; S29.011A Strain of muscle and tendon of front wall of thorax, initial encounter; E11.65 Type 2 diabetes mellitus with hyperglycemia; W18.30XA Fall on same level, unspecified, initial encounter
CPT/HCPCS: 96361; 85025; 36415; 80053; 70450; 72125; 71260; 74177; 73030; 96375; 96374; 99284; Q9967; J3010 ×2; J2405; J7030

== ENCOUNTER 2024-04-21 07:00 | Day surgery (SDC) | payer OTHER ==
[2024-04-20 11:42] LABS: Absolute Basophils 0.1 K/uL (0-0.5); Absolute Eosinophils 0.1 K/uL (0-0.5); Absolute Lymphocytes (CBC) 2.6 K/uL (0.7-4.9); Absolute Monocytes 0.8 K/uL (0.1-1.3); Basophils % 0.5 % (0-1.3); Eosinophils % 1.3 % (0-4.4); Hemoglobin 13.8 g/dL (13.6-17.9); Lymphocytes % 27.4 % (15.3-44.8); MCH 30.8 pg (27.0-35.0); MCHC 33.6 g/dL (32.0-36.0); MCV 91.9 fL (80-100); MPV 7.9 fL (7.6-11.3); Neutrophils % 62.8 % (41.7-73.7); Nucleated Red Blood Cells % 0.1 % (0-0); Platelets 189 thou/uL (152-406); RBC Red Blood Cell Count 4.46 M/uL (4.33-5.43); Red Cell Distribution Width 14.3 % (12.1-15.2)
--- NOTE | 2024-04-20 16:23 | EKG ---
Test Date: 2024-04-20 Test Time: 11:23:33 Elementary Instructional Coach: CATARINO MEASUREMENT RESULTS: Intervals: Rate: 67 NV: 168 QRSD: 106 QT: 416 QTc: 439 [place]: P: 63 NV: 168 QRS: -55 T: 50 INTERPRETIVE STATEMENTS: Normal sinus rhythm Left axis deviation Incomplete right bundle branch block Abnormal ECG Compared to ECG 05/03/2021 23:07:23 Incomplete right bundle-branch block now present ST (T wave) deviation no longer present Prolonged QT interval no longer present Electronically Signed On 04-20-24 16:23:23 CDT by Elan Rm
[2024-04-21] MEDS: NA CHLORIDE 0.9% 1,000 ML ONE ×2 (07:35→13:23)
[2024-04-21] MEDS ORDERED: dexAMETHasone 10 MG/ML VIAL ONE ×2 (09:12→10:42)
[2024-04-21] MEDS ORDERED: EPINEPHRINE 1 MG/ML VIAL ONE (09:12)
[2024-04-21] MEDS ORDERED: MIDAZOLAM HCL 2 MG/2 ML INJ ONE (09:12)
[2024-04-21] MEDS ORDERED: FENTANYL CITR 100 MCG/2 ML ONE (09:12)
[2024-04-21] MEDS ORDERED: LIDOCAINE 1% MPF 5 ML VIAL ONE (09:12)
[2024-04-21] MEDS ORDERED: KETOROLAC 30 MG/ML INJ ONE (10:42)
[2024-04-21] MEDS ORDERED: ONDANSETRON 4 MG/2 ML VIAL ONE (10:42)
[2024-04-21] MEDS ORDERED: LIDOCAINE 2% MPF 5 ML VIAL ONE (10:42)
[2024-04-21] MEDS ORDERED: ROCURONIUM 50 MG/5 ML VIAL IV ONE (10:42)
[2024-04-21] MEDS ORDERED: propofoL 200 MG/20 ML VIAL IV ONE (10:42)
[2024-04-21] MEDS ORDERED: NS 0.9% VIAL 10 ML ONE (11:41)
[2024-04-21] MEDS ORDERED: NS 0.9% VIAL 20 ML ONE (11:41)
[2024-04-21] MEDS: CEFAZOLIN SODIUM 1 GM/VIAL ONE (11:41)
[2024-04-21] MEDS ORDERED: EPHEDRINE SULF 50 MG/ML VIAL ONE (11:46)
[2024-04-21] MEDS ORDERED: NA CHLORIDE 0.9% 1,000 ML ONE (13:24)
--- NOTE | 2024-04-21 15:54 | OP ---
Date of Procedure: 04/21/2024 Surgeon: Kai Suresh MD Preoperative Diagnosis: Comminuted complex highly displaced right clavicle fracture. Postoperative Diagnosis: Comminuted complex highly displaced right clavicle fracture. Procedure: Open reduction and internal fixation of right clavicle fracture using the Acumed plating system. Estimated Blood Loss: 10 cc. Complications: There were no complications. Indications For Operation: Mr. Guerin is a 63-year-old male who unfortunately fell injuring his [facility] upper extremity, who came to see me in my office and x-rays were taken which demonstrated a compl ex multifragmented and highly displaced clavicle fracture. We discussed the possibility of treating this nonoperatively given his age and possibility that this could heal. He reviewed his options at t his time, elects for open reduction and internal fixation and knows the risks, benefits, and alternat quyen associated with this and says he wants to proceed. Description Of Procedure: The patient was taken to the operating room after obtaining a block in the holding area. He was then placed in the supine position. General anesthesia was obtained by the [facility] staff. Following this, he was then placed in a beach chair position. Great care being take n for head and neck positioning as his right upper extremity was then prepped and draped in the usual sterile fashion for the procedure. Following this, the more medial constant fragment is identified and an incision was made carefully through skin and soft tissues. Meticulous hemostasis being mainta ined using Bovie electrocautery. This goes down to the most superior aspect of the clavicle. Follow ing this, the clavicle fracture site was inspected. It was found to be already with quite a bit of f ibrous tissue and scar formation. There was a large anterior butterfly fragment and the fracture its elf has a quite long coronal split which was unusual for these fractures, in addition, to the butterf ly. The more distal fragment was identified and cleaned and provisional reduction was obtained to al low for placement of the further distal incision, which was then made with meticulous hemostasis bein g maintained. The superior surface of this fragment was identified and the fracture site was again c leaned. Provisional reduction of these 2 major fracture fragments are performed and it appears that the butterfly fragment will fit into the anterior defect. The plate was then laid over the fracture to ensure that it is coursing along the natural course of the clavicle with it reduced. After this, clamps were removed and 2 screws were placed in the more proximal fragment projecting the plate past the fracture site. Then, clamps and Harding techniques were then used to reduce both the fracture as we ll as the distal fragment to the plate. This plate was then secured using 3 additional screws. Afte r this, the butterfly fragment was addressed. It was far too thin to try to lag, but decision was ma elif to place a drill hole through the anterior butterfly fragment and then posteriorly and passed a Fi berWire suture which progresses through the butterfly fragment, the posterior wall of the distal frag ment then coursing through a plate hole, which was then tied down, which reapproximated the butterfly fragment fairly well. After this, the wound was copiously irrigated and the soft tissues were close d over the plate using running Vicryl suture. The skin was closed using interrupted 2-0 Vicryl sutur es followed by chris. The patient was then placed in Aquacel dressing, awakened, and taken to mary very room in good condition. It should be noted that this was a very complex fracture with difficult reduction as well as there is the use of 2 locking screws. The other screws are nonlocked, but if t his plate is ever removed, it should be remembered that 2 are locking Acumed screws. /THEA Voice ID: [id number] Report ID: [id number]
[2024-04-21 16:02] VITALS: BP 148/81; TEMP 97.8; O2SAT 97
--- NOTE | 2024-04-21 18:13 | RAD REPORT ---
EXAM DESCRIPTION: RAD - Clavicle Right - 04/21/2024 1:45 pm CLINICAL HISTORY: ORIF RIGHT CLAVICLE COMPARISON: None available. FINDINGS: Five Images were sent to PACS, documenting fluoroscopy use during image guided right clavi josephine reduction and internal fixation procedure. No radiologist was available for the procedure, nor wi ll any image interpretation he provided. Please refer to the procedural report for additional details . Fluoroscopy time: 0.1 Minutes. IMPRESSION: Documentation of fluoroscopy utilization as above.
== END 2024-04-21 14:54 | disposition home or self-care (01) ==
LOC: OR 07:00
PROVIDERS: ATTEND Orthopaedic Surgery
PROC: 0PS904Z Reposition Right Clavicle with Internal Fixation Device, Open Approach (ICD-10-PCS; principal; 2024-04-21 09:30)
DX: S42.021A Displaced fracture of shaft of right clavicle, initial encounter for closed fracture (principal)
CPT/HCPCS: 93005; 85025; 80048; 36415; 82947 ×2; 73000; 23515; A4216 ×2; J2704; J2001 ×2; J2250; J3010; J1100 ×2; J0171; J2405; J7030 ×3; J0690

== ENCOUNTER 2024-12-16 13:40 | Emergency (ER) | payer OTHER ==
--- OUTSIDE RECORDS SUMMARY | 2024-12-16 13:44 | XMS REPORT | Continuity of Care Document ---
Author Name Unknown Address [address] [facility] [place] [address] [facility] [place] Address [address] [facility] [place] [address] Care Team Providers Care Product Technology Scientist Name Role Phone JACKY HUBBARD Primary Care Physician Unavailab dorcas RADIOLOGY Attending Clinician Unavailable Romina Cruz MD Attending Clinician ROMINA CRUZ Attending Clinician Unavailable Lily Freedman Attending Clinician Unavailab ROMINA Kuhn Admitting Clinician Unavailable Lily Freedman Admitting Clinician Faisal toscano Payers Payer Name Policy Type Policy Number Effective Date Expirati on Date Source MEDICARE PART A \\T\\ B [id number] 2017 00:00:00 [employer] MEDICARE OUT OF NETWORK [id number] 2022 00:00:00 MED[place]ID OF [place] [id number] 2017 00:00:00 Problems Condition Name Condition Details Condition Category Status Onset Date Resolution Date Last Treatment Date Treating Clinician Comments Source Elevated bilirubin Elevated bilirubin Disease Active 03-23 00:00: 00 [facility] RLQ abdominal pain RLQ abdominal pain Disease Active 03-22 00:00: 00 [facility] Allergies, Adverse Reactions, Alerts Allergy Name Allergy Type Status Severity Reaction(s) Onset Date Inactive Date Treating Clinician Comments Source No Known Medicati on Allergie s Drug Active [facility] No Known Medicati on Allergie s Drug Active [facility] No Known Medicati on Allergie s Drug Active [facility] No Known Medicati on Allergie s Drug Active [facility] No Known Medicati on Allergie s Drug Active [facility] No Known Medicati on Allergie s Drug Active [facility] No Known Medicati on Allergie s Drug Active [facility] No Known Medicati on Allergie s Drug Active [facility] No Known Medicati on Allergie s Drug Active [facility] No Known Medicati on Allergie s Drug Active [facility] No Known Medicati on Allergie s Drug Active [facility] No Known Medicati on Allergie s Drug Active [facility] NO KNOWN ALLERGIE S Drug Class Active [facility] Social History Social Habit Start Date Stop Date Quantity Comments Source Sex Assigned At [facility] Exposure to SARS-CoV-2 (event) Not sure [facility] Tobacco use and exposure 2018-09-08 00:00:00 2018-09-08 00:00:00 Never used [facility] Alcohol intake 2018-09-08 00:00:00 2018-09-08 00:00:00 Current non-drinker of alcohol (finding) [facility] Tobacco Comment 2017-03-22 00:00:00 2017-03-22 00:00:00 quit 20 yrs ago [facility] Alcohol Comment 2017-03-22 00:00:00 2017-03-22 00:00:00 quit 4-5 yrs ago [facility] History of tobacco use 1982-03-22 00:00:00 1997-03-22 00:00:00 Smoker [facility] Smoking Status Start Date Stop Date Source Former smoker 2018-09-08 00:00:00 2018-09-08 00:00:00 [facility] Medications Ordered Medication Name Filled Medication Name Start Date Stop Date Current Medication? Ordering Clinician Indication Dosage Frequency Signature (SIG) Comments Components Source NaCl 0.9% (NS) bolus infusion 1,000 mL 2019-09 16:45: 00 08-28 16:57 :00 No 1000mL at 999 mL/hr, 1,000 mL, IV Infusion, ONCE, 1 dose, Wed08/28/20 at 1045, STAT [facility] insulin regular human (HUMULIN R) injection 4 Units 2019-09 16:45: 00 08-28 16:23 :00 No 4U 4 Units, Slow IV Push, ONCE, 1 dose, Wed08/28/20 at 1045, STAT [facility] iohexol (OMNIPAQUE 350 BULK-100 mL) injection 120 mL 2019-09 16:00: 00 08-28 15:46 :00 No 120mL 120 mL, Intravenou s, ONCE, 1 dose, Wed08/28/20 at 1000, Routine [facility] NaCl 0.9% (NS) bolus infusion 1,000 mL 2019-09 16:00: 00 08-28 16:57 :00 No 1000mL at 999 mL/hr, 1,000 mL, IV Infusion, ONCE, 1 dose, Wed08/28/20 at 1000, STAT [facility] ondansetron 4 mg disintegrat ing tablet 2019-09 00:00: 00 Yes [id number] 4mg Take 1 tablet by mouth every 4 (four) hours as needed for Nausea and Vomiting (N/V). [facility] benzonatate 100 mg capsule 2019-09 00:00: 00 Yes [id number] 100mg Take 1 capsule by mouth 3 (three) times daily as needed for Cough. [facility] dicyclomine (BENTYL) 10 mg capsule 2019-09 00:00: 00 Yes [id number] 10mg Take 1 capsule by mouth 4 (four) times daily. [facility] doxycycline hyclate 100 mg capsule 2019-09 00:00: 00 09-05 05:59 :00 No [id number] 100mg Take 1 capsule by mouth 2 (two) times daily for 7 days. [facility] lisinopril 20 mg tablet 09-07 20:02: 50 Yes 20mg Take 20 mg by mouth 2 (two) times daily. [facility] insulin glargine (LANTUS) 100 unit/mL injection 09-07 20:02: 50 Yes 25U inject 25 Units under the skin every morning. [facility] PREGABALIN (LYRICA ORAL) 09-07 20:02: 50 Yes 150mg Take 150 mg by mouth 2 (two) times daily. [facility] FUROSEMIDE, BULK, MISC 09-07 20:02: 50 Yes 20mg Take 20 mg by mouth daily. [facility] glimepiride 4 mg tablet 09-07 20:02: 50 Yes 4mg Take 4 mg by mouth 2 (two) times daily. [facility] propranolol 20 mg tablet 09-07 20:02: 50 Yes 20mg Take 20 mg by mouth 2 (two) times daily. [facility] pravastatin 20 mg tablet 09-07 20:02: 50 Yes 20mg Take 20 mg by mouth at bedtime. [facility] amitriptyli ne 10 mg tablet 09-07 20:02: 50 Yes 10mg Take 10 mg by mouth at bedtime. [facility] lisinopril 20 mg tablet 09-20 00:00: 00 Yes 20mg Take 1 tablet by mouth daily. [facility] Vital Signs Vital Name Observation Time Observation Value Comments S ource Systolic blood pressure 2020-08-28 16:30:00 167 mm[Hg] [facility] Diastolic blood pressure 2020-08-28 16:30:00 98 mm[Hg] [facility] Heart rate 2020-08-28 16:30:00 82 /min [facility] Oxygen saturation in Arterial blood by Pulse oximetry 2020-08-28 16:30:00 97 /min [facility] Body weight 2020-08-28 14:44:00 83.915 kg [facility] BMI 2020-08-28 14:44:00 27.32 kg/m2 [facility] Body temperature 2020-08-28 14:30:00 36.78 Juliet [facility] Respiratory rate 2020-08-28 14:30:00 18 /min [facility] Systolic blood pressure 2020-08-28 16:30:00 167 mm[Hg] [facility] Diastolic blood pressure 2020-08-28 16:30:00 98 mm[Hg] [facility] Heart rate 2020-08-28 16:30:00 82 /min [facility] Oxygen saturation in Arterial blood by Pulse oximetry 2020-08-28 16:30:00 97 /min [facility] Body weight 2020-08-28 14:44:00 83.915 kg [facility] BMI 2020-08-28 14:44:00 27.32 kg/m2 [facility] Body temperature 2020-08-28 14:30:00 36.78 Juliet [facility] Respiratory rate 2020-08-28 14:30:00 18 /min [facility] Height/Length Measured 2021-09-23 08:31:27 175.3 cm Weight [...] VENOUS BLOOD GAS 2020-08-28 16:23:00 Romina Cruz [facility] URINALYSIS 2020-08-28 16:03:00 Romina Cruz [facility] ADC / LCC - DRUG SCREEN TRIAGE 2020-08-28 16:03:00 Romina Cruz [facility] CT ABDOMEN PELVIS W CONTRAST 2020-08-28 15:49:36 Romina Cruz [facility] XR CHEST 1 VW 2020-08-28 15:33:35 Romina Cruz [facility] CREATINE KINASE 2020-08-28 14:58:00 [facility] 2020-08-28 14:58:00 Romina Cruz [facility] TROPONIN I 2020-08-28 14:58:00 [facility] HEPATIC FUNCTION PANEL (98146) (ALB,T.PRO,BILI T,BU/BC,ALT,AST,ALK PHOS) 2020-08-28 14:58:00 Romina Cruz [facility] BASIC METABOLIC PANEL (NA, K, CL, CO2, GLUCOSE, BUN, CREATININE, CA) 2020-08-28 14:58:00 Romina Cruz [facility] ETHANOL 2020-08-28 14:58:00 [facility] CBC WITH DIFF 2020-08-28 14:58:00 Romina Cruz [facility] PROTHROMBIN TIME / INR 2020-08-28 14:58:00 Steve Cruz [facility] ACTIVATED PARTIAL THRMPLAS SARBJIT 2020-08-28 14:58:00 Romina Cruz [facility] ADC,CLC OR LCC ONLY - INFLUENZA A & B DIRECT ANTIGEN 2020-08-28 14:58:00 Romina Cruz [facility] N-TERMINAL PRO-BNP 2020-08-28 14:58:00 Romina Cruz [facility] COVID-19 (ID NOW RAPID TESTING) 2020-08-28 14:58:00 Romina Cruz [facility] HB ECG ROUTINE & RHYTHM STRIP 2020-08-28 14:54:12 Romina Cruz [facility] NOTICE OF PRIVACY PRACTICES 2020-08-28 14:24:07 Doctor Unassigned, [place] [facility] CONSENT/REFUSAL FOR DIAGNOSIS AND TREATMENT 2020-08-28 14:23:35 Doctor Unassigned, [place] [facility] Encounters Start Date/Time End Date/Time Encounter Type Admission Type Attending Clinicians Care Facility Care Department Encounter ID Source 2022-04-03 00:00:00 2022-04-03 00:00:00 Outpatient R RADIOLOGY [facility] [id number] [facility] 2022-04-03 00:00:00 2022-04-03 00:00:00 Outpatient R RADIOLOGY [facility] [id number] [facility] 2020-08-28 08:31:00 2020-08-28 10:57:00 Emergency Romina Cruz [facility] [id number] [facility] 2020-08-28 08:31:00 2020-08-28 10:57:00 Emergency X ROMINA CRUZ [facility] ERT [id number] [facility] 2020-08-28 08:31:00 2020-08-28 10:57:00 Emergency [facility] [id number] 2019-09-12 11:22:00 2019-09-12 11:22:00 Emergency [facility] NUPUR [id number] [facility] 2019-09-12 11:22:00 2019-09-12 11:22:00 Emergency 1 Lily Freedman [facility] NUPUR [id number] [facility] Results Test Description Test Time Test Comments Results Result Co mments Source COMPREHENSIVE METABOLIC [id number] 00:42:02* Test Item Value Reference Range Interpretation Comme nts GLUCOSE (test code = 2217) 102 MG/DL 70-99 H BUN (test code = 2208) 13 MG/DL 8-23 CREATININE (test code = 2214) 0.82 MG/DL 0.80-1.40 eGFR (2020 CKD-EPI) (test code = 12490) 99 ML/MIN/1.73 >60 CALC BUN/CREAT (test code = 2234) 16 RATIO 6-28 SODIUM (test code = 2230) 145 MEQ/L 133-146 POTASSIUM (test code = [...] 20 U/L 9-50 ALT (test code = 9) 20 U/L 5-50 UNLESS OTHERWISE INDICATED, ALL TESTING PERFORMED [facility] [address] [place] [address] ORCHESTRA DIRECTOR: JULIO CESAR KLEIN M.D. [place] NUMBER [id number] [facility] [place]. [id number] HEMOGLOBIN [id number] 04:39:35* Test Item Value Reference Range Interpretation Comme nts HEMOGLOBIN A1c (test code = 80005) 11.1 % 4.2-5.6 H [employer] GUIDELINES FOR HGB A1C: [...] ETC.). CONSIDER ALTERNATE TESTING OR LABORATORY CONSULTATION. [facility] - DRUG SCREEN [id number] 16:43:00* Test Item Value Reference Range Interpretation Comme nts BENZO U (test code = 6725363900) Negative Negative STEFANIE U (test code = 1619884498) Negative Negative AMPHET (test code = 1621298616) Negative Negative THC (test code = 4768371382) Negative Negative METHADONE (test code = 6505937861) Negative Negative Meth U (test code = 8086159231) Negative Negative OPIATES (test code = 0539670928) Negative Negative Cocaine Metabolite (test code = 2595562133) Negative Negative PROPOXY (test code = 1991367623) Negative Negative Tric U (test code = 5447039532) Negative Negative PCP (test code = 2881298750) Negative Negative OXYCOD (test code = 4548588891) Negative Negative KEERTHI (test code = KEERTHI) [...] legal testing). Lab Interpretation (test code = 35912-4) [facility] 16:29:00* Test Item Value Reference Range Interpretation Comme nts APPEARANCE (test code = 1639190185) Clear Clear COLOR (test code = 0450921410) Yellow Yellow PH (test code = 4508012385) 4.8-8.0 SP GRAVITY (test code = 2715433944) 1.003-1.030 H GLU U QUAL (test code = 5991870478) 500 mg/dL Normal A BLOOD (test code = 5497114680) 1+ Negative A KETONES (test code = 8851077337) 20 mg/dL Negative A PROTEIN (test code = 2887-8) Negative Negative UROBILIN (test code = 7221821132) 2.0 mg/dL Normal A BILIRUBIN (test code = 5434936322) Negative Negative NITRITE (test code = 8247143356) Negative Negative LEUK CHARLA (test code = 2973253945) Negative Negative RBC/HPF (test code = 5029532619) See_Comment H [Automated messa ge] The system which generated this result transmitted reference range: 0 - 3 HPF. The reference range was not used to interpret this result as normal/abnormal. WBC/HPF (test code = 3141447494) See_Comment [Automated messa ge] The system which generated this result transmitted reference range: 0 - 5 HPF. The reference range was not used to interpret this result as normal/abnormal. BACTERIA (test code = 5907906819) Negative Negative Lab Interpretation (test code = 70473-4) Abnormal [facility] [id number] 16:26:00 * Test Item Value Reference Range Interpretation Comme nts PH (test code = 4898821529) 7.32-7.42 H PCO2 PEDRO (test code = 3905861529) See_Comment L [Automated messa ge] The system which generated this result transmitted reference range: 41 - 51 mmHg. The reference range was not used to interpret this result as normal/abnormal. PO2 PEDRO (test code = 6589485348) See_Comment H [Automated messa ge] The system which generated this result transmitted reference range: 25 - 40 mmHg. The reference range was not used to interpret this result as normal/abnormal. HCO3 PEDRO (test code = 7644273239) See_Comment L [Automated messa ge] The system which generated this result transmitted reference range: 24 - 28 mEq/L. The reference range was not used to interpret this result as normal/abnormal. AC VBE(BEAKER) (test code = 4411579880) mEq/L Lab Interpretation (test code = 27291-3) [facility]normal [facility] P[facility] W [id number] 16:00:51CT Abdomen and Pelvis with intravenous contrast. [...] air or free fluid. No lymphadenopathy. Pancreas andAdrenals: ?Unremarkable pancreas and adrenal glands. Kidneys and Ureters: ?No visible calculi in the renal collecting systems. No hydroureter or hydronephrosis. 21 mm cyst noted in the medial surfaceoflower pole of the left kidney. This cyst [...] hypertensioncausing esophageal and gastric varices, unchanged since 2017study. Noascites.3. S/P cholecystectomy.4. Increase in the size of cyst in the medial wall of the lower left kidneysince 2017 study. However, the cyst appears to be Bosniak type I type. [facility], RadiantResults Inft User - 08/28/2020 10:02 AM CSTCT Abdomen and Pelvis with intravenous contrast.CLINICALHISTORY: Acute generalized Abdominal pain.DOSE: Up-to-date CT equipment [...] enlargement of the prostate glandnoted with central zonecalcifications. No gross pathology in theunopacified urinary bladder.Bones: [...] cholecystectomy.4. Increase in the size of cyst inthe medial wall of the lower left kidneysince 2017 study. However, the cyst appears to be Bosniak type I type.[facility] ONLY - INFLUENZA A & B DIRECT [id number] 15:59:00* Test Item Value Reference Range Interpretation Comme nts Influenza A (test code = 18850-2) Negative Negative Influenza B (test code = 01755-7) Negative Negative Lab Interpretation (test cod e = 96650-8) Normal [facility] (ID NOW RAPID TESTING)2020-08-28 15:36:00* Test Item Value Reference Range Interpretation Comme nts SARS-CoV-2 Rapid ID NOW (test code = 14418-5) Not Detected Not Detected KEERTHI (test code = KEERTHI) ID NOW COVID-19 As say is an isothermal nucleic acid amplification test intended for the qualitative detection of nucleic acid from SARS-CoV-2 viral RNA in nasopharyngeal (BROKE WORKER) specimens. It is used under Emergency Use [...] clinically indicated. Lab Interpretation (test code = 47704-0) Normal [facility] CHEST 1 [id number] 15:34:55HISTORY: Tachypnea. TECHNIQUE: Portable AP semierect view of the chest is obtained. Comparisonis made with 09/20/2017 study. FINDINGS: Mild obstructive lung disease is suspected. No acute pneumonia.Nopneumothorax or pleural effusion or pulmonary congestion detected.Cardiac size is within normal limits. Multiple old fracture deformities areseen in both middle and lower right as well as left ribs. C ONCLUSIONS: No signs of acute cardiopulmonary disease.[facility], Radiant Results Inft User - 08/28/2020 9:35 [...] left ribs.CONCLUSIONS: No signs of acute cardiopulmonary disease.[facility] Pas[facility]TT2020-12-23 15:34:00* Test Item Value Reference Range Interpretation Comme [facility] AP[facility] Patient (test code = 3173-2) See_Comment [Automated message] The system which generated this result transmitted reference range: 23 - 38 Seconds. The reference range was not used to interpret this result as normal/abnormal. KEERTHI (test code = KEERTHI) The [facility] patient population mean normal value for aPTT is 30 seconds. Lab Interpretation (test code = 98670-6) Normal [facility] Paso[facility]thrombin Time (PT) / [id number] 15:32:00 * Test Item Value Reference Range Interpretation Comme [facility] PROTIME PATIENT (test code = 5964-2) See_Comment H [Automated messa ge] The system which generated this result transmitted reference range: 12.0 - 14.7 Seconds. The reference range was not used to interpret this result as normal/abnormal. INR (test code = 6301-6) Normal INR <1.1; Warfarin Therapeutic range 2.0 to 3.0 or 2.5 to 3.5, depending upon the indications. Lab Interpretation (test code = 42393-0) Abnormal [facility] Paso[facility]roponin [id number] 15:31:00* Test Item Value Reference Range Interpretation Comme nts TROPONIN I (test code = 9061220168) <0.012 See_Comment [Automated message] The system which [...] biotin. ? Lab Interpretation (test code = 81429-9) Normal [facility]-TERMINAL [id number] 15:30:00* Test Item Value Reference Range Interpretation Comme nts NT-proBNP (test code = 5299527560) 105 pg/mL See_Comment [Automated message] The system which generated this result transmitted reference range: <=125. The reference range was not used to interpret this result as normal/abnormal. KEERTHI (test code = KEERTHI) Biotin has been reported to cause a negative bias, interpret results relative to patient's use of biotin. Lab Interpretation (test code = 60984-6) Normal [facility] Paso[facility]ANOL2020-12-23 15:27:00* Test Item Value Reference Range Interpretation Comme nts ALCOHOL (test code = 5317706381) <10 mg/dL KEERTHI (test code = KEERTHI) <10 Hllytpyq91-310 Toxic>100 Depression of PIT CRANE OPERATOR>400 Fatalities Reported [facility] Met[facility] (NA, K, CL, CO2, GLUCOSE, BUN, CREATININE, CA)2020-08-28 15:24:00* Test Item Value Reference Range Interpretation Comme nts NA (test code = 3261501202) 135 mmol/L 135-145 K (test code = 0043906499) 3.3 mmol/L 3.5-5 L CL (test code = 4916468718) 99 mmol/L 98-108 CO2 TOTAL (test code = 5086705706) 20 mmol/L 23-31 L AGAP (test code = 8312063511) 2-16 BUN (test code = 0942721764) 9 mg/dL 7-23 GLUCOSE (test code = 2361283144) 471 mg/dL 70-110 HH CREATININE (test code = 4787552542) 0.62 mg/dL 0.6-1.25 CALCIUM (test code = 4476317670) 10.4 mg/dL 8.6-10.6 eGFR Calculation (Non-) (test code = 6631872572) mL/min/1.73m2 eGFR Calculation () (test code = 6562185087) mL/min/1.73m2 KEERTHI (test code = KEERTHI) Association [...] imaging tests). Lab Interpretation (test code = 21873-7) Abnormal [facility] Paso[facility] Function Panel (ALB, T.PRO, BILI T, BU/BC, ALT, AST, ALK PHOS)2020-08-28 15:20:00* Test Item Value Reference Range Interpretation Comme nts TOTAL BILI (test code = 1120477477) 2.6 mg/dL 0.1-1.1 H BILI UNCON (test code = 2791691360) 1.8 mg/dL 0.1-1.1 H BILI CONJ (test code = 1710614052) 0.0 mg/dL 0-0.3 T PROTEIN (test code = 8566534131) 8.6 g/dL 6.3-8.2 H ALBUMIN (test code = 6473991041) 5.0 g/dL 3.5-5 ALK PHOS (test code = 8923957937) 252 U/L 34-122 H ALTv (test code = 1742-6) 129 U/L 5-50 H AST(SGOT) (test code = 7371766548) 81 U/L 13-40 H Lab Interpretation (test cod e = 74340-7) Abnormal [facility] PasoLipase [id number] 15:20:00* Test Item Value Reference Range Interpretation Comme nts LIPASE (test code = 4342765032) 466 U/L 0-220 H Lab Interpretation (test cod e = 26352-9) Abnormal [facility] PasoCREATINE [id number] 15:20:00* Test Item Value Reference Range Interpretation Comme nts CK (test code = 9346463342) 214 U/L 33-194 H Lab Interpretation (test cod e = 26061-7) Abnormal [facility] with [id number] 15:08:00* Test Item Value Reference Range Interpretation [...] g/dL 31.2-35 H RDW-SD (test code = 83107-7) 37.5 fL 38.5-51.6 L RDW-CV (test code = 788-0) 13.2 % 12.1-15.4 PLT (test code = 777-3) See_Comment [Automated messa ge] The system which generated this result transmitted reference range: 150 - 328 10*3/?L. The reference range was not used to interpret this result as normal/abnormal. MPV (test code = 20437-1) 10.9 fL 9.8-13 NRBC/100 WBC (test code = 5818812123) See_Comment [Automated Pax8 ssage] The system which generated this result transmitted reference range: 0.0 - 10.0 /100 WBCs. The reference range was not used to interpret this result as normal/abnormal. NRBC x10^3 (test code = 4211243073) <0.01 See_Comment [Automated messa ge] The system which generated this result transmitted reference range: 10*3/?L. The reference range was not used to interpret this result as normal/abnormal. GRAN MAT (NEUT) % (test code = 770-8) 70.1 % IMM GRAN % (test code = 1935940739) 0.40 % LYMPH % (test code = 736-9) 20.4 % MONO % (test code = 5905-5) 8.6 % EOS % (test code = 713-8) 0.2 % BASO % (test code = 706-2) 0.3 % GRAN MAT x10^3(ANC) (test code = 0196094095) 7.59 10*3/uL 1.99-6.95 H IMM GRAN x10^3 (test code = 6087854036) 0.04 10*3/uL 0-0.06 LYMPH x10^3 (test code = 731-0) 2.21 10*3/uL 1.09-3.23 MONO x10^3 (test code = 742-7) 0.93 10*3/uL 0.36-1.02 EOS x10^3 (test code = 711-2) <0.03 0.06-0.53 L BASO x10^3 (test code = 704-7) 0.03 10*3/uL 0.01-0.09 Lab Interpretation (test code = 06456-4) Abnormal [facility] [id number] 10:42:53* Test Item Value Reference Range Interpretation Comme nts Glucose POC (test code = Glucose POC) 160 mg/dL 70-115 H Notify RN or MDIf you consider your patient critically ill, the Debby-Accu Check Infrom II meter should not be used for Glucose determination. Draw a venous Glucose and send to the main Lab for analysis. POC [id number] 06:30:01* Test Item Value Reference Range Interpretation Comme nts Glucose POC (test code = Glucose POC) 163 mg/dL 70-115 H Notify RN or MDIf you consider your patient critically ill, the Debby-Accu Check Infrom II meter should not be used for Glucose determination. Draw a venous Glucose and send to the main Lab for analysis. POC [id number] 20:14:50* Test Item Value Reference Range Interpretation Comme nts Glucose POC (test code = Glucose POC) 161 mg/dL 70-115 H If you consi zachariah your patient critically ill, the Debby-Accu Check Infrom II meter should not be used for Glucose determination. Draw a venous Glucose and send to the main Lab for analysis. POC [id number] 15:02:57* Test Item Value Reference Range Interpretation Comme nts Glucose POC (test code = Glucose POC) 144 mg/dL 70-115 H Notify RN or MDIf you consider your patient critically ill, the Debby-Accu Check Infrom II meter should not be used for Glucose determination. Draw a venous Glucose and send to the main Lab for analysis. POC [id number] 11:14:36* Test Item Value Reference Range Interpretation Comme nts Glucose POC (test code = Glucose POC) 173 mg/dL 70-115 H Notify RN or MDIf you consider your patient critically ill, the Debby-Accu Check Infrom II meter should not be used for Glucose determination. Draw a venous Glucose and send to the main Lab for analysis. POC [id number] 06:21:50* Test Item Value Reference Range Interpretation Comme nts Glucose POC (test code = Glucose POC) 135 mg/dL 70-115 H Notify RN or MDIf you consider your patient critically ill, the Debby-Accu Check Infrom II meter should not be used for Glucose determination. Draw a venous Glucose and send to the main Lab for analysis. POC [id number] 19:28:55* Test Item Value Reference Range Interpretation Comme nts Glucose POC (test code = Glucose POC) 128 mg/dL 70-115 H Notify RN or MDIf you consider your patient critically ill, the Debby-Accu Check Infrom II meter should not be used for Glucose determination. Draw a venous Glucose and send to the main Lab for analysis. Thyroid Stimulating [id number] 15:30:55* Test Item Value Reference Range Interpretation Comme nts TSH (test code = TSH) 0.926 mIU/mL 0.270-4.200 POC [id number] 15:25:28* Test Item Value Reference Range Interpretation Comme nts Glucose POC (test code = Glucose POC) 138 mg/dL 70-115 H If you consi zachariah your patient critically ill, the Debby-Accu Check Infrom II meter should not be used for Glucose determination. Draw a venous Glucose and send to the main Lab for analysis. Lipid [id number] 14:57:37* Test Item Value Reference Range Interpretation Comme nts Cholesterol Total (test code = Cholesterol Total) 155 mg/dL 0-200 RISK OF HEART DISEASEPublished by [place] [employer] Association Analyte Optimal Borderline Increased RiskCHOL [...] calculation is LDL/HDL Ratio=LDL Calc/HDL Chol RPR [id number] 12:22:43* Test Item Value Reference Range Interpretation [...] code = Expiration Dt) 07-06-20 N Urine [id number] 11:34:40C Urine Added by [email or web address]_CUL_INDNo growth at 24 hours. No growth at 48 hours.POC [id number] 11:14:46* Test Item Value Reference Range Interpretation Comme nts Glucose POC (test code = Glucose POC) 171 mg/dL 70-115 H If you consi zachariah your patient critically ill, the Debby-Accu Check Infrom II meter should not be used for Glucose determination. Draw a venous Glucose and send to the main Lab for analysis. POC [id number] 08:41:45* Test Item Value Reference Range Interpretation Comme nts Glucose POC (test code = Glucose POC) 163 mg/dL 70-115 H If you consi zachariah your patient critically ill, the Debby-Accu Check Infrom II meter should not be used for Glucose determination. Draw a venous Glucose and send to the main Lab for analysis. POC [id number] 05:38:51* Test Item Value Reference Range Interpretation Comme nts Glucose POC (test code = Glucose POC) 146 mg/dL 70-115 H Notify RN or MDIf you consider your patient critically ill, the Debby-Accu Check Infrom II meter should not be used for Glucose determination. Draw a venous Glucose and send to the main Lab for analysis. POC [id number] 15:39:16* Test Item Value Reference Range Interpretation Comme nts Glucose POC (test code = Glucose POC) 172 mg/dL 70-115 H Notify RN or MDIf you consider your patient critically ill, the Debby-Accu Check Infrom II meter should not be used for Glucose determination. Draw a venous Glucose and send to the main Lab for analysis. Urine Drug [id number] 14:11:43* Test Item Value Reference Range Interpretation [...] a separate confirmatory test if desired. Urinalysis [id number] 13:55:31* Test Item Value Reference Range Interpretation [...] Mucous) Moderate A Urinalysis with Culture, if [id number] 13:55:31* Test Item Value Reference Range Interpretation [...] cre ated by rule GL_SJM_UA_MICRO_IN D Alcohol [id number] 12:41:12* Test Item Value Reference Range Interpretation Comme nts Ethanol Level (test code = Ethanol Level) <0.00 g/dL 0.00-0.01 Intoxicated 0.08 0 g/dL or more Ethanol Inst (test code = Ethanol Inst) <0 N Comprehensive Metabolic [id number] 12:41:11* Test Item Value Reference Range Interpretation [...] A/G Ratio) 1.5 ratio N Comprehensive Metabolic [id number] 12:41:11* Test Item Value Reference Range Interpretation [...] is not provided, and the patient is -Portuguese, multiply by 1.212. If sex is not [...] the National Kidney Foundation, http://nkdep.nih.gov Comprehensive Metabolic [id number] 12:41:11* Test Item Value Reference Range Interpretation [...] is not provided, and the patient is -Portuguese, multiply by 1.212. If sex is not [...] is not provided, and the patient is -Portuguese, multiply by 1.212. If sex is not [...] Kidney Foundation, http://nkdep.nih.gov Complete Blood Count with [id number] 12:34:46* Test Item Value Reference Range Interpretation [...] = Slide Review) Auto Auto Result crea juen by GL_SJM_SLIDE_REV_AUTO nRBC (test code = nRBC) 0 N NRBC Abs (test code = NRBC Abs) 0.00 x10 N IPF (test code = IPF) 0 % N Automated [id number] 12:34:46* Test Item Value Reference Range Interpretation Comme nts Neutro Auto (test code = Arpit tro Auto) 56.4 % 36.0-70.0 Lymph Auto (test code = Lymph Auto) 36.4 % 12.0-44.0 [place] Auto (test code = [place] Auto) 5.5 % 0.0-11.0 Eos, Auto (test code = Eos, Auto) 1.2 % 0.0-7.0 Basophil Auto (test code = B asophil Auto) 0.3 % 0.0-2.0 Neutro Absolute (test code = Neutro Absolute) 5.3 x10 1.6-7.4 Lymph Absolute (test code = Lymph Absolute) 3.39 x10 .50-4.60 [place] Absolute (test code = M kaleb Absolute) .51 x10 .00-1.20 Eos Absolute (test code = Eo s Absolute) 0.11 x10 0.00-0.74 Baso Absolute (test code = B aso Absolute) 0.03 x10 0.00-0.21 IG [id number] 12:34:46* Test Item Value Reference Range Interpretation Comme nts IG (test code = IG) 0.2 % 0.0-5.0 IG Abs (test code = IG Abs) 0 x10 N"
[2024-12-16] MEDS ORDERED: FUROSEMIDE 40 MG/4 ML VIAL ONE (14:42)
[2024-12-16] MEDS ORDERED: ONDANSETRON 4 MG/2 ML VIAL ONE (14:42)
[2024-12-16] MEDS ORDERED: MORPHINE 4 MG/ML SYR ONE (14:42)
[2024-12-16 15:03] LABS: Absolute Eosinophils 0.1 K/uL (0-0.5); Absolute Lymphocytes (CBC) 1.5 K/uL (0.7-4.9); Absolute Monocytes 0.3 K/uL (0.1-1.3); Absolute Neutrophil 2.1 K/uL (1.8-8.0); Basophils % 0.9 % (0-1.3); Eosinophils % 1.6 % (0-4.4); Hematocrit 33.7 % (39.6-49.0); Hemoglobin 11.8 g/dL (13.6-17.9); Lymphocytes % 37.4 % (15.3-44.8); MCH 29.5 pg (27.0-35.0); MCV 84.2 fL (80-100); MPV 7.8 fL (7.6-11.3); Monocytes % 7.3 % (3.3-12.3); Neutrophils % 52.8 % (41.7-73.7); Nucleated Red Blood Cells % 0.1 % (0-0); Platelets 82 thou/uL (152-406); Red Cell Distribution Width 14.6 % (12.1-15.2)
[2024-12-16 15:24] LABS: Albumin 3.2 g/dL (3.4-5.0); Albumin/Globulin Ratio 1.1 (1.1-1.8); Anion Gap 5.6 mEq/L (5.0-15.0); Bilirubin Direct 0.2 mg/dL (0-0.2); Bilirubin Indirect, Calculated 0.3 mg/dL (0.2-0.8); Bilirubin Total 0.5 mg/dL (0.2-1.0); Globulin 2.9 g/dL (2.3-3.5); Magnesium 1.6 mg/dL (1.6-2.4); Potassium 3.6 mEq/L (3.5-5.1); Protein, Total 6.1 g/dL (6.4-8.2); Troponin High Sensitivity 5.8 pg/mL (<58.9)
--- NOTE | 2024-12-16 15:45 | RAD REPORT ---
EXAMINATION: US bilateral LOWER EXTREMITY VENOUS DOPPLER CLINICAL INDICATION: Leg edema TECHNIQUE: Sonographic evaluation of the veins of the lower extremity bilaterally formed.Grayscale, c olor and spectral analysis performed on all vessels COMPARISON: 2018 FINDINGS: The common femoral, superficial femoral, greater saphenous, popliteal and posterior tibial veins bila terally are compressible and demonstrate augmentation. Doppler demonstrates good flow. IMPRESSION: No evidence of deep venous thrombosis involving either lower extremity
--- NOTE | 2024-12-16 16:12 | ER ---
Nurse's Notes [facility] Name: Andres Guerin Age: 63 yrs Sex: Male : 1960 Arrival Date: 12/16/2024 Time: 13:40 Bed 15 Private MD: Diagnosis: Peripheral edema Presentation: 12/16 14:13 Chief complaint: Patient states: bilateral lower leg swelling and redness onset 1 week cm10 ago. Pt denies fevers. Coronavirus screen: Client denies travel out of the [place] in the last 14 days. Ebola Screen: Patient denies travel to an Ebola-affected area in the 21 days before illness onset. Initial Sepsis Screen: Does the patient meet any 2 criteria? No. Patient's initial sepsis screen is negative. Does the patient have a suspected source of infection? No. Patient's initial sepsis screen is negative. Risk Assessment: Do you want to hurt yourself or someone else? Patient reports no desire to harm self or others. Onset of symptoms was December 16, 2024. 14:13 Method Of Arrival: Ambulatory cm10 14:13 Acuity: MANOLO 3 cm10 Triage Assessment: 14:15 General: Appears in no apparent distress. comfortable, Behavior is calm, cooperative. cm10 Pain: Complains of pain in right leg and left leg Pain currently is 8 out of 10 on a pain scale. Quality of pain is described as throbbing. Neuro: No deficits noted. Level of Consciousness is awake, alert, obeys commands, Oriented to person, place, time, situation, Appropriate for age. Respiratory: No deficits noted. Airway is patent Respiratory effort is even, unlabored, Respiratory pattern is regular, symmetrical. 14:15 Derm: redness and swelling noted to bilateral lower legs. cm10 Historical: - Allergies: 14:14 No Known Allergies; cm10 - PMHx: 14:14 Diabetes - NIDDM; Hepatitis C; History; Hyperlipidemia; Hypertension; neuropathy cm10 (Unknown); Asthma; - PSHx: 14:14 left foot; cm10 - Immunization history:: Adult Immunizations up to date. - Infectious Disease History:: Denies. - Social history:: Smoking status: Patient reports use of chewing tobacco. - Family history:: not pertinent. Screenin:56 [facility] ED Fall Risk Assessment (Adult) History of falling in the last 3 months, bp including since admission No falls in past 3 months (0 pts) Confusion or Disorientation No (0 pts) Intoxicated or Sedated No (0 pts) Impaired Gait No (0 pts) Mobility Assist Device Used No (0 pt) Altered Elimination No (0 pt) Score/Fall Risk Level 0 - 2 = Low Risk Oriented to surroundings. Abuse screen: Denies threats or abuse. Denies injuries from another. Nutritional screening: No deficits noted. Tuberculosis screening: No symptoms or risk factors identified. Assessment: 14:15 General: Appears in no apparent distress. comfortable, Behavior is calm, cooperative, bp appropriate for age. 16:40 Reassessment: Patient appears in no apparent distress at this time. Patient is alert, bp oriented x 3, equal unlabored respirations, skin warm/dry/pink. Vital Signs: 14:13 BP 121 / 78; Pulse 77; Resp 15; Temp 98.6; Pulse Ox 97% on R/A; Weight 81.65 kg; Height cm10 5 ft. 9 in. ; Pain 8/10; 16:40 BP 140 / 80; Pulse 75; Resp 16; Pulse Ox 99% ; bp 14:13 Body Mass Index 26.58 (81.65 kg, 175.26 cm) cm10 14:13 Pain Scale: Adult cm10 ED Course: 13:44 Patient arrived in ED. im 13:56 Mika Bocanegra MD is Attending Physician. rt 14:14 Triage completed. cm10 14:15 Arm band placed on left wrist. Patient placed in an exam room, on a stretcher. cm10 14:31 Jeremiah Fernandez, RN is Primary Nurse. bp 14:56 Patient has correct armband on for positive identification. bp 14:56 Initial lab(s) drawn, by me, sent to lab. Inserted saline lock: 20 gauge in right bp antecubital area, using aseptic technique. Blood collected. Flushed with 10 mL NS. 15:26 Extrem Venous W Compression Tae US In Process Unspecified. EDMS 16:40 No provider procedures requiring assistance completed. IV discontinued, intact, bp bleeding controlled, No redness/swelling at site. Pressure dressing applied. Administered Medications: 14:56 Drug: Furosemide IVP 40 mg IVP once; give over 2 minutes Route: IVP; Site: right bp antecubital; 16:42 Follow up: Response: No adverse reaction bp 14:56 Drug: morphine IVP or IV 4 mg IVP once over 4 mins Route: IVP; Infused Over: 4 mins; bp Site: right antecubital; 16:42 Follow up: Response: No adverse reaction bp 14:56 Drug: Ondansetron IVP 4 mg IVP once; over 2 minutes Route: IVP; Site: right antecubital;bp 16:42 Follow up: Response: No adverse reaction bp Medication: 16:40 VIS not applicable for this client. bp Outcome: 16:11 Discharge ordered by . rt 16:40 Discharged to home ambulatory, with family, bp 16:40 Condition: stable 16:40 Discharge instructions given to patient, Instructed on discharge instructions, follow up and referral plans. medication usage, Demonstrated understanding of instructions, follow-up care, medications, Prescriptions given X 3, 16:42 Patient left the ED. bp Signatures: Dispatcher [employer] EDMS Jeremiah Fernandez RN RN bp Mika Bocanegra MD MD rt Oralia Barraza Clarissa RN RN cm10
--- NOTE | 2024-12-16 16:12 | EDPHYS ---
Physician Documentation [facility] Name: Andres Guerin Age: 63 yrs Sex: Male : 1960 Arrival Date: 12/16/2024 Time: 13:40 Bed 15 Private MD: ED Physician Mika Bocanegra HPI: 12/16 16:11 This 63 yrs old Male presents to ER via Ambulatory with complaints of Leg Swelling. rt 20:00 Patient presents to the ED with bilateral leg swelling for the past few days. Reports rt mild redness, denies purulent drainage. Denies shortness of breath. Denies other acute complaints, symptoms are moderate severity, no other aggravating alleviating factors.. Historical: - Allergies: 14:14 No Known Allergies; cm10 - PMHx: 14:14 Diabetes - NIDDM; Hepatitis C; History; Hyperlipidemia; Hypertension; neuropathy cm10 (Unknown); Asthma; - PSHx: 14:14 left foot; cm10 - Immunization history:: Adult Immunizations up to date. - Infectious Disease History:: Denies. - Social history:: Smoking status: Patient reports use of chewing tobacco. - Family history:: not pertinent. ROS: 20:00 Constitutional: Negative for fever, chills, and weight loss, Cardiovascular: Negative rt for chest pain, palpitations, and edema, Respiratory: Negative for shortness of breath, cough, wheezing, and pleuritic chest pain, 20:00 Skin: Negative for injury, rash, and discoloration, 20:00 MS/extremity: Positive for 20:00 MS/extremity: Positive for Swelling, pain, Exam: 20:00 Constitutional: This is a well developed, well nourished patient who is awake, alert, rt and in no acute distress. Head/Face: Normocephalic, atraumatic. Chest/axilla: Normal chest wall appearance and motion. Nontender with no deformity. No lesions are appreciated. Cardiovascular: Regular rate and rhythm with a normal S1 and S2. No gallops, murmurs, or rubs. Normal PMI, no JVD. No pulse deficits. Respiratory: Lungs have equal breath sounds bilaterally, clear to auscultation and percussion. No rales, rhonchi or wheezes noted. No increased work of breathing, no retractions or nasal flaring. Abdomen/GI: Soft, non-tender, with normal bowel sounds. No distension or tympany. No guarding or rebound. No evidence of tenderness throughout. Neuro: Awake and alert, GCS 15, oriented to person, place, time, and situation. Cranial nerves II-XII grossly intact. Motor strength 5/5 in all extremities. Sensory grossly intact. Cerebellar exam normal. Normal gait. 20:00 ECG was reviewed by the Attending Physician. 20:00 Musculoskeletal/extremity: 3+ pitting bilateral extremity edema, mild erythema to both shins, mild warmth, no purulence noted.. Vital Signs: 14:13 BP 121 / 78; Pulse 77; Resp 15; Temp 98.6; Pulse Ox 97% on R/A; Weight 81.65 kg; Height cm10 5 ft. 9 in. ; Pain 8/10; 16:40 BP 140 / 80; Pulse 75; Resp 16; Pulse Ox 99% ; bp 14:13 Body Mass Index 26.58 (81.65 kg, 175.26 cm) cm10 14:13 Pain Scale: Adult cm10 MDM: 14:22 Medical Screening Exam initiated rt 20:00 Differential Diagnosis Peripheral edema, cellulitis, DVT, heart failure, renal failure. rt Data reviewed: vital signs, nurses notes, lab test result(s), EKG, radiologic studies. Consideration of Admission/Observation Escalation of care including admission/observation considered. No signs of heart failure, no signs of sepsis, will treat empirically due to the redness for cellulitis, stable for outpatient care, precautions discussed.. I considered the following discharge prescriptions or medication management in the emergency department Medications were administered in the Emergency Department. See MAR. Care significantly affected by the following chronic conditions: Diabetes. Counseling: I had a detailed discussion with the patient and/or guardian regarding the historical points, exam findings, and any diagnostic results supporting the discharge/admit diagnosis, lab results, radiology results, the need for outpatient follow up. 12/16 14:32 Order name: Basic Metabolic Panel; Complete Time: 15:43 rt 12/16 14:32 Order name: CBC with Diff rt 12/16 14:32 Order name: LFT's; Complete Time: 15:43 rt 12/16 14:32 Order name: Magnesium; Complete Time: 15:43 rt 12/16 14:32 Order name: NT PRO-BNP; Complete Time: 15:43 rt 12/16 14:32 Order name: Troponin HS; Complete Time: 15:43 rt 12/16 14:32 Order name: Extrem Venous W Compression Tae US; Complete Time: 16:01 rt 12/16 14:32 Order name: EKG; Complete Time: 14:33 rt 12/16 14:32 Order name: Cardiac monitoring; Complete Time: 14:55 rt 12/16 14:32 Order name: EKG - Nurse/Tech; Complete Time: 14:55 rt 12/16 14:32 Order name: IV Saline Lock; Complete Time: 14:55 rt 12/16 14:32 Order name: Labs collected and sent; Complete Time: 14:55 rt 12/16 14:32 Order name: O2 Per Protocol; Complete Time: 14:55 rt 12/16 14:32 Order name: O2 Sat Monitoring; Complete Time: 14:55 rt EC:00 Rate is 76 beats/min. Rhythm is regular, Normal Sinus Rhythm with No ectopy. Left axis rt deviation noted. GA interval is normal. QRS interval is normal. QT interval is normal. No Q waves. T waves are Normal. No ST changes noted. Interpreted by me. Administered Medications: 14:56 Drug: Furosemide IVP 40 mg IVP once; give over 2 minutes Route: IVP; Site: right bp antecubital; 16:42 Follow up: Response: No adverse reaction bp 14:56 Drug: morphine IVP or IV 4 mg IVP once over 4 mins Route: IVP; Infused Over: 4 mins; bp Site: right antecubital; 16:42 Follow up: Response: No adverse reaction bp 14:56 Drug: Ondansetron IVP 4 mg IVP once; over 2 minutes Route: IVP; Site: right antecubital;bp 16:42 Follow up: Response: No adverse reaction bp Disposition Summary: 12/16/24 16:11 Discharge Ordered Notes: Location: Home rt Problem: new rt Symptoms: have improved rt Condition: Stable rt Diagnosis - Peripheral edema rt Followup: rt - With: Private Physician - When: 2 - 3 days - Reason: Discharge Instructions: - Discharge Summary Sheet rt - Edema rt Forms: - Medication Reconciliation Form rt - Antibiotic Education rt - Prescription Opioid Use rt - Patient Portal Instructions rt - Leadership Thank You Letter rt Prescriptions: - Cephalexin 500 mg Oral Capsule - take 1 capsule ORAL route every 8 hours for 10 days; 30 capsule; Refills: 0, rt Product Selection Permitted - Lasix 40 mg Oral tablet - take 1 tablet ORAL route once daily for 30 days; 7 tablet; Refills: 0, Product rt Selection Permitted - Tramadol 50 mg Oral Tablet - take 1 tablet ORAL route every 8 hours as needed; 12 tablet; Refills: 0, rt Product Selection Permitted Signatures: Dispatcher [employer] Jeremiah Alcantar, BARBI RN bp Mika Bocanegra MD MD rt Yarelis Pang RN RN cm10
[2024-12-16 16:49] VITALS: TEMP 98.6
[2024-12-16 16:50] VITALS: BP 140/80; O2SAT 99
[2024-12-16 17:14] LABS: Blood Morphology Comment NOT SEEN (NOT SEEN); Platelet Estimate DECR; White Blood Cell Scan OK (OK)
--- NOTE | 2024-12-18 10:52 | EKG ---
Test Date: 2024-12-16 Test Time: 14:56:03 [employer]: [employer] MEASUREMENT RESULTS: Intervals: Rate: 76 VT: 194 QRSD: 100 QT: 406 QTc: 456 [place]: P: 75 VT: 194 QRS: -59 T: 59 INTERPRETIVE STATEMENTS: Normal sinus rhythm Left axis deviation Abnormal ECG Compared to ECG 04/20/2024 11:23:33 Incomplete right bundle-branch block no longer present Electronically Signed On 12-18-24 10:48:25 CDT by Elan Rm
== END 2024-12-16 16:42 | disposition home or self-care (01) ==
LOC: ER 13:40
DX: R60.9 Edema, unspecified (principal); E11.9 Type 2 diabetes mellitus without complications; I10 Essential (primary) hypertension; F17.220 Nicotine dependence, chewing tobacco, uncomplicated
CPT/HCPCS: 93005; 85025; 80048; 36415; 83735; 80076; 84484; 83880; 93970; 96375; 96374; 99284; J1940; J2405; J1938

== ENCOUNTER 2025-07-01 23:27 | Emergency (ER) | payer OTHER ==
[2025-07-01] MEDS ORDERED: D50W 25 GM/50 ML SYRINGE IV ONE (23:40)
[2025-07-01] MEDS ORDERED: NA CHLORIDE 0.9% 1,000 ML ONE (23:57)
[2025-07-02 00:06] LABS: Absolute Lymphocytes (CBC) 1.0 K/uL (0.7-4.9); Hematocrit 39.7 % (39.6-49.0); Hemoglobin 13.6 g/dL (13.6-17.9); MCH 30.0 pg (27.0-35.0); MCHC 34.1 g/dL (32.0-36.0); MCV 87.8 fL (80-100); MPV 7.5 fL (7.6-11.3); Nucleated RBC Absolute Count 0.0 (0-0); Nucleated Red Blood Cells % 0.2 % (0-0); RBC Red Blood Cell Count 4.52 M/uL (4.33-5.43); White Blood Count 3.80 thou/uL (4.3-10.9)
[2025-07-02 00:24] LABS: PT Prothrombin Time 13.4 SECONDS (10-13.0); PTT, Activated Partial Thromb 33.2 SECONDS (27.2-37.4); Protime INR 1.19
[2025-07-02 00:27] LABS: Sqamous Epithelial None Seen /HPF (None Seen); Urine Culture Reflex Order NOT NEEDED; Urine Microscopic Reflex YN ORDER UMIC
[2025-07-02 00:39] LABS: ALT/SGPT 31 U/L (16-61); AST/SGOT 29 U/L (15-37); Albumin 3.7 g/dL (3.4-5.0); Albumin/Globulin Ratio 1.1 (1.1-1.8); Alkaline Phosphatase 118 U/L (45-117); Anion Gap 11.5 mEq/L (5.0-15.0); BUN Blood Urea Nitrogen 10 mg/dL (7-18); Bilirubin Indirect, Calculated 0.5 mg/dL (0.2-0.8); Globulin 3.3 g/dL (2.3-3.5); Potassium 3.5 mEq/L (3.5-5.1); Troponin High Sensitivity 5.2 pg/mL (<58.9)
[2025-07-02] MEDS ORDERED: NA CHLORIDE 0.9% 1,000 ML ONE (00:40)
[2025-07-02 00:48] LABS: Glucose Level 40 mg/dL (74-106)
[2025-07-02 01:17] LABS: METHAMPHETAM NEGATIVE (NEGATIVE); THC Cannibis NEGATIVE (NEGATIVE)
[2025-07-02] MEDS ORDERED: HYDROMORPHONE HCL 1 MG/ML INJ ONE (01:23)
[2025-07-02] MEDS ORDERED: ONDANSETRON 4 MG/2 ML VIAL ONE (01:24)
[2025-07-02] MEDS ORDERED: AMLODIPINE 10 MG TAB ONE (02:21)
--- NOTE | 2025-07-02 03:44 | ER ---
Nurse's Notes [facility] Name: Andres Guerin Age: 64 yrs Sex: Male : 1960 Arrival Date: 07/01/2025 Time: 23:26 Bed 18 Private MD: Diagnosis: Hypoglycemia, altered mental status Presentation: 07/01 23:26 Chief complaint: Patient states: My muscles have been cramping up all day from my toes vc1 up to my neck. I took my Tresiba today and haven't ate anything all day. Coronavirus screen: Client denies travel out of the [place] in the last 14 days. At this time, the client does not indicate any symptoms associated with coronavirus-19. Ebola Screen: Patient negative for fever greater than or equal to 101.5 degrees Fahrenheit, and additional compatible Ebola Virus Disease symptoms Patient denies exposure to infectious person. Patient denies travel to an Ebola-affected area in the 21 days before illness onset. No symptoms or risks identified at this time. 23:26 Method Of Arrival: EMS: [facility] vc1 23:26 Initial Sepsis Screen: Does the patient meet any 2 criteria? No. Patient's initial vc1 sepsis screen is negative. Does the patient have a suspected source of infection? No. Patient's initial sepsis screen is negative. Risk Assessment: Do you want to hurt yourself or someone else? Patient reports no desire to harm self or others. Onset of symptoms was July 01, 2025. Care prior to arrival: Medication(s) given: 5mg Versed to Right Deltoid. Activity prior to arrival: Pt was flailing around yelling don't touch me, did not allow any vitals to be taken. Mechanism of Injury: No Mechanism of Injury. Transition of care: patient was not received from another setting of care. 23:26 Acuity: MANOLO 3 vc1 Triage Assessment: 07/02 00:04 General: Appears in no apparent distress. comfortable, Behavior is calm, cooperative, vc1 appropriate for age. Pain: Complains of pain in cramps all over Quality of pain is described as crampy, Also complains of no other associated symptoms. EENT: No deficits noted. No signs and/or symptoms were reported regarding the EENT system. Neuro: Level of Consciousness is awake, alert, obeys commands, Oriented to person, place, time, situation, Appropriate for age. Cardiovascular: Capillary refill < 3 seconds Patient's skin is warm and dry. Respiratory: Airway is patent Respiratory effort is even, unlabored, Respiratory pattern is regular, symmetrical. GI: Abdomen is flat, non-distended. : No deficits noted. No signs and/or symptoms were reported regarding the genitourinary system. Derm: Skin is intact, is healthy with good turgor, Skin is dry, Skin is normal, Skin temperature is warm. Musculoskeletal: Reports pain in cramping all over. Historical: - Allergies: 07/01 23:56 No Known Allergies; vc1 - Home Meds: 23:56 amlodipine oral [Active]; pravastatin Oral [Active]; pregabalin Oral [Active]; vc1 quetiapine oral [Active]; Hydroxyzine Oral [Active]; risperidone oral [Active]; Zofran Oral [Active]; - PMHx: 23:56 Asthma; Diabetes - NIDDM; Hepatitis C; History; Hyperlipidemia; Hypertension; vc1 neuropathy (Unknown); - PSHx: 23:56 left foot; vc1 - Immunization history:: Adult Immunizations not up to date. - Infectious Disease History:: Denies. - Social history:: Smoking status: unknown. Screenin: [facility] ED Fall Risk Assessment (Adult) History of falling in the last 3 months, vc1 including since admission No falls in past 3 months (0 pts) Confusion or Disorientation No (0 pts) Intoxicated or Sedated No (0 pts) Impaired Gait No (0 pts) Mobility Assist Device Used No (0 pt) Altered Elimination No (0 pt) Score/Fall Risk Level 0 - 2 = Low Risk Oriented to surroundings, Maintained a safe environment, Educated pt \T\ family on fall prevention, incl call for assistance when getting out of bed, Provided non-skid footwear, Hourly rounding (assess needs \T\ fall precautionary measures) done. Abuse screen: Denies threats or abuse. Nutritional screening: No deficits noted. Tuberculosis screening: No symptoms or risk factors identified. Assessment: 07/02 01:00 Reassessment: Patient and/or family updated on plan of care and expected duration. Pain nh2 level reassessed. Patient is alert, oriented x 3, equal unlabored respirations, skin warm/dry/pink. reports having back pain that started this morning. MD notified. 02:00 Reassessment: Patient and/or family updated on plan of care and expected duration. Pain nh2 level reassessed. Patient is alert, oriented x 3, equal unlabored respirations, skin warm/dry/pink. Patient states feeling better. 03:00 Reassessment: Patient and/or family updated on plan of care and expected duration. Pain nh2 level reassessed. Patient is alert, oriented x 3, equal unlabored respirations, skin warm/dry/pink. Patient states feeling better. 04:05 Reassessment: Patient appears in no apparent distress at this time. No changes from vc1 previously documented assessment. Patient and/or family updated on plan of care and expected duration. Pain level reassessed. Patient is alert, oriented x 3, equal unlabored respirations, skin warm/dry/pink. Vital Signs: 07/01 23:26 BP 177 / 144; Pulse 103; Resp 14; Temp 97.9; Pulse Ox 100% ; Weight 81.65 kg; Height 5 vc1 ft. 9 in. ; 07/02 01:35 BP 193 / 110; Pulse 99; Resp 19; Pulse Ox 100% on R/A; nh2 02:16 BP 199 / 111; Pulse 98; Resp 18; Temp 97.5(O); Pulse Ox 97% on R/A; nh2 02:35 BP 175 / 98; Pulse 92; Resp 18; Pulse Ox 97% on R/A; nh2 03:09 BP 165 / 92; Pulse 97; Resp 18; Pulse Ox 100% on R/A; nh2 04:05 BP 168 / 93; Pulse 83; Resp 16; Pulse Ox 100% on R/A; vc1 07/01 23:26 Body Mass Index 26.58 (81.65 kg, 175.26 cm) vc1 02:16 BP reported to MD landaverde ED Course: 07/01 23:26 Patient arrived in ED. rv1 23:26 Patient has correct armband on for positive identification. Bed in low position. Call vc1 light in reach. Provided Education on: Plan of care. Pulse ox on. NIBP on. 23:27 Cris Mckinney MD is Attending Physician. sp3 23:50 No provider procedures requiring assistance completed. Inserted saline lock: 20 gauge nh2 in left antecubital area, using aseptic technique. Blood collected. Flushed with 10 mL NS. 23:55 Triage completed. vc1 07/02 00:02 Arm band placed on right wrist. vc1 00:04 Kishore Emanuel Jr, RN is Primary Nurse. nh2 04:24 IV discontinued, intact, bleeding controlled, No redness/swelling at site. Pressure nh2 dressing applied. Administered Medications: 07/01 23:50 Drug: D50W IVP 50 ml IVP once; (1 amp) Route: IVP; Site: left antecubital; vc1 07/02 00:27 Follow up: Response: No adverse reaction nh2 00:08 Drug: NS 0.9% IV 500 ml 500 ml IV at 1 bolus once; to be given as a bolus over 30 nh2 minutes Volume: 500 ml; Route: IV; Rate: 1 bolus; Site: left antecubital; 03:10 Follow up: IV Status: Completed infusion; IV Intake: 500ml nh2 01:45 Drug: HYDROmorphone IVP 1 mg IVP once Route: IVP; Site: left antecubital; nh2 02:15 Follow up: Response: No adverse reaction; Pain is decreased; RASS: Alert and Calm (0) nh2 01:45 Drug: Ondansetron IVP 4 mg IVP once; over 2 minutes Route: IVP; Site: left antecubital; nh2 02:15 Follow up: Response: No adverse reaction nh2 02:00 Drug: NS 0.9% IV 1500 ml IV at 1 bolus Per protocol; to be given as a bolus over 60 nh2 minutes Route: IV; Rate: 1 bolus; Site: left antecubital; 03:10 Follow up: IV Status: Completed infusion; IV Intake: 1500ml nh2 02:24 Drug: amLODIPine PO 10 mg PO once Route: PO; nh2 03:10 Follow up: Response: No adverse reaction; Blood pressure is lowered nh2 Medication: 00:03 VIS not applicable for this client. vc1 Intake: 03:10 IV: 500ml; Total: 500ml. nh2 03:10 IV: 1500ml; Total: 2000ml. nh2 Outcome: 03:44 Discharge ordered by sp3 04:23 Discharged to home ambulatory, nh2 04:23 Condition: stable 04:23 Discharge instructions given to patient, Instructed on discharge instructions, follow up and referral plans. medication usage, safety practices, Demonstrated understanding of instructions, follow-up care, medications, Prescriptions given X 1, 04:24 Patient left the ED. nh2 Signatures: Cris Mckinney MD MD sp3 Robyn Cody RN RN vc1 Nishi En[place] rv1 Kishore Emanuel Jr, RN RN nh2 Corrections: (The following items were deleted from the chart) 02:24 02:16 BP 199 / 111; Pulse 98bpm; Resp 18bpm; Pulse Ox 97% RA; Temp 97.5F Oral; nh2 nh2 03:11 03:09 BP 165 / 92; Pulse 101bpm; Resp 18bpm; Pulse Ox 100% RA; nh2 nh2
--- NOTE | 2025-07-02 03:45 | EDPHYS ---
Physician Documentation [facility] Name: Andres Guerin Age: 64 yrs Sex: Male : 1960 Arrival Date: 07/01/2025 Time: 23:26 Bed 18 Private MD: ED Physician Cris Mckinney HPI: 07/02 00:10 This 64 yrs old Male presents to ER via EMS with complaints of Abdominal Cramping - sp3 Muscle cramps all over; altered mental status. 00:10 . sp3 00:36 64-year-old male with history of diabetes, hepatitis C, hyperlipidemia, hypertension sp3 who presents to the ED chief complaint altered mental status. Patient allegedly was rolling around the floor and possibly hallucinating per family who activated EMS. EMS found patient to be altered as well. They gave midazolam IV on the way here which somewhat calm the patient down. Unknown psych history patient does have Seroquel listed as a prior medication. Family denies any significant psychiatric diagnoses. ROS, history and physical limited secondary to mental status.. Historical: - Allergies: 07/01 23:56 No Known Allergies; vc1 - Home Meds: 23:56 amlodipine oral [Active]; pravastatin Oral [Active]; pregabalin Oral [Active]; vc1 quetiapine oral [Active]; Hydroxyzine Oral [Active]; risperidone oral [Active]; Zofran Oral [Active]; - PMHx: 23:56 Asthma; Diabetes - NIDDM; Hepatitis C; History; Hyperlipidemia; Hypertension; vc1 neuropathy (Unknown); - PSHx: 23:56 left foot; vc1 - Immunization history:: Adult Immunizations not up to date. - Infectious Disease History:: Denies. - Social history:: Smoking status: unknown. ROS: 07/02 00:37 Unable to obtain ROS due to patient being uncooperative, sp3 Exam: 00:37 Head/Face: Normocephalic, atraumatic. Neck: Trachea midline, no thyromegaly or masses sp3 palpated, and no cervical lymphadenopathy. Supple, full range of motion without nuchal rigidity, or vertebral point tenderness. No Meningismus. Chest/axilla: Normal chest wall appearance and motion. Nontender with no deformity. No lesions are appreciated. Cardiovascular: Regular rate and rhythm with a normal S1 and S2. No gallops, murmurs, or rubs. Normal PMI, no JVD. No pulse deficits. Respiratory: Lungs have equal breath sounds bilaterally, clear to auscultation and percussion. No rales, rhonchi or wheezes noted. No increased work of breathing, no retractions or nasal flaring. Abdomen/GI: Soft, non-tender, with normal bowel sounds. No distension or tympany. No guarding or rebound. No evidence of tenderness throughout. Back: No spinal tenderness. No costovertebral tenderness. Full range of motion. 00:37 Constitutional: The patient appears Initially patient was confused. Blood sugar was assessed and found to be 34. Immediate D50 was given and after that patient was alert and oriented x 4 and in no acute distress with all symptoms resolved. Patient had normal physical exam after that including neurological status and function. 00:37 Unable to obtain exam due to patient being uncooperative, 00:40 ECG was reviewed by the Attending Physician. EKG demonstrates normal sinus rhythm at 95 sp3 bpm with a first-degree AV block with CA interval 210 ms, normal QRS, normal axis, nonspecific ST/T changes without evidence of acute ischemia. Vital Signs: 07/01 23:26 BP 177 / 144; Pulse 103; Resp 14; Temp 97.9; Pulse Ox 100% ; Weight 81.65 kg; Height 5 vc1 ft. 9 in. ; 07/02 01:35 BP 193 / 110; Pulse 99; Resp 19; Pulse Ox 100% on R/A; nh2 02:16 BP 199 / 111; Pulse 98; Resp 18; Temp 97.5(O); Pulse Ox 97% on R/A; nh2 02:35 BP 175 / 98; Pulse 92; Resp 18; Pulse Ox 97% on R/A; nh2 03:09 BP 165 / 92; Pulse 97; Resp 18; Pulse Ox 100% on R/A; nh2 04:05 BP 168 / 93; Pulse 83; Resp 16; Pulse Ox 100% on R/A; vc1 07/01 23:26 Body Mass Index 26.58 (81.65 kg, 175.26 cm) vc1 02:16 BP reported to MD landaverde MDM: 07/01 23:27 Medical Screening Exam initiated sp3 07/02 00:38 Data reviewed: vital signs, nurses notes, EMS record, old medical records, lab test sp3 result(s), EKG. ED course: 64-year-old male with altered mental status and hypoglycemia now resolved. Patient took his insulin but did not have significant p.o. intake leading to his medic event. All symptoms are now resolved and blood sugar is normal and patient is eating. Clinically differential diagnosis initially was electrolyte abnormality, delirium, psychiatric illness, hepatic encephalopathy, among others. All other items have been ruled out now that hypoglycemia has been addressed. Routine labs pending including ammonia. If workup negative, we will safely discharge patient home. IV fluids are also being given.. 03:43 ED course: Patient now feeling much better. Lactate down to 1.1. Will safely discharge sp3 patient home.. 07/01 23:27 Order name: Acetaminophen; Complete Time: sp3 07/01 23:27 Order name: Basic Metabolic Panel; Complete Time: sp3 07/01 23:27 Order name: CBC with Diff; Complete Time: sp3 07/01 23:27 Order name: ETOH Level; Complete Time: sp3 07/01 23:27 Order name: Hepatic Function; Complete Time: sp3 07/01 23:27 Order name: PT-INR; Complete Time: sp3 07/01 23:27 Order name: Ptt, Activated; Complete Time: sp3 07/01 23:27 Order name: Salicylate; Complete Time: sp3 07/01 23:27 Order name: Urine Drug Screen; Complete Time: sp3 07/01 23:28 Order name: Troponin High Sensitivity; Complete Time: sp3 07/01 23:28 Order name: UA Rfx Tate Cult if indicated; Complete Time: : sp3 07/01 23:46 Order name: CK; Complete Time: sp3 07/01 23:46 Order name: Lactate w/ 2H reflex if indic.; Complete Time: : sp3 07/01 23:46 Order name: AMMONIA; Complete Time: sp3 07/01 23:51 Order name: Glucose, Ancillary Testing; Complete Time: :43 EDMS 07/02 00:50 Order name: Ghost Lactate-NO COLLECT Timer; Complete Time: 02:57 EDMS 07/02 01:05 Order name: Glucose, Ancillary Testing; Complete Time: 01:43 EDMS 07/02 03:42 Order name: Lactate Sepsis 2 HR Follow-up; Complete Time: 03:43 EDMS 07/01 23:27 Order name: EKG - Nurse/Tech; Complete Time: 00:42 sp3 07/01 23:27 Order name: IV Saline Lock; Complete Time: 23:51 sp3 07/01 23:27 Order name: Labs collected and sent; Complete Time: 23:51 sp3 07/01 23:27 Order name: Suicide Screening ([place]); Complete Time: 23:51 sp3 07/01 23:46 Order name: PO challenge; Complete Time: 00:05 sp3 Administered Medications: 07/01 23:50 Drug: D50W IVP 50 ml IVP once; (1 amp) Route: IVP; Site: left antecubital; vc1 07/02 00:27 Follow up: Response: No adverse reaction nh2 00:08 Drug: NS 0.9% IV 500 ml 500 ml IV at 1 bolus once; to be given as a bolus over 30 nh2 minutes Volume: 500 ml; Route: IV; Rate: 1 bolus; Site: left antecubital; 03:10 Follow up: IV Status: Completed infusion; IV Intake: 500ml nh2 01:45 Drug: HYDROmorphone IVP 1 mg IVP once Route: IVP; Site: left antecubital; nh2 02:15 Follow up: Response: No adverse reaction; Pain is decreased; RASS: Alert and Calm (0) nh2 01:45 Drug: Ondansetron IVP 4 mg IVP once; over 2 minutes Route: IVP; Site: left antecubital; nh2 02:15 Follow up: Response: No adverse reaction nh2 02:00 Drug: NS 0.9% IV 1500 ml IV at 1 bolus Per protocol; to be given as a bolus over 60 nh2 minutes Route: IV; Rate: 1 bolus; Site: left antecubital; 03:10 Follow up: IV Status: Completed infusion; IV Intake: 1500ml nh2 02:24 Drug: amLODIPine PO 10 mg PO once Route: PO; nh2 03:10 Follow up: Response: No adverse reaction; Blood pressure is lowered nh2 Disposition Summary: 07/02/25 03:44 Discharge Ordered Notes: Location: Home sp3 Condition: Stable sp3 Diagnosis - Hypoglycemia, altered mental status sp3 Followup: sp3 - With: Private Physician - When: Upon discharge from the Emergency Department - Reason: Continuance of care Discharge Instructions: - Discharge Summary Sheet sp3 Forms: - Medication Reconciliation Form sp3 - Antibiotic Education sp3 - Prescription Opioid Use sp3 - Patient Portal Instructions sp3 - Leadership Thank You Letter sp3 Prescriptions: - Cyclobenzaprine 10 mg Oral Tablet - take 1 tablet ORAL route every 8 hours As needed; 30 tablet; Refills: 0, sp3 Product Selection Permitted Signatures: Dispatcher [employer] EDMS Cris Mckinney MD MD sp3 Robyn Cody RN RN vc1 Kishore Emanuel Jr RN RN nh2 Corrections: (The following items were deleted from the chart) 07/01 23:28 23:28 Troponin High Sensitivity+C.LAB.BRZ ordered. EDMS EDMS 23:28 23:28 UA Rfx Tate Cult if indicated+U.LAB.BRZ ordered. EDMS EDMS
[2025-07-02 04:48] VITALS: TEMP 97.5
[2025-07-02 04:50] VITALS: O2SAT 100
[2025-07-02 04:52] VITALS: BP 168/93
== END 2025-07-02 04:24 | disposition home or self-care (01) ==
LOC: ER 23:27
DX: R41.82 Altered mental status, unspecified (principal); E16.2 Hypoglycemia, unspecified; E11.9 Type 2 diabetes mellitus without complications; E78.5 Hyperlipidemia, unspecified; I10 Essential (primary) hypertension; R25.2 Cramp and spasm; J45.909 Unspecified asthma, uncomplicated; B19.20 Unspecified viral hepatitis C without hepatic coma
CPT/HCPCS: 96361; 93005; 85025; 81001; 80048; 36415 ×2; 82140; 82550; 85610; 82947 ×2; 80076; 83605 ×2; 85730; 84484; 80307; 96375; 96374; 99285; 80143; 80179; 82077; J1171; J2405; J7030 ×2